=== PATIENT | male | born 1960 | race Caucasian/White ===

== ENCOUNTER 2017-10-18 14:33 | Emergency (ER) | payer MEDICARE, MEDICAID ==
[~2017-10-18] VITALS: Ht 152.4 cm; Wt 63.5 kg
[~2017-10-18 14:33] MED LIST: DIPH25TA31 PO; GEMF600T3 PO; LEVE500T99 PO; LEVO25TA5 PO; LORA-404 PO; LORA-407 PO; LORA10TA7 PO; MULT-11 PO; MULT-608 PO; NF-ESOM40C PO; RISP1TAB94 PO; SCR1T1 PO; SIME125T9 PO; SIME80TA16 PO; SIMV20TA3 PO; SUCR1TAB PO; TRAZ100T92 PO; [UNRECOGNIZED DRUG - CODE] TP; [UNRECOGNIZED DRUG - OTHER] TOP
--- OUTSIDE RECORDS SUMMARY | 2017-10-18 14:39 | XMS REPORT ---
Author Author EDWAR MERRILL Organization [employer] Address Unknown Phone Unavailable Care Team Providers Care Cigarette Inspector Name Role Phone EDWAR MERRILL CP Unavailable Allergies No Known Allergies Problems Problem Type Condition Code Onset Dates Condition Status Problem Equinus deformity of foot M21.6X9 Active Problem Down syndrome Q90.9 Active Problem Acquired hypothyroidism E03.9 Active Problem SunDown syndrome F05 Active Problem Insomnia, unspecified type G47.00 Active Problem Hypothyroidism (acquired) E03.9 Active Problem Excessive daytime sleepiness G47.19 Active Problem Hypoxia R09.02 Active Problem Hypersomnolence G47.10 Active Problem Left-sided weakness M62.81 Active Problem Fracture of humeral head, right, closed S42.291A Active Problem Severe mental retardation F72 Active Problem Dislocation of right hip S73.004A Active Problem Hyperlipidemia, unspecified hyperlipidemia E78.5 Active Problem Fat embolus T79.1XXA Active Problem Iron deficiency anemia, unspecified iron deficiency anemia type D50.9 Active Medications No Known Medications Results No Known Results Summary Purpose eClinicalWorks Submission
--- OUTSIDE RECORDS SUMMARY | 2017-10-18 14:40 | XMS REPORT ---
Author Author SHAUN ARELLANO [facility] eClinicalWorks Address Unknown Phone Unavailable Care Team Providers Care Supervisor Tower Name Role Phone SHAUN ARELLANO CP Unavailable Allergies, Adverse Reactions, Alerts Substance Reaction Event Type Naproxen Info Not Available Drug Allergy Benadryl hyperactivity Drug Allergy Problems Problem Type Condition Code Onset Dates Condition Status Problem Equinus deformity of foot M21.6X9 Active Problem Down syndrome Q90.9 Active Problem Acquired hypothyroidism E03.9 Active Problem SunDown syndrome F05 Active Problem Insomnia, unspecified type G47.00 Active Problem Hypothyroidism (acquired) E03.9 Active Problem Excessive daytime sleepiness G47.19 Active Problem Hypoxia R09.02 Active Problem Hypersomnolence G47.10 Active Problem Left-sided weakness M62.81 Active Assessment Suspected urinary tract infection N39.0 Active Problem Fracture of humeral head, right, closed S42.291A Active Problem Severe mental retardation F72 Active Problem Dislocation of right hip S73.004A Active Problem Hyperlipidemia, unspecified hyperlipidemia E78.5 Active Problem Fat embolus T79.1XXA Active Problem Iron deficiency anemia, unspecified iron deficiency anemia type D50.9 Active Medications Medication Code System Code Instructions Start Date End Date Status Dosage Sucralfate [facility] [address]-39 1 GM Orally 3 times a day 1 tablet 1 hour before meals tylenol [facility] 0 1000 MG Orally 2 times a day 1 tablet as needed Keppra [facility] [address]-67 500 MG Orally 2 times a day 1 tablet Wheelchair [facility] 34467-[address]67 - with foot rests and cushion Aug 26, 2016 as directed Bactrim DS [facility] [address]-70 800-160 MG Orally Twice a day Sep 18, 2016 Sep 21, 2016 1 tablet Risperidone [facility] [address]-65 1 MG Orally Once a day 1 tablet Levothyroxine Sodium [facility] [address]-50 25 MCG Orally Once a day Sep 11, 2016 1 tablet on an empty stomach in the morning Lamisil [facility] [address]-06 250 MG Orally Once a day Aug 26, 2016 Nov 24, 2016 1 tablet Wheelchair [facility] 0 Manual as needed for movement as he is unable to walk as directed Mytab Gas [facility] [address]-44 80 MG Orally Four times a day 1 tablet after meals and at bedtime as needed Ambien [facility] [address]-05 10 mg Orally Once a day Sep 14, 2016 1 tablet at bedtime Eucerin [facility] [address]-29 ... Externally (topical) Once a day 1 application at bathtime for Chronic Dermatitis Loratadine [facility] [address]-39 10 mg Orally Once a day 1 tablet Procedures Procedure Coding System Code Date Office Visit, Est Pt., Level 3 CPT-4 96256 Sep 18, 2016 [facility] VISIT ESTABLISHED PATIENT CPT-4 G0467 Sep 18, 2016 Vital Signs Date/Time: Sep 18, 2016 Cardiac Monitoring Heart Rate 76 bpm Weight 168 lbs Height 62 in BMI 30.72 Index Blood Pressure Diastolic 68 mmHg Blood Pressure Systolic 104 mmHg Results No Known Results Summary Purpose eClinicalWorks Submission
--- OUTSIDE RECORDS SUMMARY | 2017-10-18 14:40 | XMS REPORT ---
Author Author EDWAR MERRILL [facility] eClinicalWorks Address Unknown Phone Unavailable Care Team Providers Care Pattern Stamper Name Role Phone EDWAR MERRILL CP Unavailable Allergies, Adverse Reactions, Alerts Substance Reaction Event Type Naproxen Info Not Available Drug Allergy Problems Problem Type Condition Code Onset Dates Condition Status Problem Hyperlipidemia, unspecified hyperlipidemia E78.5 Active Problem Equinus deformity of foot M21.6X9 Active Problem Iron deficiency anemia, unspecified iron deficiency anemia type D50.9 Active Problem Hypersomnolence G47.10 Active Problem Left-sided weakness M62.81 Active Problem Insomnia, unspecified type G47.00 Active Problem Down syndrome Q90.9 Active Problem Acquired hypothyroidism E03.9 Active Problem Excessive daytime sleepiness G47.19 Active Problem Hypoxia R09.02 Active Assessment Acquired hypothyroidism E03.9 Active Assessment Onychomycosis B35.1 Active Assessment Other displaced fracture of upper end of right humerus, initial encounter for closed fracture S42.291A Active Assessment Iron deficiency anemia, unspecified iron deficiency anemia type D50.9 Active Problem Dislocation of right hip S73.004A Active Problem Fat embolus T79.1XXA Active Assessment Encounter for immunization Z23 Active Problem Fracture of humeral head, right, closed S42.291A Active Assessment Status post stroke Z86.73 Active Problem Severe mental retardation F72 Active Medications Medication Code System Code Instructions Start Date End Date Status Dosage Trazodone HCl [facility] [address]-82 50 mg Orally Once a day Aug 21, 2016 1 - 2 tablets at bedtime as needed Eucerin [facility] [address]-04 ... Externally (topical) Once a day 1 application at bathtime for Chronic Dermatitis Keppra [facility] [address]-03 500 MG Orally 2 times a day 1 tablet Mytab Gas [facility] [address]-49 80 MG Orally Four times a day 1 tablet after meals and at bedtime as needed Lamisil [facility] [address]-23 250 MG Orally Once a day Aug 26, 2016 Nov 24, 2016 1 tablet Sucralfate [facility] [address]-64 1 GM Orally 3 times a day 1 tablet 1 hour before meals Wheelchair NDC 0 Manual as needed for movement as he is unable to walk as directed tylenol NDC 0 500 Oral bedtime 1 tab Loratadine [facility] [address]-78 10 mg Orally Once a day 1 tablet Wheelchair [facility] 79617-85512 - with foot rests and cushion Aug 26, 2016 as directed Procedures Procedure Coding System Code Date [facility] VISIT ESTABLISHED PATIENT CPT-4 G0467 Aug 26, 2016 Office Visit, Est Pt., Level 3 CPT-4 38800 Aug 26, 2016 [facility] NOBLL Aug 26, 2016 VENIPUNCT, ROUTINE* CPT-4 67130 Aug 26, 2016 FLUARIX QUAD P-FREE 3 AND UP .50 2015 CPT-4 12805 Aug 26, 2016 PPV23 (PNEUMOVAX) CPT-4 07958 Aug 26, 2016 IMMUNIZATION ADMIN, EACH ADD (please include units) CPT-4 82997 Aug 26, 2016 SINGLE IMMUNIZATION ADMIN CPT-4 60227 Aug 26, 2016 Vital Signs Date/Time: Aug 26, 2016 Cardiac Monitoring Heart Rate 76 bpm Weight 140 lbs Height 62 in BMI 25.60 Index Blood Pressure Diastolic 70 mmHg Blood Pressure Systolic 120 mmHg Results Name Result Date Reference Range Unit Abnormality Flag ROUTINE VENIPUNCTURE Immunizations Vaccine Administration Date PPV23 (PNEUMOVAX) Aug 26, 2016 FLUARIX QUAD P-FREE 3 AND UP .50 2015Aug 26, 2016 Summary Purpose eClinicalWorks Submission
--- OUTSIDE RECORDS SUMMARY | 2017-10-18 14:44 | XMS REPORT ---
Author Author EDWAR MERRILL Organization eClinicalWorks Address Unknown Phone Unavailable Care Team Providers Care Pediatric Clinical Dietician Name Role Phone EDWAR MERRILL CP Unavailable [...] G47.19 Active Problem Hypoxia R09.02 Active Problem Dislocation of right hip S73.004A Active Problem Fat embolus T79.1XXA Active Problem Fracture of humeral head, right, closed S42.291A Active Assessment Insomnia, unspecified type G47.00 Active Problem Severe mental retardation F72 Active Medications Medication Code System Code Instructions Start Date End Date Status Dosage Trazodone HCl [facility][NOTE 3] [address]-52 100 MG Orally Once a day Aug 21, 2016 1 tablet at bedtime Results No Known Results Summary Purpose eClinicalWorks Submission
--- OUTSIDE RECORDS SUMMARY | 2017-10-18 14:45 | XMS REPORT ---
Author Author EDWAR MERRILL Organization [employer]Works Address Unknown Phone Unavailable Care Team Providers Care Bread Baker Name Role Phone EDWAR MERRILL CP Unavailable Allergies No Known Allergies Problems Problem Type Condition Code Onset Dates Condition Status Problem Severe mental retardation F72 Active Problem Iron deficiency anemia, unspecified iron deficiency anemia type D50.9 Active Problem Hyperlipidemia, unspecified hyperlipidemia E78.5 Active Problem Left-sided weakness M62.81 Active Problem Excessive daytime sleepiness G47.19 Active Problem Hypersomnolence G47.10 Active Problem Acquired hypothyroidism E03.9 Active Problem Equinus deformity of foot M21.6X9 Active Problem Hypoxia R09.02 Active Problem Down syndrome Q90.9 Active Assessment Hospice care Z51.5 Active Problem Dislocation of right hip S73.004A Active Problem Fat embolus T79.1XXA Active Problem Fracture of humeral head, right, closed S42.291A Active Medications Medication Code System Code Instructions Start Date End Date Status Dosage Mytab Gas [facility] [address]-44 80 MG TAKE ONE TABLET ORALLY FOUR TIMES DAILY FOR GAS Loratadine [facility] [address]-34 10 mg TAKE 1 TABLET ORALLY DAILY Nexium [facility] [address]-81 40 mg March 19, 2016 1 capsule by Oral route 1 time per day Sucralfate [facility] [address]-84 1 GM TAKE 1 TABLET ORALLY THREE TIMES A DAY Results No Known Results Summary Purpose eClinicalWorks Submission
--- OUTSIDE RECORDS SUMMARY | 2017-10-18 14:45 | XMS REPORT ---
Author Author EDWAR MERRILL Organization [facility] Address [address] [place] [address] Care Team Providers Care Fruit Cutter Name Role Phone EDWAR MERRILL Unavailable PROBLEMS Type Condition ICD9-CM Code RTT25-EM Code Onset Dates Condition Status SNOMED Code Problem Iron deficiency anemia, unspecified iron deficiency anemia type D50.9 Active 29192117 Problem Acquired hypothyroidism E03.9 Active 981995970 Problem Equinus deformity of foot M21.6X9 Active 145216683 Problem Insomnia, unspecified type G47.00 Active 202185411 Problem Hypersomnolence G47.10 Active 44093208 Problem Hypoxia R09.02 Active 423479151 Problem Down syndrome Q90.9 Active 33578047 Problem Left-sided weakness M62.81 Active 13869953 Problem Excessive daytime sleepiness G47.19 Active 818159875019 Problem Fat embolus T79.1XXA Active 480324036 Problem Fracture of humeral head, right, closed S42.291A Active 783148787 Assessment Hip pain M25.559 27 Jul, 2016 Active 07004600 Problem Severe mental retardation F72 Active 18420656 Problem Dislocation of right hip S73.004A Active 817077610 Problem Hyperlipidemia, unspecified hyperlipidemia E78.5 Active 25001625 ALLERGIES Unknown Allergies SOCIAL HISTORY No smoking Hx information available PLAN OF CARE VITAL SIGNS MEDICATIONS Unknown Medications RESULTS Name Result Date Reference Range Xray : Hip, Right 2 views (IN HOUSE) 2016-08-25 PROCEDURES Procedure Date Ordered Related Diagnosis Body Site X-RAY EXAM HIP UNI 2-3 VIEWS Aug 25, 2016 IMMUNIZATIONS No Known Immunizations
--- OUTSIDE RECORDS SUMMARY | 2017-10-18 14:45 | XMS REPORT ---
Author Author IMANI PALMA Organization [facility] Address [address] [place] [address] Care Team Providers Care Incident Engineer Name Role Phone IMANI PALMA Unavailable PROBLEMS Type Condition ICD9-CM Code [id number] Code Onset Dates Condition Status SNOMED Code Problem Hyperlipidemia, unspecified hyperlipidemia E78.5 Active 63460081 Problem Hypoxia R09.02 Active 746305977 Problem Severe mental retardation F72 Active 76580019 Problem SunDown syndrome F05 Active 513572743 Problem Insomnia, unspecified type G47.00 Active 032384369 Problem Left-sided weakness M62.81 Active 83070725 Problem Down syndrome Q90.9 Active 28443756 Problem Hypersomnolence G47.10 Active 08197505 Problem Excessive daytime sleepiness G47.19 Active 612672017712 Problem Fracture of humeral head, right, closed S42.291A Active 066803283 Problem Acquired hypothyroidism E03.9 Active 400875424 Problem Dislocation of right hip S73.004A Active 829401354 Problem Equinus deformity of foot M21.6X9 Active 024509701 Problem Fat embolus T79.1XXA Active 010351564 Problem Iron deficiency anemia, unspecified iron deficiency anemia type D50.9 Active 62215293 ALLERGIES Substance Reaction Event Type Date Status Naproxen Unknown Drug Allergy Nov, Active Benadryl hyperactivity Drug Allergy Nov, Active SOCIAL HISTORY No smoking Hx information available PLAN OF CARE Activity Details Follow Up prn Reason: VITAL SIGNS Height 62 in 2016-12-28 Temperature 97.0 degrees Fahrenheit 2016-12-28 Heart Rate 76 bpm 2016-12-28 Respiratory Rate 20 2016-12-28 Blood pressure systolic 96 mmHg 2016-12-28 Blood pressure diastolic 60 mmHg 2016-12-28 MEDICATIONS Medication Instructions Dosage Frequency Start Date End Date Duration Status Mytab Gas 80 MG CHEW 1 TABLET ORALLY FOUR TIMES DAILY AFTER MEALS AND AT BEDTIME 31 Active tylenol 1000 MG Orally 2 times a day 1 tablet as needed 12h 31 days Active Levetiracetam 500 MG Orally every 12 hrs 12h Active Sucralfate 1 GM Orally 3 times a day 1 tablet 1 hour before meals 8h 31 Active Eucerin ... Externally (topical) Once a day 1 application at bathtime for Chronic Dermatitis 24h Active Doxepin HCl 50 mg Orally Once a day 1 capsule at bedtime 24h 08 Oct, 2016 31 days Active Keppra 750 MG Orally 2 times a day 1 tablet 12h Active Bactrim DS 800-160 MG Orally Twice a day 1 tablet 12h 30 Nov, 2016 9 Dec, 2016 10 day(s) Active Wheelchair - as directed Jul, Active Wheelchair Manual as directed Active Levothyroxine Sodium 50 MCG Orally Once a day 1 tablet on an empty stomach in the morning 24h Aug, 31 days Active Simethicone 80 MG Orally Four times a day 1 tablet after meals and at bedtime as needed 6h Active Loratadine 10 mg Orally Once a day 1 tablet 24h 31 Active Aspirin Adult Low Strength 81 MG Orally Once a day 1 tablet 24h 25 Oct, 2016 Active RESULTS No Results PROCEDURES Procedure Date Ordered Related Diagnosis Body Site [facility] VISIT ESTABLISHED PATIENT Dec 28, 2016 Office Visit, Est Pt., Level 3 Dec 28, 2016 IMMUNIZATIONS No Known Immunizations
--- OUTSIDE RECORDS SUMMARY | 2017-10-18 14:45 | XMS REPORT ---
Author MAXIMUS David [facility] eClinicalWorks Address Unknown Phone Unavailable Care Team Providers Care Incendiary Powder Mixer Name Role Phone MAXIMUS HEAD CP Unavailable Allergies, Adverse Reactions, Alerts Substance Reaction Event Type Naproxen Info Not Available Drug Allergy Problems Problem Type Condition Code Onset Dates Condition Status Assessment Acute upper respiratory infection, unspecified J06.9 Active Problem Unspecified iron deficiency anemia 280.9 Active Problem Routine general medical examination at health care facility V70.0 Active Assessment Down syndrome Q90.9 Active Assessment Other viral agents as the cause of diseases classified elsewhere B97.89 Active Problem Dermatophytosis of foot 110.4 Active Problem Allergy, unspecified not elsewhere classified 995.3 Active Problem Hyperlipidemia 272.4 Active Problem Special screening for malignant neoplasms, colon V76.51 Active Problem Special screening for malignant neoplasm of prostate V76.44 Active Problem Unspecified hypothyroidism 244.9 Active Problem Equinus deformity of foot, acquired 736.72 Active Medications Medication Code System Code Instructions Start Date End Date Status Dosage Eucerin [facility] [address] Externally (topical) Once a day 1 application Simethicone [facility] [address]-31 80 MG Orally Four times a day 1 tablet after meals and at bedtime as needed Multivitamins [facility] 57568-88471 Orally Once a day 1 tablet Multi-Vitamins [facility] 79782209382 1 tablet by Oral route 1 time per day Sucralfate [facility] [address]-94 1 GM Orally 3 times a day 1 tablet on an empty stomach Loratadine [facility] [address]-13 10 MG Orally Once a day 1 tablet Lamisil [facility] 62548223650 250 MG Orally Once a day 1 tablet Nexium [facility] 53486166642 40 MG 1 capsule by Oral route 1 time per day Simvastatin [facility] [address]-55 20 MG Orally Once a day 1 tablet in the evening Levothyroxine Sodium [facility] [address]-96 25 MCG Orally Once a day 1 tablet Gemfibrozil [facility] [address]-79 600 MG Orally Twice a day 1 tablet Procedures Procedure Coding System Code Date Office Visit, Est Pt., Level 3 CPT-4 54600 Oct 07, 2015 [facility] VISIT ESTABLISHED PATIENT CPT-4 G0467 Oct 07, 2015 Vital Signs Date/Time: Oct 07, 2015 Temperature 97.7 F Weight 154.9 lbs Height 62 in BMI 28.33 Index Blood Pressure Diastolic 88 mmHg Blood Pressure Systolic 128 mmHg Cardiac Monitoring Heart Rate 84 bpm Results No Known Results Summary Purpose eClinicalWorks Submission
--- OUTSIDE RECORDS SUMMARY | 2017-10-18 14:45 | XMS REPORT ---
Author Author EDWAR MERRILL [facility] eClinicalWorks Address Unknown Phone Unavailable Care Team Providers Care Paver Installer Name Role Phone EDWAR MERRILL CP Unavailable [...] Active Problem Left-sided weakness M62.81 Active Assessment Insomnia, unspecified type G47.00 Active Problem Fracture of humeral head, right, closed S42.291A Active Problem Severe mental retardation F72 Active Problem Dislocation of right hip S73.004A Active Problem Hyperlipidemia, unspecified hyperlipidemia E78.5 Active Problem Fat embolus T79.1XXA Active Problem Iron deficiency anemia, unspecified iron deficiency anemia type D50.9 Active Medications Medication Code System Code Instructions Start Date End Date Status Dosage tylenol NDC 0 1000 MG Orally 2 times a day 1 tablet as needed Wheelchair [facility] 88[address]341 - with foot rests and cushion Aug 26, 2016 as directed Ambien [facility] [address]-28 10 mg Orally Once a day Sep 14, 2016 1 tablet at bedtime Mytab Gas [facility] [address]-67 80 MG Orally Four times a day 1 tablet after meals and at bedtime as needed Lamisil [facility] [address]-20 250 MG Orally Once a day Aug 26, 2016 Nov 24, 2016 1 tablet Wheelchair NDC 0 Manual as needed for movement as he is unable to walk as directed Levothyroxine Sodium [facility] [address]-49 25 MCG Orally Once a day Sep 11, 2016 1 tablet on an empty stomach in the morning Risperidone [facility] [address]-99 1 MG Orally Once a day 1 tablet Eucerin [facility] [address]-32 ... Externally (topical) Once a day 1 application at bathtime for Chronic Dermatitis Sucralfate [facility] [address]-78 1 GM Orally 3 times a day 1 tablet 1 hour before meals Loratadine [facility] [address]-62 10 mg Orally Once a day 1 tablet Keppra [facility] [address]-32 500 MG Orally 2 times a day 1 tablet Results No Known Results Summary Purpose eClinicalWorks Submission
--- OUTSIDE RECORDS SUMMARY | 2017-10-18 14:45 | XMS REPORT ---
Author Author EDWAR MERRILL [facility] eClinicalWorks Address Unknown Phone Unavailable Care Team Providers Care Lgsw Name Role Phone EDWAR MERRILL CP Unavailable [...] R09.02 Active Problem Down syndrome Q90.9 Active Problem Dislocation of right hip S73.004A Active Problem Fat embolus T79.1XXA Active Problem Fracture of humeral head, right, closed S42.291A Active Medications No Known Medications Results No Known Results Summary Purpose eClinicalWorks Submission
--- OUTSIDE RECORDS SUMMARY | 2017-10-18 14:45 | XMS REPORT ---
Author Author EDWAR MERRILL Organization [employer] Address Unknown Phone Unavailable Care Team Providers Care Shredded Filler Machine Wrapper Layer Name Role Phone EDWAR MERRILL CP Unavailable Allergies No Known Allergies Problems Problem Type Condition ICD-9 Code Onset Dates Condition Status Problem Unspecified iron deficiency anemia 280.9 Active Problem Routine general medical examination at health care facility V70.0 Active Problem Dermatophytosis of foot 110.4 Active Problem Allergy, unspecified not elsewhere classified 995.3 Active Problem Hyperlipidemia 272.4 Active Problem Special screening for malignant neoplasms, colon V76.51 Active Problem Special screening for malignant neoplasm of prostate V76.44 Active Problem Unspecified hypothyroidism 244.9 Active Problem Equinus deformity of foot, acquired 736.72 Active Medications No Known Medications Vital Signs Date/Time: Aug 06, 2015 BMI 28.16 Index Weight 154 lbs Height 62 in Results No Known Results Summary Purpose eClinicalWorks Submission
--- OUTSIDE RECORDS SUMMARY | 2017-10-18 14:45 | XMS REPORT ---
Author Author EDWAR MERRILL Organization [employer] Address Unknown Phone Unavailable Care Team Providers Care Icer Machine Operator Name Role Phone EDWAR MERRILL CP Unavailable [...] Problem Severe mental retardation F72 Active Medications No Known Medications Results No Known Results Summary Purpose eClinicalWorks Submission
--- OUTSIDE RECORDS SUMMARY | 2017-10-18 14:47 | XMS REPORT ---
Author Author ERMA JIMENEZ Organization [employer]Works Address Unknown Phone Unavailable Care Team Providers Care Bank Cashier Name Role Phone ERMA JIMENEZ CP Unavailable Allergies No Known Allergies Problems [...] Instructions Start Date End Date Status Dosage Nystatin [facility] [address]-46 [id number] UNIT/ML Mouth/Throat March 23, 2016 as directed Results No Known Results Summary Purpose eClinicalWorks Submission
--- OUTSIDE RECORDS SUMMARY | 2017-10-18 14:47 | XMS REPORT ---
Author Author EDWAR MERRILL [facility] eClinicalWorks Address Unknown Phone Unavailable Care Team Providers Care Hand Printed Circuit Board Assembler Name Role Phone EDWAR MERRILL CP Unavailable [...] Active Problem Left-sided weakness M62.81 Active Assessment Unspecified subluxation of right hip, initial encounter S73.001A Active Assessment SunDown syndrome F05 Active Problem Fracture of humeral head, right, closed S42.291A Active Problem Severe mental retardation F72 Active Problem Dislocation of right hip S73.004A Active Problem Hyperlipidemia, unspecified hyperlipidemia E78.5 Active Problem Fat embolus T79.1XXA Active Problem Iron deficiency anemia, unspecified iron deficiency anemia type D50.9 Active Medications Medication Code System Code Instructions Start Date End Date Status Dosage tylenol ND 0 1000 MG Orally 2 times a day 1 tablet as needed Levothyroxine Sodium [facility] [address]-38 25 MCG Orally Once a day Sep 11, 2016 1 tablet on an empty stomach in the morning Sucralfate [facility] [address]-76 1 GM Orally 3 times a day 1 tablet 1 hour before meals Ambien [facility] [address]-40 10 mg Orally Once a day Sep 14, 2016 1 tablet at bedtime as needed Mytab Gas [facility] [address]-60 80 MG Orally Four times a day 1 tablet after meals and at bedtime as needed Wheelchair [facility] [address] - with foot rests and cushion Aug 26, 2016 as directed Eucerin [facility] [address]-08 ... Externally (topical) Once a day 1 application at bathtime for Chronic Dermatitis Loratadine [facility] [address]-73 10 mg Orally Once a day 1 tablet Wheelchair ND 0 Manual as needed for movement as he is unable to walk as directed Lamisil [facility] [address]-37 250 MG Orally Once a day Aug 26, 2016 Nov 24, 2016 1 tablet Keppra [facility] [address]-28 500 MG Orally 2 times a day 1 tablet Risperidone [facility] [address]-61 1 MG Orally Once a day 1 tablet Procedures Procedure Coding System Code Date Office Visit, Est Pt., Level 3 CPT-4 35481 Sep 14, 2016 [facility] VISIT ESTABLISHED PATIENT CPT-4 G0467 Sep 14, 2016 Vital Signs Date/Time: Sep 14, 2016 Cardiac Monitoring Heart Rate 80 bpm Weight 168 lbs Height 62 in BMI 30.72 Index Blood Pressure Diastolic 68 mmHg Blood Pressure Systolic 110 mmHg Results No Known Results Summary Purpose eClinicalWorks Submission
--- OUTSIDE RECORDS SUMMARY | 2017-10-18 14:47 | XMS REPORT ---
Author Author EDWAR MERRILL [facility] Address [address] [place] [address] Care Team Providers Care Railroad Construction Director Name Role Phone EDWAR MERRILL Unavailable PROBLEMS Type Condition ICD9-CM Code [id number] Code Onset Dates Condition Status SNOMED Code Problem Hyperlipidemia, unspecified hyperlipidemia E78.5 Active 15694757 Problem Equinus deformity of foot M21.6X9 Active 128477171 Problem Iron deficiency anemia, unspecified iron deficiency anemia type D50.9 Active 89658493 Problem Dislocation of right hip S73.004A Active 670799044 Problem Fat embolus T79.1XXA Active 345429065 Problem Fracture of humeral head, right, closed S42.291A Active 758173895 Problem Severe mental retardation F72 Active 55109457 Problem Hypersomnolence G47.10 Active 06807779 Problem Left-sided weakness M62.81 Active 65048050 Problem Down syndrome Q90.9 Active 81459140 Problem Acquired hypothyroidism E03.9 Active 386665456 Problem Excessive daytime sleepiness G47.19 Active 488031173762 Problem Hypoxia R09.02 Active 714046224 ALLERGIES Unknown Allergies SOCIAL HISTORY No smoking Hx information available PLAN OF CARE VITAL SIGNS MEDICATIONS Unknown Medications RESULTS No Results PROCEDURES No Known procedures IMMUNIZATIONS No Known Immunizations
--- OUTSIDE RECORDS SUMMARY | 2017-10-18 14:47 | XMS REPORT ---
Author Author EDWAR MERRILL [facility] Address [address] [place] [address] Care Team Providers Care Payroll Processor Name Role Phone EDWAR MERRILL Unavailable PROBLEMS Type Condition ICD9-CM Code YPN70-GE Code Onset Dates Condition Status SNOMED Code Problem Equinus deformity of foot M21.6X9 Active 518358803 Problem Down syndrome Q90.9 Active 71273836 Problem Acquired hypothyroidism E03.9 Active 334433018 Problem SunDown syndrome F05 Active 945778985 Problem Insomnia, unspecified type G47.00 Active 012515710 Problem Excessive daytime sleepiness G47.19 Active 891895685358 Problem Hypoxia R09.02 Active 955312964 Problem Hypersomnolence G47.10 Active 53080188 Problem Left-sided weakness M62.81 Active 57038650 Problem Fracture of humeral head, right, closed S42.291A Active 167922142 Problem Severe mental retardation F72 Active 33052479 Problem Dislocation of right hip S73.004A Active 353097004 Problem Hyperlipidemia, unspecified hyperlipidemia E78.5 Active 01552677 Problem Fat embolus T79.1XXA Active 665932178 Problem Iron deficiency anemia, unspecified iron deficiency anemia type D50.9 Active 02381549 ALLERGIES Unknown Allergies SOCIAL HISTORY No smoking Hx information available PLAN OF CARE VITAL SIGNS MEDICATIONS Medication Instructions Dosage Frequency Start Date End Date Duration Status Doxepin HCl 50 mg Orally Once a day 1 capsule at bedtime 24h Oct, 31 days Active RESULTS No Results PROCEDURES No Known procedures IMMUNIZATIONS No Known Immunizations
--- OUTSIDE RECORDS SUMMARY | 2017-10-18 14:47 | XMS REPORT ---
Author Author EDWAR MERRILL [facility] Address [address] [place] [address] Care Team Providers Care Pack Press Operator Name Role Phone EDWAR MERRILL Unavailable PROBLEMS Type Condition ICD9-CM Code RXY27-OI Code Onset Dates Condition Status SNOMED Code Problem Acquired hypothyroidism E03.9 Active 638962913 Problem Hypoxia R09.02 Active 960060384 Problem Down syndrome Q90.9 Active 93791132 Problem Hypothyroidism (acquired) E03.9 Active 429218889 Problem SunDown syndrome F05 Active 337006575 Problem Left-sided weakness M62.81 Active 74458321 Problem Excessive daytime sleepiness G47.19 Active 093470564271 Problem Insomnia, unspecified type G47.00 Active 819159027 Problem Hypersomnolence G47.10 Active 81886311 Problem Dislocation of right hip S73.004A Active 160522597 Problem Severe mental retardation F72 Active 12770445 Problem Hyperlipidemia, unspecified hyperlipidemia E78.5 Active 01330351 Problem Fat embolus T79.1XXA Active 911326334 Problem Iron deficiency anemia, unspecified iron deficiency anemia type D50.9 Active 54712040 Problem Fracture of humeral head, right, closed S42.291A Active 198853545 Problem Equinus deformity of foot M21.6X9 Active 415837041 ALLERGIES Unknown Allergies SOCIAL HISTORY No smoking Hx information available PLAN OF CARE VITAL SIGNS MEDICATIONS Medication Instructions Dosage Frequency Start Date End Date Duration Status Levothyroxine Sodium 50 MCG Orally Once a day 1 tablet on an empty stomach in the morning 24h Aug, 31 days Active RESULTS No Results PROCEDURES No Known procedures IMMUNIZATIONS No Known Immunizations
--- OUTSIDE RECORDS SUMMARY | 2017-10-18 14:48 | XMS REPORT ---
Author Author ERMA JIMENEZ Organization eClinicalWorks Address Unknown Phone Unavailable Care Team Providers Care Acid Operator Name Role Phone ERMA JIMENEZ CP Unavailable Allergies, Adverse Reactions, Alerts Substance [...] Instructions Start Date End Date Status Dosage Caden [facility] [address]-19 ... Externally (topical) Once a day 1 application at bathtime for Chronic Dermatitis Results No Known Results Summary Purpose eClinicalWorks Submission
--- OUTSIDE RECORDS SUMMARY | 2017-10-18 14:48 | XMS REPORT ---
Author Author EDWAR MERRILL [facility] eClinicalWorks Address Unknown Phone Unavailable Care Team Providers Care Service Station Console Operator Name Role Phone EDWAR MERRILL CP [...]
--- OUTSIDE RECORDS SUMMARY | 2017-10-18 14:48 | XMS REPORT ---
Author Author VIJAYA LOPEZ [facility] eClinicalWorks Address Unknown Phone Unavailable Care Team Providers Care Scrap Baler Name Role Phone VIJAYA LOPEZ CP Unavailable Allergies No Known Allergies Problems [...] R09.02 Active Problem Down syndrome Q90.9 Active Medications No Known Medications Results No Known Results Summary Purpose eClinicalWorks Submission
--- OUTSIDE RECORDS SUMMARY | 2017-10-18 14:49 | XMS REPORT ---
Author Author EDWAR MERRILL Organization eClinicalWorks Address Unknown Phone Unavailable Care Team Providers Care Head Mechanic Name Role Phone EDWAR MERRILL CP Unavailable [...] Instructions Start Date End Date Status Dosage Rachel [facility] [address]-79 10 mg Orally Once a day Sep 14, 2016 1 tablet at bedtime Results No Known Results Summary Purpose eClinicalWorks Submission
--- OUTSIDE RECORDS SUMMARY | 2017-10-18 14:49 | XMS REPORT ---
Author Author EDWAR MERRILL [facility] Address [address] [place] [address] Care Team Providers Care Grey Goods Marker Name Role Phone EDWAR MERRILL Unavailable PROBLEMS Type Condition ICD9-CM Code QEZ97-DN Code Onset Dates Condition Status SNOMED Code Problem Hyperlipidemia, unspecified hyperlipidemia E78.5 Active 28396194 Problem Equinus deformity of foot M21.6X9 Active 455406431 Problem Iron deficiency anemia, unspecified iron deficiency anemia type D50.9 Active 54136350 Problem Hypersomnolence G47.10 Active 80332903 Problem Left-sided weakness M62.81 Active 62117277 Problem Down syndrome Q90.9 Active 79547099 Problem Acquired hypothyroidism E03.9 Active 278347724 Problem Excessive daytime sleepiness G47.19 Active 789797344204 Problem Hypoxia R09.02 Active 669774192 Problem Dislocation of right hip S73.004A Active 051120690 Problem Fat embolus T79.1XXA Active 072915668 Problem Fracture of humeral head, right, closed S42.291A Active 527612655 Assessment Hospice care Z51.5 Jul, Active 120244795 Problem Severe mental retardation F72 Active 42742017 ALLERGIES Unknown Allergies SOCIAL HISTORY No smoking Hx information available PLAN OF CARE VITAL SIGNS MEDICATIONS Medication Instructions Dosage Frequency Start Date End Date Duration Status Sucralfate 1 GM Orally 3 times a day 1 tablet 1 hour before meals 8h 31 days Active Multivitamins Orally Once a day 1 tablet 24h Active Eucerin ... Externally (topical) Once a day 1 application at bathtime for Chronic Dermatitis 24h Active Loratadine 10 mg Orally Once a day 1 tablet 24h 31 days Active Mytab Gas 80 MG Orally Four times a day 1 tablet after meals and at bedtime as needed 6h 31 days Active Keppra 500 MG Orally 2 times a day 1 tablet 12h 31 days Active Nystatin 819756 UNIT/ML as directed 25 Apr, 2016 Active RESULTS No Results PROCEDURES No Known procedures IMMUNIZATIONS No Known Immunizations
--- OUTSIDE RECORDS SUMMARY | 2017-10-18 14:51 | XMS REPORT ---
Author Author EDWAR MERRILL Organization eClinicalWorks Address Unknown Phone Unavailable Care Team Providers Care Infrastructure Design Engineer Name Role Phone EDWAR MERRILL CP Unavailable [...]
--- OUTSIDE RECORDS SUMMARY | 2017-10-18 14:53 | XMS REPORT ---
Author Author EDWAR MERRILL Organization [facility] Address [address] [place] [address] Care Team Providers Care Audit Spec Name Role Phone DEWAR MERRILL Unavailable PROBLEMS Type Condition ICD9-CM Code KZA60-TM Code Onset Dates Condition Status SNOMED Code Problem Hyperlipidemia, unspecified hyperlipidemia E78.5 Active 18726451 Problem Hypoxia R09.02 Active 088497279 Problem Severe mental retardation F72 Active 67559250 Problem SunDown syndrome F05 Active 168681985 Problem Insomnia, unspecified type G47.00 Active 992019211 Problem Left-sided weakness M62.81 Active 88192811 Problem Down syndrome Q90.9 Active 42073709 Problem Hypersomnolence G47.10 Active 94785007 Problem Excessive daytime sleepiness G47.19 Active 626520759879 Problem Fracture of humeral head, right, closed S42.291A Active 843494420 Problem Acquired hypothyroidism E03.9 Active 863450590 Problem Dislocation of right hip S73.004A Active 092849244 Problem Equinus deformity of foot M21.6X9 Active 963069867 Problem Fat embolus T79.1XXA Active 547545802 Problem Iron deficiency anemia, unspecified iron deficiency anemia type D50.9 Active 29976036 ALLERGIES Unknown Allergies SOCIAL HISTORY No smoking Hx information available PLAN OF CARE VITAL SIGNS MEDICATIONS Unknown Medications RESULTS No Results PROCEDURES No Known procedures IMMUNIZATIONS No Known Immunizations
--- OUTSIDE RECORDS SUMMARY | 2017-10-18 14:53 | XMS REPORT ---
Author Author EDWAR MERRILL Organization eClinicalWorks Address Unknown Phone Unavailable Care Team Providers Care Machine Zipper Trimmer Name Role Phone EDWAR MERRILL CP Unavailable Allergies No Known Allergies Problems Problem Type Condition Code Onset Dates Condition Status Problem Iron deficiency anemia, unspecified iron deficiency anemia type D50.9 Active Problem Acquired hypothyroidism E03.9 Active Problem Equinus deformity of foot M21.6X9 Active Problem Insomnia, unspecified type G47.00 Active Problem Hypersomnolence G47.10 Active Problem Hypothyroidism (acquired) E03.9 Active Problem Hypoxia R09.02 Active Problem Down syndrome Q90.9 Active Problem Left-sided weakness M62.81 Active Problem Excessive daytime sleepiness G47.19 Active Problem Fat embolus T79.1XXA Active Problem Fracture of humeral head, right, closed S42.291A Active Problem Severe mental retardation F72 Active Problem Dislocation of right hip S73.004A Active Problem Hyperlipidemia, unspecified hyperlipidemia E78.5 Active Medications No Known Medications Results No Known Results Summary Purpose eClinicalWorks Submission
--- OUTSIDE RECORDS SUMMARY | 2017-10-18 14:53 | XMS REPORT ---
Author Author EDWAR MERRILL [facility] eClinicalWorks Address Unknown Phone Unavailable Care Team Providers Care Waistline Joiner Name Role Phone EDWAR MERRILL CP Unavailable Allergies No Known Allergies Problems Problem Type Condition Code Onset Dates Condition Status Problem Unspecified [...] Medications No Known Medications Vital Signs Date/Time: Sep 04, 2015 BMI 28.16 Index Weight 154 lbs Height 62 in Results No Known Results Summary Purpose eClinicalWorks Submission
--- OUTSIDE RECORDS SUMMARY | 2017-10-18 14:53 | XMS REPORT ---
Author Author EDWAR MERRILL [facility] Address [address] [place] [address] Care Team Providers Care Scoop Filler Name Role Phone EDWAR MERRILL Unavailable PROBLEMS Type Condition ICD9-CM Code PDE59-VN Code Onset Dates Condition Status SNOMED Code Problem Hyperlipidemia, unspecified hyperlipidemia E78.5 Active 32482353 Problem Hypoxia R09.02 Active 250134430 Problem Severe mental retardation F72 Active 37915307 Problem SunDown syndrome F05 Active 526264970 Problem Insomnia, unspecified type G47.00 Active 969654850 Problem Left-sided weakness M62.81 Active 70086522 Problem Down syndrome Q90.9 Active 05975164 Problem Hypersomnolence G47.10 Active 49777952 Problem Excessive daytime sleepiness G47.19 Active 764579838831 Problem Fracture of humeral head, right, closed S42.291A Active 902981916 Problem Acquired hypothyroidism E03.9 Active 748691269 Problem Dislocation of right hip S73.004A Active 659130158 Problem Equinus deformity of foot M21.6X9 Active 792982946 Problem Fat embolus T79.1XXA Active 223319317 Problem Iron deficiency anemia, unspecified iron deficiency anemia type D50.9 Active 90162797 ALLERGIES Substance Reaction Event Type Date Status Naproxen Unknown Drug Allergy Nov, Active Benadryl hyperactivity Drug Allergy Nov, Active SOCIAL HISTORY No smoking Hx information available PLAN OF CARE Activity Details Follow Up 6 Months Reason: VITAL SIGNS Height 62 in 2016-12-14 Heart Rate 92 bpm 2016-12-14 Respiratory Rate 18 2016-12-14 Blood pressure systolic 92 mmHg 2016-12-14 Blood pressure diastolic 60 mmHg 2016-12-14 MEDICATIONS Medication Instructions Dosage Frequency Start Date End Date Duration Status Loratadine 10 mg Orally Once a day 1 tablet 24h 31 Active Doxepin HCl 50 mg Orally Once a day 1 capsule at bedtime 24h Oct, 31 days Active Eucerin ... Externally (topical) Once a day 1 application at bathtime for Chronic Dermatitis 24h Active Sucralfate 1 GM Orally 3 times a day 1 tablet 1 hour before meals 8h 31 Active Wheelchair Manual as directed Active tylenol 1000 MG Orally 2 times a day 1 tablet as needed 12h 31 days Active Keppra 750 MG Orally 2 times a day 1 tablet 12h Active Aspirin Adult Low Strength 81 MG Orally Once a day 1 tablet 24h 25 Oct, 2016 Active Wheelchair - as directed Jul, Active Levothyroxine Sodium 50 MCG Orally Once a day 1 tablet on an empty stomach in the morning 24h 14 Aug, 2016 31 days Active Mytab Gas 80 MG CHEW 1 TABLET ORALLY FOUR TIMES DAILY AFTER MEALS AND AT BEDTIME 31 Active RESULTS No Results PROCEDURES Procedure Date Ordered Related Diagnosis Body Site [facility] VISIT ESTABLISHED PATIENT Dec 14, 2016 Office Visit, Est Pt., Level 3 Dec 14, 2016 IMMUNIZATIONS No Known Immunizations
--- OUTSIDE RECORDS SUMMARY | 2017-10-18 14:53 | XMS REPORT ---
Author Author EDWAR MERRILL Organization eClinicalWorks Address Unknown Phone Unavailable Care Team Providers Care Digital Coordinator Name Role Phone EDWAR MERRILL CP Unavailable [...] Active Problem Left-sided weakness M62.81 Active Assessment Screening for prostate cancer Z12.5 Active Assessment Hyperlipidemia, unspecified hyperlipidemia E78.5 Active Problem Fracture of humeral head, right, closed S42.291A Active Problem Severe mental retardation F72 Active Problem Dislocation of right hip S73.004A Active Problem Hyperlipidemia, unspecified hyperlipidemia E78.5 Active Problem Fat embolus T79.1XXA Active Problem Iron deficiency anemia, unspecified iron deficiency anemia type D50.9 Active Medications No Known Medications Procedures Procedure Coding System Code Date VENIPUNCT, ROUTINE* CPT-4 94936 Sep 30, 2016 [facility] C[facility]-4 NOBLL Sep 30, 2016 Results Name Result Date Reference Range Unit Abnormality Flag ROUTINE VENIPUNCTURE Summary Purpose eClinicalWorks Submission
--- OUTSIDE RECORDS SUMMARY | 2017-10-18 14:53 | XMS REPORT ---
Author Author EDWAR MERRILL [facility] Address [address] [place] [address] Care Team Providers Care Manufacturing Planner Name Role Phone EDWAR MERRILL Unavailable PROBLEMS Type Condition ICD9-CM Code ETA96-CO Code Onset Dates Condition Status SNOMED Code Problem Hyperlipidemia, unspecified hyperlipidemia E78.5 Active 07999289 Problem Equinus deformity of foot M21.6X9 Active 773409874 Problem Iron deficiency anemia, unspecified iron deficiency anemia type D50.9 Active 37113420 Problem Hypersomnolence G47.10 Active 78054324 Problem Left-sided weakness M62.81 Active 25166093 Problem Down syndrome Q90.9 Active 23213097 Problem Acquired hypothyroidism E03.9 Active 150376399 Problem Excessive daytime sleepiness G47.19 Active 153364388666 Problem Hypoxia R09.02 Active 213610969 Problem Dislocation of right hip S73.004A Active 004180435 Problem Fat embolus T79.1XXA Active 084026102 Problem Fracture of humeral head, right, closed S42.291A Active 610551915 Assessment Hip pain M25.559 13 Jul, 2016 Active 09592179 Problem Severe mental retardation F72 Active 14391344 ALLERGIES Unknown Allergies SOCIAL HISTORY No smoking Hx information available PLAN OF CARE VITAL SIGNS MEDICATIONS Unknown Medications RESULTS No Results PROCEDURES No Known procedures IMMUNIZATIONS No Known Immunizations
--- OUTSIDE RECORDS SUMMARY | 2017-10-18 14:53 | XMS REPORT ---
Author Author EDWAR MERRILL [facility] Address [address] [place] [address] Care Team Providers Care Technology Methodology Consultant Name Role Phone EDWAR MERRILL Unavailable PROBLEMS Type Condition ICD9-CM Code SEJ03-BV Code Onset Dates Condition Status SNOMED Code Problem Iron deficiency anemia, unspecified iron deficiency anemia type D50.9 Active 96394459 Problem Acquired hypothyroidism E03.9 Active 366391237 Problem Equinus deformity of foot M21.6X9 Active 208959851 Problem Insomnia, unspecified type G47.00 Active 067433265 Problem Hypersomnolence G47.10 Active 72526334 Problem Hypoxia R09.02 Active 985975533 Problem Down syndrome Q90.9 Active 24309650 Problem Left-sided weakness M62.81 Active 28528846 Problem Excessive daytime sleepiness G47.19 Active 862168128155 Problem Fat embolus T79.1XXA Active 731349786 Problem Fracture of humeral head, right, closed S42.291A Active 752190396 Assessment Fracture of humeral head, right, closed S42.291A Jul, Active 102830927 Problem Severe mental retardation F72 Active 11769670 Problem Dislocation of right hip S73.004A Active 968434171 Problem Hyperlipidemia, unspecified hyperlipidemia E78.5 Active 38352117 ALLERGIES Unknown Allergies SOCIAL HISTORY No smoking Hx information available PLAN OF CARE VITAL SIGNS MEDICATIONS Medication Instructions Dosage Frequency Start Date End Date Duration Status Eucerin ... Externally (topical) Once a day 1 application at bathtime for Chronic Dermatitis 24h Active Loratadine 10 mg Orally Once a day 1 tablet 24h 31 days Active Sucralfate 1 GM Orally 3 times a day 1 tablet 1 hour before meals 8h 31 days Active Multivitamins Orally Once a day 1 tablet 24h Active Nystatin 826739 UNIT/ML as directed Feb, Active Keppra 500 MG Orally 2 times a day 1 tablet 12h 31 days Active Wheelchair Manual as directed Active Mytab Gas 80 MG Orally Four times a day 1 tablet after meals and at bedtime as needed 6h 31 days Active Trazodone HCl 50 mg Orally Once a day 1 - 2 tablets at bedtime as needed 24h Jul, Active RESULTS No Results PROCEDURES No Known procedures IMMUNIZATIONS No Known Immunizations
--- OUTSIDE RECORDS SUMMARY | 2017-10-18 14:53 | XMS REPORT ---
Author Author EDWAR MERRILL Organization eClinicalWorks Address Unknown Phone Unavailable Care Team Providers Care Production Line Worker Name Role Phone EDWAR MERRILL CP Unavailable [...] humeral head, right, closed S42.291A Active Assessment Acquired hypothyroidism E03.9 Active Problem Severe mental retardation F72 Active Problem Dislocation of right hip S73.004A Active Problem Hyperlipidemia, unspecified hyperlipidemia E78.5 Active Medications Medication Code System Code Instructions Start Date End Date Status Dosage Levothyroxine Sodium [facility] [address]-09 25 MCG Orally Once a day Sep 11, 2016 1 tablet on an empty stomach in the morning Results No Known Results Summary Purpose eClinicalWorks Submission
--- OUTSIDE RECORDS SUMMARY | 2017-10-18 14:53 | XMS REPORT ---
Author Author EDWAR MERRILL [facility] eClinicalWorks Address Unknown Phone Unavailable Care Team Providers Care Sugar Controller Name Role Phone EDWAR MERRILL CP Unavailable [...]
--- OUTSIDE RECORDS SUMMARY | 2017-10-18 14:53 | XMS REPORT ---
Author Author EDWAR MERRILL Organization [facility] Address [address] [place] [address] Care Team Providers Care Sales Performance Analyst Name Role Phone EDWAR MERRILL Unavailable PROBLEMS Type Condition ICD9-CM Code [id number] Code Onset Dates Condition Status SNOMED Code Problem Equinus deformity of foot M21.6X9 Active 915094720 Problem Down syndrome Q90.9 Active 96041127 Problem Acquired hypothyroidism E03.9 Active 743497536 Problem SunDown syndrome F05 Active 584263813 Problem Insomnia, unspecified type G47.00 Active 115675733 Problem Excessive daytime sleepiness G47.19 Active 851173586820 Problem Hypoxia R09.02 Active 020479767 Problem Hypersomnolence G47.10 Active 37218350 Problem Left-sided weakness M62.81 Active 86197590 Problem Fracture of humeral head, right, closed S42.291A Active 793429399 Problem Severe mental retardation F72 Active 17833904 Problem Dislocation of right hip S73.004A Active 056962937 Problem Hyperlipidemia, unspecified hyperlipidemia E78.5 Active 79979735 Problem Fat embolus T79.1XXA Active 869113546 Problem Iron deficiency anemia, unspecified iron deficiency anemia type D50.9 Active 04119429 ALLERGIES Unknown Allergies SOCIAL HISTORY No smoking Hx information available PLAN OF CARE VITAL SIGNS MEDICATIONS Medication Instructions Dosage Frequency Start Date End Date Duration Status Keppra 750 MG Orally 2 times a day 1 tablet 12h Active Aspirin Adult Low Strength 81 MG Orally Once a day 1 tablet 24h 25 Oct, 2016 Active RESULTS No Results PROCEDURES No Known procedures IMMUNIZATIONS No Known Immunizations
--- OUTSIDE RECORDS SUMMARY | 2017-10-18 14:53 | XMS REPORT ---
Author Author EDWAR MERRILL Organization [employer] Address Unknown Phone Unavailable Care Team Providers Care Public Health Administrator Name Role Phone EDWAR MERRILL CP Unavailable [...]
--- OUTSIDE RECORDS SUMMARY | 2017-10-18 14:53 | XMS REPORT ---
Author Author EDWAR MERRILL Organization [employer] Address Unknown Phone Unavailable Care Team Providers Care Log Hooker Name Role Phone EDWAR MERRILL CP Unavailable [...] times a day 1 tablet as needed Results No Known Results Summary Purpose [employer] Submission
--- OUTSIDE RECORDS SUMMARY | 2017-10-18 14:53 | XMS REPORT ---
Author Author EDWAR MERRILL [facility] Address [address] [place] [address] Care Team Providers Care Surgical Tech Name Role Phone EDWAR MERRILL Unavailable PROBLEMS Type Condition ICD9-CM Code [id number] Code Onset Dates Condition Status SNOMED Code Problem Iron deficiency anemia, unspecified iron deficiency anemia type D50.9 Active 54806486 Problem Acquired hypothyroidism E03.9 Active 482146064 Problem Equinus deformity of foot M21.6X9 Active 804474520 Problem Insomnia, unspecified type G47.00 Active 964847418 Problem Hypersomnolence G47.10 Active 60256407 Problem Hypoxia R09.02 Active 831571750 Problem Down syndrome Q90.9 Active 28727810 Problem Left-sided weakness M62.81 Active 77214927 Problem Excessive daytime sleepiness G47.19 Active 500336974465 Problem Fat embolus T79.1XXA Active 068407539 Problem Fracture of humeral head, right, closed S42.291A Active 969916760 Assessment Insomnia, unspecified type G47.00 Jul, Active 423843917 Problem Severe mental retardation F72 Active 38102125 Problem Dislocation of right hip S73.004A Active 138696472 Problem Hyperlipidemia, unspecified hyperlipidemia E78.5 Active 27902671 ALLERGIES Unknown Allergies SOCIAL HISTORY No smoking Hx information available PLAN OF CARE VITAL SIGNS MEDICATIONS Medication Instructions Dosage Frequency Start Date End Date Duration Status Trazodone HCl 50 mg Orally Once a day 1 - 2 tablets at bedtime as needed 24h Jul, Active Multivitamins Orally Once a day 1 tablet 24h Active Wheelchair Manual Active Keppra 500 MG Orally 2 times a day 1 tablet 12h 31 days Active Eucerin ... Externally (topical) Once a day 1 application at bathtime for Chronic Dermatitis 24h Active Sucralfate 1 GM Orally 3 times a day 1 tablet 1 hour before meals 8h 31 days Active Nystatin 597083 UNIT/ML as directed Feb, Active Mytab Gas 80 MG Orally Four times a day 1 tablet after meals and at bedtime as needed 6h 31 days Active Loratadine 10 mg Orally Once a day 1 tablet 24h 31 days Active RESULTS No Results PROCEDURES No Known procedures IMMUNIZATIONS No Known Immunizations
--- OUTSIDE RECORDS SUMMARY | 2017-10-18 14:54 | XMS REPORT ---
Author Author EDWAR MERRILL [facility] [employer] Address Unknown Phone Unavailable Care Team Providers Care Clinique Counter Manager Name Role Phone EDWAR MERRILL CP Unavailable [...] Active Problem Down syndrome Q90.9 Active Medications Medication Code System Code Instructions Start Date End Date Status Dosage Aspirin [facility] [address]-94 325 MG Orally Once a day March 11, 2016 1 tablet Results No Known Results Summary Purpose [employer] Submission
--- OUTSIDE RECORDS SUMMARY | 2017-10-18 14:54 | XMS REPORT ---
Author Author EDWAR MERRILL Organization [employer] Address Unknown Phone Unavailable Care Team Providers Care Armature Winder Repairer Name Role Phone EDWAR MERRILL CP Unavailable [...]
--- OUTSIDE RECORDS SUMMARY | 2017-10-18 14:54 | XMS REPORT ---
Author Author EDWAR MERRILL Organization [employer] Address Unknown Phone Unavailable Care Team Providers Care Gritting Machine Operator Name Role Phone EDWAR MERRILL [...]
--- OUTSIDE RECORDS SUMMARY | 2017-10-18 14:54 | XMS REPORT ---
Author Author PEDRO SALINAS [facility] [employer] Address Unknown Phone Unavailable Care Team Providers Care Marketing Instructor Name Role Phone PEDRO SALINAS Unavailable Allergies, Adverse Reactions, Alerts Substance Reaction Event Type Naproxen Info Not Available Drug Allergy Problems Problem Type Condition Code Onset Dates Condition Status Problem Equinus deformity of foot M21.6X9 Active Problem Iron deficiency anemia, unspecified iron deficiency anemia type D50.9 Active Problem Acquired hypothyroidism E03.9 Active Assessment Sinusitis J32.9 Active Assessment Encounter for immunization Z23 Active Problem Hyperlipidemia, unspecified hyperlipidemia E78.5 Active Problem Severe mental retardation F72 Active Medications Medication Code System Code Instructions Start Date End Date Status Dosage Sucralfate [facility] 05411733151 1 GM TAKE 1 TABLET ORALLY THREE TIMES A DAY Simvastatin [facility] 39529913145 20 MG TAKE ONE TABLET ORALLY EVERY NIGHT AT BEDTIME Simethicone [facility] [address]-70 80 MG Orally Four times a day 1 tablet after meals and at bedtime as needed Lamisil [facility] 66812895378 250 MG Orally Once a day 1 tablet Nexium [facility] 34211219696 40 MG 1 capsule by Oral route 1 time per day Mytab Gas [facility] 92603519114 80 MG TAKE ONE TABLET ORALLY FOUR TIMES DAILY FOR GAS Multi-Vitamins [facility] 34573525128 1 tablet by Oral route 1 time per day Levothyroxine Sodium [facility] [address]-23 25 MCG Orally Once a day 1 tablet Azithromycin [facility] [address]-85 250 MG Orally Once a day Nov 27, 2015 Dec 04, 2015 2 tablets on the first day, then 1 tablet daily for 6 days Eucerin [facility] 99752-[address]90 Externally (topical) Once a day 1 application Gemfibrozil [facility] 22098021074 600 MG TAKE 1 TABLET ORALLY TWICE A DAY Loratadine [facility] 34873850409 10 MG TAKE 1 TABLET ORALLY DAILY Multivitamins [facility] 88733-02836 Orally Once a day 1 tablet Procedures Procedure Coding System Code Date Office Visit, Est Pt., Level 3 CPT-4 85556 Nov 27, 2015 FLUARIX QUAD (3 & UP)-GSK-2014 CPT-4 81845 Nov 27, 2015 [facility] VISIT ESTABLISHED PATIENT CPT-4 G0467 Nov 27, 2015 SINGLE IMMUNIZATION ADMIN CPT-4 33328 Nov 27, 2015 Vital Signs Date/Time: Nov 27, 2015 Temperature 97.2 F Weight 148.0 lbs Height 62 in BMI 27.07 Index Blood Pressure Diastolic 82 mmHg Blood Pressure Systolic 118 mmHg Cardiac Monitoring Heart Rate 78 bpm Results No Known Results Immunizations Vaccine Administration Date FLUARIX QUAD (3 & UP)-GSK-2014Nov 27, 2015 Summary Purpose [employer] Submission
--- OUTSIDE RECORDS SUMMARY | 2017-10-18 14:54 | XMS REPORT ---
Author Author EDWAR MERRILL Organization [facility] Address [address] [place] [address] Care Team Providers Care Assistant Laboratory Director Name Role Phone EDWAR MERRILL Unavailable PROBLEMS Type Condition ICD9-CM Code WFM38-NU Code Onset Dates Condition Status SNOMED Code Problem Hyperlipidemia, unspecified hyperlipidemia E78.5 Active 29714908 Problem Hypoxia R09.02 Active 117440192 Problem Severe mental retardation F72 Active 94300167 Problem SunDown syndrome F05 Active 021508865 Problem Insomnia, unspecified type G47.00 Active 048224819 Problem Left-sided weakness M62.81 Active 99042494 Problem Down syndrome Q90.9 Active 31258462 Problem Hypersomnolence G47.10 Active 36571856 Problem Excessive daytime sleepiness G47.19 Active 803102787783 Problem Fracture of humeral head, right, closed S42.291A Active 814695931 Problem Acquired hypothyroidism E03.9 Active 259198395 Problem Dislocation of right hip S73.004A Active 531488918 Problem Equinus deformity of foot M21.6X9 Active 397866858 Problem Fat embolus T79.1XXA Active 703453120 Problem Iron deficiency anemia, unspecified iron deficiency anemia type D50.9 Active 91316185 ALLERGIES Unknown Allergies SOCIAL HISTORY No smoking Hx information available PLAN OF CARE VITAL SIGNS MEDICATIONS Unknown Medications RESULTS No Results PROCEDURES No Known procedures IMMUNIZATIONS No Known Immunizations
--- NOTE | 2017-10-18 15:27 | ED General ---
General Chief Complaint: General Problems/Pain Stated Complaint: CHOKED ON FOOD AT LUNCH Nursing Triage Note: TO ROOM 05 VIA WC. ORIGANALLY BROUGHT TO ER BECAUSE THEY FELT LIKE HE HAD A FOOD BOULS. ESCROW AGENT NOW STATES SHE DOES NOT THINK THIS IS TRUE BECUASE HE HAS QUIT COUGHING AND IS SITTING QUIETLY. CAREGIVER WOULD LIKE SOMETHING IN WRITING THAT STAFF NEEDS TO HAND FEED HIM. Nursing Sepsis Screen: No Definite Risk Source of Information: Patient, Caregiver Exam Limitations: No Limitations History of Present Illness Time Seen by Provider: 15:27 Initial Comments 57-year-old male patient presents to the emergency Department with reports of possibly choking on food bolus. Patient initially was coughing frequently. Caregiver reports the coughing episode has subsided and patient has been able to drink liquids without difficulty since the event happened 4 hours ago. Denies shortness of air, vomiting, abdominal pain. Timing/Duration: 4-6 Hours, Resolved Prior to Arrival Allergies and Home Medications Allergies Coded Allergies: naproxen (Unverified Allergy, Unknown, 02/21/16) Home Medications Esomeprazole Magnesium 40 Mg Cap, 40 MG PO DAILY, (Reported) 30 MINUTES PRIOR TO SUCRALFATE IN MORNING Levetiracetam 500 Mg Tablet, 500 MG PO BID, #60 Ref 0 Prescribed by: CALIXTO MCDONALD on 06/19/16 0335 Loratadine 10 Mg Tablet, 10 MG PO DAILY, (Reported) Risperidone 1 Mg Tablet, 1 MG PO after meals supper, #10 Prescribed by: HEBERT ZAMBRANO on 09/10/16 1607 Simethicone 80 Mg Tab.chew, 80 MG PO QID, (Reported) Sucralfate 1 Gm Tablet, 1 GM PO ACHS, (Reported) Trazodone HCl 100 Mg Tablet, 100 MG PO HS, (Reported) Constitutional: No chills, No diaphoresis, No fever, No malaise EENTM: no symptoms reported Respiratory: see HPI, No cough (denies current cough), No dyspnea on exertion, No short of breath, No stridor, No wheezing Cardiovascular: no symptoms reported Gastrointestinal: No abdominal pain, No diarrhea, No vomiting Genitourinary: no symptoms reported Skin: no symptoms reported All Other Systems Reviewed Negative Unless Noted: Yes (Negative excepted noted.) Past Ukwuoxg-Wyckgp-Wyqzyz Hx Patient Social History Alcohol Use: Denies Use Recreational Drug Use: No Smoking Status: Unknown if Ever Smoked Recent Foreign Travel: No Contact w/Someone Who Travel: No Recent Infectious Disease Expo: No Recent Hopitalizations: No Immunizations Up To Date Date of Influenza Vaccine: Nov 06, 2015 Surgeries History of Surgeries: Yes (2 cyst removed from spine years ago) Surgeries: Eye Surgery Respiratory History of Respiratory Disorde: No Cardiovascular History of Cardiac Disorders: Yes (HYPERLIPIDEMIA) Cardiac Disorders: High Cholesterol, Irregular Heartbeat Neurological History of Neurological Disord: Yes (profound mental retardation from Down syndrome and autism) Neurological Disorders: Seizure Disorder, Stroke Reproductive System Hx Reproductive Disorders: No Gastrointestinal History of Gastrointestinal Di: Yes Gastrointestinal Disorders: Gastrointestinal Bleed Musculoskeletal History of Musculoskeletal Dis: Yes (HIP DEFORMITIES) Endocrine History of Endocrine Disorders: No HEENT HEENT Disorders: Cataract Cancer History of Cancer: No Psychosocial History of Psychiatric Problem: Yes (profound mental retardation from Downs syndrome and autism) Behavioral Health Disorders: Sleep Difficulties Integumentary History of Skin or Integumenta: Yes (chronic dermatitis) Blood Transfusions History of Blood Disorders: No Reviewed Nursing Assessment Reviewed/Agree w Nursing PMH: Yes Family Medical History Significant Family History: Heart Disease Family Medial History: Cardiovascular disease 19 FATHER Physical Exam Vital Signs Vital Sign - Last 12Hours 10/18/17 14:51 Temp 98.0 Pulse 71 Resp 16 B/P (MAP) 91/64 Pulse Ox 96 O2 Delivery Room Air Capillary Refill : Less Than 3 Seconds General Appearance: No Apparent Distress, WD/WN HEENT: PERRL/EOMI, Pharynx Normal Neck: Normal Inspection, Supple Respiratory: Lungs Clear, Normal Breath Sounds, No Accessory Muscle Use, No Respiratory Distress Cardiovascular: Regular Rate, Rhythm, No Murmur Gastrointestinal: Normal Bowel Sounds, No Organomegaly, Non Tender, Soft Extremity: Normal Capillary Refill Neurologic/Psychiatric: Alert, Oriented x3, Normal Mood/Affect Skin: Normal Color, Warm/Dry Progress/Results/Core Measures Suspected Sepsis Recent Fever Within 48 Hours: No Infection Criteria Present: None New/Unexplained Altered Menta: No Sepsis Screen: No Definite Risk Sepsis Diagnosis: SIRS Temperature:98.0 Pulse: 71 Respiratory Rate: 16 Blood Pressure 64 / Mean: Results/Orders Vital Signs/I&O Vital Sign - Last 12Hours 10/18/17 10/18/17 14:51 15:43 Temp 98.0 98.0 Pulse 71 71 Resp 16 16 B/P (MAP) 91/64 Pulse Ox 96 96 O2 Delivery Room Air Capillary Refill : Less Than 3 Seconds Departure Communication (Admissions) Progress Notes Patient seen and evaluated. Patient sitting up in his wheelchair without difficulty. Patient is able to swallow his own saliva. Caregiver states she would not have brought him to be evaluated if it was not required for her to do so by adult day care services. Per caregiver Patient reportedly has been able to drink without difficulty prior to coming to the emergency department. We'll plan for discharge to home with follow-up as an outpatient with his PCP. Caregiver instructed to bring patient back to the emergency department immediately if symptoms recur. Caregiver states she will be with him at all times and will return immediately for any concerns. Impression Impression: Primary Impression: Well adult exam Disposition: 01 HOME, SELF-CARE Condition: Improved Departure-Patient Inst. Decision time for Depature: 15:37 Referrals: [facility] (PCP/Family) Primary Care Physician Patient Instructions: NO INSTRUCTIONS GIVEN Add. Discharge Instructions: All discharge instructions reviewed with patient and/or family. Voiced understanding. Continue usual home medications and diet. One-on-one cashier assistant for all meals and snacks. Follow-up with your primary care provider as needed. Return to the emergency department for worsened symptoms or any other concerns. LILLIE OCONNELL Oct 18, 2017 15:27
[2017-10-18 15:43] VITALS: BP 91/64
== END 2017-10-18 15:43 | disposition home or self-care (01) ==
LOC: EDUNIT# 14:33 → ER 14:35
DX: R05 Cough (principal); E78.00 Pure hypercholesterolemia, unspecified; G40.909 Epilepsy, unspecified, not intractable, without status epilepticus; Z86.73 Personal history of transient ischemic attack (TIA), and cerebral infarction without residual deficits; Z87.19 Personal history of other diseases of the digestive system; Z82.49 Family history of ischemic heart disease and other diseases of the circulatory system
CPT/HCPCS: 99281

== ENCOUNTER 2018-07-28 13:01 | Outpatient (RCR) | payer MEDICARE, MEDICAID ==
[~2018-07-28 13:01] MED LIST changes: +TRAZ-190 PO; -TRAZ100T92 PO
== END 2018-08-18 15:30 | disposition home or self-care (01) ==
PROVIDERS: ATTEND Nurse Practitioner Community Health
DX: R25.2 Cramp and spasm (principal); R53.1 Weakness

== ENCOUNTER 2018-09-20 08:52 | Inpatient (IN) | payer MEDICARE, MEDICAID ==
[~2018-09-20] VITALS: Ht 157.5 cm; Wt 47.6 kg
[2018-09-20] VITALS (15 sets, daily range): BP systolic 91–116; BP diastolic 52–80
--- OUTSIDE RECORDS SUMMARY | 2018-09-20 08:58 | XMS REPORT ---
Author Author BELKIS REY [facility] WALK IN [facility] Address [address] [place] [address] Care Team Providers Care Wrapper Sheeter Name Role Phone BELKIS REY Unavailable PROBLEMS Type Condition ICD9-CM Code IPL31-LF Code Onset Dates Condition Status SNOMED Code Problem Hypoxia R09.02 Active 807422155 Problem Left-sided weakness M62.81 Active 82123383 Problem Down syndrome Q90.9 Active 95183811 Problem Reactive depression F32.9 Active 62783197 Problem Poor balance R26.89 Active 719475287 Problem Insomnia, unspecified type G47.00 Active 638806808 Problem Hypersomnolence G47.10 Active 30414158 Problem Acute cystitis without hematuria N30.00 Active 08476701 Problem SunDown syndrome F05 Active 876488346 Problem Dislocation of right hip S73.004A Active 604305552 Problem Fat embolus T79.1XXA Active 412799224 Problem Acquired hypothyroidism E03.9 Active 720002826 Problem Hypoalbuminemia E88.09 Active 755272397 Problem Iron deficiency anemia, unspecified iron deficiency anemia type D50.9 Active 25936362 Problem Hyperlipidemia, unspecified hyperlipidemia E78.5 Active 67990928 Problem Fracture of humeral head, right, closed S42.291A Active 013293744 Problem Severe mental retardation F72 Active 32450030 Problem Equinus deformity of foot M21.6X9 Active 764555843 Problem Excessive daytime sleepiness G47.19 Active [id number] ALLERGIES Substance Reaction Event Type Date Status Naproxen Unknown Drug Allergy May, Active Benadryl hyperactivity Drug Allergy May, Active ENCOUNTERS Encounter Location Date Diagnosis [facility] [address] [facility] [id number] [place] [address] May, Swelling of right hand M79.89 [facility] [id number] [place] [address] 76204- 5383 May, Spasms of the hands or feet R25.2 ; Weakness R53.1 ; Poor balance R26.89 ; Acquired hypothyroidism E03.9 ; Reactive depression F32.9 and Insomnia, unspecified type G47.00 [place] [id number] [place] [address] 84640- 4270 March, Hypoalbuminemia E88.09 [place] [address] [address] March, Annual physical exam Z00.00 ; Hyperlipidemia, unspecified hyperlipidemia E78.5 ; Seizure R56.9 ; Down syndrome Q90.9 ; Insomnia, unspecified type G47.00 ; Left-sided weakness M62.81 ; Iron deficiency anemia, unspecified iron deficiency anemia type D50.9 ; Prostate cancer screening Z12.5 ; Acquired hypothyroidism E03.9 and Flat affect R45.89 [place] [address] [address] March, Annual physical exam Z00.00 ; Seizure R56.9 ; Down syndrome Q90.9 ; Insomnia, unspecified type G47.00 ; Hyperlipidemia, unspecified hyperlipidemia E78.5 ; Left-sided weakness M62.81 ; Iron deficiency anemia, unspecified iron deficiency anemia type D50.9 ; Prostate cancer screening Z12.5 ; Acquired hypothyroidism E03.9 ; Flat affect R45.89 and Weight loss R63.4 [facility] [id number] [place] [address] 78774 -2758 Feb, Acute cystitis without hematuria N30.00 [facility] [address] [place] [id number] [place] [address]10 [address] Jan, Cough R05 and Nasal congestion R09.81 [place] [id number] [place] [address] 94440- 3374 May, Acquired hypothyroidism E03.9 [place] [address] 35511- 0721 Feb, Acquired hypothyroidism E03.9 [facility] [address] [address] Feb, Acquired hypothyroidism E03.9 [place] [id number] [place] [address] 50279- 8128 Feb, [place] [id number] [place] [address] 02937- 4363 Feb, Acquired hypothyroidism E03.9 [facility] [id number] [place] [address] 60092- 3687 Jan, Annual physical exam Z00.00 ; Prostate cancer screening Z12.5 ; Acquired hypothyroidism E03.9 ; Iron deficiency anemia, unspecified iron deficiency anemia type D50.9 and Hyperlipidemia, unspecified hyperlipidemia E78.5 [place] [id number] [place] [address] 27299- 0927 Jan, Annual physical exam Z00.00 ; Acquired hypothyroidism E03.9 ; Screening for prostate cancer Z12.5 ; Hyperlipidemia, unspecified hyperlipidemia E78.5 ; Iron deficiency anemia, unspecified iron deficiency anemia type D50.9 ; Status post stroke Z86.73 ; Severe mental retardation F72 ; Left-sided weakness M62.81 ; Fracture of humeral head, right, closed S42.291A and Prostate cancer screening Z12.5 [facility] IN [facility] [id number] [address] Nov, Abscess of finger of right hand L02.511 [facility] [id number] [place] [address] 57885- 7626 Nov, [place] [id number] [place] [address] 10784- 6635 Nov, Seizure R56.9 ; Unspecified displaced fracture of surgical neck of right humerus, initial encounter for closed fracture S42.211A ; Severe mental retardation F72 and Insomnia, unspecified type G47.00 [place] [id number] [place] [address] 60616- 5799 Nov, Seizure R56.9 [facility] [id number] [place] [address] 44436- 5890 Nov, Insomnia, unspecified type G47.00 [facility] [id number] [place] [address] 16801- 5827 Oct, [facility] [id number] [place] [address] 48927- 2653 Oct, Acquired hypothyroidism E03.9 [facility] [id number] [place] [address] 06424- 9862 Oct, Onychomycosis B35.1 [facility] [id number] [place] [address] 41839- 8545 Oct, Onychomycosis B35.1 and Acquired hypothyroidism E03.9 [facility] [id number] [place] [address] 99839- 1772 Oct, Insomnia, unspecified type G47.00 [facility] [id number] [place] [address] 89539- 4405 Oct, [facility] [id number] [place] [address] 03261- 5152 Sep, [facility] [id number] [place] [address] 45722- 4471 Sep, [facility] [id number] [place] [address] 13846- 2162 Sep, Hyperlipidemia, unspecified hyperlipidemia E78.5 and Screening for prostate cancer Z12.5 [facility] WALK IN [facility] [id number] [place] [address] 06708 [address] Aug, Suspected urinary tract infection N39.0 [facility] [id number] [place] [address] 17888- 0466 Aug, Insomnia, unspecified type G47.00 [facility] [id number] [place] [address] 89043- 1241 Aug, [facility] [id number] [place] [address] 95698- 8200 Aug, Insomnia, unspecified type G47.00 [facility] [id number] [place] [address] 62360- 8475 Aug, SunDown syndrome F05 and Unspecified subluxation of right hip, initial encounter S73.001A [facility] [address] 17965- 9996 Aug, Acquired hypothyroidism E03.9 [place] [address] 66909- 3260 Aug, [facility] [id number] [place] [address] 02181- 1471 Aug, [facility] [address] 02593- 0486 Aug, [facility] [id number] [place] [address] 42489- 1007 Aug, [facility] [address] 21415- 7201 Aug, Insomnia, unspecified type G47.00 [facility] [id number] [place] [address] 96334- 9892 Aug, [facility] [id number] [place] [address] 45828- 5266 Jul, Status post stroke Z86.73 ; Encounter for immunization Z23 ; Onychomycosis B35.1 ; Acquired hypothyroidism E03.9 ; Iron deficiency anemia, unspecified iron deficiency anemia type D50.9 and Other displaced fracture of upper end of right humerus, initial encounter for closed fracture S42.291A [facility] [id number] [place] [address] 17973- 5945 27 Jul, 2016 Hip pain M25.559 [facility] [address] 63929- 0389 23 Jul, 2016 Fracture of humeral head, right, closed S42.291A [facility] [id number] [place] [address] 47085- 7588 21 Jul, 2016 Insomnia, unspecified type G47.00 and Fracture of humeral head, right, closed S42.291A [facility] [address] [id number], [place] [address]- 7642 15 Jul, 2016 [facility] [address] [facility] [id number] [place] [address] 38055- 5918 13 Jul, 2016 Hip pain M25.559 [facility] [address] [facility] [id number] [place] [address] 17973- 9395 08 Jul, 2016 Hospice care Z51.5 [facility] [address] [facility] [id number] [place] [address] 39629- 3500 Jun, [facility] [address] [facility] [id number] [place] [address] 66074- 6643 29 Feb, 2016 Hospice care Z51.5 [facility] [address] [facility] [id number] [place] [address] 27089- 8579 Feb, [facility] [id number] [place] [address] 34268- 2378 Feb, [facility] [address] [facility] [id number], [place] [address]- 8617 19 Feb, 2016 [facility] [address] [facility] [id number] [place] [address] 53541- 0657 18 Feb, 2016 [facility] [address] [facility] [id number], [place] [address]- 2772 14 Feb, 2016 [facility] [address] [facility] [id number] [place] [address] 41312- 3145 13 Feb, 2016 [facility] [address] [facility] [id number], [place] [address]- 2129 29 Jan, 2016 [facility] [address] [facility] [id number] [place] [address] 09478- 7052 29 Jan, 2016 Hypersomnolence G47.10 and Left-sided weakness M62.[address] 15771- 9283 28 Jan, 2016 Left-sided weakness M62.81 ; Excessive daytime sleepiness G47.19 ; Hypoxia R09.02 and Down syndrome Q90.[address] 91578- 3163 14 Jan, [address] 75397- 3267 14 Jan, 2016 Annual physical exam Z00.00 ; Acquired hypothyroidism E03.9 ; Iron deficiency anemia, unspecified iron deficiency anemia type D50.9 ; Hyperlipidemia, unspecified hyperlipidemia E78.5 ; Severe mental retardation F72 and Screening for prostate cancer Z12.[address] 76475- 9168 27 Nov, 2015 Onychomycosis B35.1 and Viral warts, unspecified type B07.[address] 55062- 7368 Oct, Sinusitis J32.9 and Encounter for immunization Z23 [place] [id number] [place] [address] 77756- 4432 09 Sep, 2015 Acute upper respiratory infection, unspecified J06.9 ; Other viral agents as the cause of diseases classified elsewhere B97.89 and Down syndrome Q90.9 [place] [id number] [place] [address] 71377- 5766 07 Aug, [address] 84292- 9244 16 Jul, 2015 Conjunctivitis 372.30 [place] [id number] [place] [address] 82804- 4007 08 Jul, [address] 32287- 7831 May, Onychomycosis 110.1 ; Hypothyroid 244.9 and Hyperlipidemia 272.4 [facility] [id number] [place] [address] 90434- 9571 Apr, [facility] [id number] [place] [address]- 4849 14 Feb, 2015 [facility] [id number] [place] [address] 33521- 8816 Feb, [facility] [id number] [place] [address], [place] [address]- 4272 Dec, [facility] [id number] [place] [address], [place] [address]- 6216 Dec, [facility] [id number] [place] [address] 12843- 6730 16 Dec, 2014 [facility] [id number] [place] [address] 24614- 0613 16 Dec, 2014 [facility] [address] [address]- 1086 Dec, [facility] [id number] [place] [address] 14693- 3423 Dec, [facility] [address] [address]- 4522 Dec, [facility] [address] [address]- 1572 Dec, 2014 [facility] [address] 9282 Dec, [facility] [address] 0736 Oct, [facility] [address] 2238 Oct, [facility] [address] [address]- 8708 Oct, [facility] [place] [facility] [address] [id number] [place] 4083 Oct, [facility] [place] [facility] [address] [id number] [place] [address]- 5930 Oct, [facility] [place] [facility] [address] [id number] [place] 8003 Oct, [facility] [place] [facility] [address] [id number] [place] [address]- 4980 Oct, [facility] [place] [facility] [address] [id number] [place] [address]- 1867 Oct, [facility] [place] [facility] [address] [id number] [place] [address]- 9498 Jun, [facility] [place] [facility] [address] [id number] [place] [address]- 5532 May, [facility] [place] [facility] [address] [id number] [place] [address]- 2071 May, [facility] [place] [facility] [address] [id number] [place] [address]- 4371 May, [facility] [place] [facility] [address] [id number] [place] [address]- 3662 Apr, [facility] [place] [facility] [address] [id number] [place] [address]- 7960 Apr, [facility] [place] [facility] [address] [id number] [place] [address]- 4908 March, [facility] [place] [facility] [address] [id number] [place] [address]- 1803 March, [facility] [place] [facility] [address] [id number] [place] [address]- 6137 Feb, [facility] [place] [facility] [address] [id number] [place] [address]- 7434 Feb, [facility] [place] [facility] [address] [id number] [place] [address]- 8064 18 Dec, 2013 [facility] [place] [facility] [address] [id number] [place] [address]- 9852 18 Dec, 2013 [facility] [place] [facility] [address] [id number] [place] [address]- 7566 14 Dec, 2013 [facility] [place] [facility] [address] [id number] [place] [address]- 1296 Dec, [facility] [place] [facility] [address] [id number] [place] [address]- 2545 Dec, [facility] [place] [facility] [address] [id number] [place] [address]- 2632 Dec, [facility] [place] [facility] [address] [id number] [place] [address]- 7779 Nov, [facility] [place] [facility] [address] [id number] [place] [address]- 0132 Nov, [facility] [place] [facility] [address] [id number] [place] [address]- 2174 Oct, [facility] [place] [facility] [address] [id number] [place] [address]- 5333 Oct, [facility] [place] [facility] [address] [id number] [place] [address]- 8985 Sep, [facility] [place] [facility] [address] [id number] [place] [address]- 0211 Sep, [facility] [place] [facility] [address] [id number] [place] [address]- 9668 Jul, [facility] [place] [facility] [address] [id number] [place] [address]- 254 24 Jul, 2013 [facility] [place] [facility] [address] [id number] [place] [address]- 2548 23 Jul, 2013 [facility] [place] [facility] [address] [id number] [place] [address]- 6581 Jun, [facility] [place] [facility] [address] [id number] [place] [address]- 4730 Jun, [facility] [place] [facility] [address] [id number] [place] [address]- 0627 Apr, [facility] [place] [facility] [address] [id number] [place] [address] 2546 March, [facility] [place] [facility] [address] [id number] [place] [address]- 5819 Dec, [facility] [place] [facility] [address] [id number] [place] [address] 2543 Dec, [facility] [place] [facility] [address] [id number] [place] [address]- 2021 Nov, [facility] [place] [facility] [address] [id number] [place] [address]- 7408 Sep, [facility] [place] [facility] [address] [id number] [place] [address]- 4931 Sep, [facility] [place] [facility] [address] [id number] [place] [address]- 1219 Aug, [facility] [place] [facility] [address] [id number] [place] [address]- 9109 Aug, [facility] [place] [facility] [address] [id number] [place] [address]- 0385 Jul, [facility] [place] [facility] [address] [id number] [place] [address]- 3550 Jul, [facility] [place] [facility] [address] [id number] [place] [address]- 6458 Jun, [facility] [place] [facility] [address] [id number] [place] [address]- 6486 Jun, [facility] [place] [facility] [address] [id number] [place] [address]- 2546 May, [facility] [place] [facility] [address] [id number] [place] [address]- 6004 May, [facility] [address] [id number] [place] [address]- 1593 May, [facility] [place] [facility] [address] [id number] [place] [address]- 8986 May, [facility] [address] [id number] [place] [address]- 2424 May, [facility] [place] [facility] [address] [id number] [place] [address]- 4213 May, [facility] [address] [id number] [place] [address]- 2322 Apr, [facility] [place] [facility] [address] [id number] [place] [address]- 9073 Feb, [facility] [place] [facility] [address] [id number] [place] [address]- 8358 Feb, [facility] [address] [id number] [place] [address]- 4905 Jan, [facility] [address] [id number] [place] [address]- 0818 Dec, [facility] [address] [id number] [place] [address]- 4566 Dec, [facility] [place] [facility] [address] [id number] [place] [address]- 9388 Dec, [facility] [place] [facility] [address] [id number] [place] [address]- 4657 Nov, [facility] [place] [facility] [address] [id number] [place] [address]- 4546 Nov, [facility] [place] [facility] [address] [id number] [place] [address]- 2546 Sep, [facility] [place] [facility] [address] [id number] [place] [address]- 2828 Sep, [facility] [address] [facility] [id number], [place] [address]- 8289 Sep, [facility] [address] [facility] [id number], [place] [address]- 4266 Sep, [facility] [address] [facility] [id number][place]05[place]- 7852 Aug, [facility] [address] [facility] [id number], [place] [address]- 2449 Oct, [facility] [address] [facility] [id number] [place] [address]- 8302 Oct, [facility] [address] [facility] [id number], [place] [address]- 3592 Oct, [facility] [address] [facility] [id number], [place] [address]- 0325 Aug, [facility] [address] [facility] [id number], [place] [address] Aug, [facility] [address] [facility] [id number], [place] [address] Feb, [facility] [address] [facility] [id number], [place] [address] Oct, [facility] [address] [facility] [id number], [place] [address] Oct, [facility] [address] [facility] [id number], [place] [address] Sep, [facility] [address] [facility] [id number], [place] [address] Aug, [facility] [address] [facility] [id number], [place] [address] Aug, [facility] [address] [facility] [id number], [place] [address] March, IMMUNIZATIONS No Known Immunizations SOCIAL HISTORY Never Assessed REASON FOR VISIT swollen Right hand JStrasserRN PLAN OF CARE Activity Details Follow Up prn Reason: VITAL SIGNS Height 62 in 2018-06-25 Temperature 96.6 degrees Fahrenheit 2018-06-25 Heart Rate 80 bpm 2018-06-25 Respiratory Rate 16 2018-06-25 Blood pressure systolic 120 mmHg 2018-06-25 Blood pressure diastolic 60 mmHg 2018-06-25 MEDICATIONS Medication Instructions Dosage Frequency Start Date End Date Duration Status Keppra 750 MG Orally 2 times a day 1 tablet 12h Active Wheelchair - as directed Jul, Active Loratadine 10 mg Orally Once a day 1 tablet 24h 31 Active Escitalopram Oxalate 20 MG Orally Once a day 1 tablet 24h March, 30 day(s) Active Aspirin Adult Low Strength 81 MG Orally Once a day 1 tablet 24h Oct, Active Simethicone 80 MG Orally Four times a day 1 tablet after meals and at bedtime as needed 6h 31 Active Sucralfate 1 GM Orally 3 times a day 1 tablet 1 hour before meals 8h 31 Active tylenol 1000 MG Orally 2 times a day 1 tablet as needed 12h 31 days Active Levothyroxine Sodium 100 MCG Orally Once a day 1 tablet on an empty stomach in the morning 24h 31 days Active Baclofen 10 mg Orally at bedtime 1/2 tablet with food or milk May, Active RESULTS No Results PROCEDURES Procedure Date Ordered Result Body Site [facility] VISIT ESTABLISHED PATIENT June 25, 2018 INSTRUCTIONS MEDICATIONS ADMINISTERED No Known Medications MEDICAL (GENERAL) HISTORY Type Description Date Medical History hyperlipidemia Medical History anemia Medical History Down's syndrome Medical History urticaria Medical History mental retardation-severe Medical History blepharitis Medical History chronic dermatitis Medical History folliculitis Medical History pervasice developmental disorder Surgical History cyst removed from lower back 1993 Surgical History cyst removed from neck 2005 Surgical History Right eye cataract removal 11/2015 Hospitalization History Hospitalization for surgery only Hospitalization History Fat Embolic syndrome, Right humeral fracture, 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
--- OUTSIDE RECORDS SUMMARY | 2018-09-20 08:58 | XMS REPORT ---
Author Author EDWAR MERRILL [facility] Address [address] [place] [address] Care Team Providers Care Narcotics Detective Name Role Phone EDWAR MERRILL Unavailable PROBLEMS Type Condition ICD9-CM Code GMK83-LX Code Onset Dates Condition Status SNOMED Code Problem Hypoxia R09.02 Active 543965534 Problem Left-sided weakness M62.81 Active 84348745 Problem Down syndrome Q90.9 Active 47626876 Problem Reactive depression F32.9 Active 69755887 Problem Poor balance R26.89 Active 367011441 Problem Insomnia, unspecified type G47.00 Active 127644585 Problem Hypersomnolence G47.10 Active 13090331 Problem Acute cystitis without hematuria N30.00 Active 77989992 Problem SunDown syndrome F05 Active 720430102 Problem Dislocation of right hip S73.004A Active 281306809 Problem Fat embolus T79.1XXA Active 777570642 Problem Acquired hypothyroidism E03.9 Active 325114700 Problem Hypoalbuminemia E88.09 Active 769474381 Problem Iron deficiency anemia, unspecified iron deficiency anemia type D50.9 Active 82458401 Problem Hyperlipidemia, unspecified hyperlipidemia E78.5 Active 28695804 Problem Fracture of humeral head, right, closed S42.291A Active 533810348 Problem Severe mental retardation F72 Active 05517142 Problem Equinus deformity of foot M21.6X9 Active 338270327 Problem Excessive daytime sleepiness G47.19 Active [id number] ALLERGIES Substance Reaction Event Type Date Status Naproxen Unknown Drug Allergy May, Active Benadryl hyperactivity Drug Allergy May, Active ENCOUNTERS Encounter Location Date Diagnosis [facility] [address] [facility] [id number], [place] [address] May, Swelling of right hand M79.89 [facility] [facility] [address] [facility] [id number] [place] [address] 56336- 9879 May, Spasms of the hands or feet R25.2 ; Weakness R53.1 ; Poor balance R26.89 ; Acquired hypothyroidism E03.9 ; Reactive depression F32.9 and Insomnia, unspecified type G47.00 [place] [id number] [place] [address] 12763- 4714 March, Hypoalbuminemia E88.[address] [address] March, Annual physical exam Z00.00 ; Hyperlipidemia, unspecified hyperlipidemia E78.5 ; Seizure R56.9 ; Down syndrome Q90.9 ; Insomnia, unspecified type G47.00 ; Left-sided weakness M62.81 ; Iron deficiency anemia, unspecified iron deficiency anemia type D50.9 ; Prostate cancer screening Z12.5 ; Acquired hypothyroidism E03.9 and Flat affect R45.[address] [address]- [address] March, Annual physical exam Z00.00 ; Seizure R56.9 ; Down syndrome Q90.9 ; Insomnia, unspecified type G47.00 ; Hyperlipidemia, unspecified hyperlipidemia E78.5 ; Left-sided weakness M62.81 ; Iron deficiency anemia, unspecified iron deficiency anemia type D50.9 ; Prostate cancer screening Z12.5 ; Acquired hypothyroidism E03.9 ; Flat affect R45.89 and Weight loss R63.4 [facility] [address] [place] [address] Feb, Acute cystitis without hematuria N30.00 [facility] [address] [place] [address] Jan, Cough R05 and Nasal congestion R09.[address] 67691- 0906 May, Acquired hypothyroidism E03.[address] 76882- 6693 Feb, Acquired hypothyroidism E03.9 [facility] [place] [facility] [address] [address] Feb, Acquired hypothyroidism E03.9 [place] [address] [address] Feb, [place] [address] [address] 65[address] Feb, Acquired hypothyroidism E03.9 [place] [address] [place] [address] 23489- 3313 Jan, Annual physical exam Z00.00 ; Prostate cancer screening Z12.5 ; Acquired hypothyroidism E03.9 ; Iron deficiency anemia, unspecified iron deficiency anemia type D50.9 and Hyperlipidemia, unspecified hyperlipidemia E78.5 [place] [address] [place] [address] 99791- 9528 Jan, Annual physical exam Z00.00 ; Acquired hypothyroidism E03.9 ; Screening for prostate cancer Z12.5 ; Hyperlipidemia, unspecified hyperlipidemia E78.5 ; Iron deficiency anemia, unspecified iron deficiency anemia type D50.9 ; Status post stroke Z86.73 ; Severe mental retardation F72 ; Left-sided weakness M62.81 ; Fracture of humeral head, right, closed S42.291A and Prostate cancer screening Z12.5 [facility] [address] [place] [address] 7[address]01 -[address]84 Nov, Abscess of finger of right hand L02.511 [place] [address] [place] [address] 32214- 1228 Nov, [place] [address] [place] [address] 70346- 2744 Nov, Seizure R56.9 ; Unspecified displaced fracture of surgical neck of right humerus, initial encounter for closed fracture S42.211A ; Severe mental retardation F72 and Insomnia, unspecified type G47.00 [place] [address] [place] [address] 43144- 2282 Nov, Seizure R56.9 [facility] [place] [facility] [address] [place] [address] 62909- 7840 Nov, Insomnia, unspecified type G47.00 [facility] [place] [facility] [address] [place] [address] 11694- 6989 Oct, [facility] [place] [facility] [address] [place] [id number] [place] [address] 06592- 8325 Oct, Acquired hypothyroidism E03.9 [facility] [place] [facility] [address] [place] [id number] [place] [address] 06191- 0280 Oct, Onychomycosis B35.1 [place] [address] [place] [id number] [place] [address] 99692- 1110 Oct, Onychomycosis B35.1 and Acquired hypothyroidism E03.9 [facility] [place] [facility] [address] [place] [id number] [place] [address] 49335- 8890 Oct, Insomnia, unspecified type G47.00 [facility] [place] [facility] [address] [place] [address] 32046- 6127 Oct, [facility] [place] [facility] [address] [place] [id number] [place] [address] 13797- 8482 Sep, [facility] [place] [facility] [address] [place] [address] 20691- 2634 Sep, [facility] [facility] [address] [place] [id number] [place] [address] 34826- 8358 Sep, Hyperlipidemia, unspecified hyperlipidemia E78.5 and Screening for prostate cancer Z12.5 [facility] [address] [address] Aug, Suspected urinary tract infection N39.0 [facility] [place] [facility] [address] [place] [address] 68490- 2064 Aug, Insomnia, unspecified type G47.00 [facility] [place] [facility] [address] [place] [id number] [place] [address] 20142- 3366 Aug, [facility] [facility] [address] [address] 3757 Aug, Insomnia, unspecified type G47.00 [facility] [place] [facility] [address] [place] [address] 56573- 2178 Aug, SunDown syndrome F05 and Unspecified subluxation of right hip, initial encounter S73.001A [facility] [place] [facility] [address] [place] [id number] [place] [address] 35027- 9961 Aug, Acquired hypothyroidism E03.9 [facility] [place] [facility] [address] [place] [id number] [place] [address] 13059- 9559 Aug, [facility] [place] [facility] [address] [place] [id number] [place] [address] 30464- 0618 Aug, [facility] [place] [facility] [address] [place] [id number] [place] [address] 92654- 1221 Aug, [facility] [place] [facility] [address] [place] [id number] [place] [address] 16979- 1094 Aug, [facility] [place] [facility] [address] [place] [id number] [place] [address] 27897- 3417 Aug, Insomnia, unspecified type G47.00 [facility] [place] [facility] [address] [place] [address] 42567- 3873 Aug, [facility] [place] [facility] [address] [place] [id number] [place] [address] 97585- 0505 28 Jul, 2016 Status post stroke Z86.73 ; Encounter for immunization Z23 ; Onychomycosis B35.1 ; Acquired hypothyroidism E03.9 ; Iron deficiency anemia, unspecified iron deficiency anemia type D50.9 and Other displaced fracture of upper end of right humerus, initial encounter for closed fracture S42.291A [facility] [place] [facility] [address] [place] [address] 01404- 6147 27 Jul, 2016 Hip pain M25.559 [facility] [place] [facility] [address] [place] [id number] [place] [address] 17298- 9999 23 Jul, 2016 Fracture of humeral head, right, closed S42.291A [facility] [place] [facility] [address] [id number] [place] [address]- 0678 21 Jul, 2016 Insomnia, unspecified type G47.00 and Fracture of humeral head, right, closed S42.291A [facility] [place] [facility] [address] [id number] [place] [address]- 6506 15 Jul, 2016 [facility] [place] [facility] [id number] [place] [address] 78125- 5834 13 Jul, 2016 Hip pain M25.559 [facility] [place] [facility] [id number] [place] [address], [place] [address]- 8360 08 Jul, 2016 Hospice care Z51.5 [facility] [place] [facility] [address] [id number] [place] [address]- 5031 Jun, [facility] [place] [facility] [address] [facility] [id number] [place] [address] 00690- 0069 29 Feb, 2016 Hospice care Z51.5 [facility] [place] [facility] [address] [facility] [id number] [place] [address]- 2381 Feb, [facility] [place] [facility] [address] [facility] [id number] [place] [address] 53431- 9665 Feb, [facility] [place] [facility] [address] [facility] [id number], [place] [address]- 8631 19 Feb, 2016 [facility] [place] [facility] [address] [facility] [id number], [place] [address]- 5495 18 Feb, 2016 [facility] [place] [facility] [address] [facility] [id number] [place] [address]- 3132 14 Feb, 2016 [facility] [place] [facility] [address] [facility] [id number] [place] [address]- 6947 13 Feb, 2016 [facility] [place] [facility] [address] [facility] [id number], [place] [address]- 8291 29 Jan, 2016 [facility] [place] [facility] [address] [facility] [id number], [place] [address]- 9412 29 Jan, 2016 Hypersomnolence G47.10 and Left-sided weakness M62.81 [place] [id number] [place] [address] 26166- 8374 28 Jan, 2016 Left-sided weakness M62.81 ; Excessive daytime sleepiness G47.19 ; Hypoxia R09.02 and Down syndrome Q90.[address] 86948- 8547 14 Jan, [address] 70234- 7578 14 Jan, 2016 Annual physical exam Z00.00 ; Acquired hypothyroidism E03.9 ; Iron deficiency anemia, unspecified iron deficiency anemia type D50.9 ; Hyperlipidemia, unspecified hyperlipidemia E78.5 ; Severe mental retardation F72 and Screening for prostate cancer Z12.5 [place] [id number] [place] [address] 85009- 3201 27 Nov, 2015 Onychomycosis B35.1 and Viral warts, unspecified type B07.9 [place] [id number] [place] [address] 15748- 8817 Oct, Sinusitis J32.9 and Encounter for immunization Z23 [place] [id number] [place] [address] 34930- 3824 09 Sep, 2015 Acute upper respiratory infection, unspecified J06.9 ; Other viral agents as the cause of diseases classified elsewhere B97.89 and Down syndrome Q90.9 [place] [id number] [place] [address] 51827- 7643 07 Aug, [address] 06630- 4274 16 Jul, 2015 Conjunctivitis 372.30 [place] [id number] [place] [address] 33171- 3894 08 Jul, [address] 99803- 4304 May, Onychomycosis 110.1 ; Hypothyroid 244.9 and Hyperlipidemia 272.4 [facility] [address] [address]- 0601 Apr, [facility] [address] 2231 14 Feb, 2015 [facility] [address] [address]- 9545 13 Feb, 2015 [facility] [address] [facility] [id number] 6209 Dec, [facility] [address] [place] [id number] [place] [address], [place] 8129 Dec, [facility] [address] [place] [id number] 1248 16 Dec, 2014 [facility] [place] [facility] [address] [place] [address]- 1295 16 Dec, 2014 [facility] [place] [facility] [address] 7333 16 Dec, 2014 [facility] [place] [facility] [address] 6311 16 Dec, 2014 [facility] [place] [facility] [address]- 5081 16 Dec, 2014 [facility] [place] [facility] [address] 1324 16 Dec, 2014 [facility] [place] [facility] [address], [place] [address]- 5216 Dec, [facility] [address], [place] [address]- 7472 Oct, [facility] [address], [place] [address]- 8976 Oct, [facility] [place] [facility] [address], [place] [address]- 5896 Oct, [facility] [place] [facility] [address] [id number] [place] 4290 Oct, [facility] [place] [facility] [address] [id number] [place] [address]- 5066 Oct, [facility] [place] [facility] [address] [id number] [place] 9575 Oct, [facility] [place] [facility] [address] [id number] [place] [address]- 3989 Oct, [facility] [place] [facility] [address] [id number] [place] [address]- 5017 Oct, [facility] [place] [facility] [address] [id number] [place] [address]- 0350 Jun, [facility] [place] [facility] [address] [id number] [place] [address]- 5055 May, [facility] [place] [facility] [address] [id number] [place] [address]- 4457 May, [facility] [place] [facility] [address] [id number] [place] [address]- 3665 May, [facility] [place] [facility] [address] [id number] [place] [address]- 6980 Apr, [facility] [place] [facility] [address] [id number], [place] [address]- 8885 Apr, [facility] [place] [facility] [address] [id number], [place] [address]- 9973 March, [facility] [place] [facility] [address] [id number] [place] [address]- 3036 March, [facility] [place] [facility] [address] [id number] [place] [address]- 3647 Feb, [facility] [place] [facility] [address] [id number] [place] [address]- 5320 Feb, [facility] [place] [facility] [address] [id number] [place] [address]- 9017 18 Dec, 2013 [facility] [place] [facility] [address] [id number] [place] 2896 18 Dec, 2013 [facility] [place] [facility] [address] [id number] [place] [address]- 2546 14 Dec, 2013 [facility] [place] [facility] [address] [id number] [place] [address]- 4836 14 Dec, 2013 [facility] [place] [facility] [address] [id number] [place] [address]- 2545 Dec, [facility] [place] [facility] [address] [id number] [place] [address]- 2186 Dec, [facility] [place] [facility] [address] [id number] [place] [address]- 3439 15 Nov, 2013 [facility] [place] [facility] [address] [id number] [place] [address]- 1730 Nov, [facility] [place] [facility] [address] [id number] [place] [address]- 3163 Oct, [facility] [place] [facility] [address] [id number] [place] [address]- 8346 Oct, [facility] [place] [facility] [address] [id number] [place] [address]- 4540 Sep, [facility] [place] [facility] [address] [id number] [place] [address]- 9158 Sep, [facility] [place] [facility] [address] [id number] [place] [address]- 2544 Jul, [facility] [place] [facility] [address] [id number] [place] [address]- 2542 24 Jul, 2013 [facility] [place] [facility] [address] [id number] [place] [address]- 2546 23 Jul, 2013 [facility] [place] [facility] [address] [id number] [place] [address]- 2542 Jun, [facility] [place] [facility] [address] [id number] [place] [address]- 6874 Jun, [facility] [place] [facility] [address] [id number] [place] [address]- 2102 Apr, [facility] [place] [facility] [address] [id number] [place] [address]- 0744 March, [facility] [place] [facility] [address] [id number] [place] [address]- 4867 Dec, [facility] [place] [facility] [address] [id number] [place] [address]- 6679 Dec, [facility] [place] [facility] [address] [id number] [place] [address]- 7724 Nov, [facility] [place] [facility] [address] [id number] [place] [address]- 8988 Sep, [facility] [place] [facility] [address] [id number] [place] [address]- 9940 Sep, [facility] [place] [facility] [address] [id number] [place] [address]- 6915 Aug, [facility] [place] [facility] [address] [id number] [place] [address]- 3428 Aug, [facility] [place] [facility] [address] [id number] [place] [address]- 7711 Jul, [facility] [place] [facility] [address] [id number] [place] [address]- 0189 Jul, [facility] [place] [facility] [address] [id number] [place] [address]- 3247 Jun, [facility] [place] [facility] [address] [id number] [place] [address]- 8689 Jun, [facility] [place] [facility] [address] [id number] [place] [address]- 3226 May, [facility] [place] [facility] [address] [id number] [place] [address]- 0902 May, [facility] [address] [id number] [place] [address]- 1216 May, [facility] [place] [facility] [address] [id number] [place] [address] 2546 May, [facility] [address] [id number] [place] [address] 2546 May, [facility] [place] [facility] [address] [id number] [place] [address] 2546 May, [facility] [place] [facility] [address] [id number] [place] [address]- 0625 Apr, [facility] [place] [facility] [address] [id number] [place] [address]- 6217 Feb, [facility] [place] [facility] [address] [id number] [place] [address]- 7009 Feb, [facility] [place] [facility] [address] [id number] [place] [address]- 1186 Jan, [facility] [place] [facility] [address] [id number] [place] [address]- 8719 Dec, [facility] [address] [id number] [place] [address]- 2943 Dec, [facility] [place] [facility] [address] [id number] [place] [address]- 3006 Dec, [facility] [place] [facility] [address] [id number] [place] [address] 2540 Nov, [facility] [place] [facility] [address] [id number] [place] [address]- 2080 Nov, [facility] [place] [facility] [address] [id number] [place] [address] 2541 Sep, [facility] [place] [facility] [address] [id number] [place] [address]- 1572 Sep, [facility] [address] [facility] [id number], [place] [address]- 0300 Sep, [facility] [address] [facility] [id number], [place] [address]- 5756 Sep, [facility] [address] [facility] [id number], [place] [address]- 8786 Aug, [facility] [address] [id number], [place] [address]- 5436 Oct, [facility] [address] [facility] [id number] [place] [address]- 7886 Oct, [facility] [address] [facility] [id number], [place] [address]- 5396 Oct, [facility] [address] [facility] [id number] [place] [address]- 8026 Aug, [facility] [address] [facility] [id number], [place] [address]- 5584 Aug, [facility] [address] [facility] [id number], [place] [address]- 8723 Feb, [facility] [address] [facility] [id number], [place] [address]- 4989 Oct, [facility] [address] [facility] [id number], [place] [address]- 3306 Oct, [facility] [address] [facility] [id number], [place] [address]- 5905 Sep, [facility] [address] [facility] [id number], [place] [address]- 4486 Aug, [facility] [address] [facility] [id number][place] 3026 Aug, [facility] [address] [facility] [id number][place] 3605 March, IMMUNIZATIONS No Known Immunizations SOCIAL HISTORY Never Assessed REASON FOR VISIT Hip Pain WB-MA, PT's left leg is aayush, PT is losing the ability to move PLAN OF CARE Activity Details Follow Up 4 Weeks Reason:spasms VITAL SIGNS Height 62 in 2018-06-06 Weight 100.5 lbs 2018-06-06 Temperature 97.6 degrees Fahrenheit 2018-06-06 Heart Rate 74 bpm 2018-06-06 Respiratory Rate 18 2018-06-06 BMI 18.38 kg/m2 2018-06-06 Blood pressure systolic 98 mmHg 2018-06-06 Blood pressure diastolic 58 mmHg 2018-06-06 MEDICATIONS Medication Instructions Dosage Frequency Start Date End Date Duration Status Wheelchair - as directed Jul, Active Loratadine 10 mg Orally Once a day 1 tablet 24h 31 Active tylenol 1000 MG Orally 2 times a day 1 tablet as needed 12h 31 days Active Escitalopram Oxalate 20 MG Orally Once a day 1 tablet 24h March, 30 day(s) Active Wheelchair Manual as directed Not-Taking Baclofen 10 mg Orally at bedtime 1/2 tablet with food or milk May, Active Keppra 750 MG Orally 2 times a day 1 tablet 12h Active Levothyroxine Sodium 100 MCG Orally Once a day 1 tablet on an empty stomach in the morning 24h 31 days Active Eucerin ... Externally (topical) Once a day 1 application at bathtime for Chronic Dermatitis 24h Not-Taking Aspirin Adult Low Strength 81 MG Orally Once a day 1 tablet 24h Oct, Active Simethicone 80 MG Orally Four times a day 1 tablet after meals and at bedtime as needed 6h 31 Active Sucralfate 1 GM Orally 3 times a day 1 tablet 1 hour before meals 8h 31 Active RESULTS No Results PROCEDURES Procedure Date Ordered Result Body Site LAB NOT BILLED BY [facility] June 06, 2018 [facility] VISIT ESTABLISHED PATIENT June 06, 2018 INSTRUCTIONS MEDICATIONS ADMINISTERED No Known Medications [...]
--- OUTSIDE RECORDS SUMMARY | 2018-09-20 08:59 | XMS REPORT ---
Author Author EDWAR MERRILL [facility] Address [address] [place] [address] Care Team Providers Care Reel Hooker Name Role Phone EDWAR MERRILL Unavailable PROBLEMS Type Condition ICD9-CM Code AHT89-VQ Code Onset Dates Condition Status SNOMED Code Problem Hypoxia R09.02 Active 966865438 Problem Left-sided weakness M62.81 Active 83140855 Problem Down syndrome Q90.9 Active 24343916 Problem Reactive depression F32.9 Active 61625820 Problem Poor balance R26.89 Active 601056282 Problem Insomnia, unspecified type G47.00 Active 862750090 Problem Hypersomnolence G47.10 Active 85287983 Problem Acute cystitis without hematuria N30.00 Active 56481354 Problem SunDown syndrome F05 Active 708082946 Problem Dislocation of right hip S73.004A Active 542228515 Problem Fat embolus T79.1XXA Active 424764549 Problem Acquired hypothyroidism E03.9 Active 820680247 Problem Hypoalbuminemia E88.09 Active 047372597 Problem Iron deficiency anemia, unspecified iron deficiency anemia type D50.9 Active 99821201 Problem Hyperlipidemia, unspecified hyperlipidemia E78.5 Active 01592586 Problem Fracture of humeral head, right, closed S42.291A Active 084679486 Problem Severe mental retardation F72 Active 79733576 Problem Equinus deformity of foot M21.6X9 Active 867061987 Problem Excessive daytime sleepiness G47.19 Active [id number] ALLERGIES No Information ENCOUNTERS Encounter Location Date Diagnosis [facility] [address] [facility] [id number] [address] May, Swelling of right hand M79.89 [facility] [address] [facility] [id number] [address] May, Spasms of the hands or feet R25.2 ; Weakness R53.1 ; Poor balance R26.89 ; Acquired hypothyroidism E03.9 ; Reactive depression F32.9 and Insomnia, unspecified type G47.[address] [address] March, Hypoalbuminemia E88.[address] [address] March, Annual physical exam Z00.00 ; Hyperlipidemia, unspecified hyperlipidemia E78.5 ; Seizure R56.9 ; Down syndrome Q90.9 ; Insomnia, unspecified type G47.00 ; Left-sided weakness M62.81 ; Iron deficiency anemia, unspecified iron deficiency anemia type D50.9 ; Prostate cancer screening Z12.5 ; Acquired hypothyroidism E03.9 and Flat affect R45.[address] [address] March, Annual physical exam Z00.00 ; Seizure R56.9 ; Down syndrome Q90.9 ; Insomnia, unspecified type G47.00 ; Hyperlipidemia, unspecified hyperlipidemia E78.5 ; Left-sided weakness M62.81 ; Iron deficiency anemia, unspecified iron deficiency anemia type D50.9 ; Prostate cancer screening Z12.5 ; Acquired hypothyroidism E03.9 ; Flat affect R45.89 and Weight loss R63.4 [facility] [address] [address] Feb, Acute cystitis without hematuria N30.00 [facility] [address] [address] Jan, Cough R05 and Nasal congestion R09.[address] [address] May, Acquired hypothyroidism E03.[address] [address] Feb, Acquired hypothyroidism E03.[address] [address] Feb, Acquired hypothyroidism E03.9 [facility] [id number] [place] [address]151- 1779 Feb, [place] [id number] [place] [address] 57158- 1744 Feb, Acquired hypothyroidism E03.9 [facility] [id number] [place] [address] 11934- 7335 Jan, Annual physical exam Z00.00 ; Prostate cancer screening Z12.5 ; Acquired hypothyroidism E03.9 ; Iron deficiency anemia, unspecified iron deficiency anemia type D50.9 and Hyperlipidemia, unspecified hyperlipidemia E78.5 [place] [id number] [place] [address] 19998- 4932 Jan, Annual physical exam Z00.00 ; Acquired hypothyroidism E03.9 ; Screening for prostate cancer Z12.5 ; Hyperlipidemia, unspecified hyperlipidemia E78.5 ; Iron deficiency anemia, unspecified iron deficiency anemia type D50.9 ; Status post stroke Z86.73 ; Severe mental retardation F72 ; Left-sided weakness M62.81 ; Fracture of humeral head, right, closed S42.291A and Prostate cancer screening Z12.5 [facility] [id number] [place] [address] Nov, Abscess of finger of right hand L02.511 [place] [id number] [place] [address] 51887- 6771 Nov, [place] [address] [address] Nov, Seizure R56.9 ; Unspecified displaced fracture of surgical neck of right humerus, initial encounter for closed fracture S42.211A ; Severe mental retardation F72 and Insomnia, unspecified type G47.00 [place] [id number] [place] [address] 34052- 1401 Nov, Seizure R56.9 [facility] [address] [address] Nov, Insomnia, unspecified type G47.00 [facility] [id number] [place] [address] 99130- 5107 Oct, [facility] [id number] [place] [address] 22055- 3819 Oct, Acquired hypothyroidism E03.9 [facility] [id number] [place] [address] 45874- 7160 Oct, Onychomycosis B35.1 [facility] [id number] [place] [address] 62752- 9998 Oct, Onychomycosis B35.1 and Acquired hypothyroidism E03.9 [facility] [id number] [place] [address] 45151- 2039 Oct, Insomnia, unspecified type G47.00 [facility] [id number] [place] [address] 19431- 3120 Oct, [facility] [id number] [place] [address] 46718- 5265 Sep, [facility] [id number] [place] [address] 53190- 7177 Sep, [facility] [id number] [place] [address] 91493- 5166 Sep, Hyperlipidemia, unspecified hyperlipidemia E78.5 and Screening for prostate cancer Z12.5 [facility] [id number] [place] [address] Aug, Suspected urinary tract infection N39.0 [facility] [id number] [place] [address] 13618- 2680 Aug, Insomnia, unspecified type G47.00 [facility] [id number] [place] [address] 55752- 2827 Aug, [facility] [id number] [place] [address] 61793- 0234 Aug, Insomnia, unspecified type G47.00 [facility] [id number] [place] [address] 23265- 9001 Aug, SunDown syndrome F05 and Unspecified subluxation of right hip, initial encounter S73.001A [facility] [id number] [place] [address] 51933- 0820 Aug, Acquired hypothyroidism E03.9 [facility] [id number] [place] [address] 97544- 1762 Aug, [facility] [id number] [place] [address] 73560- 3337 Aug, [facility] [id number] [place] [address] 34030- 3328 Aug, [facility] [id number] [place] [address] 11409- 7782 Aug, [facility] [id number] [place] [address] 74760- 1337 Aug, Insomnia, unspecified type G47.00 [place] [id number] [place] [address] 10994- 0351 Aug, [facility] [id number] [place] [address] 04452- 7748 Jul, Encounter for immunization Z23 ; Status post stroke Z86.73 ; Onychomycosis B35.1 ; Acquired hypothyroidism E03.9 ; Iron deficiency anemia, unspecified iron deficiency anemia type D50.9 and Other displaced fracture of upper end of right humerus, initial encounter for closed fracture S42.291A [place] [id number] [place] [address] 77482- 8615 Jul, Hip pain M25.559 [place] [id number] [place] [address] 41977- 2935 23 Jul, 2016 Fracture of humeral head, right, closed S42.291A [place] [address] [id number] [address] Jul, Insomnia, unspecified type G47.00 and Fracture of humeral head, right, closed S42.291A [facility] [id number] [place] [address] 03111- 5046 15 Jul, 2016 [facility] [id number] [place] [address] 47971- 0907 13 Jul, 2016 Hip pain M25.559 [facility] [id number] [place] [address] 30715- 6918 08 Jul, 2016 Hospice care Z51.5 [facility] [id number] [place] [address] 10784- 6802 Jun, [facility] [id number] [place] [address] 94633- 7330 Feb, Hospice care Z51.5 [facility] [id number] [place] [address] 49691- 6557 Feb, [facility] [id number] [place] [address] 59754- 7959 Feb, [facility] [id number] [place] [address] 86303- 5480 Feb, [facility] [address] [address] 1050 18 Feb, 2016 [facility] [id number] [place] [address] 44258- 4348 14 Feb, 2016 [facility] [id number] [place] [address] 91032- 4307 Feb, [facility] [id number] [place] [address] 53545- 9168 Jan, [facility] [address] [address]- 7273 Jan, Hypersomnolence G47.10 and Left-sided weakness M62.81 [place] [id number] [place] [address] 83488- 5079 28 Jan, 2016 Left-sided weakness M62.81 ; Excessive daytime sleepiness G47.19 ; Hypoxia R09.02 and Down syndrome Q90.9 [place] [id number] [place] [address] 10364- 8134 14 Jan, [address] [address]40- 4760 14 Jan, 2016 Annual physical exam Z00.00 ; Acquired hypothyroidism E03.9 ; Iron deficiency anemia, unspecified iron deficiency anemia type D50.9 ; Hyperlipidemia, unspecified hyperlipidemia E78.5 ; Severe mental retardation F72 and Screening for prostate cancer Z12.5 [place] [id number] [place] [address] 57106- 6621 27 Nov, 2015 Onychomycosis B35.1 and Viral warts, unspecified type B07.[address] 42668- 3579 Oct, Encounter for immunization Z23 and Sinusitis J32.[address] 03503- 4374 09 Sep, 2015 Acute upper respiratory infection, unspecified J06.9 ; Other viral agents as the cause of diseases classified elsewhere B97.89 and Down syndrome Q90.9 [place] [id number] [place] [address] 14944- 1158 Aug, [place] [id number] [place] [address] 22478- 8544 16 Jul, 2015 Conjunctivitis [address] 77719- 2668 08 Jul, 2015 [place] [id number] [place] [address] 88541- 7982 May, Onychomycosis 110.1 ; Hypothyroid 244.9 and Hyperlipidemia 272.[address] [address]- 63[address] 16 Apr, 2015 [facility] [place] [facility] [address] [id number] [place] [address]- 9075 14 Feb, 2014 [facility] [place] [facility] [address] [id number] [place] [address]- 8149 13 Feb, 2014 [facility] [place] [facility] [address] [id number] [place] [address]- 3809 20 Dec, 2014 [facility] [place] [facility] [address] [id number] [place] [address]- 0611 20 Dec, 2014 [facility] [place] [facility] [address] [id number] [place] [address]- 2455 16 Dec, 2014 [facility] [place] [facility] [address] [facility] [id number] [place] [address]- 9203 16 Dec, 2014 [facility] [place] [facility] [address] [id number] [place] [address]- 0303 16 Dec, 2014 [facility] [place] [facility] [address] [id number] [place] [address]- 5082 16 Dec, 2014 [facility] [place] [facility] [address] [facility] [id number] [place] [address]- 8450 16 Dec, 2014 [facility] [place] [facility] [address] [facility] [id number] [place] [address]- 9306 16 Dec, 2014 [facility] [place] [facility] [address] [facility] [id number] [place] [address]- 9652 16 Dec, 2014 [facility] [place] [facility] [address] [id number] [place] [address]- 6433 Oct, [facility] [place] [facility] [address] [id number] [place] [address]- 4395 Oct, [facility] [place] [facility] [address] [facility] [id number] [place] 8412 Oct, [facility] [place] [facility] [address] [facility] [id number] [place] [address]- 6071 Oct, [facility] [place] [facility] [address] [id number] [place] 0291 Oct, [facility] [place] [facility] [address] [id number] [place] [address]- 9625 Oct, [facility] [place] [facility] [address] [id number] [place] 8138 Oct, [facility] [place] [facility] [address] [id number] [place] 3578 Oct, [facility] [place] [facility] [address] [id number] [place] [address]- 9609 Jun, [facility] [place] [facility] [address] [id number] [place] [address]- 3215 May, [facility] [place] [facility] [address] [id number] [place] [address]- 3569 May, [facility] [place] [facility] [address] [id number] [place] [address]- 8406 May, [facility] [place] [facility] [address] [id number] [place] [address]- 5901 Apr, [facility] [place] [facility] [address] [id number] [place] [address]- 8989 Apr, [facility] [place] [facility] [address] [id number] [place] [address]- 3944 March, [facility] [place] [facility] [address] [id number] [place] [address]- 2106 March, [facility] [place] [facility] [address] [id number] [place] [address]- 6275 Feb, [facility] [place] [facility] [address] [id number] [place] [address]- 9614 Feb, [facility] [place] [facility] [address] [id number] [place] 1543 Dec, [facility] [place] [facility] [address] [id number] [place] [address]- 8660 18 Dec, 2013 [facility] [place] [facility] [address] [id number] [place] [address]- 1009 14 Dec, 2013 [facility] [place] [facility] [address] [id number] [place] [address]- 4096 14 Dec, 2013 [facility] [place] [facility] [address] [id number] [place] [address]- 6145 Dec, [facility] [place] [facility] [address] [id number] [place] [address]- 7779 Dec, [facility] [place] [facility] [address] [id number] [place] [address]- 9927 Nov, [facility] [place] [facility] [address] [id number] [place] [address]- 9958 Nov, [facility] [place] [facility] [address] [id number] [place] [address]- 7489 Oct, [facility] [place] [facility] [address] [id number] [place] [address]- 2193 Oct, [facility] [place] [facility] [address] [id number] [place] [address]- 5656 Sep, [facility] [place] [facility] [address] [id number] [place] [address]- 1042 Sep, [facility] [place] [facility] [address] [id number] [place] [address]- 7304 Jul, [facility] [place] [facility] [address] [id number] [place] [address]- 4408 24 Jul, 2013 [facility] [place] [facility] [address] [id number] [place] [address]- 6623 23 Jul, 2013 [facility] [place] [facility] [address] [id number] [place] [address]- 0395 05 Jun, 2013 [facility] [place] [facility] [address] [id number] [place] [address]- 0186 Jun, [facility] [place] [facility] [address] [id number] [place] [address]- 6588 Apr, [facility] [place] [facility] [address] [id number] [place] [address]- 9316 March, [facility] [place] [facility] [address] [id number] [place] [address]- 1010 Dec, [facility] [place] [facility] [address] [id number] [place] [address]- 7787 Dec, [facility] [place] [facility] [address] [id number] [place] [address]- 2335 Nov, [facility] [place] [facility] [address] [id number] [place] [address]- 1283 Sep, [facility] [place] [facility] [address] [id number] [place] [address]- 8777 Sep, [facility] [place] [facility] [address] [id number] [place] [address]- 9851 Aug, [facility] [place] [facility] [address] [id number] [place] [address]- 0449 Aug, [facility] [place] [facility] [address] [id number] [place] [address]- 8146 Jul, [facility] [place] [facility] [address] [id number] [place] [address]- 0721 Jul, [facility] [place] [facility] [address] [id number] [place] [address]- 1082 Jun, [facility] [place] [facility] [address] [id number] [place] [address]- 1170 Jun, [facility] [place] [facility] [address] [id number] [place] [address]- 5624 May, [facility] [place] [facility] [address] [id number] [place] [address]- 9443 May, [facility] [place] [facility] [address] [id number] [place] [address]- 4481 May, [facility] [address] [id number] [place] [address]- 2361 May, [facility] [place] [facility] [address] [id number] [place] [address] 2546 May, [facility] [address] [id number] [place] [address]- 7233 May, [facility] [address] [id number] [place] [address]- 3867 Apr, [facility] [address] [id number] [place] [address]- 4300 Feb, [facility] [address] [id number] [place] [address]- 0719 Feb, [facility] [address] [id number] [place] [address]- 9600 Jan, [facility] [address] [id number] [place] [address]- 3156 Dec, [facility] [address] [id number] [place] [address]- 7966 Dec, [facility] [address] [id number] [place] [address]- 7261 Dec, [facility] [address] [id number] [place] [address]- 5986 Nov, [facility] [address] [id number] [place] [address]- 1575 Nov, [facility] [place] [facility] [address] [id number] [place] [address]- 9946 Sep, [facility] [place] [facility] [address] [id number] [place] [address]- 2546 Sep, [facility] [address] [id number] [place] [address]- 4065 Sep, [facility] [address] [address]- 2576 Sep, [facility] [address] [address]- 1566 Aug, [facility] [address] [address]- 3456 Oct, [facility] [id number] [place] [address] 02476- 6726 Oct, [facility] [id number] [place] [address] 15100- 1689 Oct, [facility] [id number] [place] [address] 43478- 3888 Aug, [facility] [id number] [place] [address] 48769- 7841 Aug, [facility] [id number] [place] [address] 23137- 4130 Feb, [facility] [id number] [address]- 1915 Oct, [facility] [id number] [address]- 9127 Oct, [facility] [id number] [address]- 8061 Sep, [facility] [id number] [address]- 7056 Aug, [facility] [id number] [address]- 6865 Aug, [facility] [address] [address]- 7607 March, IMMUNIZATIONS No Known Immunizations SOCIAL HISTORY Never Assessed REASON FOR VISIT per lab results PLAN OF CARE VITAL SIGNS MEDICATIONS No Known Medications RESULTS No Results PROCEDURES No Known procedures INSTRUCTIONS MEDICATIONS ADMINISTERED No Known Medications MEDICAL [...]
--- OUTSIDE RECORDS SUMMARY | 2018-09-20 08:59 | XMS REPORT ---
Author Author EDWAR MERRILL [facility] Address [address] [place] [address] Care Team Providers [employer] Ax Technical Architect Name Role Phone EDWAR MERRILL Unavailable PROBLEMS Type Condition ICD9-CM Code [id number] Code Onset Dates Condition Status SNOMED Code Problem Hypoxia R09.02 Active 510166387 Problem Left-sided weakness M62.81 Active 82723960 Problem Down syndrome Q90.9 Active 61099130 Problem Reactive depression F32.9 Active 60020502 Problem Poor balance R26.89 Active 247872141 Problem Insomnia, unspecified type G47.00 Active 142155348 Problem Hypersomnolence G47.10 Active 17707260 Problem Acute cystitis without hematuria N30.00 Active 59982598 Problem SunDown syndrome F05 Active 182516204 Problem Dislocation of right hip S73.004A Active 916915271 Problem Fat embolus T79.1XXA Active 493638950 Problem Acquired hypothyroidism E03.9 Active 918984454 Problem Hypoalbuminemia E88.09 Active 282966051 Problem Iron deficiency anemia, unspecified iron deficiency anemia type D50.9 Active 59610959 Problem Hyperlipidemia, unspecified hyperlipidemia E78.5 Active 41207935 Problem Fracture of humeral head, right, closed S42.291A Active 178504066 Problem Severe mental retardation F72 Active 04707010 Problem Equinus deformity of foot M21.6X9 Active 269196073 Problem Excessive daytime sleepiness G47.19 Active 501914197606 ALLERGIES Substance Reaction Event Type Date Status Naproxen Unknown Drug Allergy March, Active Benadryl hyperactivity Drug Allergy March, Active ENCOUNTERS Encounter Location Date Diagnosis [facility] [address] [facility] [id number], [place] [address] May, Swelling of right hand M79.89 [facility] [address] [facility] [id number] [place] [address] 74123- 2868 May, Spasms of the hands or feet R25.2 ; Weakness R53.1 ; Poor balance R26.89 ; Acquired hypothyroidism E03.9 ; Reactive depression F32.9 and Insomnia, unspecified type G47.00 [place] [id number] [place] [address] 29299- 2893 March, Hypoalbuminemia E88.[address] [address] March, Annual physical exam Z00.00 ; Hyperlipidemia, unspecified hyperlipidemia E78.5 ; Seizure R56.9 ; Down syndrome Q90.9 ; Insomnia, unspecified type G47.00 ; Left-sided weakness M62.81 ; Iron deficiency anemia, unspecified iron deficiency anemia type D50.9 ; Prostate cancer screening Z12.5 ; Acquired hypothyroidism E03.9 and Flat affect R45.[address] [address] March, Annual physical exam Z00.00 ; Seizure R56.9 ; Down syndrome Q90.9 ; Insomnia, unspecified type G47.00 ; Hyperlipidemia, unspecified hyperlipidemia E78.5 ; Left-sided weakness M62.81 ; Iron deficiency anemia, unspecified iron deficiency anemia type D50.9 ; Prostate cancer screening Z12.5 ; Acquired hypothyroidism E03.9 ; Flat affect R45.89 and Weight loss R63.4 [facility] [address] [place] [address] Feb, Acute cystitis without hematuria N30.00 [facility] [address] [place] [address] Jan, Cough R05 and Nasal congestion R09.[address] 22157- 3460 May, Acquired hypothyroidism E03.[address] 14272- 0326 Feb, Acquired hypothyroidism E03.9 [facility] [address], [place] [address] Feb, Acquired hypothyroidism E03.9 [place] [address], [place] [address] Feb, [place] [address], [place] [address] Feb, Acquired hypothyroidism E03.9 [place] [address] [place] [address] 69162- 2460 Jan, Annual physical exam Z00.00 ; Prostate cancer screening Z12.5 ; Acquired hypothyroidism E03.9 ; Iron deficiency anemia, unspecified iron deficiency anemia type D50.9 and Hyperlipidemia, unspecified hyperlipidemia E78.5 [place] [address] [place] [address] 04993- 6465 Jan, Annual physical exam Z00.00 ; Acquired hypothyroidism E03.9 ; Screening for prostate cancer Z12.5 ; Hyperlipidemia, unspecified hyperlipidemia E78.5 ; Iron deficiency anemia, unspecified iron deficiency anemia type D50.9 ; Status post stroke Z86.73 ; Severe mental retardation F72 ; Left-sided weakness M62.81 ; Fracture of humeral head, right, closed S42.291A and Prostate cancer screening Z12.5 [facility] [address] [place] [address]42 [address] Nov, Abscess of finger of right hand L02.511 [place] [address] [place] [address] 44443- 8497 Nov, [place] [address] [place] [address] 60443- 9579 Nov, Seizure R56.9 ; Unspecified displaced fracture of surgical neck of right humerus, initial encounter for closed fracture S42.211A ; Severe mental retardation F72 and Insomnia, unspecified type G47.00 [place] [address] [place] [address] 63668- 6666 Nov, Seizure R56.9 [facility] [address] [place] [address] 99420- 2052 Nov, Insomnia, unspecified type G47.00 [facility] [address] [place] [address] 70467- 7406 Oct, [facility] [address] [place] [id number] [place] [address] 35131- 0623 Oct, Acquired hypothyroidism E03.9 [facility] [address] [place] [id number] [place] [address] 29558- 0560 Oct, Onychomycosis B35.1 [place] [address] [place] [id number] [place] [address] 59364- 6190 Oct, Onychomycosis B35.1 and Acquired hypothyroidism E03.9 [facility] [address] [place] [id number] [place] [address] 03212- 1076 Oct, Insomnia, unspecified type G47.00 [facility] [address] [place] [address] 18959- 3411 Oct, [facility] [address] [place] [id number] [place] [address] 65473- 5297 Sep, [facility] [address] [place] [address] 25019- 5862 Sep, [facility] [address] [place] [id number] [place] [address] 04521- 2942 Sep, Hyperlipidemia, unspecified hyperlipidemia E78.5 and Screening for prostate cancer Z12.5 [facility] [address], [place] [address] Aug, Suspected urinary tract infection N39.0 [facility] [address] [place] [address] 13860- 1250 Aug, Insomnia, unspecified type G47.00 [facility] [address] [place] [id number] [place] [address] 83815- 4356 Aug, [facility] [address], [place] [address] 7797 Aug, Insomnia, unspecified type G47.00 [facility] [address] [place] [address] 28654- 9209 Aug, SunDown syndrome F05 and Unspecified subluxation of right hip, initial encounter S73.001A [facility] [address] [place] [id number] [place] [address] 10521- 6365 Aug, Acquired hypothyroidism E03.9 [facility] [address] [place] [id number] [place] [address] 56318- 9992 Aug, [facility] [address] [place] [id number] [place] [address] 58995- 4942 Aug, [facility] [address] [place] [id number] [place] [address] 38581- 8632 Aug, [facility] [address] [place] [id number] [place] [address] 33597- 4919 Aug, [facility] [address] [place] [id number] [place] [address] 62288- 6399 Aug, Insomnia, unspecified type G47.00 [facility] [address] [place] [address] 37907- 0395 Aug, [facility] [address] [place] [id number] [place] [address] 66649- 4820 28 Jul, 2016 Status post stroke Z86.73 ; Encounter for immunization Z23 ; Onychomycosis B35.1 ; Acquired hypothyroidism E03.9 ; Iron deficiency anemia, unspecified iron deficiency anemia type D50.9 and Other displaced fracture of upper end of right humerus, initial encounter for closed fracture S42.291A [facility] [address] [place] [address] 48887- 8055 27 Jul, 2016 Hip pain M25.559 [facility] [address] [place] [id number] [place] [address] 45400- 0670 23 Jul, 2016 Fracture of humeral head, right, closed S42.291A [facility] [address] [id number] [place] [address] 4894 21 Jul, 2016 Insomnia, unspecified type G47.00 and Fracture of humeral head, right, closed S42.291A [facility] [address] [id number] [place] [address]- 2716 15 Jul, 2016 [facility] [id number] [place] [address] 33026- 7837 13 Jul, 2016 Hip pain M25.559 [facility] [id number] [place] [address], [place] [address]- 0074 08 Jul, 2016 Hospice care Z51.5 [facility] [address] [id number] [place] [address]- 2057 Jun, [facility] [address] [facility] [id number] [place] [address] 27037- 7492 29 Feb, 2016 Hospice care Z51.5 [facility] [address] [facility] [id number] [place] [address]- 0673 Feb, [facility] [address] [facility] [id number] [place] [address] 89714- 0314 Feb, [facility] [address] [facility] [id number], [place] [address]- 3371 19 Feb, 2016 [facility] [address] [facility] [id number], [place] [address]- 5756 18 Feb, 2016 [facility] [address] [facility] [id number] [place] [address]- 0005 14 Feb, 2016 [facility] [address] [facility] [id number] [place] [address]- 9509 13 Feb, 2016 [facility] [address] [facility] [id number], [place] [address]- 8664 29 Jan, 2016 [facility] [address] [facility] [id number], [place] [address]- 9922 29 Jan, 2016 Hypersomnolence G47.10 and Left-sided weakness M62.81 [place] [id number] [place] [address] 24012- 8060 28 Jan, 2016 Left-sided weakness M62.81 ; Excessive daytime sleepiness G47.19 ; Hypoxia R09.02 and Down syndrome Q90.[address] 86604- 6079 14 Jan, [address] 68427- 3790 14 Jan, 2016 Annual physical exam Z00.00 ; Acquired hypothyroidism E03.9 ; Iron deficiency anemia, unspecified iron deficiency anemia type D50.9 ; Hyperlipidemia, unspecified hyperlipidemia E78.5 ; Severe mental retardation F72 and Screening for prostate cancer Z12.5 [place] [id number] [place] [address] 11539- 4315 27 Nov, 2015 Onychomycosis B35.1 and Viral warts, unspecified type B07.9 [place] [id number] [place] [address] 40242- 3106 Oct, Sinusitis J32.9 and Encounter for immunization Z23 [place] [id number] [place] [address] 93978- 9029 09 Sep, 2015 Acute upper respiratory infection, unspecified J06.9 ; Other viral agents as the cause of diseases classified elsewhere B97.89 and Down syndrome Q90.9 [place] [id number] [place] [address] 15383- 0152 07 Aug, [address] 40954- 1249 16 Jul, 2015 Conjunctivitis 372.30 [place] [address] [place] [address] 38842- 6766 08 Jul, [address] 95233- 4010 May, Onychomycosis 110.1 ; Hypothyroid 244.[address] [facility] [address], [place] [address] Apr, [facility] [address] 6[address] [address], [address] [facility] [address], [place] [address]- 6758 [address], [address] [facility] [address] [facility] [id number] Dec, [facility] [address] [place] [id number] [place] [address], [place] [address] Dec, [facility] [address] [place] [id number] 9202 16 Dec, 2014 [facility] [address] [place] [address]- 5079 16 Dec, 2014 [facility] [address] 7786 16 Dec, 2014 [facility] [address] 9746 16 Dec, 2014 [facility] [address] 5042 16 Dec, 2014 [facility] [address] 9556 16 Dec, 2014 [facility] [address], [place] [address]- 1352 Dec, [facility] [address], [place] [address]- 8606 Oct, [facility] [address], [place] [address]- 5566 Oct, [facility] [address], [place] [address]- 6830 Oct, [facility] [place] [facility] [address] [id number] [place] [address]221 Oct, [facility] [place] [facility] [address] [id number] [place] [address]- 3007 Oct, [facility] [place] [facility] [address] [id number] [place]95 Oct, [facility] [place] [facility] [address] [id number] [place] [address]- 0994 Oct, [facility] [place] [facility] [address] [id number] [place] [address]- 2774 Oct, [facility] [place] [facility] [address] [id number] [place] [address]- 7122 Jun, [facility] [place] [facility] [address] [id number] [place] [address]- 1316 May, [facility] [place] [facility] [address] [id number] [place] [address]- 3273 May, [facility] [place] [facility] [address] [id number] [place] [address]- 3099 May, [facility] [place] [facility] [address] [id number] [place] [address]- 0122 Apr, [facility] [place] [facility] [address] [id number], [place] [address]- 5003 Apr, [facility] [place] [facility] [address] [id number], [place] [address]- 9239 March, [facility] [place] [facility] [address] [id number] [place] [address]- 6624 March, [facility] [place] [facility] [address] [id number] [place] [address]- 2421 Feb, [facility] [place] [facility] [address] [id number] [place] [address]- 5427 Feb, [facility] [place] [facility] [address] [id number] [place] [address]- 5362 18 Dec, 2013 [facility] [place] [facility] [address] [id number] [place] 8136 18 Dec, 2013 [facility] [place] [facility] [address] [id number] [place] [address]- 2546 14 Dec, 2013 [facility] [place] [facility] [address] [id number] [place] [address]- 6446 14 Dec, 2013 [facility] [place] [facility] [address] [id number] [place] [address]- 2542 Dec, [facility] [place] [facility] [address] [id number] [place] [address]- 3236 Dec, [facility] [place] [facility] [address] [id number] [place] [address]- 3468 15 Nov, 2013 [facility] [place] [facility] [address] [id number] [place] [address]- 2321 Nov, [facility] [place] [facility] [address] [id number] [place] [address]- 8782 Oct, [facility] [place] [facility] [address] [id number] [place] [address]- 5858 Oct, [facility] [place] [facility] [address] [id number] [place] [address]- 0670 Sep, [facility] [place] [facility] [address] [id number] [place] [address]- 0093 Sep, [facility] [place] [facility] [address] [id number] [place] [address]- 2542 Jul, [facility] [place] [facility] [address] [id number] [place] [address]- 2541 24 Jul, 2013 [facility] [place] [facility] [address] [id number] [place] [address]- 2546 23 Jul, 2013 [facility] [place] [facility] [address] [id number] [place] [address]- 2545 Jun, [facility] [place] [facility] [address] [id number] [place] [address]- 0742 Jun, [facility] [place] [facility] [address] [id number] [place] [address]- 6401 Apr, [facility] [place] [facility] [address] [id number] [place] [address]- 3178 March, [facility] [place] [facility] [address] [id number] [place] [address]- 2468 Dec, [facility] [place] [facility] [address] [id number] [place] [address]- 7492 Dec, [facility] [place] [facility] [address] [id number] [place] [address]- 7856 Nov, [facility] [place] [facility] [address] [id number] [place] [address]- 2208 Sep, [facility] [place] [facility] [address] [id number] [place] [address]- 1812 Sep, [facility] [place] [facility] [address] [id number] [place] [address]- 9133 Aug, [facility] [place] [facility] [address] [id number] [place] [address]- 5447 Aug, [facility] [place] [facility] [address] [id number] [place] [address]- 8982 Jul, [facility] [place] [facility] [address] [id number] [place] [address]- 3659 Jul, [facility] [place] [facility] [address] [id number] [place] [address]- 2065 Jun, [facility] [place] [facility] [address] [id number] [place] [address]- 0315 Jun, [facility] [place] [facility] [address] [id number] [place] [address]- 1646 May, [facility] [place] [facility] [address] [id number] [place] [address]- 0738 May, [facility] [address] [id number] [place] [address]- 5461 May, [facility] [place] [facility] [address] [id number] [place] [address] 2546 May, [facility] [address] [id number] [place] [address] 2546 May, [facility] [place] [facility] [address] [id number] [place] [address] 2546 May, [facility] [place] [facility] [address] [id number] [place] [address]- 5126 Apr, [facility] [place] [facility] [address] [id number] [place] [address]- 8048 Feb, [facility] [place] [facility] [address] [id number] [place] [address]- 4824 Feb, [facility] [place] [facility] [address] [id number] [place] [address]- 0450 Jan, [facility] [place] [facility] [address] [id number] [place] [address]- 8047 Dec, [facility] [address] [id number] [place] [address]- 6907 Dec, [facility] [place] [facility] [address] [id number] [place] [address]- 4266 Dec, [facility] [place] [facility] [address] [id number] [place] [address] 2545 Nov, [facility] [place] [facility] [address] [id number] [place] [address]- 7515 Nov, [facility] [place] [facility] [address] [id number] [place] [address] 2540 Sep, [facility] [place] [facility] [address] [id number] [place] [address]- 3167 Sep, [facility] [address] [id number], [place] [address]- 8636 Sep, [facility] [address] [facility] [id number] [place] [address]- 6966 Sep, [facility] [address] [facility] [id number], [place] [address]- 3756 Aug, [facility] [address] [id number], [place] [address]- 1576 Oct, [facility] [address] [id number] [place] [address]- 4391 Oct, [facility] [address] [facility] [id number], [place] [address]- 8126 Oct, [facility] [address] [facility] [id number] [place] [address]- 4506 Aug, [facility] [address] [facility] [id number], [place] [address]- 5996 Aug, [facility] [address] [facility] [id number], [place] [address]- 6349 Feb, [facility] [address] [facility] [id number], [place] [address] Oct, [facility] [address] [facility] [id number], [place] [address] Oct, [facility] [address] [facility] [id number], [place] [address] Sep, [facility] [address] [facility] [id number], [place] [address] Aug, [facility] [address] [facility] [id number], [place] [address] Aug, [facility] [address] [facility] [id number], [place] [address] March, IMMUNIZATIONS No Known Immunizations SOCIAL HISTORY Never Assessed REASON FOR VISIT General Physical WB-MA PLAN OF CARE Activity Details Follow Up 2 Months Reason:weight loss VITAL SIGNS Height 62 in 2018-04-04 Weight 102.6 lbs 2018-04-04 Temperature 96.2 degrees Fahrenheit 2018-04-04 Heart Rate 70 bpm 2018-04-04 Respiratory Rate 18 2018-04-04 BMI 18.76 kg/m2 2018-04-04 Blood pressure systolic 98 mmHg 2018-04-04 Blood pressure diastolic 58 mmHg 2018-04-04 MEDICATIONS Medication Instructions Dosage Frequency Start Date End Date Duration Status Doxepin HCl 50 mg Orally Once a day 1 capsule at bedtime 24h Oct, 31 days Active Sucralfate 1 GM Orally 3 times a day 1 tablet 1 hour before meals 8h 31 Active Aspirin Adult Low Strength 81 MG Orally Once a day 1 tablet 24h Oct, Active tylenol 1000 MG Orally 2 times a day 1 tablet as needed 12h 31 days Active Wheelchair - as directed Jul, Active Escitalopram Oxalate 10 mg Orally Once a day 1 tablet 24h March, 30 day(s) Active Loratadine 10 mg Orally Once a day 1 tablet 24h 31 Active Levothyroxine Sodium 100 MCG Orally Once a day 1 tablet on an empty stomach in the morning 24h 31 days Active Keppra 750 MG Orally 2 times a day 1 tablet 12h Active Simethicone 80 MG Orally Four times a day 1 tablet after meals and at bedtime as needed 6h Active Eucerin ... Externally (topical) Once a day 1 application at bathtime for Chronic Dermatitis 24h Not-Taking Wheelchair Manual as directed Not-Taking RESULTS No Results PROCEDURES Procedure Date Ordered Result Body Site [facility] VISIT ESTABLISHED PATIENT April 04, 2018 INSTRUCTIONS MEDICATIONS ADMINISTERED No Known Medications [...]
[2018-09-20] MEDS: NS IV 1000 ML 1,000 ML IV SCH ×5 (09:00→22:40)
--- OUTSIDE RECORDS SUMMARY | 2018-09-20 09:00 | XMS REPORT ---
Author Author MARGARITO KAPOOR Organization [facility] Address [address] [place] [address] Care Team Providers Care Senior Software Qa Engineer Name Role Phone MARGARITO KAPOOR Unavailable PROBLEMS Type Condition ICD9-CM Code WBA17-AS Code Onset Dates Condition Status SNOMED Code Problem Hypoxia R09.02 Active 498596059 Problem Left-sided weakness M62.81 Active 54187666 Problem Down syndrome Q90.9 Active 36579308 Problem Reactive depression F32.9 Active 43356521 Problem Poor balance R26.89 Active 957677588 Problem Insomnia, unspecified type G47.00 Active 905644624 Problem Hypersomnolence G47.10 Active 49715025 Problem Acute cystitis without hematuria N30.00 Active 86016660 Problem SunDown syndrome F05 Active 310468140 Problem Dislocation of right hip S73.004A Active 942375073 Problem Fat embolus T79.1XXA Active 344204367 Problem Acquired hypothyroidism E03.9 Active 399554986 Problem Hypoalbuminemia E88.09 Active 309731304 Problem Iron deficiency anemia, unspecified iron deficiency anemia type D50.9 Active 01424798 Problem Hyperlipidemia, unspecified hyperlipidemia E78.5 Active 27209220 Problem Fracture of humeral head, right, closed S42.291A Active 568875514 Problem Severe mental retardation F72 Active 89999989 Problem Equinus deformity of foot M21.6X9 Active 611818934 Problem Excessive daytime sleepiness G47.19 Active [id number] ALLERGIES Substance Reaction Event Type Date Status Naproxen Unknown Drug Allergy Feb, Active Benadryl hyperactivity Drug Allergy Feb, Active ENCOUNTERS Encounter Location Date Diagnosis [facility] [address] [facility] [id number] [address] May, Swelling of right hand M79.89 [facility] [id number] [place] [address] 32634- 7397 May, Spasms of the hands or feet R25.2 ; Weakness R53.1 ; Poor balance R26.89 ; Acquired hypothyroidism E03.9 ; Reactive depression F32.9 and Insomnia, unspecified type G47.00 [place] [id number] [place] [address] 08628- 0982 March, Hypoalbuminemia E88.09 [place] [address] [address] March, Annual physical exam Z00.00 ; Hyperlipidemia, unspecified hyperlipidemia E78.5 ; Seizure R56.9 ; Down syndrome Q90.9 ; Insomnia, unspecified type G47.00 ; Left-sided weakness M62.81 ; Iron deficiency anemia, unspecified iron deficiency anemia type D50.9 ; Prostate cancer screening Z12.5 ; Acquired hypothyroidism E03.9 and Flat affect R45.[address] [address] March, Annual physical exam Z00.00 ; Seizure R56.9 ; Down syndrome Q90.9 ; Insomnia, unspecified type G47.00 ; Hyperlipidemia, unspecified hyperlipidemia E78.5 ; Left-sided weakness M62.81 ; Iron deficiency anemia, unspecified iron deficiency anemia type D50.9 ; Prostate cancer screening Z12.5 ; Acquired hypothyroidism E03.9 ; Flat affect R45.89 and Weight loss R63.4 [facility] [address] [place] [id number] [place] [address] Feb, Acute cystitis without hematuria N30.00 [facility] [address] [place] [id number] [place] [address]81 -[address] Jan, Cough R05 and Nasal congestion R09.81 [place] [id number] [place] [address] 27409- 0220 May, Acquired hypothyroidism E03.9 [place] [id number] [place] [address] 38803- 4474 Feb, Acquired hypothyroidism E03.9 [facility] [address] [address] Feb, Acquired hypothyroidism E03.9 [place] [address] [address] Feb, [place] [address] [address] Feb, Acquired hypothyroidism E03.9 [facility] [id number] [place] [address] 93239- 3418 Jan, Annual physical exam Z00.00 ; Prostate cancer screening Z12.5 ; Acquired hypothyroidism E03.9 ; Iron deficiency anemia, unspecified iron deficiency anemia type D50.9 and Hyperlipidemia, unspecified hyperlipidemia E78.5 [place] [id number] [place] [address] 77599- 7139 Jan, Annual physical exam Z00.00 ; Acquired hypothyroidism E03.9 ; Screening for prostate cancer Z12.5 ; Hyperlipidemia, unspecified hyperlipidemia E78.5 ; Iron deficiency anemia, unspecified iron deficiency anemia type D50.9 ; Status post stroke Z86.73 ; Severe mental retardation F72 ; Left-sided weakness M62.81 ; Fracture of humeral head, right, closed S42.291A and Prostate cancer screening Z12.5 [facility] [id number] [place] [address]45 [address] Nov, Abscess of finger of right hand L02.511 [place] [id number] [place] [address] 32356- 9589 Nov, [facility] [id number] [place] [address] 68084- 1693 Nov, Seizure R56.9 ; Unspecified displaced fracture of surgical neck of right humerus, initial encounter for closed fracture S42.211A ; Severe mental retardation F72 and Insomnia, unspecified type G47.00 [facility] [id number] [place] [address] 03279- 3784 Nov, Seizure R56.9 [facility] [address] [address] Nov, Insomnia, unspecified type G47.00 [facility] [id number] [place] [address] 27230- 3464 Oct, [facility] [id number] [place] [address] 06996- 3240 Oct, Acquired hypothyroidism E03.9 [facility] [id number] [place] [address] 93153- 1148 Oct, Onychomycosis B35.1 [facility] [id number] [place] [address] 30726- 9759 Oct, Onychomycosis B35.1 and Acquired hypothyroidism E03.9 [facility] [id number] [place] [address] 37839- 3923 Oct, Insomnia, unspecified type G47.00 [facility] [id number] [place] [address] 68352- 8966 Oct, [facility] [id number] [place] [address] 80798- 0220 Sep, [facility] [id number] [place] [address] 72498- 6610 Sep, [facility] [id number] [place] [address] 87801- 8495 Sep, Hyperlipidemia, unspecified hyperlipidemia E78.5 and Screening for prostate cancer Z12.5 [facility] [address] [address] Aug, Suspected urinary tract infection N39.0 [facility] [id number] [place] [address] 90984- 9306 Aug, Insomnia, unspecified type G47.00 [facility] [id number] [place] [address] 93850- 0350 Aug, [facility] [id number] [place] [address] 86051- 2007 Aug, Insomnia, unspecified type G47.00 [facility] [id number] [place] [address] 03923- 3051 Aug, SunDown syndrome F05 and Unspecified subluxation of right hip, initial encounter S73.001A [facility] [id number] [place] [address] 78320- 7649 Aug, Acquired hypothyroidism E03.9 [facility] [id number] [place] [address] 07351- 5465 Aug, [facility] [id number] [place] [address] 96378- 0094 Aug, [facility] [id number] [place] [address] 18171- 1592 Aug, [facility] [id number] [place] [address] 37832- 4578 Aug, [facility] [id number] [place] [address] 69463- 2042 Aug, Insomnia, unspecified type G47.00 [facility] [id number] [place] [address] 16833- 0700 Aug, [facility] [id number] [place] [address] 30477- 4758 Jul, Status post stroke Z86.73 ; Encounter for immunization Z23 ; Onychomycosis B35.1 ; Acquired hypothyroidism E03.9 ; Iron deficiency anemia, unspecified iron deficiency anemia type D50.9 and Other displaced fracture of upper end of right humerus, initial encounter for closed fracture S42.291A [facility] [id number] [place] [address] 01201- 7633 Jul, Hip pain M25.559 [facility] [id number] [place] [address] 51621- 3481 Jul, Fracture of humeral head, right, closed S42.291A [facility] [address] [id number] [place] [address]- 1403 21 Jul, 2016 Insomnia, unspecified type G47.00 and Fracture of humeral head, right, closed S42.291A [facility] [address] [id number] [place] [address]- 2326 15 Jul, 2016 [facility] [id number] [place] [address], [place] [address]- 7263 13 Jul, 2016 Hip pain M25.559 [facility] [address] [id number] [place] [address], [place] [address]- 0530 08 Jul, 2016 Hospice care Z51.5 [facility] [address] [id number] [place] [address]- 2142 Jun, [facility] [id number] [place] [address] 13247- 5702 29 Feb, 2016 Hospice care Z51.5 [facility] [address] [facility] [id number] [place] [address]- 3682 Feb, [facility] [address] [facility] [id number] [place] [address]- 7484 Feb, [facility] [address] [facility] [id number] [address]- 5385 Feb, [facility] [address] [facility] [id number] [address]- 1727 18 Feb, 2016 [facility] [address] [facility] [id number] [address]- 9751 14 Feb, 2016 [facility] [address] [facility] [id number] [place] [address]- 6740 Feb, [facility] [address] [id number] [address]- 5656 29 Jan, 2016 [facility] [address] [facility] [id number] [address]- 6004 Jan, Hypersomnolence G47.10 and Left-sided weakness M62.[address] [address]- 3108 28 Jan, 2016 Left-sided weakness M62.81 ; Excessive daytime sleepiness G47.19 ; Hypoxia R09.02 and Down syndrome Q90.[address] 56[address]- 9367 14 Jan, [address] 54149- 2569 14 Jan, 2016 Annual physical exam Z00.00 ; Acquired hypothyroidism E03.9 ; Iron deficiency anemia, unspecified iron deficiency anemia type D50.9 ; Hyperlipidemia, unspecified hyperlipidemia E78.5 ; Severe mental retardation F72 and Screening for prostate cancer Z12.[address] [address]- 1249 27 Nov, 2015 Onychomycosis B35.1 and Viral warts, unspecified type B07.[address] 02751- 9751 Oct, Sinusitis J32.9 and Encounter for immunization Z23 [address] 26995- 9415 09 Sep, 2015 Acute upper respiratory infection, unspecified J06.9 ; Other viral agents as the cause of diseases classified elsewhere B97.89 and Down syndrome Q90.9 [place] [id number] [place] [address] 68173- 7996 07 Aug, [address] 15423- 1669 16 Jul, 2015 Conjunctivitis [address] 45302- 0306 08 Jul, [address] 59567- 4132 08 May, 2015 Onychomycosis 110.1 ; Hypothyroid 244.9 and Hyperlipidemia 272.4 [facility] [address] [place] [address]- 8992 16 Apr, 2015 [facility] [address] [place] [address]- 2987 14 Feb, 2015 [facility] [address] [place] [address]- 2369 13 Feb, 2015 [facility] [address] [facility] [id number] [place] [address]- 2957 20 Dec, 2014 [facility] [id number] [place] [address], [place] 2697 20 Dec, 2014 [facility] [id number] [place] [address]- 8351 16 Dec, 2014 [facility] [address] [place] [address]- 4999 16 Dec, 2014 [facility] [address] [place] [address]- 8397 16 Dec, 2014 [facility] [address] [place] [address]- 0024 16 Dec, 2014 [facility] [address] [address]- 1234 16 Dec, 2014 [facility] [address] [address]- 6595 16 Dec, 2014 [facility] [id number] 4572 Dec, [facility] [address] 4088 Oct, [facility] [address] 3276 Oct, [facility] [address] 4467 Oct, [facility] [place] [facility] [address] [id number] [place] [address]- 0579 Oct, [facility] [place] [facility] [address] [id number] [place] [address]- 7188 Oct, [facility] [place] [facility] [address] [id number] [place] [address]- 2551 Oct, [facility] [place] [facility] [address] [id number] [place] [address]- 0189 Oct, [facility] [place] [facility] [address] [id number] [place] [address]- 2032 Oct, [facility] [place] [facility] [address] [id number] [place] [address]- 8395 Jun, [facility] [place] [facility] [address] [id number] [place] [address]- 4017 May, [facility] [place] [facility] [address] [id number] [place] [address]- 9576 May, [facility] [place] [facility] [address] [id number] [place] [address]- 3330 May, [facility] [place] [facility] [address] [id number] [place] [address]- 3640 Apr, [facility] [place] [facility] [address] [id number] [place] [address]- 4407 Apr, [facility] [place] [facility] [address] [id number] [address]- 9853 March, [facility] [place] [facility] [address] [id number] [place] [address]- 5144 March, [facility] [place] [facility] [address] [id number] [place] [address]- 1734 Feb, [facility] [place] [facility] [address] [id number] [place] [address]- 7964 Feb, [facility] [place] [facility] [address] [id number] [place] [address]- 2987 18 Dec, 2013 [facility] [place] [facility] [address] [id number] [place] [address]- 1166 18 Dec, 2013 [facility] [place] [facility] [address] [id number] [place] [address]- 6786 Dec, [facility] [place] [facility] [address] [id number] [place] [address]- 1366 14 Dec, 2013 [facility] [place] [facility] [address] [id number] [place] [address]- 2545 Dec, [facility] [place] [facility] [address] [id number] [place] [address]- 8680 Dec, [facility] [place] [facility] [address] [facility] [id number] [place] [address]- 3882 Nov, [facility] [place] [facility] [address] [id number] [place] [address]- 5912 Nov, [facility] [place] [facility] [address] [id number] [place] [address]- 0824 Oct, [facility] [place] [facility] [address] [id number] [place] [address]- 7735 Oct, [facility] [place] [facility] [address] [facility] [id number] [place] [address]- 0395 Sep, [facility] [place] [facility] [address] [id number] [place] [address]- 1883 Sep, [facility] [place] [facility] [address] [id number] [place] [address]- 2548 Jul, [facility] [place] [facility] [address] [id number] [place] [address]- 1214 24 Jul, 2013 [facility] [place] [facility] [address] [id number] [place] [address]- 2543 23 Jul, 2013 [facility] [place] [facility] [address] [id number] [place] [address]395 Jun, [facility] [place] [facility] [address] [id number] [place] [address]- 8210 Jun, [facility] [place] [facility] [address] [id number] [place] [address]- 8446 Apr, [facility] [place] [facility] [address] [id number] [place] [address]- 3065 March, [facility] [place] [facility] [address] [id number] [place] [address]- 7939 Dec, [facility] [place] [facility] [address] [id number] [place] [address]- 3604 Dec, [facility] [place] [facility] [address] [id number] [place] [address]- 1101 Nov, [facility] [place] [facility] [address] [id number] [place] [address]- 7865 Sep, [facility] [place] [facility] [address] [id number] [place] [address]- 1306 Sep, [facility] [place] [facility] [address] [id number] [place] [address]- 3073 Aug, [facility] [place] [facility] [address] [id number] [place] [address]- 1713 Aug, [facility] [place] [facility] [address] [id number] [place] [address]- 6323 Jul, [facility] [place] [facility] [address] [id number] [place] [address]- 5260 Jul, [facility] [place] [facility] [address] [id number] [place] [address]- 1396 Jun, [facility] [place] [facility] [address] [id number] [place] [address]- 1816 Jun, [facility] [place] [facility] [address] [id number] [place] [address]- 8043 May, [facility] [place] [facility] [address] [id number] [place] [address]- 5637 May, [facility] [address] [id number] [place] [address]- 4563 May, [facility] [place] [facility] [address] [id number] [place] 9953 May, [facility] [place] [facility] [address] [id number] [place] [address]- 4206 May, [facility] [place] [facility] [address] [id number] [place] [address]- 0953 May, [facility] [place] [facility] [address] [id number] [place] [address]- 3000 Apr, [facility] [place] [facility] [address] [id number] [place] [address]- 3470 Feb, [facility] [place] [facility] [address] [id number] [place] [address]- 6238 Feb, [facility] [place] [facility] [address] [id number] [place] [address]- 9723 Jan, [facility] [place] [facility] [address] [id number] [place] [address]- 4949 Dec, [facility] [place] [facility] [address] [id number] [place] [address]- 3150 Dec, [facility] [place] [facility] [address] [id number] [place] [address]- 2646 Dec, [facility] [place] [facility] [address] [id number] [place] [address]- 5513 Nov, [facility] [place] [facility] [address] [id number] [place] [address]- 9386 Nov, [facility] [place] [facility] [address] [id number] [place] [address]- 1969 Sep, [facility] [place] [facility] [address] [id number] [place] [address]- 9393 Sep, [facility] [address] [id number] [place] [address]- 3696 Sep, [facility] [address] [id number] [place] [address]- 1538 Sep, [facility] [address] [id number] [place] [address]- 1104 Aug, [facility] [address] [id number] [place] 8047 Oct, [facility] [address] [id number] [place] 5566 Oct, [facility] [address] [id number] [place] [address]- 9374 Oct, [facility] [address] [facility] [id number] [place] [address]- 2588 Aug, [facility] [address] [facility] [id number] [address]- 1064 Aug, [facility] [address] [facility] [id number] [place] [address]- 0585 Feb, [facility] [address] [facility] [id number] [place] 9925 Oct, [facility] [address] [facility] [id number] [address]- 1225 Oct, [facility] [address] [id number] [address]- 0570 Sep, [facility] [address] [facility] [id number] [place] 1928 Aug, [facility] [address] [id number] [place]- 8407 Aug, [facility] [address] [facility] [id number] [place] 9723 March, IMMUNIZATIONS No Known Immunizations SOCIAL HISTORY Never Assessed REASON FOR VISIT UTI Pt has uti symptoms BENJAMIN Cline PLAN OF CARE Activity Details Follow Up prn Reason:UTI VITAL SIGNS Height 62 in 2018-03-14 Temperature 96.5 degrees Fahrenheit 2018-03-14 Heart Rate 72 bpm 2018-03-14 Respiratory Rate 16 2018-03-14 Blood pressure systolic 92 mmHg 2018-03-14 Blood pressure diastolic 60 mmHg 2018-03-14 MEDICATIONS Medication Instructions Dosage Frequency Start Date End Date Duration Status Aspirin Adult Low Strength 81 MG Orally Once a day 1 tablet 24h Oct, Active Sucralfate 1 GM Orally 3 times a day 1 tablet 1 hour before meals 8h 31 Active Wheelchair - as directed Jul, Active Keppra 750 MG Orally 2 times a day 1 tablet 12h Active Mytab Gas 80 MG CHEW 1 TABLET ORALLY FOUR TIMES DAILY AFTER MEALS AND AT BEDTIME 31 31 Active Macrobid 100 mg Orally every 12 hrs 1 capsule with food 12h Feb, Feb, 7 day(s) Active Eucerin ... Externally (topical) Once a day 1 application at bathtime for Chronic Dermatitis 24h Active Simethicone 80 MG Orally Four times a day 1 tablet after meals and at bedtime as needed 6h Active Tamiflu 75 MG Orally Twice a day 1 capsule 12h Jan, 5 day(s) Active Loratadine 10 mg Orally Once a day 1 tablet 24h 31 Active Doxepin HCl 50 mg Orally Once a day 1 capsule at bedtime 24h 08 Oct, 2016 31 days Active tylenol 1000 MG Orally 2 times a day 1 tablet as needed 12h 31 days Active Levetiracetam 500 MG Orally every 12 hrs 12h Active Wheelchair Manual as directed Active Levothyroxine Sodium 100 MCG Orally Once a day 1 tablet on an empty stomach in the morning 24h 31 days Active RESULTS No Results PROCEDURES Procedure Date Ordered Result Body Site [facility] VISIT ESTABLISHED PATIENT March 14, 2018 INSTRUCTIONS MEDICATIONS ADMINISTERED No Known Medications [...]
--- OUTSIDE RECORDS SUMMARY | 2018-09-20 09:00 | XMS REPORT ---
Author Author EDWAR MERRILL [facility] Address [address] [place] [address] Care Team Providers Care Home Visits Nurse Name Role Phone EDWAR MERRILL Unavailable PROBLEMS Type Condition ICD9-CM Code [id number] Code Onset Dates Condition Status SNOMED Code Problem Hypoxia R09.02 Active 576990422 Problem Left-sided weakness M62.81 Active 16360088 Problem Down syndrome Q90.9 Active 17875550 Problem Reactive depression F32.9 Active 62085616 Problem Poor balance R26.89 Active 818611490 Problem Insomnia, unspecified type G47.00 Active 449099328 Problem Hypersomnolence G47.10 Active 01150854 Problem Acute cystitis without hematuria N30.00 Active 43011875 Problem SunDown syndrome F05 Active 385342660 Problem Dislocation of right hip S73.004A Active 857473846 Problem Fat embolus 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.1XXA Active 043610448 Problem Acquired hypothyroidism E03.9 Active 686354705 Problem Hypoalbuminemia E88.09 Active 667093065 Problem Iron deficiency anemia, unspecified iron deficiency anemia type D50.9 Active 89898711 Problem Hyperlipidemia, unspecified hyperlipidemia E78.5 Active 29549598 Problem Fracture of humeral head, right, closed S42.291A Active 650907524 Problem Severe mental retardation F72 Active 80441275 Problem Equinus deformity of foot M21.6X9 Active 684779881 Problem Excessive daytime sleepiness G47.19 Active [id number] ALLERGIES No Information ENCOUNTERS Encounter Location Date Diagnosis [facility] [address] [facility] [id number] [address] May, Swelling of right hand M79.89 [facility] [address] [facility] [id number] [address] May, Spasms of the hands or feet R25.2 ; Weakness R53.1 ; Poor balance R26.89 ; Acquired hypothyroidism E03.9 ; Reactive depression F32.9 and Insomnia, unspecified type G47.[address] [address] March, Hypoalbuminemia E88.[address] [address] March, Annual physical exam Z00.00 ; Hyperlipidemia, unspecified hyperlipidemia E78.5 ; Seizure R56.9 ; Down syndrome Q90.9 ; Insomnia, unspecified type G47.00 ; Left-sided weakness M62.81 ; Iron deficiency anemia, unspecified iron deficiency anemia type D50.9 ; Prostate cancer screening Z12.5 ; Acquired hypothyroidism E03.9 and Flat affect R45.[address] [address] March, Annual physical exam Z00.00 ; Seizure R56.9 ; Down syndrome Q90.9 ; Insomnia, unspecified type G47.00 ; Hyperlipidemia, unspecified hyperlipidemia E78.5 ; Left-sided weakness M62.81 ; Iron deficiency anemia, unspecified iron deficiency anemia type D50.9 ; Prostate cancer screening Z12.5 ; Acquired hypothyroidism E03.9 ; Flat affect R45.89 and Weight loss R63.4 [facility] [address] [address] Feb, Acute cystitis without hematuria N30.00 [facility] [address] [address] Jan, Cough R05 and Nasal congestion R09.[address] [address] May, Acquired hypothyroidism E03.[address] 8[address]96- [address] Feb, Acquired hypothyroidism E03.[address] [address]46- [address] Feb, Acquired hypothyroidism E03.9 [facility] [id number] [place] [address]12- 5838 Feb, [place] [id number] [place] [address] 40903- 7332 Feb, Acquired hypothyroidism E03.9 [facility] [id number] [place] [address] 82863- 7508 Jan, Annual physical exam Z00.00 ; Prostate cancer screening Z12.5 ; Acquired hypothyroidism E03.9 ; Iron deficiency anemia, unspecified iron deficiency anemia type D50.9 and Hyperlipidemia, unspecified hyperlipidemia E78.5 [place] [id number] [place] [address] 71164- 1894 Jan, Annual physical exam Z00.00 ; Acquired hypothyroidism E03.9 ; Screening for prostate cancer Z12.5 ; Hyperlipidemia, unspecified hyperlipidemia E78.5 ; Iron deficiency anemia, unspecified iron deficiency anemia type D50.9 ; Status post stroke Z86.73 ; Severe mental retardation F72 ; Left-sided weakness M62.81 ; Fracture of humeral head, right, closed S42.291A and Prostate cancer screening Z12.5 [facility] IN [facility] [id number] [place] [address] Nov, Abscess of finger of right hand L02.511 [place] [id number] [place] [address] 07027- 7527 Nov, [place] [address] [address] Nov, Seizure R56.9 ; Unspecified displaced fracture of surgical neck of right humerus, initial encounter for closed fracture S42.211A ; Severe mental retardation F72 and Insomnia, unspecified type G47.00 [place] [id number] [place] [address] 52018- 4540 Nov, Seizure R56.9 [facility] [address] [address]- [address] Nov, Insomnia, unspecified type G47.00 [facility] [id number] [place] [address] 72111- 3284 Oct, [facility] [id number] [place] [address] 17676- 2524 Oct, Acquired hypothyroidism E03.9 [facility] [id number] [place] [address] 79924- 3212 Oct, Onychomycosis B35.1 [facility] [id number] [place] [address] 71649- 5033 Oct, Onychomycosis B35.1 and Acquired hypothyroidism E03.9 [facility] [id number] [place] [address] 99439- 9288 Oct, Insomnia, unspecified type G47.00 [facility] [id number] [place] [address] 05438- 9318 Oct, [facility] [id number] [place] [address] 51191- 3403 Sep, [facility] [id number] [place] [address] 67698- 1813 Sep, [facility] [id number] [place] [address] 58729- 8183 Sep, Hyperlipidemia, unspecified hyperlipidemia E78.5 and Screening for prostate cancer Z12.5 [facility]ALK IN [facility] [id number] [place] [address] Aug, Suspected urinary tract infection N39.0 [facility] [id number] [place] [address] 71801- 5025 Aug, Insomnia, unspecified type G47.00 [facility] [address] [place] [address] 14793- 8941 Aug, [facility] [id number] [place] [address] 10117- 9007 Aug, Insomnia, unspecified type G47.00 [facility] [address] [place] [address] 21233- 0354 Aug, SunDown syndrome F05 and Unspecified subluxation of right hip, initial encounter S73.001A [facility] [address] [place] [address] 98639- 8145 Aug, Acquired hypothyroidism E03.9 [facility] [id number] [place] [address] 45139- 5692 Aug, [facility] [id number] [place] [address] 51628- 0002 Aug, [facility] [id number] [place] [address] 60022- 6505 Aug, [facility] [id number] [place] [address] 68941- 1735 Aug, [facility] [id number] [place] [address] 36631- 0136 Aug, Insomnia, unspecified type G47.00 [place] [id number] [place] [address] 11436- 9011 Aug, [facility] [id number] [place] [address] 51889- 5405 Jul, Status post stroke Z86.73 ; Encounter for immunization Z23 ; Onychomycosis B35.1 ; Acquired hypothyroidism E03.9 ; Iron deficiency anemia, unspecified iron deficiency anemia type D50.9 and Other displaced fracture of upper end of right humerus, initial encounter for closed fracture S42.291A [place] [id number] [place] [address] 56191- 9235 Jul, Hip pain M25.559 [place] [id number] [place] [address] 36358- 9414 Jul, Fracture of humeral head, right, closed S42.291A [place] [address] [id number] [address] Jul, Insomnia, unspecified type G47.00 and Fracture of humeral head, right, closed S42.291A [facility] [id number] [place] [address] 11462- 0828 15 Jul, 2016 [facility] [id number] [place] [address] 96577- 1474 13 Jul, 2016 Hip pain M25.559 [facility] [id number] [place] [address] 53129- 9971 08 Jul, 2016 Hospice care Z51.5 [facility] [id number] [place] [address] 23074- 7461 Jun, [facility] [id number] [place] [address] 03452- 4764 Feb, Hospice care Z51.5 [facility] [id number] [place] [address] 53127- 9621 Feb, [facility] [address] [place] [address] 82169- 4281 Feb, [facility] [id number] [place] [address] 64167- 0600 Feb, [facility] [address] [address] 8858 18 Feb, 2016 [facility] [id number] [place] [address] 45623- 7788 14 Feb, 2016 [facility] [address] [place] [address] 64959- 4472 Feb, [facility] [id number] [place] [address] 50067- 0040 Jan, [facility] [address] [address]- 22[address] Jan, Hypersomnolence G47.10 and Left-sided weakness M62.81 [place] [id number] [place] [address] 36417- 4943 28 Jan, 2016 Left-sided weakness M62.81 ; Excessive daytime sleepiness G47.19 ; Hypoxia R09.02 and Down syndrome Q90.9 [place] [id number] [place] [address] 02474- 1150 14 Jan, [address] 76888- 0908 14 Jan, 2016 Annual physical exam Z00.00 ; Acquired hypothyroidism E03.9 ; Iron deficiency anemia, unspecified iron deficiency anemia type D50.9 ; Hyperlipidemia, unspecified hyperlipidemia E78.5 ; Severe mental retardation F72 and Screening for prostate cancer Z12.[address] 65371- 1061 27 Nov, 2015 Onychomycosis B35.1 and Viral warts, unspecified type B07.[address] 45434- 6835 Oct, Sinusitis J32.9 and Encounter for immunization Z23 [address] 89605- 8980 09 Sep, 2015 Acute upper respiratory infection, unspecified J06.9 ; Other viral agents as the cause of diseases classified elsewhere B97.89 and Down syndrome Q90.9 [place] [id number] [place] [address] 95565- 6768 Aug, [address] 81673- 5015 16 Jul, 2015 Conjunctivitis 372.[address] 86755- 3222 08 Jul, [address] 40091- 9987 May, Onychomycosis 110.1 ; Hypothyroid 244.9 and Hyperlipidemia 272.[address] [place] [address]- 1547 16 Apr, 2015 [facility] [place] [facility] [address] [id number] [place] [address]- 3349 14 Feb, 2014 [facility] [place] [facility] [address] [id number] [place] [address]- 5334 13 Feb, 2014 [facility] [place] [facility] [address] [id number] [place] [address]- 2677 20 Dec, 2014 [facility] [place] [facility] [address] [id number] [place] [address]- 2494 20 Dec, 2014 [facility] [place] [facility] [address] [id number] [place] [address]- 9723 16 Dec, 2014 [facility] [place] [facility] [address] [facility] [id number] [place] [address]- 9410 16 Dec, 2014 [facility] [place] [facility] [address] [id number] [place] [address]- 9519 16 Dec, 2014 [facility] [place] [facility] [address] [id number] [place] [address]- 5890 16 Dec, 2014 [facility] [place] [facility] [address] [facility] [id number] [place] [address]- 3683 16 Dec, 2014 [facility] [place] [facility] [address] [facility] [id number] [place] [address]- 9225 16 Dec, 2014 [facility] [place] [facility] [address] [facility] [id number] [place] [address]- 3430 16 Dec, 2014 [facility] [place] [facility] [address] [id number] [place] [address]- 3145 Oct, [facility] [place] [facility] [address] [id number] [place] [address]- 7058 Oct, [facility] [place] [facility] [address] [facility] [id number] [place] 4214 Oct, [facility] [place] [facility] [address] [facility] [id number] [place] [address]- 2311 Oct, [facility] [place] [facility] [address] [id number] [place] 7280 Oct, [facility] [place] [facility] [address] [id number] [place] [address]- 7115 Oct, [facility] [place] [facility] [address] [id number] [place] 2066 Oct, [facility] [place] [facility] [address] [id number] [place]- 6142 Oct, [facility] [place] [facility] [address] [id number] [place] [address]- 6604 Jun, [facility] [place] [facility] [address] [id number] [place] [address]- 1584 May, [facility] [place] [facility] [address] [id number] [place] [address]- 8443 May, [facility] [place] [facility] [address] [id number] [place] [address]- 2672 May, [facility] [place] [facility] [address] [id number] [place] [address]- 8562 Apr, [facility] [place] [facility] [address] [id number] [place] [address]- 1520 Apr, [facility] [place] [facility] [address] [id number] [place] [address]- 6780 March, [facility] [place] [facility] [address] [id number] [place] [address]- 0794 March, [facility] [place] [facility] [address] [id number] [place] [address]- 2082 Feb, [facility] [place] [facility] [address] [id number] [place] [address]- 0182 Feb, [facility] [place] [facility] [address] [id number] [place]- 2165 Dec, [facility] [place] [facility] [address] [id number] [place] [address]- 0104 18 Dec, 2013 [facility] [place] [facility] [address] [id number] [place] [address]- 0965 14 Dec, 2013 [facility] [place] [facility] [address] [id number] [place] [address]- 0976 14 Dec, 2013 [facility] [place] [facility] [address] [id number] [place] [address]- 2803 Dec, [facility] [place] [facility] [address] [id number] [place] [address]- 8396 Dec, [facility] [place] [facility] [address] [id number] [place] [address]- 1326 Nov, [facility] [place] [facility] [address] [id number] [place] [address]- 0624 Nov, [facility] [place] [facility] [address] [id number] [place] [address]- 7766 Oct, [facility] [place] [facility] [address] [id number] [place] [address]- 4520 Oct, [facility] [place] [facility] [address] [id number] [place] [address]- 7594 Sep, [facility] [place] [facility] [address] [id number] [place] [address]- 2424 Sep, [facility] [place] [facility] [address] [id number] [place] [address]- 0126 Jul, [facility] [place] [facility] [address] [id number] [place] [address]- 7774 24 Jul, 2013 [facility] [place] [facility] [address] [id number] [place] [address]- 3516 23 Jul, 2013 [facility] [place] [facility] [address] [id number] [place] [address]- 3265 05 Jun, 2013 [facility] [place] [facility] [address] [id number] [place] [address]- 5176 Jun, [facility] [place] [facility] [address] [id number] [place] [address]- 8460 Apr, [facility] [place] [facility] [address] [id number] [place] [address]- 9256 March, [facility] [place] [facility] [address] [id number] [place] [address]- 1026 Dec, [facility] [place] [facility] [address] [id number] [place] [address]- 0362 Dec, [facility] [place] [facility] [address] [id number] [place] [address]- 1175 Nov, [facility] [place] [facility] [address] [id number] [place] [address]- 7780 Sep, [facility] [place] [facility] [address] [id number] [place] [address]- 9437 Sep, [facility] [place] [facility] [address] [id number] [place] [address]- 2637 Aug, [facility] [place] [facility] [address] [id number] [place] [address]- 4782 Aug, [facility] [place] [facility] [address] [id number] [place] [address]- 3077 Jul, [facility] [place] [facility] [address] [id number] [place] [address]- 8969 Jul, [facility] [place] [facility] [address] [id number] [place] [address]- 7236 Jun, [facility] [place] [facility] [address] [id number] [place] [address]- 6087 Jun, [facility] [place] [facility] [address] [id number] [place] [address]- 1486 May, [facility] [place] [facility] [address] [id number] [place] [address]- 6919 May, [facility] [place] [facility] [address] [id number] [place] [address]- 3934 May, [facility] [address] [id number] [place] [address]- 7064 May, [facility] [place] [facility] [address] [id number] [place] [address] 2546 May, [facility] [address] [id number] [place] [address]- 7112 May, [facility] [address] [id number] [place] [address]- 7602 Apr, [facility] [address] [id number] [place] [address]- 4864 Feb, [facility] [address] [id number] [place] [address]- 2707 Feb, [facility] [address] [id number] [place] [address]- 4870 Jan, [facility] [address] [id number] [place] [address]- 8014 Dec, [facility] [address] [id number] [place] [address]- 8416 Dec, [facility] [address] [id number] [place] [address]- 4911 Dec, [facility] [address] [id number] [place] [address]- 8416 Nov, [facility] [address] [id number] [place] [address]- 0079 Nov, [facility] [place] [facility] [address] [id number] [place] [address]- 9026 Sep, [facility] [place] [facility] [address] [id number] [place] [address]- 2546 Sep, [facility] [address] [id number] [place] [address]- 3394 Sep, [facility] [address] [facility] [id number], [place] [address]- 8072 Sep, [facility] [address] [facility] [id number], [place] [address]- 0416 Aug, [facility] [address] [address]- 8388 Oct, [facility] [address] [facility] [id number] [place] [address] 86683- 7141 Oct, [facility] [address] [facility] [id number] [place] [address] 37274- 4216 Oct, [facility] [id number] [place] [address] 02887- 0008 Aug, [facility] [address] [address]- 0037 Aug, [facility] [id number] [place] [address] 60477- 8824 Feb, [facility] [address] [address]- 6925 Oct, [facility] [address] [address]- 5236 Oct, [facility] [address] [address]- 4025 Sep, [facility] [address] [address]- 4770 Aug, [facility] [id number] [address]- 5402 Aug, [facility] [address] [address]- 0673 March, IMMUNIZATIONS No Known Immunizations SOCIAL HISTORY Never Assessed REASON FOR VISIT Lab (walk-in) PLAN OF CARE VITAL SIGNS MEDICATIONS No Known Medications RESULTS No Results PROCEDURES Procedure Date Ordered Result Body Site LAB NOT BILLED BY [facility] April 05, 2018 LEVETIRACETAM, SERUM OR PLASMA April 05, 2018 INSTRUCTIONS MEDICATIONS ADMINISTERED No Known Medications [...]
[2018-09-20 09:03] LABS: BASOPHILS % (AUTO) 1 % (0-10); EOSINOPHILS % (AUTO) 1 % (0-10); HEMATOCRIT 40 % (40-54); HEMOGLOBIN 13.8 G/DL (13.3-17.7); LYMPHOCYTES # (AUTO) 0.9 X 10^3 (1.0-4.0); LYMPHOCYTES % (AUTO) 22 % (12-44); MEAN CORPUSCULAR HEMOGLOBIN 27 PG (25-34); MEAN CORPUSCULAR HGB CONC 35 G/DL (32-36); MEAN CORPUSCULAR VOLUME 79 FL (80-99); MEAN PLATELET VOLUME 10.3 FL (7.4-10.4); MONOCYTES # (AUTO) 0.7 X 10^3 (0.0-1.0); MONOCYTES % (AUTO) 18 % (0-12); NEUTROPHILS # (AUTO) 2.4 X 10^3 (1.8-7.8); NEUTROPHILS % (AUTO) 59 % (42-75); PLATELET COUNT 186 10^3/uL (130-400); RED BLOOD COUNT 5.06 10^6/uL (4.35-5.85); RED CELL DISTRIBUTION WIDTH 18.3 % (10.0-14.5); WHITE BLOOD COUNT 4.1 10^3/uL (4.3-11.0)
--- OUTSIDE RECORDS SUMMARY | 2018-09-20 09:03 | XMS REPORT ---
Author Author EDWAR MERRILL Organization [facility] Address [address] [place] [address] Care Team Providers Care Manager Architecture Name Role Phone EDWAR MERRILL Unavailable PROBLEMS Type Condition ICD9-CM Code [id number] Code Onset Dates Condition Status SNOMED Code Problem Hyperlipidemia, unspecified hyperlipidemia E78.5 Active 23213437 Problem Hypoxia R09.02 Active 803225647 Problem Severe mental retardation F72 Active 85365160 Problem SunDown syndrome F05 Active 247279648 Problem Insomnia, unspecified type G47.00 Active 551531170 Problem Left-sided weakness M62.81 Active 41837004 Problem Down syndrome Q90.9 Active 86426869 Problem Hypersomnolence G47.10 Active 72808360 Problem Excessive daytime sleepiness G47.19 Active 979990734829 Problem Fracture of humeral head, right, closed S42.291A Active 592387658 Problem Acquired hypothyroidism E03.9 Active 199249787 Problem Dislocation of right hip S73.004A Active 427830403 Problem Equinus deformity of foot M21.6X9 Active 069021766 Problem Fat embolus T79.1XXA Active 312984317 Problem Iron deficiency anemia, unspecified iron deficiency anemia type D50.9 Active 82302801 ALLERGIES No Information ENCOUNTERS Encounter Location Date Diagnosis [facility] [address] [address] March, [facility] [id number] [place] [address]74 -8499 Jan, Cough R05 and Nasal congestion R09.81 [facility] [id number] [place] [address] 99858- 7477 May, Acquired hypothyroidism E03.9 [facility] [id number] [place] [address] 05267- 8098 Feb, Acquired hypothyroidism E03.9 [place] [id number] [place] [address] 05465- 1857 Feb, Acquired hypothyroidism E03.9 [place] [id number] [place] [address] 14107- 4431 Feb, [place] [id number] [place] [address] 75609- 8974 Feb, Acquired hypothyroidism E03.9 [place] [id number] [place] [address] 36904- 2395 Jan, Annual physical exam Z00.00 ; Prostate cancer screening Z12.5 ; Acquired hypothyroidism E03.9 ; Iron deficiency anemia, unspecified iron deficiency anemia type D50.9 and Hyperlipidemia, unspecified hyperlipidemia E78.5 [place] [id number] [place] [address] 89172- 3881 Jan, Annual physical exam Z00.00 ; Acquired hypothyroidism E03.9 ; Screening for prostate cancer Z12.5 ; Hyperlipidemia, unspecified hyperlipidemia E78.5 ; Iron deficiency anemia, unspecified iron deficiency anemia type D50.9 ; Status post stroke Z86.73 ; Severe mental retardation F72 ; Left-sided weakness M62.81 ; Fracture of humeral head, right, closed S42.291A and Prostate cancer screening Z12.5 [facility] [id number] [place] [address] 22373 -3403 Nov, Abscess of finger of right hand L02.511 [facility] [id number] [place] [address] 69913- 6529 Nov, [place] [id number] [place] [address] 69471- 8996 Nov, Seizure R56.9 ; Unspecified displaced fracture of surgical neck of right humerus, initial encounter for closed fracture S42.211A ; Severe mental retardation F72 and Insomnia, unspecified type G47.00 [place] [id number] [place] [address] 16269- 7759 Nov, Seizure R56.9 [facility] [id number] [place] [address] 45755- 9028 Nov, Insomnia, unspecified type G47.00 [facility] [id number] [place] [address] 77865- 4795 Oct, [facility] [address] 02148- 8482 Oct, Acquired hypothyroidism E03.9 [facility] [address] 15776- 9103 Oct, Onychomycosis B35.1 [place] [address] 19127- 3124 Oct, Onychomycosis B35.1 and Acquired hypothyroidism E03.9 [facility] [address] 35372- 8022 Oct, Insomnia, unspecified type G47.00 [facility] [id number] [place] [address] 51906- 0948 Oct, [facility] [id number] [place] [address] 95348- 1260 Sep, [facility] [id number] [place] [address] 46787- 8805 Sep, [facility] [id number] [place] [address] 57732- 7149 Sep, Hyperlipidemia, unspecified hyperlipidemia E78.5 and Screening for prostate cancer Z12.5 [facility] [id number] [place] [address] 20256 -8546 Aug, Suspected urinary tract infection N39.0 [facility] [id number] [place] [address] 22310- 1521 Aug, Insomnia, unspecified type G47.00 [facility] [address] 97791- 5667 Aug, [facility] [id number] [place] [address] 79179- 4171 Aug, Insomnia, unspecified type G47.00 [facility] [id number] [place] [address] 45583- 5487 Aug, SunDown syndrome F05 and Unspecified subluxation of right hip, initial encounter S73.001A [facility] [id number] [place] [address] 40376- 1157 Aug, Acquired hypothyroidism E03.9 [facility] [id number] [place] [address] 76787- 2040 Aug, [facility] [id number] [place] [address] 65131- 9615 Aug, [facility] [id number] [place] [address] 68816- 1404 Aug, [facility] [id number] [place] [address] 43828- 5766 Aug, [facility] [id number] [place] [address] 14042- 5953 Aug, Insomnia, unspecified type G47.00 [facility] [id number] [place] [address] 01611- 5867 Aug, [facility] [id number] [place] [address] 06426- 0695 Jul, Status post stroke Z86.73 ; Encounter for immunization Z23 ; Onychomycosis B35.1 ; Acquired hypothyroidism E03.9 ; Iron deficiency anemia, unspecified iron deficiency anemia type D50.9 and Other displaced fracture of upper end of right humerus, initial encounter for closed fracture S42.291A [facility] [id number] [place] [address] 88487- 9441 27 Jul, 2016 Hip pain M25.559 [facility] [id number] [place] [address] [place] [address]- 7782 23 Jul, 2016 Fracture of humeral head, right, closed S42.291A [facility] [address] [id number] [address] 4016 21 Jul, 2016 Insomnia, unspecified type G47.00 and Fracture of humeral head, right, closed S42.291A [facility] [address] [id number] [address] 3490 15 Jul, 2016 [facility] [address] [facility] [id number] [place] [address] 94828- 0955 13 Jul, 2016 Hip pain M25.559 [facility] [id number] [place] [address] 47419- 1023 08 Jul, 2016 Hospice care Z51.5 [facility] [address] [place] [address] 8843 Jun, [facility] [address] [facility] [id number] [place] [address] 55830- 9203 29 Feb, 2016 Hospice care Z51.5 [facility] [address] [id number] [place] [address]- 9911 Feb, [facility] [address] [address]- 0479 Feb, [facility] [address] [address]- 7164 19 Feb, 2016 [facility] [address] [facility] [id number] [place] [address]- 6380 18 Feb, 2016 [facility] [address] [id number] [place] [address]- 9535 14 Feb, 2016 [facility] [address] [facility] [id number] [place] [address]- 3698 13 Feb, 2016 [facility] [id number] [address]- 5031 29 Jan, 2016 [facility] [id number] [place] [address] 49529- 6503 29 Jan, 2016 Hypersomnolence G47.10 and Left-sided weakness M62.[address] 6[address]00- 4983 28 Jan, 2016 Left-sided weakness M62.81 ; Excessive daytime sleepiness G47.19 ; Hypoxia R09.02 and Down syndrome Q90.[address] 89243- 2950 14 Jan, [address] 16810- 2594 14 Jan, 2016 Annual physical exam Z00.00 ; Acquired hypothyroidism E03.9 ; Iron deficiency anemia, unspecified iron deficiency anemia type D50.9 ; Hyperlipidemia, unspecified hyperlipidemia E78.5 ; Severe mental retardation F72 and Screening for prostate cancer Z12.[address] 17821- 7851 27 Nov, 2015 Onychomycosis B35.1 and Viral warts, unspecified type B07.[address] 44556- 2401 30 Oct, 2015 Sinusitis J32.9 and Encounter for immunization Z23 [address] 54346- 3069 09 Sep, 2015 Acute upper respiratory infection, unspecified J06.9 ; Other viral agents as the cause of diseases classified elsewhere B97.89 and Down syndrome Q90.9 [place] [id number] [place] [address] 02029- 5195 07 Aug, [address] 51910- 4330 16 Jul, 2015 Conjunctivitis [address] 33369- 3714 08 Jul, [address] 01980- 1365 May, Onychomycosis 110.1 ; Hypothyroid 244.9 and Hyperlipidemia 272.4 [facility] [address] [address]- 5567 Apr, [facility] [address] [address]- 9094 14 Feb, 2015 [facility] [address] [place] [address], [place] [address]- 6361 Feb, [facility] [address] [facility] [id number] [place] [address] 14773- 4670 Dec, [facility] [id number] [place] [address], [place] [address]- 7826 Dec, [facility] [id number] [address]- 1248 16 Dec, 2014 [facility] [id number] [place] [address] 64280- 0585 16 Dec, 2014 [facility] [address] [place] [address]- 8738 Dec, [facility] [address] [address]- 1138 Dec, [facility] [address] [address]- 6811 Dec, [facility] [address] [address]- 2595 Dec, 2014 [facility] [address] 7904 Dec, [facility] [address] [address]- 0398 Oct, [facility] [address] 9058 Oct, [facility] [address] [place] [address], [place] 9254 Oct, [facility] [place] [facility] [address] [id number] [place] [address]- 6564 Oct, [facility] [place] [facility] [address] [id number] [place] Oct, [facility] [place] [facility] [address] [id number] [place] [address]- 4347 Oct, [facility] [place] [facility] [address] [id number] [place] [address]- 6460 Oct, [facility] [place] [facility] [address] [id number] [place] [address]- 7983 Oct, [facility] [place] [facility] [address] [id number] [place] [address]- 1897 Jun, [facility] [place] [facility] [address] [id number] [place] [address]- 0292 May, [facility] [place] [facility] [address] [id number] [place] [address]- 4206 May, [facility] [place] [facility] [address] [id number] [place] [address]- 8860 May, [facility] [place] [facility] [address] [id number] [place] [address]- 4304 Apr, [facility] [place] [facility] [address] [id number] [place] [address]- 7692 Apr, [facility] [place] [facility] [address] [id number] [place] [address]- 0100 March, [facility] [place] [facility] [address] [id number] [place] [address]- 9225 March, [facility] [place] [facility] [address] [id number] [place] [address]- 7201 Feb, [facility] [place] [facility] [address] [id number] [place] [address]- 7927 Feb, [facility] [place] [facility] [address] [id number] [place] [address]- 7368 Dec, [facility] [place] [facility] [address] [id number] [place] [address]- 5659 Dec, [facility] [place] [facility] [address] [id number] [place] [address]- 2407 Dec, [facility] [place] [facility] [address] [id number] [place] [address]- 6074 Dec, [facility] [place] [facility] [address] [id number] [place] [address]- 6345 Dec, [facility] [place] [facility] [address] [id number] [place] [address]- 2149 Dec, [facility] [place] [facility] [address] [id number] [place] [address]- 8544 Nov, [facility] [place] [facility] [address] [id number] [place] [address]- 4368 Nov, [facility] [place] [facility] [address] [id number] [place] [address]- 8615 Oct, [facility] [place] [facility] [address] [id number] [place] [address]- 3789 Oct, [facility] [place] [facility] [address] [id number] [address]- 9978 Sep, [facility] [place] [facility] [address] [id number] [place] [address]- 9921 Sep, [facility] [place] [facility] [address] [id number] [place] [address]- 2541 Jul, [facility] [place] [facility] [address] [id number] [place] [address]- 7403 24 Jul, 2013 [facility] [place] [facility] [address] [id number] [place] [address]- 2544 23 Jul, 2013 [facility] [place] [facility] [address] [id number] [address]- 6755 Jun, [facility] [place] [facility] [address] [id number] [place] [address]- 1840 Jun, [facility] [place] [facility] [address] [id number] [place] [address]- 3787 Apr, [facility] [place] [facility] [address] [id number] [place] [address]- 4216 March, [facility] [place] [facility] [address] [id number] [place] [address]- 5999 Dec, [facility] [place] [facility] [address] [id number] [place] [address]- 2811 Dec, [facility] [place] [facility] [address] [id number] [place] [address]- 4579 Nov, [facility] [place] [facility] [address] [id number] [place] [address]- 0007 Sep, [facility] [place] [facility] [address] [id number] [place] [address]- 3103 Sep, [facility] [place] [facility] [address] [id number] [place] [address]- 5514 Aug, [facility] [place] [facility] [address] [id number] [place] [address]- 9950 Aug, [facility] [place] [facility] [address] [id number] [place] [address]- 4163 Jul, [facility] [place] [facility] [address] [id number] [place] [address]- 2757 Jul, [facility] [place] [facility] [address] [id number] [place] [address]- 1191 Jun, [facility] [place] [facility] [address] [id number] [place] [address]- 8346 Jun, [facility] [place] [facility] [address] [id number] [place] [address]- 0735 May, [facility] [place] [facility] [address] [id number] [place] [address]- 0155 May, [facility] [place] [facility] [address] [id number] [place] [address]- 2137 May, [facility] [place] [facility] [address] [id number] [place] [address]- 1555 May, [facility] [place] [facility] [address] [id number] [place] [address]- 7549 May, [facility] [place] [facility] [address] [id number] [place] [address]- 8086 May, [facility] [place] [facility] [address] [id number] [place] [address]- 1527 Apr, [facility] [place] [facility] [address] [id number] [place] [address]- 6155 Feb, [facility] [place] [facility] [address] [id number] [place] [address]- 1604 Feb, [facility] [place] [facility] [address] [id number] [place] [address]- 7525 Jan, [facility] [place] [facility] [address] [id number] [place] [address]- 4816 Dec, [facility] [place] [facility] [address] [id number] [place] [address]- 9842 Dec, [facility] [place] [facility] [address] [id number] [place] [address]- 3098 Dec, [facility] [place] [facility] [address] [id number] [place] [address]- 5290 Nov, [facility] [place] [facility] [address] [id number] [place] [address]- 1258 Nov, [facility] [place] [facility] [address] [id number] [place] [address]- 4618 Sep, [facility] [place] [facility] [address] [id number] [place] [address]- 1443 Sep, [facility] [address] [facility] [id number] [place] [address]- 3616 Sep, [facility] [address] [facility] [id number] [place] [address]- 7606 Sep, [facility] [address] [facility] [id number] [place] [address]- 3356 Aug, [facility] [address] [facility] [id number] [place] [address]- 2551 Oct, [facility] [address] [facility] [id number] [place] [address]- 0666 Oct, [facility] [address] [facility] [id number] [place] 6266 Oct, [facility] [address] [facility] [id number] [place] [address]- 7472 Aug, [facility] [address] [facility] [id number] [place] [address]- 1487 Aug, [facility] [address] [facility] [id number] [place] [address]- 3933 Feb, [facility] [address] [facility] [id number] [place] [address]- 7104 Oct, [facility] [address] [facility] [id number] [place] [address]- 0547 Oct, [facility] [address] [facility] [id number] [place] [address]- 1158 Sep, [facility] [address] [facility] [id number] [place] 4695 Aug, [facility] [address] [facility] [id number] [place]- 1036 Aug, [facility] [address] [facility] [id number] [place]- 7549 March, IMMUNIZATIONS No Known Immunizations SOCIAL HISTORY Never Assessed REASON FOR VISIT Lab (walk-in)--[facility] PLAN OF CARE VITAL SIGNS MEDICATIONS Unknown Medications RESULTS No Results PROCEDURES Procedure Date Ordered Result Body Site LAB NOT BILLED BY [facility] June 15, 2017 [place]* June 15, 2017 INSTRUCTIONS MEDICATIONS ADMINISTERED No Known Medications MEDICAL [...]
[2018-09-20] MEDS ORDERED: NS IV 1000 ML 1,000 ML ONE (09:06)
--- OUTSIDE RECORDS SUMMARY | 2018-09-20 09:07 | XMS REPORT | Continuity of Care Document ---
Author Author Formerly [facility] Address Unknown Phone Unavailable Allergies Active Description Code Type Severity Reaction Onset Reported/Identified Relationship to Patient Clinical Status Yes naproxen Drug Allergy 05/02/2009 Yes naproxen Drug Allergy N/A N/A 05/02/2009 Yes naproxen [id number] Drug Allergy Unknown N/A 02/21/2016 Medications There is no data. Problems Date Dx Coded Attending Type Code Diagnosis Diagnosed By 10/28/1529 EDWAR MERRILL Ot R25.2 CRAMP AND SPASM 10/28/1529 EDWAR MERRILL Ot R53.1 WEAKNESS 11/06/2008 MAXIMUS HEAD DO 478.19 Other Diseases Of Nasal Cavity And Sinuses 11/06/2008 ALCIDES INGRAM MD 478.19 Other Diseases Of Nasal Cavity And Sinuses 11/06/2008 EDWAR MERRILL APRN 478.19 Other Diseases Of Nasal Cavity And Sinuses 11/06/2008 EDWAR MERRILL APRN 478.19 Other Diseases Of Nasal Cavity And Sinuses 11/06/2008 EDWAR MERRILL APRN S 478.19 Other Diseases Of Nasal Cavity And Sinuses 11/06/2008 WAYLON VILLARREAL DDS 478.19 Other Diseases Of Nasal Cavity And Sinuses 11/06/2008 478.19 Other Diseases Of Nasal Cavity And Sinuses 01/28/2009 MAXIMUS HEAD DO 727.3 Other Bursitis Disorders 01/28/2009 ALCIDES INGRAM MD 727.3 Other Bursitis Disorders 01/28/2009 EDWAR MERRILL APRN 727.3 Other Bursitis Disorders 01/28/2009 EDWAR MERRILL APRN 727.3 Other Bursitis Disorders 01/28/2009 EDWAR MERRILL APRN 727.3 Other Bursitis Disorders 01/28/2009 WAYLON VILLARREAL DDS 727.3 Other Bursitis Disorders 01/28/2009 727.3 Other Bursitis Disorders 02/13/2009 MAXIMUS HEAD DO K 285.9 Anemia Unspecified 02/13/2009 ALCIDES INGRAM MD 285.9 Anemia Unspecified 02/13/2009 GARFIELD PIPER, EDWAR S 285.9 Anemia Unspecified 02/13/2009 GARFIELD NURSE CLINICAL, EDWAR S 285.9 Anemia Unspecified 02/13/2009 GARFIELD PIPER, EDWAR S 285.9 Anemia Unspecified 02/13/2009 WAYLON VILLARREAL DDS 285.9 Anemia Unspecified 02/13/2009 285.9 Anemia Unspecified 02/15/2009 MAXIMUS HEAD DO K 280.9 Anemia Iron Deficiency 02/15/2009 ALCIDES INGRAM MD 280.9 Anemia Iron Deficiency 02/15/2009 GARFIELD PIPER, EDWAR S 280.9 Anemia Iron Deficiency 02/15/2009 GARFIELD PIPER, EDWAR S 280.9 Anemia Iron Deficiency 02/15/2009 GARFIELD PIPER, EDWAR S 280.9 Anemia Iron Deficiency 02/15/2009 WAYLON VILLARREAL DDS 280.9 Anemia Iron Deficiency 02/15/2009 280.9 Anemia Iron Deficiency 02/22/2009 MAXIMUS HEAD DO K 578.9 Hemorrhage Of Gastrointestinal Tract Unspecified 02/22/2009 ALCIDES INGRAM MD 578.9 Hemorrhage Of Gastrointestinal Tract Unspecified 02/22/2009 GARFIELD NURSE CLINICAL, EDWAR S 578.9 Hemorrhage Of Gastrointestinal Tract Unspecified 02/22/2009 GARFIELD PIPER, EDWAR S 578.9 Hemorrhage Of Gastrointestinal Tract Unspecified 02/22/2009 GARFIELD PIPER, EDWAR S 578.9 Hemorrhage Of Gastrointestinal Tract Unspecified 02/22/2009 WAYLON VILLARREAL DDS 578.9 Hemorrhage Of Gastrointestinal Tract Unspecified 02/22/2009 578.9 Hemorrhage Of Gastrointestinal Tract Unspecified 04/16/2009 MAXIMUS HEAD DO K 272.4 HYPERLIPIDEMIA 04/16/2009 ALCIDES INGRAM MD 272.4 HYPERLIPIDEMIA 04/16/2009 GARFIELD PIPER, EDWAR S 272.4 HYPERLIPIDEMIA 04/16/2009 GARFIELD PIPER, EDWAR S 272.4 HYPERLIPIDEMIA 04/16/2009 ELEN MERRILL APRNNDA S 272.4 HYPERLIPIDEMIA 04/16/2009 WAYLON VILLARREAL DDS 272.4 HYPERLIPIDEMIA 04/16/2009 272.4 HYPERLIPIDEMIA 09/10/2009 MAXIMUS HEAD DO K 787.3 Flatulence, Eructation, And Gas Pain 09/10/2009 ALCIDES INGRAM MD 787.3 Flatulence, Eructation, And Gas Pain 09/10/2009 ELEN MERRILL APRNNDA S 787.3 Flatulence, Eructation, And Gas Pain 09/10/2009 GARFIELD PIPER, EDWAR S 787.3 Flatulence, Eructation, And Gas Pain 09/10/2009 GARFIELD PIPER, EDWAR S 787.3 Flatulence, Eructation, And Gas Pain 09/10/2009 WAYLON VILLARREAL DDS 787.3 Flatulence, Eructation, And Gas Pain 09/10/2009 787.3 Flatulence, Eructation, And Gas Pain 03/18/2010 MAXIMUS HEAD DO K 525.9 Unspecified Disorder Of The Teeth And Supporting Structures 03/18/2010 MAXIMUS HEAD DO K V17.49 reported family history of heart disease 03/18/2010 MAXIMUS HEAD DO K V76.44 Visit For: Screening Exam Malignant Neoplasm Prostate 03/18/2010 ALCIDES INGRAM MD 525.9 Unspecified Disorder Of The Teeth And Supporting Structures 03/18/2010 ALCIDES INGRAM MD V17.49 reported family history of heart disease 03/18/2010 ALCIDES INGRAM MD V76.44 Visit For: Screening Exam Malignant Neoplasm Prostate 03/18/2010 ELEN MERRILL APRNNDA S 525.9 Unspecified Disorder Of The Teeth And Supporting Structures 03/18/2010 ELEN MERRILL APRNNDA S V17.49 reported family history of heart disease 03/18/2010 ELEN MERRILL APRNNDA S V76.44 Visit For: Screening Exam Malignant Neoplasm Prostate 03/18/2010 ELEN MERRILL APRNNDA S 525.9 Unspecified Disorder Of The Teeth And Supporting Structures 03/18/2010 CHAU MERRILL APRNA S V17.49 reported family history of heart disease 03/18/2010 GARFIELD NURSE CLINICAL, EDWAR S V76.44 Visit For: Screening Exam Malignant Neoplasm Prostate 03/18/2010 GARFIELD PIPER, EDWAR S 525.9 Unspecified Disorder Of The Teeth And Supporting Structures 03/18/2010 GARFIELD NURSE CLINICAL, EDWAR S V17.49 reported family history of heart disease 03/18/2010 GARFIELD PIPER, EDWAR S V76.44 Visit For: Screening Exam Malignant Neoplasm Prostate 03/18/2010 WAYLON VILLARREAL DDS 525.9 Unspecified Disorder Of The Teeth And Supporting Structures 03/18/2010 WAYLON VILLARREAL DDS V17.49 reported family history of heart disease 03/18/2010 WAYLON VILLARREAL DDS V76.44 Visit For: Screening Exam Malignant Neoplasm Prostate 03/18/2010 525.9 Unspecified Disorder Of The Teeth And Supporting Structures 03/18/2010 V17.49 reported family history of heart disease 03/18/2010 V76.44 Visit For: Screening Exam Malignant Neoplasm Prostate 01/16/2011 MAXIMUS HEAD DO 110.1 ONYCHOMYCOSIS 01/16/2011 ALCIDES INGRAM MD 110.1 ONYCHOMYCOSIS 01/16/2011 GARFIELD PIPER, EDWAR S 110.1 ONYCHOMYCOSIS 01/16/2011 GARFIELD PIPER, EDWAR S 110.1 ONYCHOMYCOSIS 01/16/2011 GARFIELD PIPER, EDWAR S 110.1 ONYCHOMYCOSIS 01/16/2011 WAYLON VILLARREAL DDS 110.1 ONYCHOMYCOSIS 01/16/2011 110.1 ONYCHOMYCOSIS 09/04/2011 MAXIMUS HEAD DO 707.15 ULCER-FOOT/TOES 09/04/2011 ALCIDES INGRAM MD 707.15 ULCER-FOOT/TOES 09/04/2011 GARFIELD NURSE CLINICAL, EDWAR S 707.15 ULCER-FOOT/TOES 09/04/2011 GARFIELD PIPER, EDWAR S 707.15 ULCER-FOOT/TOES 09/04/2011 GARFIELD PIPER, EDWAR S 707.15 ULCER-FOOT/TOES 09/04/2011 WAYLON VILLARREAL DDS 707.15 ULCER-FOOT/TOES 09/04/2011 707.15 ULCER-FOOT/ TOES 10/06/2011 MAXIMUS HEAD DO K V72.83 Other Specified Pre-operative Examination 10/06/2011 ALCIDES INGRAM MD V72.83 Other Specified Pre-operative Examination 10/06/2011 GARFIELD PIPER EDWAR S V72.83 Other Specified Pre-operative Examination 10/06/2011 GARFIELD PIPER, EDWAR S V72.83 Other Specified Pre-operative Examination 10/06/2011 GARFIELD PIPER EDWAR S V72.83 Other Specified Pre-operative Examination 10/06/2011 WAYLON VILLARREAL DDS V72.83 Other Specified Pre-operative Examination 10/06/2011 V72.83 Other Specified Pre-operative Examination 10/12/2011 Ot 521.00 UNSPEC DENTAL CARIES 12/11/2011 MAXIMUS HEAD DO K 736.72 EQUINUS DEFORMITY 12/11/2011 ALCIDES INGRAM MD 736.72 EQUINUS DEFORMITY 12/11/2011 GARFIELD PIPER, EDWAR S 736.72 EQUINUS DEFORMITY 12/11/2011 GARFIELD PIPER, EDWAR S 736.72 EQUINUS DEFORMITY 12/11/2011 GARFIELD PIPER, EDWAR S 736.72 EQUINUS DEFORMITY 12/11/2011 WAYLON VILLARREAL DDS 736.72 EQUINUS DEFORMITY 12/11/2011 736.72 EQUINUS DEFORMITY 03/24/2012 MAXIMUS HEAD DO K 280.9 IRON DEFICIENCY ANEMIA 03/24/2012 MAXIMUS HEAD DO K V76.44 visit for: screening exam malignant neoplasm prostate 03/24/2012 MAXIMUS HEAD DO V76.51 Colonoscopy (Fiberoptic) Screening 03/24/2012 ALCIDES INGRAM MD 280.9 IRON DEFICIENCY ANEMIA 03/24/2012 ALCIDES INGRAM MD V76.44 visit for: screening exam malignant neoplasm prostate 03/24/2012 ALCIDES INGRAM MD V76.51 Colonoscopy (Fiberoptic) Screening 03/24/2012 CHAU MERRILL APRNA S 280.9 IRON DEFICIENCY ANEMIA 03/24/2012 ELEN MERRILL APRNNDA S V76.44 visit for: screening exam malignant neoplasm prostate 03/24/2012 CHAU MERRILL APRNA S V76.51 Colonoscopy (Fiberoptic) Screening 03/24/2012 GARFIELD PIPER, EDWAR S 280.9 IRON DEFICIENCY ANEMIA 03/24/2012 ELEN MERRILL APRNNDA S V76.44 visit for: screening exam malignant neoplasm prostate 03/24/2012 GARFIELD PIPER, EDWAR S V76.51 Colonoscopy (Fiberoptic) Screening 03/24/2012 ELEN MERRILL APRNNDA S 280.9 IRON DEFICIENCY ANEMIA 03/24/2012 ELEN MERRILL APRNNDA S V76.44 visit for: screening exam malignant neoplasm prostate 03/24/2012 ELEN MERRILL APRNNDA S V76.51 Colonoscopy (Fiberoptic) Screening 03/24/2012 WAYLON VILLARREAL DDS 280.9 IRON DEFICIENCY ANEMIA 03/24/2012 WAYLON VILLARREAL DDS V76.44 visit for: screening exam malignant neoplasm prostate 03/24/2012 WYALON VILLARREAL DDS V76.51 Colonoscopy (Fiberoptic) Screening 03/24/2012 280.9 IRON DEFICIENCY ANEMIA 03/24/2012 V76.44 visit for: screening exam malignant neoplasm prostate 03/24/2012 V76.51 Colonoscopy ( Fiberoptic) Screening 06/23/2012 MAXIMUS HEAD DO V70.0 EXAM - ROUTINE H&P 06/23/2012 ALCIDES INGRAM MD V70.0 EXAM - ROUTINE H&P 06/23/2012 CHAU MERRILL APRNA S V70.0 EXAM - ROUTINE H&P 06/23/2012 CHAU MERRILL APRNA S V70.0 EXAM - ROUTINE H&P 06/23/2012 ELEN MERRILL APRNNDA S V70.0 EXAM - ROUTINE H&P 06/23/2012 WAYLON VILLARREAL DDS V70.0 EXAM - ROUTINE H&P 06/23/2012 V70.0 EXAM - ROUTINE H&P 09/30/2012 MAXIMUS HEAD DO 110.4 TINEA PEDIS 09/30/2012 ALCIDES INGRAM MD 110.4 TINEA PEDIS 09/30/2012 ELEN MERRILL APRNNDA S 110.4 TINEA PEDIS 09/30/2012 ELEN MERRILL APRNNDA S 110.4 TINEA PEDIS 09/30/2012 GARFIELD NURSE CLINICAL, EDWAR S 110.4 TINEA PEDIS 09/30/2012 CHERELLE DDS, WAYLON D 110.4 TINEA PEDIS 09/30/2012 110.4 TINEA PEDIS 01/09/2014 GARFIELD NURSE CLINICAL, EDWAR S 244.9 HYPOTHYROIDISM 01/09/2014 GARFIELD NURSE CLINICAL, EDWAR S 995.3 ALLERGY UNSPECIFIED NOT ELSEWHERE CLASSIFIED 01/09/2014 GARFIELD NURSE CLINICAL, EDWAR S 244.9 HYPOTHYROIDISM 01/09/2014 GARFIELD NURSE CLINICAL, EDWAR S 995.3 ALLERGY UNSPECIFIED NOT ELSEWHERE CLASSIFIED 01/09/2014 GARFIELD NURSE CLINICAL, EDWAR S 244.9 HYPOTHYROIDISM 01/09/2014 GARFIELD NURSE CLINICAL, EDWAR S 995.3 ALLERGY UNSPECIFIED NOT ELSEWHERE CLASSIFIED 01/09/2014 CHERELLE DDS, WAYLON D 244.9 HYPOTHYROIDISM 01/09/2014 CHERELLE DDS, WAYLON D 995.3 ALLERGY UNSPECIFIED NOT ELSEWHERE CLASSIFIED 11/01/2014 GARFIELD SHERIFFN, EDWAR S V04.81 FLU SHOT 11/01/2014 CHERELLE DDS, WAYLON D V04.81 FLU SHOT 03/20/2015 COREEN HARDY, AUTUMN De Jesus Ot V72.84 03/20/2015 COREEN HARDY, AUTUMN De Jesus Ot V72.84 03/20/2015 COREEN HARDY, AUTUMN De Jesus Ot V72.84 03/20/2015 COREEN HARDY, AUTUMN De Jesus Ot V72.84 03/20/2015 COREEN HARDY, AUTUMN De Jesus Ot V72.84 02/21/2016 Ot 521.00 02/21/2016 Ot V72.84 02/21/2016 COREEN HARDY, AUTUMN De Jesus Ot V72.84 02/21/2016 TATYANA HARDY, ARSALAN Alcantara Ot F73 PROFOUND INTELLECTUAL DISABILITIES 02/21/2016 TATYANA HARDY, ARSALAN Alcantara Ot F84.0 AUTISTIC DISORDER 02/21/2016 TATYANA HARDY, ARSALAN Alcantara Ot G45.9 TRANSIENT CEREBRAL ISCHEMIC ATTACK, UNSP 02/21/2016 TATYANA HARDY, ARSALAN Alcantara Ot Q90.9 DOWN SYNDROME, UNSPECIFIED 02/21/2016 TATYANA HARDY, ARSALAN Alcantara Ot R29.898 OT SYMPTOMS AND SIGNS INVOLVING THE MUS 02/26/2016 Ot 521.00 02/26/2016 Ot V72.84 02/26/2016 COREEN HARDY, AUTUMN De Jesus Ot V72.84 03/19/2016 EDWAR MERRILL Ot G47.10 HYPERSOMNIA, UNSPECIFIED 03/19/2016 VIJAYA LOPEZ MD Ot E03.9 HYPOTHYROIDISM, UNSPECIFIED 03/19/2016 VIJAYA LOPEZ MD Ot E87.2 ACIDOSIS 03/19/2016 VIJAYA LOPEZ MD Ot F73 PROFOUND INTELLECTUAL DISABILITIES 03/19/2016 VIJAYA LOPEZ MD Ot F84.0 AUTISTIC DISORDER 03/19/2016 VIJAYA LOPEZ MD, Ot K21.9 GASTRO-ESOPHAGEAL REFLUX DISEASE WITHOUT 03/19/2016 VIJAYA LOPEZ MD Ot Q90.9 DOWN SYNDROME, UNSPECIFIED 03/19/2016 VIJAYA LOPEZ MD Ot R65.10 SIRS OF NON-INFECTIOUS ORIGIN W/O ACUTE 03/19/2016 VIJAYA LOPEZ MD Ot S42.211A UNSP DISP FX OF SURGICAL NECK OF RIGHT H 03/19/2016 VIJAYA LOPEZ MD Ot S42.291A OTH DISP FX OF UPPER END OF RIGHT HUMERU 03/19/2016 VIJAYA LOPEZ MD Ot S73.001A UNSPECIFIED SUBLUXATION OF RIGHT HIP, IN 03/19/2016 VIJAYA LOPEZ MD Ot T79.1XXA FAT EMBOLISM (TRAUMATIC), INITIAL ENCOUN 03/19/2016 VIJAYA LOPEZ MD Ot X58.XXXA EXPOSURE TO OTHER SPECIFIED FACTORS, INI 03/19/2016 VIJAYA LOPEZ MD Ot Z86.73 PRSNL HX OF TIA (TIA), AND CEREB INFRC W 03/19/2016 VIJAYA LOPEZ MD Ot E03.9 HYPOTHYROIDISM, UNSPECIFIED 03/19/2016 VIJAYA LOPEZ MD Ot E87.2 ACIDOSIS 03/19/2016 VIJAYA LOPEZ MD Ot F73 PROFOUND INTELLECTUAL DISABILITIES 03/19/2016 VIJAYA LOPEZ MD Ot F84.0 AUTISTIC DISORDER 03/19/2016 VIJAYA LOPEZ MD Ot K21.9 GASTRO-ESOPHAGEAL REFLUX DISEASE WITHOUT 03/19/2016 VIJAYA LOPEZ MD Ot Q90.9 DOWN SYNDROME, UNSPECIFIED 03/19/2016 VIJAYA LOPEZ MD Ot R65.10 SIRS OF NON-INFECTIOUS ORIGIN W/O ACUTE 03/19/2016 VIJAYA LOPEZ MD Ot S42.211A UNSP DISP FX OF SURGICAL NECK OF RIGHT H 03/19/2016 VIJAYA LOPEZ MD Ot S42.291A OTH DISP FX OF UPPER END OF RIGHT HUMERU 03/19/2016 VIJAYA LOPEZ MD Ot S73.001A UNSPECIFIED SUBLUXATION OF RIGHT HIP, IN 03/19/2016 VIJAYA LOPEZ MD Ot T79.1XXA FAT EMBOLISM (TRAUMATIC), INITIAL ENCOUN 03/19/2016 VIJAYA LOPEZ MD Ot X58.XXXA EXPOSURE TO OTHER SPECIFIED FACTORS, INI 03/19/2016 VIJAYA LOPEZ MD Ot Z51.5 ENCOUNTER FOR PALLIATIVE CARE 03/19/2016 VIJAYA LOPEZ MD Ot Z86.73 PRSNL HX OF TIA (TIA), AND CEREB INFRC W 04/02/2016 EDWAR MERRILL Ot G47.10 HYPERSOMNIA, UNSPECIFIED 04/23/2016 Ot 521.00 UNSPEC DENTAL CARIES 04/23/2016 Ot V72.84 EXAM PRE- OPERATIVE NOS 04/23/2016 COREEN HARDY, AUTUMN De Jesus Ot V72.84 EXAM PRE-OPERATIVE NOS 04/23/2016 EDWAR MERRILL Ot G47.10 HYPERSOMNIA, UNSPECIFIED 04/23/2016 HEBERT ZAMBRANO MD Ot F73 PROFOUND INTELLECTUAL DISABILITIES 04/23/2016 HEBERT ZAMBRANO MD Ot I69.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 FOLLOWING UNSPECIFIED CER 04/23/2016 HEBERT ZAMBRANO MD Ot R56.9 UNSPECIFIED CONVULSIONS 04/24/2016 HEBERT ZAMBRANO MD Ot F73 PROFOUND INTELLECTUAL DISABILITIES 04/24/2016 HEBERT ZAMBRANO MD Ot I69.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 FOLLOWING UNSPECIFIED CER 04/24/2016 HEBERT ZAMBRANO MD Ot R56.9 UNSPECIFIED CONVULSIONS 06/12/2016 Ot 521.00 UNSPEC DENTAL CARIES 06/12/2016 Ot V72.84 EXAM PRE- OPERATIVE NOS 06/12/2016 AUTUMN ANGELA MD Ot V72.84 EXAM PRE-OPERATIVE NOS 06/12/2016 EDWAR MERRILL [place] Ot G47.10 HYPERSOMNIA, UNSPECIFIED 06/12/2016 ERMA JIMENEZ MD Ot E78.5 HYPERLIPIDEMIA, UNSPECIFIED 06/12/2016 ERMA JIMENEZ MD Ot F73 PROFOUND INTELLECTUAL DISABILITIES 06/12/2016 ERMA JIMENEZ MD Ot F84.0 AUTISTIC DISORDER 06/12/2016 ERMA JIMENEZ MD Ot G40.409 OTH GENERALIZED EPILEPSY, NOT INTRACTABL 06/12/2016 ERMA JIMENEZ MD Ot K21.9 GASTRO-ESOPHAGEAL REFLUX DISEASE WITHOUT 06/12/2016 ERMA JIMENEZ MD Ot M24.451 RECURRENT DISLOCATION, RIGHT HIP 06/12/2016 ERMA JIMENEZ MD Ot Q90.9 DOWN SYNDROME, UNSPECIFIED 06/12/2016 ERMA JIMENEZ MD Ot S42.211D UNSP DISP FX OF SURG NK OF R HUMER, SUBS 06/12/2016 ERMA JIMENEZ MD Ot X58.XXXD EXPOSURE TO OTHER SPECIFIED FACTORS, SUB 06/12/2016 ERMA JIMENEZ MD Ot E78.5 HYPERLIPIDEMIA, UNSPECIFIED 06/12/2016 ERMA JIMENEZ MD Ot F73 PROFOUND INTELLECTUAL DISABILITIES 06/12/2016 ERMA JIMENEZ MD Ot F84.0 AUTISTIC DISORDER 06/12/2016 ERMA JIMENEZ MD Ot G40.409 OTH GENERALIZED EPILEPSY, NOT INTRACTABL 06/12/2016 ERMA JIMENEZ MD Ot K21.9 GASTRO-ESOPHAGEAL REFLUX DISEASE WITHOUT 06/12/2016 ERMA JIMENEZ MD Ot M24.451 RECURRENT DISLOCATION, RIGHT HIP 06/12/2016 ERMA JIMENEZ MD Ot Q90.9 DOWN SYNDROME, UNSPECIFIED 06/12/2016 ERMA JIMENEZ MD Ot S42.211D UNSP DISP FX OF SURG NK OF R HUMER, SUBS 06/12/2016 ERMA JIMENEZ MD Ot X58.XXXD EXPOSURE TO OTHER SPECIFIED FACTORS, SUB 06/19/2016 Ot 521.00 UNSPEC DENTAL CARIES 06/19/2016 Ot V72.84 EXAM PRE- OPERATIVE NOS 06/19/2016 COREEN HARDY, AUTUMN De Jesus Ot V72.84 EXAM PRE-OPERATIVE NOS 06/19/2016 EDWAR MERRILL Ot G47.10 HYPERSOMNIA, UNSPECIFIED 06/19/2016 TAMARA HARDY, CALIXTO Wilkerson Ot F73 PROFOUND INTELLECTUAL DISABILITIES 06/19/2016 TAMARA HADRY, CALIXTO D Ot Q90.9 DOWN SYNDROME, UNSPECIFIED 06/19/2016 TAMARA HARDY, CALIXTO D Ot R56.9 UNSPECIFIED CONVULSIONS 06/19/2016 TAMARA HARDY, CALIXTO D Ot Z79.899 OTHER LONGTERM (CURRENT) DRUG THERAPY 06/25/2016 TAMARA HARDY, CALIXTO D Ot F73 PROFOUND INTELLECTUAL DISABILITIES 06/25/2016 TAMARA HARDY, CALIXTO Wilkerson Ot Q90.9 DOWN SYNDROME, UNSPECIFIED 06/25/2016 TAMARA HARDY, CALIXTO Wilkerson Ot R56.9 UNSPECIFIED CONVULSIONS 06/25/2016 TAMARA HARDY, CALIXTO D Ot Z79.899 OTHER LONGTERM (CURRENT) DRUG THERAPY 09/02/2016 Ot 521.00 UNSPEC DENTAL CARIES 09/02/2016 Ot V72.84 EXAM PRE- OPERATIVE NOS 09/02/2016 COREEN HARDY, AUTUMN De Jesus Ot V72.84 EXAM PRE-OPERATIVE NOS 09/02/2016 EDWAR MERRILL Ot G47.10 HYPERSOMNIA, UNSPECIFIED 09/02/2016 LILLIE GOTTI Ot F84.0 AUTISTIC DISORDER 09/02/2016 LILLIE GOTTI Ot Q90.9 DOWN SYNDROME, UNSPECIFIED 09/02/2016 LILLIE GOTTI Ot R22.41 LOCALIZED SWELLING, MASS AND LUMP, RIGHT 09/02/2016 LILLIE GOTTI Ot R60.0 LOCALIZED EDEMA 09/03/2016 LILLIE GOTTI Ot F84.0 AUTISTIC DISORDER 09/03/2016 LILLIE GOTTI Ot Q90.9 DOWN SYNDROME, UNSPECIFIED 09/03/2016 LILLIE GOTTI Ot R22.41 LOCALIZED SWELLING, MASS AND LUMP, RIGHT 09/03/2016 LILLIE GOTTI Ot R60.0 LOCALIZED EDEMA 09/08/2016 LILLIE GOTTI Ot F84.0 AUTISTIC DISORDER 09/08/2016 LILLIE GOTTI Ot Q90.9 DOWN SYNDROME, UNSPECIFIED 09/08/2016 LILLIE GOTTI Ot R22.41 LOCALIZED SWELLING, MASS AND LUMP, RIGHT 09/08/2016 LILLIE GOTTI Ot R60.0 LOCALIZED EDEMA 09/10/2016 Ot 521.00 UNSPEC DENTAL CARIES 09/10/2016 Ot V72.84 EXAM PRE- OPERATIVE NOS 09/10/2016 COREEN HARDY, AUTUMN De Jesus Ot V72.84 EXAM PRE-OPERATIVE NOS 09/10/2016 EDWAR MERRILL Ot G47.10 HYPERSOMNIA, UNSPECIFIED 09/10/2016 HEBERT ZAMBRANO MD Ot F05 DELIRIUM DUE TO KNOWN PHYSIOLOGICAL COND 09/10/2016 HEBERT ZAMBRANO MD Ot F84.0 AUTISTIC DISORDER 09/10/2016 HEBERT ZAMBRANO MD Ot Q90.9 DOWN SYNDROME, UNSPECIFIED 09/10/2016 HEBERT ZAMBRANO MD Ot R53.83 OTHER FATIGUE 09/10/2016 HEBERT ZAMBRANO MD Ot Z79.899 OTHER LONGTERM (CURRENT) DRUG THERAPY 09/11/2016 HEBERT ZAMBRANO MD Ot F05 DELIRIUM DUE TO KNOWN PHYSIOLOGICAL COND 09/11/2016 HEBERT ZAMBRANO MD Ot F84.0 AUTISTIC DISORDER 09/11/2016 HEBERT ZAMBRANO MD Ot Q90.9 DOWN SYNDROME, UNSPECIFIED 09/11/2016 HEBERT ZAMBRANO MD Ot R53.83 OTHER FATIGUE 09/11/2016 HEBERT ZAMBRANO MD Ot Z79.899 OTHER LONGTERM (CURRENT) DRUG THERAPY 11/07/2016 CALIXTO MCDONALD MD Ot F84.0 AUTISTIC DISORDER 11/07/2016 CALIXTO MCDONALD MD Ot G40.909 EPILEPSY, UNSP, NOT INTRACTABLE, WITHOUT 11/07/2016 CALIXTO MCDONALD MD Ot Q90.9 DOWN SYNDROME, UNSPECIFIED 11/07/2016 CALIXTO MCDONALD MD Ot Z79.899 OTHER LONGTERM (CURRENT) DRUG THERAPY 11/09/2016 CALIXTO MCDONALD MD Ot F84.0 AUTISTIC DISORDER 11/09/2016 CALIXTO MCDONALD MD Ot G40.909 EPILEPSY, UNSP, NOT INTRACTABLE, WITHOUT 11/09/2016 CALIXTO MCDONALD MD Ot Q90.9 DOWN SYNDROME, UNSPECIFIED 11/09/2016 CALIXTO MCDONALD MD Ot Z79.899 OTHER LONGTERM (CURRENT) DRUG THERAPY 10/18/2017 LILLIE GOTTI Ot E78.00 PURE HYPERCHOLESTEROLEMIA, UNSPECIFIED 10/18/2017 LILLIE GOTTI Ot G40.909 EPILEPSY, UNSP, NOT INTRACTABLE, WITHOUT 10/18/2017 LILLIE GOTTI Ot R05 COUGH 10/18/2017 LILLIE GOTTI Ot Z82.49 FAMILY HX OF ISCHEM HEART DIS AND OTH DI 10/18/2017 LILLIE GOTTI Ot Z86.73 PRSNL HX OF TIA (TIA), AND CEREB INFRC W 10/18/2017 LILLIE GOTTI Ot Z87.19 PERSONAL HISTORY OF OTHER DISEASES OF TH 07/25/2018 EDWAR MERRILL [employer] Ot R25.2 CRAMP AND SPASM 07/25/2018 EDWAR MERRILL [employer] Ot R53.1 WEAKNESS 08/12/2018 EDWAR MERRILL [employer] Ot R25.2 CRAMP AND SPASM 08/12/2018 GARFIELDCHAU MONSIVAISA [employer]SEM[employer]QUIPMENT Ot R53.1 WEAKNESS 08/12/2018 GARFIELDEDWAR MONSIVAIS [employer]SEM[employer]ER [employer]ICAL EQUIPMENT Ot R25.2 CRAMP AND SPASM 08/12/2018 GARFIELDEDWAR MONSIVAIS ASSEM[employer]ER [employer]ICAL EQUIPMENT Ot R53.1 WEAKNESS 08/18/2018 GARFIELDCHAU MONSIVAISA ASSEM[employer]ER [employer]ICAL EQUIPMENT Ot R25.2 CRAMP AND SPASM 08/18/2018 EDWAR MERRILL [employer]SEM[employer] EQUIPMENT Ot R53.1 WEAKNESS Procedures Code Description [place] [id number] DEBRIDE NAIL >6 09/30/2012 [id number] ROUTINE VENIPUNCTURE 08/21/2013 05566 CBC 08/21/2013 78911 CMP 08/21/2013 13249 LIPID PANEL 08/21/2013 [id number] GFR CALC (RESULT ONLY) 08/21/2013 65637 TSH 08/22/2013 07505 ROUTINE VENIPUNCTURE 01/09/2014 29041 CBC 01/09/2014 [id number] GFR CALC (RESULT ONLY) 01/09/2014 62307 CMP 01/09/2014 04174 PSA TOTAL 01/09/2014 71461 TSH 01/09/2014 G0008 FLU ADMINISTRATION ( MEDICARE ONLY) 11/01/2014 89318 ROUTINE VENIPUNCTURE 11/02/2014 61226 CBC 11/02/2014 [id number] GFR CALC (RESULT ONLY) 11/02/2014 96991 CMP 11/02/2014 23449 LIPID PANEL 11/02/2014 93316 PSA TOTAL 11/02/2014 01852 TSH 11/02/2014 [id number] 03/12/2016 [id number] 03/13/2016 Results Test Result Range CBC With Differential/Platelet - 08/26/16 14:34 WBC 6.8 x10E3/uL 3.4-10.8 RBC 5.32 x10E6/uL 4.14-5.80 Hemoglobin 14.4 g/dL 12.6-17.7 Hematocrit 43.8 % 37.5-51.0 MCV 82 fL 79-97 MCH 27.1 pg 26.6-33.0 MCHC 32.9 g/dL 31.5-35.7 RDW 17.8 % 12.3-15.4 Platelets 224 x10E3/uL 150-379 Neutrophils 67 % Lymphs 23 % Monocytes 6 % Eos 3 % Basos 1 % Neutrophils (Absolute) 4.6 x10E3/uL 1.4-7.0 Lymphs (Absolute) 1.5 x10E3/uL 0.7-3.1 Monocytes(Absolute) 0.4 x10E3/uL 0.1-0.9 Eos (Absolute) 0.2 x10E3/uL 0.0-0.4 Baso (Absolute) 0.0 x10E3/uL 0.0-0.2 Immature Granulocytes 0 % Immature Grans (Abs) 0.0 x10E3/uL 0.0-0.1 Comp. Metabolic Panel (14) - 08/26/16 14:34 Glucose, Serum 86 mg/dL 65-99 BUN 11 mg/dL 6-24 Creatinine, Serum 1.01 mg/dL 0.76-1.27 eGFR If NonAfricn Am 82 mL/min/1.73 >59 eGFR If Africn Am 94 mL/min/1.73 >59 BUN/Creatinine Ratio 11 9-20 Sodium, Serum 141 mmol/L 134-144 Potassium, Serum 4.1 mmol/L 3.5-5.2 Chloride, Serum 101 mmol/L 97-108 Carbon Dioxide, Total 23 mmol/L 18-29 Calcium, Serum 8.9 mg/dL 8.7-10.2 Protein, Total, Serum 6.8 g/dL 6.0-8.5 Albumin, Serum 3.5 g/dL 3.5-5.5 Globulin, Total 3.3 g/dL 1.5-4.5 A/G Ratio 1.1 1.1-2.5 Bilirubin, Total 0.2 mg/dL 0.0-1.2 Alkaline Phosphatase, S 113 IU/L 39-117 AST (SGOT) 27 IU/L 0-40 ALT (SGPT) 32 IU/L 0-44 TSH - 08/26/16 14:34 TSH 4.140 uIU/mL 0.450-4.500 Complete blood count (CBC) with automated white blood cell (WBC) differential - 09/10/16 15:00 Blood leukocytes automated count (number/volume) 5.1 10*3/uL 4.3-11.0 Blood erythrocytes automated count (number/volume) 5.46 10*6/uL 4.35-5.85 Venous blood hemoglobin measurement (mass/volume) 15.1 g/dL 13.3-17.7 Blood hematocrit (volume fraction) 44 % 40-54 Automated erythrocyte mean corpuscular volume 80 [foz_us] 80-99 Automated erythrocyte mean corpuscular hemoglobin (mass per erythrocyte) 28 pg 25-34 Automated erythrocyte mean corpuscular hemoglobin concentration measurement ( mass/volume) 35 g/dL 32-36 Automated erythrocyte distribution width ratio 17.3 % 10.0-14.5 Automated blood platelet count (count/volume) 239 10*3/uL 130-400 Automated blood platelet mean volume measurement 11.1 [foz_us] 7.4-10.4 Automated blood neutrophils/100 leukocytes 57 % 42-75 Automated blood lymphocytes/100 leukocytes 28 % 12-44 Blood monocytes/100 leukocytes 11 % 0-12 Automated blood eosinophils/100 leukocytes 3 % 0-10 Automated blood basophils/100 leukocytes 1 % 0-10 Blood neutrophils automated count (number/volume) 2.9 10*3 1.8-7.8 Blood lymphocytes automated count (number/volume) 1.4 10*3 1.0-4.0 Blood monocytes automated count (number/volume) 0.5 10*3 0.0-1.0 Automated eosinophil count 0.2 10*3/uL 0.0-0.3 Automated blood basophil count (count/volume) 0.1 10*3/uL 0.0-0.1 Comprehensive metabolic panel - 09/10/16 15:00 Serum or plasma sodium measurement (moles/volume) 135 mmol/L 135-145 Serum or plasma potassium measurement (moles/volume) 4.4 mmol/L 3.6-5.0 Serum or plasma chloride measurement (moles/volume) 101 mmol/L 98-107 Carbon dioxide 25 mmol/L 21-32 Serum or plasma anion gap determination (moles/volume) 9 mmol/L 5-14 Serum or plasma urea nitrogen measurement (mass/volume) 10 mg/dL 7-18 Serum or plasma creatinine measurement (mass/volume) 0.79 mg/dL 0.60-1.30 Serum or plasma urea nitrogen/creatinine mass ratio 13 NRG Serum or plasma creatinine measurement with calculation of estimated glomerular filtration rate > NRG Serum or plasma glucose measurement (mass/volume) 92 mg/dL 70-105 Serum or plasma calcium measurement (mass/volume) 9.2 mg/dL 8.5-10.1 Serum or plasma total bilirubin measurement (mass/volume) 0.3 mg/dL 0.1-1.0 Serum or plasma alkaline phosphatase measurement (enzymatic activity/volume) 104 U/L 40-136 Serum or plasma aspartate aminotransferase measurement (enzymatic activity/ volume) 32 U/L 5-34 Serum or plasma alanine aminotransferase measurement (enzymatic activity/volume ) 39 U/L 0-55 Serum or plasma protein measurement (mass/volume) 7.7 g/dL 6.4-8.2 Serum or plasma albumin measurement (mass/volume) 3.6 g/dL 3.2-4.5 Complete urinalysis with reflex to culture - 09/10/16 15:10 Urine color determination YELLOW NRG Urine clarity determination CLEAR NRG Urine pH measurement by test strip 6.5 5-9 Specific gravity of urine by test strip 1.015 1.016- 1.022 Urine protein assay by test strip, semi-quantitative NEGATIVE NEGATIVE Urine glucose detection by automated test strip NEGATIVE NEGATIVE Erythrocytes detection in urine sediment by light microscopy NEGATIVE NEGATIVE Urine ketones detection by automated test strip NEGATIVE NEGATIVE Urine nitrite detection by test strip NEGATIVE NEGATIVE Urine total bilirubin detection by test strip NEGATIVE NEGATIVE Urine urobilinogen measurement by automated test strip (mass/volume) NORMAL NORMAL Urine leukocyte esterase detection by dipstick NEGATIVE NEGATIVE Automated urine sediment erythrocyte count by microscopy (number/high power field) NONE NRG Automated urine sediment leukocyte count by microscopy (number/high power field ) RARE NRG Bacteria detection in urine sediment by light microscopy NEGATIVE NRG Squamous epithelial cells detection in urine sediment by light microscopy RARE NRG Crystals detection in urine sediment by light microscopy NONE NRG Casts detection in urine sediment by light microscopy NONE NRG Mucus detection in urine sediment by light microscopy NEGATIVE NRG Complete urinalysis with reflex to culture NO NRG Comp. Metabolic Panel (14) - 11/06/16 09:06 Glucose, Serum 102 mg/dL 65-99 BUN 7 mg/dL 6-24 Creatinine, Serum 0.93 mg/dL 0.76-1.27 eGFR If NonAfricn Am 90 mL/min/1.73 >59 eGFR If Africn Am 104 mL/min/1.73 >59 BUN/Creatinine Ratio 8 9-20 Sodium, Serum 141 mmol/L 136-144 Potassium, Serum 3.6 mmol/L 3.5-5.2 Chloride, Serum 98 mmol/L 97-106 Carbon Dioxide, Total 27 mmol/L 18-29 Calcium, Serum 9.1 mg/dL 8.7-10.2 Protein, Total, Serum 6.7 g/dL 6.0-8.5 Albumin, Serum 3.6 g/dL 3.5-5.5 Globulin, Total 3.1 g/dL 1.5-4.5 A/G Ratio 1.2 1.1-2.5 Bilirubin, Total <0.2 mg/dL 0.0-1.2 Alkaline Phosphatase, S 194 IU/L 39-117 AST (SGOT) 22 IU/L 0-40 ALT (SGPT) 33 IU/L 0-44 TSH - 11/06/16 09:06 TSH 4.440 uIU/mL 0.450-4.500 Complete blood count (CBC) with automated white blood cell (WBC) differential - 11/07/16 10:50 Blood leukocytes automated count (number/volume) 5.2 10*3/uL 4.3-11.0 Blood erythrocytes automated count (number/volume) 5.27 10*6/uL 4.35-5.85 Venous blood hemoglobin measurement (mass/volume) 14.7 g/dL 13.3-17.7 Blood hematocrit (volume fraction) 44 % 40-54 Automated erythrocyte mean corpuscular volume 84 [foz_us] 80-99 Automated erythrocyte mean corpuscular hemoglobin (mass per erythrocyte) 28 pg 25-34 Automated erythrocyte mean corpuscular hemoglobin concentration measurement ( mass/volume) 33 g/dL 32-36 Automated erythrocyte distribution width ratio 18.3 % 10.0-14.5 Automated blood platelet count (count/volume) 194 10*3/uL 130-400 Automated blood platelet mean volume measurement 11.2 [foz_us] 7.4-10.4 Automated blood neutrophils/100 leukocytes 61 % 42-75 Automated blood lymphocytes/100 leukocytes 26 % 12-44 Blood monocytes/100 leukocytes 8 % 0-12 Automated blood eosinophils/100 leukocytes 3 % 0-10 Automated blood basophils/100 leukocytes 2 % 0-10 Blood neutrophils automated count (number/volume) 3.2 10*3 1.8-7.8 Blood lymphocytes automated count (number/volume) 1.4 10*3 1.0-4.0 Blood monocytes automated count (number/volume) 0.4 10*3 0.0-1.0 Automated eosinophil count 0.2 10*3/uL 0.0-0.3 Automated blood basophil count (count/volume) 0.1 10*3/uL 0.0-0.1 Comprehensive metabolic panel - 11/07/16 10:50 Serum or plasma sodium measurement (moles/volume) 138 mmol/L 135-145 Serum or plasma potassium measurement (moles/volume) 3.8 mmol/L 3.6-5.0 Serum or plasma chloride measurement (moles/volume) 107 mmol/L 98-107 Carbon dioxide 21 mmol/L 21-32 Serum or plasma anion gap determination (moles/volume) 10 mmol/L 5-14 Serum or plasma urea nitrogen measurement (mass/volume) 7 mg/dL 7-18 Serum or plasma creatinine measurement (mass/volume) 0.86 mg/dL 0.60-1.30 Serum or plasma urea nitrogen/creatinine mass ratio 8 NRG Serum or plasma creatinine measurement with calculation of estimated glomerular filtration rate > NRG Serum or plasma glucose measurement (mass/volume) 93 mg/dL 70-105 Serum or plasma calcium measurement (mass/volume) 8.9 mg/dL 8.5-10.1 Serum or plasma total bilirubin measurement (mass/volume) 0.3 mg/dL 0.1-1.0 Serum or plasma alkaline phosphatase measurement (enzymatic activity/volume) 166 U/L 40-136 Serum or plasma aspartate aminotransferase measurement (enzymatic activity/ volume) 27 U/L 5-34 Serum or plasma alanine aminotransferase measurement (enzymatic activity/volume ) 43 U/L 0-55 Serum or plasma protein measurement (mass/volume) 6.2 g/dL 6.4-8.2 Serum or plasma albumin measurement (mass/volume) 3.4 g/dL 3.2-4.5 Magnesium - 11/07/16 10:50 Magnesium 2.2 mg/dL 1.8-2.4 THYROID STIMULATING HORMONE - 11/07/16 10:50 THYROID STIMULATING HORMONE 4.28 u[iU]/mL 0.35-4.94 CBC With Differential/Platelet - 02/26/17 08:44 WBC TNP x10E3/uL RBC TNP Hemoglobin TNP Hematocrit TNP Platelets TNP Neutrophils TNP Lymphs TNP Monocytes TNP Eos TNP Lymphs (Absolute) TNP Eos (Absolute) TNP Baso (Absolute) TNP Comp. Metabolic Panel (14) - 02/26/17 08:44 Glucose, Serum 81 mg/dL 65-99 BUN 9 mg/dL 6-24 Creatinine, Serum 0.89 mg/dL 0.76-1.27 eGFR If NonAfricn Am 94 mL/min/1.73 >59 eGFR If Africn Am 109 mL/min/1.73 >59 BUN/Creatinine Ratio 10 9-20 Sodium, Serum 142 mmol/L 134-144 Potassium, Serum 4.1 mmol/L 3.5-5.2 Chloride, Serum 100 mmol/L 96-106 Carbon Dioxide, Total 24 mmol/L 18-29 Calcium, Serum 9.2 mg/dL 8.7-10.2 Protein, Total, Serum 7.0 g/dL 6.0-8.5 Albumin, Serum 3.7 g/dL 3.5-5.5 Globulin, Total 3.3 g/dL 1.5-4.5 A/G Ratio 1.1 1.2-2.2 Bilirubin, Total 0.2 mg/dL 0.0-1.2 Alkaline Phosphatase, S 146 IU/L 39-117 AST (SGOT) 32 IU/L 0-40 ALT (SGPT) 49 IU/L 0-44 Lipid Panel - 02/26/17 08:44 Cholesterol, Total 227 mg/dL 100-199 Triglycerides 156 mg/dL 0-149 HDL Cholesterol 50 mg/dL >39 VLDL Cholesterol Blue 31 mg/dL 5-40 LDL Cholesterol Calc 146 mg/dL 0-99 PSA Total+% Free - 02/26/17 08:44 Prostate Specific Ag, Serum 0.2 ng/mL 0.0-4.0 PSA, Free 0.07 ng/mL N/A % Free PSA 35.0 % TSH - 02/26/17 08:44 TSH 4.790 uIU/mL 0.450-4.500 Request Problem - 02/26/17 08:44 Request Problem TNP CBC With Differential/Platelet - 03/11/17 09:01 WBC 4.5 x10E3/uL 3.4-10.8 RBC 5.10 x10E6/uL 4.14-5.80 Hemoglobin 14.3 g/dL 12.6-17.7 Hematocrit 45.0 % 37.5-51.0 MCV 88 fL 79-97 MCH 28.0 pg 26.6-33.0 MCHC 31.8 g/dL 31.5-35.7 RDW 16.2 % 12.3-15.4 Platelets 223 x10E3/uL 150-379 Neutrophils 59 % Lymphs 29 % Monocytes 4 % Eos 7 % Basos 1 % Neutrophils (Absolute) 2.6 x10E3/uL 1.4-7.0 Lymphs (Absolute) 1.3 x10E3/uL 0.7-3.1 Monocytes(Absolute) 0.2 x10E3/uL 0.1-0.9 Eos (Absolute) 0.3 x10E3/uL 0.0-0.4 Baso (Absolute) 0.1 x10E3/uL 0.0-0.2 Immature Granulocytes 0 % Immature Grans (Abs) 0.0 x10E3/uL 0.0-0.1 TSH - 03/11/17 09:01 TSH 5.650 uIU/mL 0.450-4.500 TSH - 06/15/17 08:17 TSH 0.343 uIU/mL 0.450-4.500 LEVETIRACETAM, SERUM OR PLASMA - 04/05/18 08:52 LEVETIRACETAM 12.5 mcg/mL NRG TSH - 06/06/18 14:53 TSH 2.79 mIU/L 0.40-4.50 Encounters ACCT No. Visit Date/Time Discharge Status Pt. Type Provider Facility Loc./Unit Complaint [id number] 02/12/2015 13:42:00 02/12/2015 23:59:59 CLS Outpatient WAYLON VILLARREAL DDS [id number] 11/02/2014 08:35:00 11/02/2014 23:59:59 CLS Outpatient EDWAR MERRILL APRN [id number] 01/09/2014 10:29:00 01/09/2014 23:59:59 CLS Outpatient EDWAR MERRILL APRN [id number] 01/09/2014 10:29:00 01/09/2014 23:59:59 CLS Outpatient EDWAR MERRILL APRN [id number] 08/21/2013 08:37:00 08/21/2013 23:59:59 CLS Outpatient ALCIDES INGRAM MD [id number] 09/30/2012 10:33:00 09/30/2012 23:59:59 CLS Outpatient [id number] 09/30/2012 10:33:00 09/30/2012 23:59:59 CLS Outpatient MAXIMUS HEAD DO [id number] 11/07/2016 13:05:00 Document Registration [id number] 08/27/2016 10:05:00 Document Registration [id number] 12/06/2014 05:53:04 ACT Document Registration [id number] 02/27/2017 17:07:00 Document Registration [id number] 07/28/2018 13:01:00 08/18/2018 15:30:00 DIS Outpatient EDWAR MERRILL Via [facility] REHAB SPASMS ON LEFT SIDE OF BODY; WEAKNESS [id number] 10/18/2017 14:35:00 10/18/2017 15:43:00 DIS Emergency LILLIE GOTTI Via [facility] ER CHOKED ON FOOD AT LUNCH [id number] 11/07/2016 10:29:00 11/07/2016 12:38:00 DIS Emergency CALIXTO MCDONALD MD Via [facility] ER SEIZURE [id number] 09/10/2016 14:35:00 09/10/2016 16:25:00 DIS Emergency EKNYA HARDY, HEBERT Del Rosario Via [facility] ER LETHARGIC/SOA [id number] 09/02/2016 18:20:00 09/02/2016 20:26:00 DIS Emergency LILLIE GOTTI [facility] ER RT FOOT SWELLING [id number] 06/19/2016 02:38:00 06/19/2016 04:21:00 DIS Emergency CALIXTO MCDONALD MD Via [facility] ER SEIZURE [id number] 06/12/2016 09:56:00 06/12/2016 15:40:00 DIS Inpatient BARBARA HARDY, ERMA Guerrero Via [facility] 4TH SEIZURE DISLOCATED HIP [id number] 04/23/2016 07:59:00 04/23/2016 12:29:00 DIS Emergency KENYA HARDY, HEBERT Del Rosario [facility] ER SEIZURE [id number] 03/12/2016 12:45:00 03/19/2016 15:17:00 DIS Inpatient JOHN HARDY, VIJAYA Piedra [facility] 4TH DECREASED LOC; QUESTIONABLE SEPSIS [id number] 02/26/2016 10:58:00 02/26/2016 23:59:59 CLS Outpatient EDWAR MERRILL [facility] RAD HYPERSOMNOLENCE [id number] 02/21/2016 07:52:00 02/21/2016 11:05:00 DIS Emergency ARSALAN JOE MD [facility] ER L SIDED WEAKNESS/ FACIAL DROOPING [id number] 12/06/2014 05:52:00 12/06/2014 23:59:59 CLS Outpatient AUTUMN ANGELA MD [facility] PREOP SCREENING [id number] 09/20/2018 08:53:00 ACT Emergency CALIXTO MCDONADL MD Via [facility] ER STROKE [id number] 10/12/2011 10:31:00 Document Registration [id number] 10/07/2011 07:43:00 Document Registration [id number] 03/12/2017 08:06:00 Document Registration [id number] 06/16/2017 08:42:00 Document Registration [id number] 06/25/2018 12:00:00 06/25/2018 23:59:59 [facility] Outpatient EDWAR MERRILL [facility] [id number] 06/06/2018 14:00:00 Document Registration [id number] 04/05/2018 09:40:00 Document Registration
--- NOTE | 2018-09-20 09:13 | Diagnostic Imaging Report ---
EXAM: CT HEAD WO-R/O STROKE INDICATION: Left-sided weakness. Stroke. COMPARISON: CT head without contrast 03/12/2016. FINDINGS: Advanced generalized cerebral and cerebellar parenchymal volume loss. Advanced leukoaraiosis. There are numerous chronic infarcts including within the left cerebellum, left parietal frontal region and bilateral thalami. No CT evidence of an acute territorial infarction. No intracranial hemorrhage, mass effect, hydrocephalus or extra-axial fluid collections. Osseous structures are intact. Complete opacification of the left maxillary sinus is chronic. Chronic osteitis of the left mastoid is stable. IMPRESSION: 1. No acute intracranial CT findings. 2. Advanced parenchymal volume loss and leukoaraiosis. 3. Numerous chronic infarcts as above. Dictated by: Dictated on workstation # [id number]
[2018-09-20 09:18] LABS: FIBRIN DEGRADATION PRODUCTS 3.07 UG/ML (0.00-0.49); INR 1.1 (0.8-1.4); PROTHROMBIN TIME PATIENT 14.6 SEC (12.2-14.7)
[2018-09-20 09:21] LABS: ALANINE AMINOTRANSFERASE 28 U/L (0-55); ALBUMIN 3.2 GM/DL (3.2-4.5); ALKALINE PHOSPHATASE 76 U/L (40-136); BILIRUBIN,TOTAL 0.5 MG/DL (0.1-1.0); BUN/CREATININE RATIO 17; CARBON DIOXIDE 20 MMOL/L (21-32); CHLORIDE 99 MMOL/L (98-107); CREATININE SERUM 0.92 MG/DL (0.60-1.30); GFR ESTIMATED > 60; GLUCOSE 106 MG/DL (70-105); POTASSIUM 4.3 MMOL/L (3.6-5.0); SODIUM 129 MMOL/L (135-145); TOTAL PROTEIN 6.3 GM/DL (6.4-8.2)
--- NOTE | 2018-09-20 09:26 | ED General ---
General Stated Complaint: STROKE Source of Information: Patient Exam Limitations: No Limitations (JERAD MCDONALD MD) History of Present Illness Date Seen by Provider: Sep 20, 2018 Time Seen by Provider: 08:52 Initial Comments Here by EMS with report of possible stroke. Also patient appears to have a fever as he feels hot although no documented temperatures yet. EMS was summoned to the hospital because patient wasn't acting right. The caregivers reported he was leaning over to the left. Does have history of previous strokes and they believe that this as well as: On. Caregiver is reported that he had slurred speech but also reported that he is nonverbal. Appears to be moving all 4 extremities weakly. No facial droop noted. Patient does have history of Down syndrome. No report of nausea or vomiting. Patient is unable to provide any information due to his underlying medical condition. Caregiver arrives and states that he was okay yesterday and a little weak when he woke up but then suddenly became quite weak this morning afterwards. This is out of character for him. He is currently not DO NOT RESUSCITATE as he is in the [facility]. His sister is the guardian. Timing/Duration: 1-3 Hours Severity: Severe Associated Systoms: Weakness (JERAD MCDONALD MD) Allergies and Home Medications Allergies Coded Allergies: naproxen (Unverified Allergy, Unknown, 02/21/16) Home Medications Esomeprazole Magnesium 40 Mg Cap, 40 MG PO DAILY, (Reported) 30 MINUTES PRIOR TO SUCRALFATE IN MORNING Levetiracetam 500 Mg Tablet, 500 MG PO BID Prescribed by: JERAD MCDONALD on 06/19/16 0335 Loratadine 10 Mg Tablet, 10 MG PO DAILY, (Reported) Risperidone 1 Mg Tablet, 1 MG PO after meals supper Prescribed by: HEBERT ZAMBRANO on 09/10/16 1607 Simethicone 80 Mg Tab.chew, 80 MG PO QID, (Reported) Sucralfate 1 Gm Tablet, 1 GM PO ACHS, (Reported) Trazodone HCl 100 Mg Tablet, 100 MG PO HS, (Reported) Patient Home Medication List Home Medication List Reviewed: Yes (JERAD MCDONALD MD) Review of Systems Review of Systems Constitutional: see HPI; No chills; fever Unable to complete review of systems due to altered mental status and patient's underlying clinical condition (JERAD MCDONALD MD) Past Lluicsz-Kkznea-Bwpyof Hx Past Med/Social Hx: Reviewed Nursing Past Med/Soc Hx (JERAD MCDONALD MD) Patient Social History Recent Hopitalizations: No (JERAD MCDONALD MD) Immunizations Up To Date Date of Influenza Vaccine: Nov 06, 2015 (JERAD MCDONALD MD) Past Medical History Surgeries: Yes (2 cyst removed from spine years ago) Eye Surgery Respiratory: No Cardiac: Yes (HYPERLIPIDEMIA) High Cholesterol, Irregular Heartbeat Neurological: Yes (profound mental retardation from Down syndrome and autism) Seizure Disorder, Stroke Reproductive Disorders: No Gastrointestinal: Yes Gastrointestinal Bleed Musculoskeletal: Yes (HIP DEFORMITIES) Endocrine: No Cataract Cancer: No Psychosocial: Yes (profound mental retardation from Downs syndrome and autism) Sleep Difficulties Integumentary: Yes (chronic dermatitis) Blood Disorders: No (JERAD MCDONALD MD) Family Medical History Reviewed Nursing Family Hx (JERAD MCDONALD MD) Cardiovascular disease 19 FATHER Heart Disease (JERAD MCDONALD MD) Physical Exam-Suspected Sepsis Physical Exam Vital Signs Vital Signs - First Documented 09/20/18 09:00 Temp 99.2 Pulse 84 Resp 30 B/P (MAP) 76/50 (59) Pulse Ox 94 O2 Delivery Nasal Cannula O2 Flow Rate 2.00 (FELICITY MARTINEZ APRN) Vital Signs Capillary Refill : (JERAD MCDONALD MD) Height, Weight, BMI Height: 5'1" Weight: 140lbs. 7.0oz. 63.582424cx; 26.3 BMI Method:Estimated General Appearance: No Apparent Distress, WD/WN HEENT: Pharynx Normal, Other (right pupil 3-4 mm and left pupil 2-3 mm) Neck: Non Tender, Supple Respiratory: No Accessory Muscle Use, Crackles (bilateral bases) Cardiovascular: Regular Rate, Rhythm, No Murmur Gastrointestinal: Non Tender, Soft Extremity: Normal Capillary Refill, No Calf Tenderness, Other (does appear to move all 4 extremities but weak) Neurologic/Psychiatric: Other (eyes open to stimuli. Nonverbal.) Skin: normal color, warm/dry (JERAD MCDONALD MD) Focused Exam Lactate Level 09/20/18 09:21: Lactic Acid Level 1.22 (FELICITY MARTINEZ APRN) Lactic Acid Level Laboratory Tests Test 09/20/18 09:21 Lactic Acid Level 1.22 MMOL/L (0.50-2.00) (FELICITY MARTINEZ APRN) Procedures/Interventions Central Line Procedure: betadine prep, sterile drapes applied, sterile dressing applied Position: internal jugular (R) Anesthesia: local Volume Anesthetic (ccs): 5 Complications: none Post Position: sutured, good blood return, position confirmed w/ CXR (FELICITY MARTINEZ APRN) Progress/Results/Core Measures Suspected Sepsis SIRS Temperature: Pulse: Respiratory Rate: Laboratory Tests 09/20/18 08:40: White Blood Count 4.1L Blood Pressure / Mean: 09/20/18 09:21: Lactic Acid Level 1.22 Laboratory Tests 09/20/18 08:40: Creatinine 0.92, INR Comment 1.1, Platelet Count 186, Total Bilirubin 0.5 (JERAD MCDONALD MD) Results/Orders Lab Results Laboratory Tests Test 09/20/18 08:40 09/20/18 09:21 Range/Units White Blood Count 4.1 L 4.3-11.0 10^3/uL Red Blood Count 5.06 4.35-5.85 10^6/uL Hemoglobin 13.8 13.3-17.7 G/DL Hematocrit 40 40-54 % Mean Corpuscular Volume 79 L 80-99 FL Mean Corpuscular Hemoglobin 27 25-34 PG Mean Corpuscular Hemoglobin Concent 35 32-36 G/DL Red Cell Distribution Width 18.3 H 10.0-14.5 % Platelet Count 186 130-400 10^3/uL Mean Platelet Volume 10.3 7.4-10.4 FL Neutrophils (%) (Auto) 59 42-75 % Lymphocytes (%) (Auto) 22 12-44 % Monocytes (%) (Auto) 18 H 0-12 % Eosinophils (%) (Auto) 1 0-10 % Basophils (%) (Auto) 1 0-10 % Neutrophils # (Auto) 2.4 1.8-7.8 X 10^3 Lymphocytes # (Auto) 0.9 L 1.0-4.0 X 10^3 Monocytes # (Auto) 0.7 0.0-1.0 X 10^3 Eosinophils # (Auto) 0.0 0.0-0.3 10^3/uL Basophils # (Auto) 0.0 0.0-0.1 10^3/uL Prothrombin Time 14.6 12.2-14.7 SEC INR Comment 1.1 0.8-1.4 Activated Partial Thromboplast Time 34 24-35 SEC D-Dimer 3.07 H 0.00-0.49 UG/ML Sodium Level 129 L 135-145 MMOL/L Potassium Level 4.3 3.6-5.0 MMOL/L Chloride Level 99 98-107 MMOL/L Carbon Dioxide Level 20 L 21-32 MMOL/L Anion Gap 10 5-14 MMOL/L Blood Urea Nitrogen 16 7-18 MG/DL Creatinine 0.92 0.60-1.30 MG/DL Estimat Glomerular Filtration Rate > 60 BUN/Creatinine Ratio 17 Glucose Level 106 H 70-105 MG/DL Calcium Level 9.0 8.5-10.1 MG/DL Corrected Calcium 9.6 8.5-10.1 MG/DL Total Bilirubin 0.5 0.1-1.0 MG/DL Aspartate Amino Transf (AST/SGOT) 29 5-34 U/L Alanine Aminotransferase (ALT/SGPT) 28 0-55 U/L Alkaline Phosphatase 76 40-136 U/L Troponin I < 0.30 <0.30 NG/ML Total Protein 6.3 L 6.4-8.2 GM/DL Albumin 3.2 3.2-4.5 GM/DL Urine Color YELLOW Urine Clarity VERY CLOUDY H Urine pH 6 5-9 Urine Specific [place] 1.020 1.016-1.022 Urine Protein 1+ H NEGATIVE Urine Glucose (UA) NEGATIVE NEGATIVE Urine Ketones NEGATIVE NEGATIVE Urine Nitrite NEGATIVE NEGATIVE Urine Bilirubin NEGATIVE NEGATIVE Urine Urobilinogen NORMAL NORMAL MG/DL Urine Leukocyte Esterase 1+ H NEGATIVE Urine RBC (Auto) NEGATIVE NEGATIVE Urine RBC NONE /HPF Urine WBC 0-2 /HPF Urine Squamous Epithelial Cells 0-2 /HPF Urine Crystals PRESENT H /LPF Urine Calcium Oxalate Crystals RARE H /LPF Urine Amorphous Sediment LARGE CAMMY URATES H /LPF Urine Bacteria TRACE /HPF Urine Casts NONE /LPF Urine Mucus MODERATE H /LPF Urine Culture Indicated YES Lactic Acid Level 1.22 0.50-2.00 MMOL/L (FELICITY MARTINEZ APRN) Micro Results Microbiology 09/20/18 Influenza Types A,B Antigen (AMANDA) - Final, Complete (FELICITY MARTINEZ APRN) My Orders Orders - FELICITY MARTINEZ APRN Chest 1 View, Ap/Pa Only (09/20/18 11:44) (FELICITY MARTINEZ APRN) Medications Given in ED Current Medications Medications Dose Ordered Sig/Ugo Route Start Time Stop Time Status Last Admin Dose Admin Piperacillin Sod/ Tazobactam Sod 4.5 gm/Sodium Chloride 100 ml @ 200 mls/hr ONCE ONCE IV 09/20/18 09:45 09/20/18 10:14 DC 09/20/18 10:36 200 MLS/HR (FELICITY MARTINEZ APRN) Vital Signs/I&O 09/20/18 09:00 Temp 99.2 Pulse 84 Resp 30 B/P (MAP) 76/50 (59) Pulse Ox 94 O2 Delivery Nasal Cannula O2 Flow Rate 2.00 (FELICITY MARTINEZ APRN) Vital Signs/I&O Capillary Refill : (JERAD MCDONALD MD) Progress Note : Progress Note Seen and evaluated on arrival by EMS. Stroke activation done due to initial presenting complaint although sepsis protocol initiated as well. We have added blood cultures, lactic acid and influenza screen. Unable to complete stroke scale due to underlying condition. There is no obvious facial droop or focal weakness as he is weakly moving all 4 extremities. He is nonverbal historically and unable to follow commands at this time. Patient is very ill- appearing and does have findings of sepsis. TPA not indicated for this patient and I believe would be much greater risk than benefit. We will pursue stroke evaluation as his blood pressure is quite low in the 70s over 50s. Normal saline 2 L IV bolus initiated which we'll exceed 30 mL/kg based on estimated weight of 50 kg. Zosyn 4.5 g IV ordered. We will consider central line placement if blood pressure does not improve with fluid administration. Only scant urine output after Davis placed. We will monitor for urine output. 1130 : Blood pressure remains low. Normal saline at 250 an hour initiated. We will proceed with central line. We have placed palliative care consult after talking with the patient's sister as patient may go to [facility] if we are not getting improvement. I did discuss the case with Dr. Davidson at 1115. He accepts patient. Consult. Patient to go to ICU. I did discuss the case with Dr. Valles at 1137 and she accepts patient for admission for [facility] team. (JERAD MCDONALD MD) ECG Initial ECG Impression Date: Sep 20, 2018 Initial ECG Impression Time: 10:56 Initial ECG Rate: 71 Initial ECG Rhythm: Normal Sinus Comment Sinus rhythm with normal axis. No evidence of ST elevation NE. Similar to EKG in 2016. Interpreted by me. (JERAD MCDONALD MD) Diagnostic Imaging Diagonstic Imaging: Xray Plain Films/CT/US/NM/MRI: chest Comments VIA [facility], [facility]. [place], [place] NAME: GUERLINE HARGROVENathan Wilkerson [facility] REC#: [id number] PT STATUS: REG ER : 1960 PHYSICIAN: JERAD MCDONALD MD ADMIT DATE: 09/20/18/ER Draft Date of Exam:09/20/18 CHEST 1 VIEW, AP/PA ONLY Clinical indication: Patient with stroke and left-sided weakness. Exam: Portable chest x-ray upright view. Comparisons: Chest x-ray dated 09/10/2016. Findings: There is increased lung markings seen throughout both lungs which may represent interstitial edema and/or lung infiltrate. There is stable heart size which is not enlarged. There is no pleural effusion or pneumothorax There are degenerative spurs involving the spine. Old healed right rib fractures are seen. Old healed fracture changes of the right proximal humerus is seen. Impression: 1: There is increased lung markings throughout both lungs which may represent mild interstitial edema or lung infiltrates. Heart size is within normal limits. 2: Otherwise, there is no other significant abnormality. Dictated on workstation # [id number] Dict: 09/20/18918 Trans: 09/20/18 0926 DANIELLE [id number] Interpreted by: CHRISTIAN PATRICK MD Electronically signed by: Diagonstic Imaging: CT Plain Films/CT/US/NM/MRI: head Comments [facility] [place], [place] NAME: TASHA HARGROVE [facility] REC#: [id number] PT STATUS: REG ER : 1960 PHYSICIAN: JERAD MCDONALD MD ADMIT DATE: 09/20/18/ER Draft Date of Exam:09/20/18 CT HEAD WO-R/O STROKE EXAM: CT HEAD WO-R/O STROKE INDICATION: Left-sided weakness. Stroke. COMPARISON: CT head without contrast 03/12/2016. FINDINGS: Advanced generalized cerebral and cerebellar parenchymal volume loss. Advanced leukoaraiosis. There are numerous chronic infarcts including within the left cerebellum, left parietal frontal region and bilateral thalami. No CT evidence of an acute territorial infarction. No intracranial hemorrhage, mass effect, hydrocephalus or extra-axial fluid collections. Osseous structures are intact. Complete opacification of the left maxillary sinus is chronic. Chronic osteitis of the left mastoid is stable. IMPRESSION: 1. No acute intracranial CT findings. 2. Advanced parenchymal volume loss and leukoaraiosis. 3. Numerous chronic infarcts as above. Dictated on workstation # [id number] Dict: 09/20/18 0900 Trans: 09/20/18 09 [facility] [id number] Interpreted by: ALIYAH CABRERA MD Electronically signed by: Diagonstic Imaging: CT Plain Films/CT/US/NM/MRI: chest Comments NAME: TASHA HARGROVE [facility] REC#: [id number] PT STATUS: REG ER : 1960 PHYSICIAN: JERAD MCDONALD MD ADMIT DATE: 09/20/18/ER Signed Date of Exam: 09/20/18 CT ANGIO CHEST W PROCEDURE: CT angiography of the chest with contrast. TECHNIQUE: Multiple contiguous axial images were obtained through the chest after uneventful bolus administration of intravenous contrast. 2D reconstructed CTA MIP acquisitions were also performed. INDICATION: Chest pain, shortness of breath. COMPARISON: CTA head and neck performed concurrently. FINDINGS: Examination is nondiagnostic for pulmonary emboli due to patient having a CTA head and neck performed at the same time which required bolus timing to be centered for the aorta rather than the pulmonary vasculature. Thoracic aorta is normal caliber without evidence of dissection. Heart is normal in size. No pericardial effusion. Incidental note of apparent origin of the right subclavian artery with a retroesophageal course. No intrathoracic lymphadenopathy. No pleural effusion or pneumothorax. A small amount of retained secretions are present in the distal trachea. There are groundglass opacities and intralobular thickening in the bilateral lower lobes. Diffuse hypoattenuation liver suggests hepatic steatosis. No concerning focal osseous lesion. Impression: 1. Exam is nondiagnostic in evaluation for pulmonary emboli due to timing necessarily altered to perform CTA head and neck at same time. 2. No aortic dissection. 3. Groundglass opacities and intralobular thickening lung bases raises possibility of pulmonary edema. However, there are no pleural effusions. Atypical infectious process or aspiration could also give this appearance. Dictated by: Dictated on workstation # [id number] Dict: 09/20/18 1100 Trans: 09/20/18 111 Interpreted by: OLI BRANHAM MD Electronically signed by: OLI BRANHAM MD 09/20/18 111 Diagonstic Imaging: CT Plain Films/CT/US/NM/MRI: head, other Comments [facility]. [place], [place] NAME: TASHA HARGROVE Rock [facility] REC#: [id number] PT STATUS: REG ER : 1960 PHYSICIAN: JERAD MCDONALD MD ADMIT DATE: 09/20/18/ER Draft Date of Exam:09/20/18 CT ANGIO HEAD/NECK CLINICAL INDICATION: Patient followup stroke. Exams: 1: Head CT with IV contrast. 2: CT angiogram of the head and neck performed with 100 cc of Omnipaque 350 IV contrast. Sagittal and coronal MIP reformations were created for better visualization of vascular anatomy. Comparison: Head CT without IV contrast dated 09/20/2018. FINDINGS: HEAD CT: There is no significant change to the diffuse patchy and confluent areas of low-attenuation white matter changes throughout both cerebral hemispheres and periventricular regions. These findings have progressed compared to the prior head CT dated 03/12/2016, but is stable compared to the head CT dated 09/20/2018. Again seen chronic cerebral infarcts involving the left occipital lobe and right temporal lobe region. There is a cystic structure in the left periventricular left temporal lobe region which was also noted on the prior head CT from 2015. There is enlargement of the lateral ventricles and third ventricle which may be related to brain parenchymal volume loss, but component of normal pressure hydrocephalus can't be completely excluded. Again seen lacunar infarcts involving the bilateral thalami. There are stable infarcts and volume loss involving the left cerebellum which is also noted on the prior head CT in 2016. There is no abnormal IV contrast enhancement. Visualized portion of the dural venous sinuses show no gross abnormality. The extracranial soft tissue, skull are unremarkable. Temporal bone structures show no significant abnormality. There is complete consolidation of the left maxillary sinus and moderate to large amounts of mucosal thickening in the ethmoid sinus. Frontal sinus is aplastic and sphenoid sinus is hypoplastic. There are secretions or mucosal thickening in the sphenoid sinus. CT ANGIOGRAM: Three-vessel aortic arch is seen. There is an aberrant right subclavian artery seen extending posterior to the esophagus and anterior to the vertebra. There is dense contrast bolus within the left subclavian vein, left innominate vein, and portion of the superior vena cava. The right subclavian artery is patent. There is dense contrast streak artifact obscuring the origins of the left subclavian artery, left common carotid artery, brachiocephalic artery, and proximal right common carotid artery. These vessels are otherwise patent as visualized. There is motion artifact obscuring the upper neck anatomical structures in the region of the C2 through skull base. The bilateral cervical ICA are patent as visualized. The bilateral ECA are patent. There is dense contrast bolus streak artifact obscuring the origin of the left vertebral artery, but the remainder of the cervical left vertebral artery is patent. There is anatomical variation of the cervical right vertebral artery arising from the proximal right common carotid artery. The cervical vertebral artery is patent. There is motion artifact obscuring the skull base region which limits evaluation of the distal cervical bilateral vertebral arteries, and intradural bilateral vertebral arteries. The intradural bilateral vertebral arteries are patent as visualized. The basilar artery, bilateral superior cerebellar arteries, and bilateral posterior cerebral arteries are patent. The bilateral petrous and cavernous carotid arteries are patent. The bilateral MCAs and their distal branches and bilateral ACAs and their distal branches are patent. The neck soft tissue structures show no significant abnormality. Visualized upper lung alcantara show atelectasis and/or scarring posteriorly involving both upper lobes, with the left side worse than the right. Cervical spine shows degenerative spurs. IMPRESSION: 1: Stable CT scan of the brain compared to the prior head CT dated 09/20/2018. There is no definite CT evidence of interval acute cerebral infarction, intracranial hemorrhage, or mass seen. Given the diffuse low attenuation changes throughout the brain parenchyma which can obscure more subtle findings, if there is clinical concern for acute cerebral infarction, MRI of the brain would better evaluate. 2: There is dense contrast bolus streak artifact and motion artifact which obscures portions of the [place] and neck vascular structures. Otherwise the [place] and neck vascular structures are patent with no evidence of intravascular thrombosis, stenosis, vascular malformation, or aneurysm. 3: Aberrant right subclavian artery, and an anatomical variation of the cervical right vertebral artery arising from the proximal right CCA. 4: There are diffuse brain parenchymal white matter changes throughout both cerebral hemispheres again seen with multiple areas of chronic cerebral infarct, as described above. 5: There is enlargement of the lateral and third ventricles which may be related to brain parenchymal volume loss, but normal pressure hydrocephalus cannot be completely excluded. Clinical correlation would better evaluate. Results of this report regarding vascular findings were discussed with Dr. Jerad Mcdonald via the telephone on 09/20/2018 at 1105 hrs. Dictated on workstation # [id number] Dict: 09/20/18 1048 Trans: 09/20/18 1128 [id number] Interpreted by: CHRISTIAN PATRICK MD Electronically signed by: (JERAD MCDONALD MD) Departure Communication (Admissions) Time/Spoke to Admitting Phy: 11:37 Time/Spoke to Consulting Phy: 11:15 (JERAD MCDONALD MD) Impression Primary Impression: Septic shock Additional Impression: Pneumonia Qualified Codes: J18.1 - Lobar pneumonia, unspecified organism Disposition: ADMITTED INPATIENT Condition: Critical Admissions Decision to Admit Reason: Admit from ER (General) Decision to Admit/Date: Sep 20, 2018 Time/Decision to Admit Time: 11:15 (JERAD MCDONALD MD) Departure-Patient Inst. Referrals: EDWAR MERRILL (PCP) Primary Care Physician [facility] (Family) Primary Care Physician JERAD MCDONALD MD Sep 20, 2018 09:26 FELICITY MARTINEZ APRN Sep 20, 2018 11:49
[2018-09-20 09:29] LABS: BILIRUBIN,URINE NEGATIVE (NEGATIVE); CLARITY,URINE VERY CLOUDY; COLOR,URINE YELLOW; GLUCOSE, URINE (UA) NEGATIVE (NEGATIVE); KETONES,URINE NEGATIVE (NEGATIVE); LEUKOCYTE ESTERASE ,URINE 1+ (NEGATIVE); NITRITE,URINE NEGATIVE (NEGATIVE); PH,URINE 6 (5-9); PROTEIN,URINE 1+ (NEGATIVE); UROBILINOGEN,URINE NORMAL (NORMAL)
[2018-09-20 09:45] LABS: AMORPHOUS SEDIMENT,UR LARGE AMOR URATES /LPF; BACTERIA,URINE TRACE /HPF; CALCIUM OXALATE CRYSTALS,UR RARE /LPF; SQUAMOUS EPITHELIAL CELL,UR 0-2 /HPF; WBC,URINE 0-2 /HPF
[2018-09-20] MEDS ORDERED: PIPERACILLIN SODIUM/TAZOBACTAM 4.5 GM in NS (IVPB) 100 ML IV ONE (09:45)
[2018-09-20] MEDS ORDERED: IOHEXOL 350 MG/ML 150 ML (OMNIPAQUE 350) VIAL IV ONE (10:15)
[2018-09-20] MEDS ORDERED: NS 250 ML (IVPB) BAG IV ONE (10:15)
--- NOTE | 2018-09-20 11:11 | Diagnostic Imaging Report ---
PROCEDURE: CT angiography of the chest with contrast. TECHNIQUE: Multiple contiguous axial images were obtained through the chest after uneventful bolus administration of intravenous contrast. 2D reconstructed CTA MIP acquisitions were also performed. INDICATION: Chest pain, shortness of breath. COMPARISON: CTA head and neck performed concurrently. FINDINGS: Examination is nondiagnostic for pulmonary emboli due to patient having a CTA head and neck performed at the same time which required bolus timing to be centered for the aorta rather than the pulmonary vasculature. Thoracic aorta is normal caliber without evidence of dissection. Heart is normal in size. No pericardial effusion. Incidental note of apparent origin of the right subclavian artery with a retroesophageal course. No intrathoracic lymphadenopathy. No pleural effusion or pneumothorax. A small amount of retained secretions are present in the distal trachea. There are groundglass opacities and intralobular thickening in the bilateral lower lobes. Diffuse hypoattenuation liver suggests hepatic steatosis. No concerning focal osseous lesion. Impression: 1. Exam is nondiagnostic in evaluation for pulmonary emboli due to timing necessarily altered to perform CTA head and neck at same time. 2. No aortic dissection. 3. Groundglass opacities and intralobular thickening lung bases raises possibility of pulmonary edema. However, there are no pleural effusions. Atypical infectious process or aspiration could also give this appearance. Dictated by: Dictated on workstation # [id number]
[2018-09-20] MEDS ORDERED: NS IV 1000 ML 1,000 ML IV ONE (11:15)
--- NOTE | 2018-09-20 11:29 | Diagnostic Imaging Report ---
CLINICAL INDICATION: Patient followup stroke. Exams: 1: Head CT with IV contrast. 2: CT angiogram of the head and neck performed with 70 cc of Omnipaque 350 IV contrast. Sagittal and coronal MIP reformations were created for better visualization of vascular anatomy. Comparison: Head CT without IV contrast dated 09/20/2018. FINDINGS: HEAD CT: There is no significant change to the diffuse patchy and confluent areas of low-attenuation white matter changes throughout both cerebral hemispheres and periventricular regions. These findings have progressed compared to the prior head CT dated 03/12/2016, but is stable compared to the head CT dated 09/20/2018. Again seen chronic cerebral infarcts involving the left occipital lobe and right temporal lobe region. There is a cystic structure in the left periventricular left temporal lobe region which was also noted on the prior head CT from 2016. There is enlargement of the lateral ventricles and third ventricle which may be related to brain parenchymal volume loss, but component of normal pressure hydrocephalus can't be completely excluded. Again seen lacunar infarcts involving the bilateral thalami. There are stable infarcts and volume loss involving the left cerebellum which is also noted on the prior head CT in 2016. There is no abnormal IV contrast enhancement. Visualized portion of the dural venous sinuses show no gross abnormality. The extracranial soft tissue, skull are unremarkable. Temporal bone structures show no significant abnormality. There is complete consolidation of the left maxillary sinus and moderate to large amounts of mucosal thickening in the ethmoid sinus. Frontal sinus is aplastic and sphenoid sinus is hypoplastic. There are secretions or mucosal thickening in the sphenoid sinus. CT ANGIOGRAM: Three-vessel aortic arch is seen. There is an aberrant right subclavian artery seen extending posterior to the esophagus and anterior to the vertebra. There is dense contrast bolus within the left subclavian vein, left innominate vein, and portion of the superior vena cava. The right subclavian artery is patent. There is dense contrast streak artifact obscuring the origins of the left subclavian artery, left common carotid artery, brachiocephalic artery, and proximal right common carotid artery. These vessels are otherwise patent as visualized. There is motion artifact obscuring the upper neck anatomical structures in the region of the C2 through skull base. The bilateral cervical ICA are patent as visualized. The bilateral ECA are patent. There is dense contrast bolus streak artifact obscuring the origin of the left vertebral artery, but the remainder of the cervical left vertebral artery is patent. There is anatomical variation of the cervical right vertebral artery arising from the proximal right common carotid artery. The cervical vertebral artery is patent. There is motion artifact obscuring the skull base region which limits evaluation of the distal cervical bilateral vertebral arteries, and intradural bilateral vertebral arteries. The intradural bilateral vertebral arteries are patent as visualized. The basilar artery, bilateral superior cerebellar arteries, and bilateral posterior cerebral arteries are patent. The bilateral petrous and cavernous carotid arteries are patent. The bilateral MCAs and their distal branches and bilateral ACAs and their distal branches are patent. The neck soft tissue structures show no significant abnormality. Visualized upper lung alcantara show atelectasis and/or scarring posteriorly involving both upper lobes, with the left side worse than the right. Cervical spine shows degenerative spurs. IMPRESSION: 1: Stable CT scan of the brain compared to the prior head CT dated 09/20/2018. There is no definite CT evidence of interval acute cerebral infarction, intracranial hemorrhage, or mass seen. Given the diffuse low attenuation changes throughout the brain parenchyma which can obscure more subtle findings, if there is clinical concern for acute cerebral infarction, MRI of the brain would better evaluate. 2: There is dense contrast bolus streak artifact and motion artifact which obscures portions of the [place] and neck vascular structures. Otherwise the [place] and neck vascular structures are patent with no evidence of intravascular thrombosis, stenosis, vascular malformation, or aneurysm. 3: Aberrant right subclavian artery, and an anatomical variation of the cervical right vertebral artery arising from the proximal right CCA. 4: There are diffuse brain parenchymal white matter changes throughout both cerebral hemispheres again seen with multiple areas of chronic cerebral infarct, as described above. 5: There is enlargement of the lateral and third ventricles which may be related to brain parenchymal volume loss, but normal pressure hydrocephalus cannot be completely excluded. Clinical correlation would better evaluate. Results of this report regarding vascular findings were discussed with Dr. Jerad Amaya via the telephone on 09/20/2018 at 1105 hrs. Dictated by: Dictated on workstation # [id number]
[2018-09-20] MEDS ORDERED: NOREPINEPHRINE 4 MG in NS (IVPB) 250 ML IV SCH (11:45)
--- NOTE | 2018-09-20 12:17 | Diagnostic Imaging Report ---
INDICATION: Central line placement. TIME OF EXAM: 11:55 AM Correlation is made with prior chest from earlier the same day. FINDINGS: Right IJ line has tip overlying the SVC. No pneumothorax is seen. Interstitial and airspace infiltrates are seen bilaterally, suggestive of edema. There is no effusion or pneumothorax. IMPRESSION: 1. Right IJ line placement. No pneumothorax is seen. 2. Bilateral infiltrates. Dictated by: Dictated on workstation # [id number]
--- OUTSIDE RECORDS SUMMARY | 2018-09-20 12:26 | XMS REPORT | Continuity of Care Document ---
Author Author [facility] Address Unknown Phone Unavailable Allergies Active Description Code Type Severity Reaction Onset Reported/Identified Relationship to Patient Clinical Status Yes naproxen Drug Allergy 05/02/2009 Yes naproxen Drug Allergy N/A N/A 05/02/2009 Yes naproxen [id number] Drug Allergy Unknown N/A 02/21/2016 Medications There [...] EDWAR S 285.9 Anemia Unspecified 02/13/2009 GARFIELD PROPERTY STAFF ACCOUNTANT, EDWAR S 285.9 Anemia Unspecified 02/13/2009 GARFIELD [...] Hemorrhage Of Gastrointestinal Tract Unspecified 02/22/2009 [employer] PROP[employer] STAFF ACCOUNTANT, EDWAR S 578.9 Hemorrhage Of Gastrointestinal Tract [...] family history of heart disease 03/18/2010 [employer] STAFF ACCOUNTANT, EDWAR S V76.44 Visit For: Screening Exam Malignant Neoplasm Prostate 03/18/2010 GARFIELD PIPER, EDWAR S 525.9 Unspecified Disorder Of The Teeth And Supporting Structures 03/18/2010 [employer] PROP[employer] STAFF ACCOUNTANT, EDWAR S V17.49 reported family history of [...] ALCIDES INGRAM MD 707.15 ULCER-FOOT/TOES 09/04/2011 [employer] STAFF ACCOUNTANT, EDWAR S 707.15 ULCER-FOOT/TOES 09/04/2011 GARFIELD PIPER, [...] for: screening exam malignant neoplasm prostate 03/24/2012 WAYLON VILLARREAL DDS V76.51 Colonoscopy (Fiberoptic) Screening 03/24/2012 [...] APRNNDA S 110.4 TINEA PEDIS 09/30/2012 G[employer]FIELD PROPERTY STAFF ACCOUNTANT, EDWAR S 110.4 TINEA PEDIS 09/30/2012 CHERELLE DDS, WAYLON D 110.4 TINEA PEDIS 09/30/2012 110.4 TINEA PEDIS 01/09/2014 GARFIELD PROP[employer] STAFF ACCOUNTANT, EDWAR S 244.9 HYPOTHYROIDISM 01/09/2014 GARFIELD PROP[employer] STAFF ACCOUNTANT, EDWAR S 995.3 ALLERGY UNSPECIFIED NOT ELSEWHERE CLASSIFIED 01/09/2014 [employer] STAFF ACCOUNTANT, EDWAR S 244.9 HYPOTHYROIDISM 01/09/2014 GARFIELD PROPERTY STAFF ACCOUNTANT, EDWAR S 995.3 ALLERGY UNSPECIFIED NOT ELSEWHERE CLASSIFIED 01/09/2014 GARFIELD PROPERTY STAFF ACCOUNTANT, EDWAR S 244.9 HYPOTHYROIDISM 01/09/2014 GARFIELD PROPERTY STAFF ACCOUNTANT, EDWAR S 995.3 ALLERGY UNSPECIFIED NOT ELSEWHERE [...] Ot F73 PROFOUND INTELLECTUAL DISABILITIES 06/19/2016 TAMARA HARDY, CALIXTO D Ot Q90.9 DOWN SYNDROME, UNSPECIFIED 06/19/2016 TAMARA HARDY, CALIXTO D Ot R56.9 UNSPECIFIED CONVULSIONS 06/19/2016 TAMARA HARDY, CALIXTO D Ot Z79.899 OTHER CORRECTION (CURRENT) DRUG THERAPY 06/25/2016 TAMARA HARDY, CALIXTO D Ot F73 PROFOUND INTELLECTUAL DISABILITIES 06/25/2016 TAMARA HARDY, CALIXTO Wilkerson Ot Q90.9 DOWN SYNDROME, UNSPECIFIED 06/25/2016 TAMARA HARDY, CALIXTO Wilkerson Ot R56.9 UNSPECIFIED CONVULSIONS 06/25/2016 TAMARA HARDY, CALIXTO D Ot Z79.899 OTHER CORRECTION (CURRENT) DRUG THERAPY 09/02/2016 Ot 521.00 UNSPEC [...] 09/10/2016 HEBERT ZAMBRANO MD Ot Z79.899 OTHER CORRECTION (CURRENT) DRUG THERAPY 09/11/2016 HEBERT ZAMBRANO MD Ot F05 DELIRIUM DUE TO KNOWN PHYSIOLOGICAL COND 09/11/2016 HEBERT ZAMBRANO MD Ot F84.0 AUTISTIC DISORDER 09/11/2016 HEBERT ZAMBRANO MD Ot Q90.9 DOWN SYNDROME, UNSPECIFIED 09/11/2016 HEBERT ZAMBRANO MD Ot R53.83 OTHER FATIGUE 09/11/2016 HEBERT ZAMBRANO MD Ot Z79.899 OTHER CORRECTION (CURRENT) DRUG THERAPY 11/07/2016 CALIXTO MCDONALD MD Ot F84.0 AUTISTIC DISORDER 11/07/2016 CALIXTO MCDONALD MD Ot G40.909 EPILEPSY, UNSP, NOT INTRACTABLE, WITHOUT 11/07/2016 CALIXTO MCDONALD MD Ot Q90.9 DOWN SYNDROME, UNSPECIFIED 11/07/2016 CALIXTO MCDONALD MD Ot Z79.899 OTHER CORRECTION (CURRENT) DRUG THERAPY 11/09/2016 CALIXTO MCDONALD MD Ot F84.0 AUTISTIC DISORDER 11/09/2016 CALIXTO MCDONALD MD Ot G40.909 EPILEPSY, UNSP, NOT INTRACTABLE, WITHOUT 11/09/2016 CALIXTO MCDONALD MD Ot Q90.9 DOWN SYNDROME, UNSPECIFIED 11/09/2016 CALIXTO MCDONALD MD Ot Z79.899 OTHER CORRECTION (CURRENT) DRUG THERAPY 10/18/2017 LILLIE GOTTI Ot [...] OTHER DISEASES OF TH 07/25/2018 EDWAR MERRILL SYSTEMS TRAINER Ot R25.2 CRAMP AND SPASM 07/25/2018 EDWAR MERRILL SYSTEMS TRAINER Ot R53.1 WEAKNESS 08/12/2018 EDWAR MERRILL SYSTEMS TRAINER Ot R25.2 CRAMP AND SPASM 08/12/2018 GARFIELDCHAU MONSIVAISA SYSTEMS TRAINER Ot R53.1 WEAKNESS 08/12/2018 GARFIELDEDWAR MONSIVAIS SYSTEMS TRAINER Ot R25.2 CRAMP AND SPASM 08/12/2018 GARFIELDEDWAR MONSIVAIS SYSTEMS TRAINER Ot R53.1 WEAKNESS 08/18/2018 GARFIELDCHAU MONSIVAISA SYSTEMS TRAINER Ot R25.2 CRAMP AND SPASM 08/18/2018 EDWAR MERRILL SYSTEMS TRAINER Ot R53.1 WEAKNESS Procedures Code [place] [address] DEBRIDE NAIL >6 09/30/2012 48158 ROUTINE VENIPUNCTURE 08/21/2013 79232 CBC 08/21/2013 43470 CMP 08/21/2013 01967 LIPID PANEL 08/21/2013 6234684 GFR CALC (RESULT ONLY) 08/21/2013 61003 TSH 08/22/2013 75733 ROUTINE VENIPUNCTURE 01/09/2014 75207 CBC 01/09/2014 [id number] GFR CALC (RESULT ONLY) 01/09/2014 08015 CMP 01/09/2014 75394 PSA TOTAL 01/09/2014 54595 TSH 01/09/2014 G0008 FLU ADMINISTRATION ( MEDICARE ONLY) 11/01/2014 99133 ROUTINE VENIPUNCTURE 11/02/2014 22376 CBC 11/02/2014 7684597 GFR CALC (RESULT ONLY) 11/02/2014 18466 CMP 11/02/2014 65345 LIPID PANEL 11/02/2014 00472 PSA TOTAL 11/02/2014 24277 TSH 11/02/2014 [id number] 03/12/2016 [id number] 03/13/2016 Results Test Result Range CBC With [...] - 06/06/18 14:53 TSH 2.79 mIU/L 0.40-4.50 Complete blood count (CBC) with automated white blood cell (WBC) differential - 09/20/18 08:40 Blood leukocytes automated count (number/volume) 4.1 10*3/uL 4.3-11.0 Blood erythrocytes automated count (number/volume) 5.06 10*6/uL 4.35-5.85 Venous blood hemoglobin measurement (mass/volume) 13.8 g/dL 13.3-17.7 Blood hematocrit (volume fraction) 40 % 40-54 Automated erythrocyte mean corpuscular volume 79 [foz_us] 80-99 Automated erythrocyte mean corpuscular hemoglobin (mass per erythrocyte) 27 pg 25-34 Automated erythrocyte mean corpuscular hemoglobin concentration measurement ( mass/volume) 35 g/dL 32-36 Automated erythrocyte distribution width ratio 18.3 % 10.0-14.5 Automated blood platelet count (count/volume) 186 10*3/uL 130-400 Automated blood platelet mean volume measurement 10.3 [foz_us] 7.4-10.4 Automated blood neutrophils/100 leukocytes 59 % 42-75 Automated blood lymphocytes/100 leukocytes 22 % 12-44 Blood monocytes/100 leukocytes 18 % 0-12 Automated blood eosinophils/100 leukocytes 1 % 0-10 Automated blood basophils/100 leukocytes 1 % 0-10 Blood neutrophils automated count (number/volume) 2.4 10*3 1.8-7.8 Blood lymphocytes automated count (number/volume) 0.9 10*3 1.0-4.0 Blood monocytes automated count (number/volume) 0.7 10*3 0.0-1.0 Automated eosinophil count 0.0 10*3/uL 0.0-0.3 Automated blood basophil count (count/volume) 0.0 10*3/uL 0.0-0.1 PT panel in platelet poor plasma by coagulation assay - 09/20/18 08:40 Prothrombin time (PT) in platelet poor plasma by coagulation assay 14.6 s 12.2-14.7 INR in platelet poor plasma or blood by coagulation assay 1.1 0.8-1.4 Activated partial thromboplastin time (aPTT) in platelet poor plasma bycoagulation assay - 09/20/18 08:40 Activated partial thromboplastin time (aPTT) in platelet poor plasma bycoagulation assay 34 s 24-35 Fibrin D-dimer FEU measurement in platelet poor plasma (mass/volume) - 08:40 Fibrin D-dimer FEU measurement in platelet poor plasma (mass/volume) 3.07 ug/mL 0.00-0.49 Comprehensive metabolic panel - 09/20/18 08:40 Serum or plasma sodium measurement (moles/volume) 129 mmol/L 135-145 Serum or plasma potassium measurement (moles/volume) 4.3 mmol/L 3.6-5.0 Serum or plasma chloride measurement (moles/volume) 99 mmol/L 98-107 Carbon dioxide 20 mmol/L 21-32 Serum or plasma anion gap determination (moles/volume) 10 mmol/L 5-14 Serum or plasma urea nitrogen measurement (mass/volume) 16 mg/dL 7-18 Serum or plasma creatinine measurement (mass/volume) 0.92 mg/dL 0.60-1.30 Serum or plasma urea nitrogen/creatinine mass ratio 17 NRG Serum or plasma creatinine measurement with calculation of estimated glomerular filtration rate > NRG Serum or plasma glucose measurement (mass/volume) 106 mg/dL 70-105 Serum or plasma calcium measurement (mass/volume) 9.0 mg/dL 8.5-10.1 Serum or plasma total bilirubin measurement (mass/volume) 0.5 mg/dL 0.1-1.0 Serum or plasma alkaline phosphatase measurement (enzymatic activity/volume) 76 U/L 40-136 Serum or plasma aspartate aminotransferase measurement (enzymatic activity/ volume) 29 U/L 5-34 Serum or plasma alanine aminotransferase measurement (enzymatic activity/volume ) 28 U/L 0-55 Serum or plasma protein measurement (mass/volume) 6.3 g/dL 6.4-8.2 Serum or plasma albumin measurement (mass/volume) 3.2 g/dL 3.2-4.5 CALCIUM CORRECTED 9.6 mg/dL 8.5-10.1 Serum or plasma troponin i.cardiac measurement (mass/volume) - 09/20/18 08:40 Serum or plasma troponin i.cardiac measurement (mass/volume) < ng/ mL <0.30 Influenza virus A and B antigen detection - 09/20/18 09:12 FLU RESULT NEGATIVE FOR INFLUENZA A AND B ANTIGENS BY IA NRG Blood lactic acid measurement (moles/volume) - 09/20/18 09:21 Blood lactic acid measurement (moles/volume) 1.22 mmol/L 0.50-2.00 Complete urinalysis with reflex to culture - 09/20/18 09:21 Urine color determination YELLOW NRG Urine clarity determination VERY CLOUDY NRG Urine pH measurement by test strip 6 5-9 Specific gravity of urine by test strip 1.020 1.016- 1.022 Urine protein assay by test strip, semi-quantitative 1+ NEGATIVE Urine glucose detection by automated test strip NEGATIVE NEGATIVE Erythrocytes detection in urine sediment by light microscopy NEGATIVE NEGATIVE Urine ketones detection by automated test strip NEGATIVE NEGATIVE Urine nitrite detection by test strip NEGATIVE NEGATIVE Urine total bilirubin detection by test strip NEGATIVE NEGATIVE Urine urobilinogen measurement by automated test strip (mass/volume) NORMAL NORMAL Urine leukocyte esterase detection by dipstick 1+ NEGATIVE Automated urine sediment erythrocyte count by microscopy (number/high power field) NONE NRG Automated urine sediment leukocyte count by microscopy (number/high power field ) [HPF] NRG Bacteria detection in urine sediment by light microscopy TRACE NRG Squamous epithelial cells detection in urine sediment by light microscopy 0-2 NRG Crystals detection in urine sediment by light microscopy PRESENT NRG Casts detection in urine sediment by light microscopy NONE NRG Mucus detection in urine sediment by light microscopy MODERATE NRG Complete urinalysis with reflex to culture YES NRG Amorphous sediment detection in urine sediment by light microscopy LARGE CAMMY URATES NRG Calcium oxalate crystals detection in urine sediment by light microscopy RARE NRG Encounters ACCT No. Visit Date/Time Discharge Status Pt. Type Provider Facility Loc./Unit Complaint [id number] 02/12/2015 13:42:00 02/12/2015 23:59:59 CLS Outpatient WAYLON VILLARREAL DDS [id number] 11/02/2014 08:35:00 11/02/2014 23:59:59 CLS Outpatient EDWAR MERRILL APRN [id number] 01/09/2014 10:29:00 01/09/2014 23:59:59 CLS Outpatient EDWAR MERRILL APRN [id number] 01/09/2014 10:29:00 01/09/2014 23:59:59 CLS Outpatient EDWAR MERRILL APRN [id number] 08/21/2013 08:37:00 08/21/2013 23:59:59 CLS Outpatient ALCIDES INGRAM MD [id number] 09/30/2012 10:33:00 09/30/2012 23:59:59 CLS Outpatient [id number] 09/30/2012 10:33:00 09/30/2012 23:59:59 CLS Outpatient MAXIMUS HEAD DO [id number] 11/07/2016 13:05:00 Document Registration [id number] 08/27/2016 10:05:00 Document Registration [id number] 12/06/2014 05:53:04 ACT Document Registration [id number] 02/27/2017 17:07:00 Document Registration [id number] 07/28/2018 13:01:00 08/18/2018 15:30:00 DIS Outpatient EDWAR MERRILL Via [facility] REHAB SPASMS ON LEFT SIDE OF BODY; WEAKNESS [id number] 10/18/2017 14:35:00 10/18/2017 15:43:00 DIS Emergency LILLIE GOTTI [facility] ER CHOKED ON FOOD AT LUNCH [id number] 11/07/2016 10:29:00 11/07/2016 12:38:00 DIS Emergency CALIXTO MCDONALD MD [facility] ER SEIZURE [id number] 09/10/2016 14:35:00 09/10/2016 16:25:00 DIS Emergency HEBERT ZAMBRANO MD [facility] ER LETHARGIC/SOA [id number] 09/02/2016 18:20:00 09/02/2016 20:26:00 DIS Emergency LILLIE GOTTI [facility] ER RT FOOT SWELLING [id number] 06/19/2016 02:38:00 06/19/2016 04:21:00 DIS Emergency CALIXTO MCDONALD MD [facility] ER SEIZURE [id number] 06/12/2016 09:56:00 06/12/2016 15:40:00 DIS Inpatient ERMA JIMENEZ MD [facility] 4TH SEIZURE DISLOCATED HIP [id number] 04/23/2016 07:59:00 04/23/2016 12:29:00 DIS Emergency KENYA HARDY, HEBERT Del Rosario [facility] ER SEIZURE [id number] 03/12/2016 12:45:00 03/19/2016 15:17:00 DIS Inpatient JOHN HARDY, VIJAYA Piedra [facility] 4TH DECREASED LOC; QUESTIONABLE SEPSIS [id number] 02/26/2016 10:58:00 02/26/2016 23:59:59 CLS Outpatient EDWAR MERRILL [facility] RAD HYPERSOMNOLENCE [id number] 02/21/2016 07:52:00 02/21/2016 11:05:00 DIS Emergency TATYANA HARDY, ARSALAN Alcantara [facility] ER L SIDED WEAKNESS/ FACIAL DROOPING [id number] 12/06/2014 05:52:00 12/06/2014 23:59:59 CLS Outpatient COREEN HARDY, AUTUMN De Jesus [facility] PREOP SCREENING [id number] 09/20/2018 11:59:00 ACT Inpatient MEMO RUSSELL DO [facility] ICU SEPTIC SHOCK,PNA [id number] 10/12/2011 10:31:00 Document Registration [id number] 10/07/2011 07:43:00 Document Registration [id number] 03/12/2017 08:06:00 Document Registration [id number] 06/16/2017 08:42:00 Document Registration [id number] 06/25/2018 12:00:00 06/25/2018 23:59:59 CLS Outpatient EDWAR MERRILL APRN [facility] [id number] 06/06/2018 14:00:00 Document Registration [id number] 04/05/2018 09:40:00 Document Registration
[2018-09-20] MEDS ORDERED: NS IV 1000 ML 1,496.85 ML IV ONE (13:45)
[2018-09-20] MEDS ORDERED: CATHETER FLUSH 10 ML SYR IV PRN (14:00)
[2018-09-20] MEDS ORDERED: VANCOMYCIN 1 GM/NS 250 ML IVPB IV NR ×2 (14:00)
[2018-09-20] MEDS: NOREPINEPHRINE 4 MG in NS (IVPB) 250 ML IV SCH (14:27)
[2018-09-20] MEDS ORDERED: LEVO100T7 PO (14:32)
[2018-09-20] MEDS ORDERED: LEVE750T5 PO (14:32)
[2018-09-20] MEDS ORDERED: BACL10TA PO (14:32)
[2018-09-20] MEDS ORDERED: ASPI-999 PO (14:32)
[2018-09-20] MEDS ORDERED: ESCI20TA45 PO (14:32)
[2018-09-20] MEDS ORDERED: FLU QUADRIvalent (5+ YOA) 2018-2019 (AFLURIA) 0.5 ML IM ONE (14:45)
--- NOTE | 2018-09-20 15:15 | Pulmonary Consultation ---
History of Present Illness History of Present Illness Date of Consultation 09/20/18 15:13 Date of Admission Allergies and Home Medications Allergies Coded Allergies: naproxen (Unverified Allergy, Unknown, 02/21/16) Home Medications Aspirin 81 Mg Tab.chew, 81 MG PO DAILY, (Reported) Baclofen 10 Mg Tablet, 5 MG PO HS, (Reported) TAKES 1/2 (10MG) TABLET Escitalopram Oxalate 20 Mg Tablet, 20 MG PO DAILY, (Reported) Levetiracetam 750 Mg Tablet, 750 MG PO BID, (Reported) Levothyroxine Sodium 100 Mcg Tablet, 100 MCG PO DAILY, (Reported) Loratadine 10 Mg Tablet, 10 MG PO DAILY, (Reported) Simethicone 80 Mg Tab.chew, 80 MG PO QID, (Reported) Sucralfate 1 Gm Tablet, 1 GM PO TID, (Reported) Past Hwwnjby-Qlpssm-Tdrgss Hx Past Med/Social Hx: Reviewed Nursing Past Med/Soc Hx Patient Social History Alcohol Use: Denies Use Recreational Drug Use: No Smoking Status: Unknown if Ever Smoked Recent Foreign Travel: No Contact w/Someone Who Travel: No Recent Infectious Disease Expo: No Recent Hopitalizations: No Physical Abuse: No Sexual Abuse: No Fear: No Immunizations Up To Date Date of Pneumonia Vaccine: Sep 29, 2017 Date of Influenza Vaccine: Nov 06, 2015 Seasonal Allergies Seasonal Allergies: No Past Medical History Surgeries: Yes (2 cyst removed from spine years ago) Eye Surgery Respiratory: No Cardiac: Yes (HYPERLIPIDEMIA) High Cholesterol, Irregular Heartbeat Neurological: Yes (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 0.0oz. 46.542916kp; 18.7 BMI Method:Estimated Exam Exam Vital Signs Date Time Temp Pulse Resp B/P (MAP) Pulse Ox O2 Delivery O2 Flow Rate FiO2 09/20/18 13:23 97.0 56 13 103/66 (78) 95 Nasal Cannula 2.00 09/20/18 13:00 99.0 60 20 99/66 (77) 95 Nasal Cannula 2.00 09/20/18 09:00 99.2 84 30 76/50 (59) 94 Nasal Cannula 2.00 09/20/18 09:00 94 Nasal Cannula 2.00 Height & Weight Height: 5'2.00" Weight: 102lbs. 0.0oz. 46.454286fk; 18.7 BMI Method:Estimated General Appearance: No Apparent Distress, WD/WN HEENT: Pharynx Normal, Other (right pupil 3-4 mm and left pupil 2-3 mm) Neck: Non Tender, Supple Respiratory: No Accessory Muscle Use, Crackles (bilateral bases) Cardiovascular: Regular Rate, Rhythm, No Murmur Capillary Refill: Greater Than 3 Seconds Extremity: Normal Capillary Refill, No Calf Tenderness, Other (does appear to move all 4 extremities but weak) Neurologic/Psychiatric: Other (eyes open to stimuli. Nonverbal.) Results Lab Laboratory Tests 09/20/18 08:40 Assessment/Plan Assessment/Plan Pneumonia septic shock -Severe sepsis protocol -bowens cultures -continue current Abx -IVF Hypotension -Levophed -IVF ANNELIESE MAHMOOD DO Sep 20, 2018 15:15
[2018-09-20] MEDS ORDERED: RT-ALBUTEROL/IPRATROPIUM 3 ML (DUONEB) VIAL INH PRN (16:00)
[2018-09-20] MEDS: PIPERACILLIN/TAZO 4.5 GM/NS 100 ML IV SCH ×2 (16:40)
[2018-09-20] MEDS: RT-ALBUTEROL/IPRATROPIUM 3 ML (DUONEB) VIAL INH SCH (19:32)
[2018-09-21] VITALS (24 sets, daily range): BP systolic 74–109; BP diastolic 40–81
[2018-09-21] MEDS: PIPERACILLIN/TAZO 4.5 GM/NS 100 ML IV SCH ×6 (00:04→17:17)
[2018-09-21] MEDS: NOREPINEPHRINE 4 MG in NS (IVPB) 250 ML IV SCH ×2 (00:43→12:18)
[2018-09-21] MEDS: RT-ALBUTEROL/IPRATROPIUM 3 ML (DUONEB) VIAL INH SCH ×4 (03:36→21:45)
[2018-09-21 04:01] LABS: BASOPHILS % (AUTO) 1 % (0-10); EOSINOPHILS # (AUTO) 0.1 10^3/uL (0.0-0.3); EOSINOPHILS % (AUTO) 3 % (0-10); HEMATOCRIT 33 % (40-54); HEMOGLOBIN 11.3 G/DL (13.3-17.7); LYMPHOCYTES # (AUTO) 0.6 X 10^3 (1.0-4.0); LYMPHOCYTES % (AUTO) 24 % (12-44); MEAN CORPUSCULAR HGB CONC 34 G/DL (32-36); MEAN CORPUSCULAR VOLUME 80 FL (80-99); MEAN PLATELET VOLUME 9.8 FL (7.4-10.4); MONOCYTES # (AUTO) 0.2 X 10^3 (0.0-1.0); MONOCYTES % (AUTO) 8 % (0-12); NEUTROPHILS # (AUTO) 1.7 X 10^3 (1.8-7.8); NEUTROPHILS % (AUTO) 65 % (42-75); PLATELET COUNT 168 10^3/uL (130-400); RED BLOOD COUNT 4.11 10^6/uL (4.35-5.85); RED CELL DISTRIBUTION WIDTH 17.9 % (10.0-14.5); WHITE BLOOD COUNT 2.6 10^3/uL (4.3-11.0)
[2018-09-21 04:03] LABS: MEAN CORPUSCULAR HEMOGLOBIN 27 PG (25-34)
[2018-09-21 04:23] LABS: ALANINE AMINOTRANSFERASE 22 U/L (0-55); ALBUMIN 2.5 GM/DL (3.2-4.5); ALKALINE PHOSPHATASE 55 U/L (40-136); BILIRUBIN,TOTAL 0.6 MG/DL (0.1-1.0); BUN/CREATININE RATIO 13; CALCIUM 7.5 MG/DL (8.5-10.1); CARBON DIOXIDE 17 MMOL/L (21-32); CHLORIDE 108 MMOL/L (98-107); CHOLESTEROL 108 MG/DL (< 200); CREATININE SERUM 0.64 MG/DL (0.60-1.30); GFR ESTIMATED > 60; GLUCOSE 97 MG/DL (70-105); HDL CHOLESTEROL 37 MG/DL (40-60); MAGNESIUM 1.4 MG/DL (1.8-2.4); PHOSPHORUS 2.4 MG/DL (2.3-4.7); SODIUM 134 MMOL/L (135-145); TOTAL PROTEIN 4.8 GM/DL (6.4-8.2); TRIGLYCERIDES 53 MG/DL (<150); VLDL CHOLESTEROL 11 MG/DL (5-40)
[2018-09-21] MEDS: POTASSIUM CL 10MEQ/50ML IVPB 50 ML IV SCH ×6 (04:57→07:30)
[2018-09-21] MEDS: MAGNESIUM 1 GM/100 ML IVPB 100 ML IV SCH ×3 (04:57→06:07)
[2018-09-21] MEDS: KCL 20 MEQ TAB (K-DUR) PO SCH (05:10)
[2018-09-21] MEDS: NS IV 1000 ML 1,000 ML IV SCH ×4 (05:27→21:14)
--- NOTE | 2018-09-21 06:05 | Pulmonary Progress Note ---
Subjective Time Seen by a Provider: 06:30 Subjective/Events-last exam Pt still on Levophed gtt. Sepsis Event Evaluation Height, Weight, BMI Height: 5'2.00" Weight: 102lbs. 0.0oz. 46.723968si; 18.7 BMI Method:Estimated Focused Exam Lactate Level 09/20/18 09:21: Lactic Acid Level 1.22 Exam Exam Vital Signs Date Time Temp Pulse Resp B/P (MAP) Pulse Ox O2 Delivery O2 Flow Rate FiO2 09/21/18 04:00 Room Air 09/21/18 04:00 97.1 09/21/18 03:36 92 Room Air 09/21/18 03:00 67 11 103/63 (76) 96 Nasal Cannula 2.00 09/21/18 02:00 67 20 99/63 (75) 96 Nasal Cannula 2.00 09/21/18 01:36 67 09/21/18 01:00 64 32 91/66 (74) 94 Nasal Cannula 2.00 09/21/18 00:00 Room Air 09/21/18 00:00 64 12 82/51 (61) 96 Nasal Cannula 2.00 09/20/18 23:55 97.9 09/20/18 23:00 65 27 94/65 (75) 94 Nasal Cannula 2.00 09/20/18 22:00 66 16 99/80 (86) 94 Nasal Cannula 2.00 09/20/18 21:00 69 10 116/59 (78) 93 Nasal Cannula 2.00 09/20/18 20:25 75 19 94/76 (82) 93 Nasal Cannula 2.00 09/20/18 20:03 96.9 85 16 105/61 (76) 94 Room Air 09/20/18 20:00 Room Air 09/20/18 19:32 94 Room Air 09/20/18 19:28 68 09/20/18 19:00 66 26 96/73 (81) 94 Nasal Cannula 2.00 09/20/18 18:00 66 16 95/70 (78) 95 Nasal Cannula 2.00 09/20/18 17:00 68 23 92/70 (77) 92 Nasal Cannula 2.00 09/20/18 16:21 Nasal Cannula 2.00 09/20/18 16:00 71 13 91/52 (65) 94 Nasal Cannula 2.00 09/20/18 16:00 Room Air 10/23/18 15:47 98.5 09/20/18 15:44 73 94 28 09/20/18 15:00 73 17 102/68 (79) 94 Nasal Cannula 2.00 09/20/18 14:00 58 9 104/58 (73) 97 Nasal Cannula 2.00 09/20/18 13:45 53 9 104/62 (76) 97 Nasal Cannula 2.00 09/20/18 13:30 57 9 103/64 (77) 97 Nasal Cannula 2.00 09/20/18 13:26 55 09/20/18 13:23 97.0 56 13 103/66 (78) 95 Nasal Cannula 2.00 09/20/18 13:10 95 Nasal Cannula 2.00 09/20/18 13:00 99.0 60 20 99/66 (77) 95 Nasal Cannula 2.00 09/20/18 09:00 99.2 84 30 76/50 (59) 94 Nasal Cannula 2.00 09/20/18 09:00 94 Nasal Cannula 2.00 I & O 09/21/18 07:00 Intake Total 6804 ml Output Total 2600 ml Balance 4204 ml Height & Weight Height: 5'2.00" Weight: 102lbs. 0.0oz. 46.623062ij; 18.7 BMI Method:Estimated General Appearance: No Apparent Distress, WD/WN HEENT: Pharynx Normal, Other (right pupil 3-4 mm and left pupil 2-3 mm) Neck: Non Tender, Supple Respiratory: No Accessory Muscle Use, Crackles (bilateral bases) Cardiovascular: Regular Rate, Rhythm, No Murmur Capillary Refill: Greater Than 3 Seconds Extremity: Normal Capillary Refill, No Calf Tenderness, Other (does appear to move all 4 extremities but weak) Neurologic/Psychiatric: Other (eyes open to stimuli. Nonverbal.) Results Lab Laboratory Tests 09/20/18 08:40 09/21/18 03:53 Assessment/Plan Assessment/Plan Pneumonia -Katesyn vanco septic shock -Severe sepsis protocol -bowens cultures -continue current Abx -IVF Hypotension -Levophed - -Start solucortef -IVF Hypokalemia/hypomagnesium Metabolic acidosis -repeat ANNELIESE SMITH DO Sep 21, 2018 06:05
--- NOTE | 2018-09-21 08:09 | Diagnostic Imaging Report ---
INDICATION: Septic shock. Comparison with 09/20/2018. FINDINGS: Right IJ line remains present. Lungs show hazy infiltrate throughout both lungs without focal consolidation. No evidence of pneumothorax or pleural effusion. IMPRESSION: Bilateral hazy groundglass type infiltrates noted without evidence of cardiomegaly or congestive failure. Dictated by: Dictated on workstation # [id number]
--- NOTE | 2018-09-21 11:04 | History & Physical-Hospitalist ---
History of Present Illness HPI/Chief Complaint CC: Pneumonia with severe sepsis HPI: This is a non-verbal severely mentally retarded WM who is cared for by caregivers at [facility] who presented to the ER w/AMS and was found to have severe sepsis from pneumonia and was placed in the ICU along with central line placement with pressor therapy. Pt is DNR per his guardian so that order has been placed. Pt is still on Levophed at 5mcg and patient remains at baseline non -verbal and severely debilitated. Guardian has made it clear that if there is no recovery potential he will be placed on comfort care. Source: RN/MD, caregiver Exam Limitations: other (MR non-verbal) Date Seen 09/21/18 Time Seen by a Provider: 10:00 Attending Physician Liset Valles Brenda Arnp Referring Physician Date of Admission Sep 20, 2018 at 11:59 Home Medications & Allergies Home Medications Reviewed patient Home Medication Reconciliation performed by pharmacy medication reconciliations site technician and/or nursing. Patients Allergies have been reviewed. Allergies Allergies Coded Allergies naproxen (Verified Allergy, Unknown, 09/20/18) Past Yoovhjk-Kplhzg-Supupd Hx Past Med/Social Hx: Reviewed Nursing Past Med/Soc Hx, Reviewed and Corrections made Patient Social History Marrital Status: single Employed/Student: unemployed Alcohol Use: Denies Use Recreational Drug Use: No Smoking Status: Unknown if Ever Smoked Physical Abuse Screen: No Sexual Abuse: No Recent Foreign Travel: No Contact w/other who traveled: No Recent Hopitalizations: No Recent Infectious Disease Expo: No Immunizations Up To Date Date of Pneumonia Vaccine: Sep 29, 2017 Date of Influenza Vaccine: Nov 06, 2015 Seasonal Allergies Seasonal Allergies: No Past Medical History Surgeries: Eye Surgery Cardiac: High Cholesterol, Irregular Heartbeat Neurological: Developmental Disorder, Seizure Disorder, Stroke Reproductive: No Gastrointestinal: Gastroesophageal Reflux, Gastrointestinal Bleed Endocrine: Hypothyroidsim HEENT: Cataract Psychosocial: Sleep Difficulties History of Blood Disorders: No Family History Reviewed Nursing Family Hx Cardiovascular disease 19 FATHER Heart Disease Review of Systems ROS-Unable to Obtain: unable to ascertain due to MR Constitutional: see HPI Physical Exam Physical Exam Vital Signs Vital Signs - First Documented 09/20/18 09/20/18 09:00 15:44 Temp 99.2 Pulse 84 Resp 30 B/P (MAP) 76/50 (59) Pulse Ox 94 O2 Delivery Nasal Cannula O2 Flow Rate 2.00 FiO2 28 Capillary Refill : Less Than 3 SecondsGreater Than 3 Seconds Height, Weight, BMI Height: 5'2.00" Weight: 106lbs. 2.0oz. 48.470502wv; 18.7 BMI Method:Estimated General Appearance: No Apparent Distress, WD/WN, Chronically ill, Thin Neck: Full Range of Motion, Normal Inspection, Non Tender, Supple, Carotid Bruit Respiratory: Chest Non Tender, No Accessory Muscle Use, No Respiratory Distress , Crackles, Decreased Breath Sounds Cardiovascular: Regular Rate, Rhythm, No Edema, No Gallop, No JVD, No Murmur, Normal Peripheral Pulses Neurologic/Psychiatric: Alert, Other (non-verbal) Results Results/Procedures Labs Laboratory Tests 09/20/18 08:40 09/21/18 03:53 Patient resulted labs reviewed. Assessment/Plan Admission Diagnosis Assessment: Severe sepsis Pneumonia Severe MR Hypothyroidism Seizure disorder CVA hx Leukopenia Anemia Hypokalemia Plan: Appreciate Dr Davidson's expertise Monitor closely DNR Poor prognosis Admission Status: Inpatient Order (span 2 midnights) Reason for Inpatient Admission: Severe sepsis will require ICU for 3 days along with 3 days inpt Diagnosis/Problems Diagnosis/Problems (1) Septic shock Status: Acute (2) Pneumonia Status: Acute Qualifiers: Pneumonia type: due to unspecified organism Laterality: bilateral Lung location: lower lobe of lung Qualified Codes: J18.1 - Lobar pneumonia, unspecified organism (3) Hypothyroidism Status: Chronic Qualifiers: Hypothyroidism type: acquired Qualified Codes: E03.9 - Hypothyroidism, unspecified (4) Hypokalemia Status: Acute (5) Anemia Status: Chronic Qualifiers: Anemia type: unspecified type Qualified Codes: D64.9 - Anemia, unspecified (6) CVA (cerebral vascular accident) Status: Chronic Qualifiers: CVA mechanism: unspecified Qualified Codes: I63.9 - Cerebral infarction, unspecified (7) Poor prognosis Status: Acute (8) DNR (do not resuscitate) Status: Acute (9) Nonverbal Status: Chronic (10) Seizure Status: Chronic (11) Profound mental retardation in adult Status: Chronic Clinical Quality Measures DVT/VTE Risk/Contraindication: Risk Factor Score Per Nursin RFS Level Per Nursing on Admit: 4+=Very High LISET VALLES DO Sep 21, 2018 11:04
[2018-09-21] MEDS ORDERED: VANCOMYCIN 750 MG/NS 250 ML IVPB IV SCH ×2 (14:00)
[2018-09-21] MEDS: HYDROCORTISONE 100 MG/2 ML (Solu-CORTEF) VIAL IV SCH ×2 (15:44→21:18)
[2018-09-22] VITALS (27 sets, daily range): BP systolic 81–112; BP diastolic 45–104
[2018-09-22] MEDS: PIPERACILLIN/TAZO 4.5 GM/NS 100 ML IV SCH ×6 (01:16→16:42)
[2018-09-22] MEDS: RT-ALBUTEROL/IPRATROPIUM 3 ML (DUONEB) VIAL INH SCH ×4 (03:00→19:24)
[2018-09-22 03:15] LABS: BASOPHILS % (AUTO) 0 % (0-10); EOSINOPHILS % (AUTO) 0 % (0-10); HEMATOCRIT 33 % (40-54); HEMOGLOBIN 11.1 G/DL (13.3-17.7); LYMPHOCYTES # (AUTO) 0.3 X 10^3 (1.0-4.0); LYMPHOCYTES % (AUTO) 12 % (12-44); MEAN CORPUSCULAR HEMOGLOBIN 27 PG (25-34); MEAN CORPUSCULAR HGB CONC 34 G/DL (32-36); MEAN CORPUSCULAR VOLUME 80 FL (80-99); MONOCYTES # (AUTO) 0.1 X 10^3 (0.0-1.0); MONOCYTES % (AUTO) 2 % (0-12); NEUTROPHILS # (AUTO) 2.2 X 10^3 (1.8-7.8); NEUTROPHILS % (AUTO) 86 % (42-75); PLATELET COUNT 168 10^3/uL (130-400); RED BLOOD COUNT 4.07 10^6/uL (4.35-5.85); RED CELL DISTRIBUTION WIDTH 17.5 % (10.0-14.5); WHITE BLOOD COUNT 2.5 10^3/uL (4.3-11.0)
[2018-09-22 03:34] LABS: BUN/CREATININE RATIO 6; CALCIUM 7.8 MG/DL (8.5-10.1); CARBON DIOXIDE 18 MMOL/L (21-32); CHLORIDE 109 MMOL/L (98-107); CREATININE SERUM 0.63 MG/DL (0.60-1.30); GFR ESTIMATED > 60; GLUCOSE 123 MG/DL (70-105); MAGNESIUM 1.8 MG/DL (1.8-2.4); PHOSPHORUS 2.6 MG/DL (2.3-4.7); POTASSIUM 3.2 MMOL/L (3.6-5.0); SODIUM 137 MMOL/L (135-145)
[2018-09-22] MEDS: NS IV 1000 ML 1,000 ML IV SCH ×3 (04:10→21:13)
[2018-09-22] MEDS: POTASSIUM CL 10MEQ/50ML IVPB 50 ML IV SCH ×5 (04:14→05:58)
[2018-09-22 04:28] LABS: LYMPHOCYTES % (MANUAL) 15 %; MONOCYTES % (MANUAL) 1 %; NEUTROPHILS % (MANUAL) 84 %
[2018-09-22 04:29] LABS: BURR CELLS SLIGHT; MICROCYTOSIS SLIGHT
[2018-09-22] MEDS: NOREPINEPHRINE 4 MG in NS (IVPB) 250 ML IV SCH (05:23)
[2018-09-22] MEDS: MAGNESIUM 1 GM/100 ML IVPB 100 ML IV SCH (05:25)
[2018-09-22] MEDS: KCL 20 MEQ TAB (K-DUR) PO SCH (05:26)
[2018-09-22] MEDS: HYDROCORTISONE 100 MG/2 ML (Solu-CORTEF) VIAL IV SCH ×3 (05:28→21:46)
--- NOTE | 2018-09-22 05:57 | Pulmonary Progress Note ---
Subjective Time Seen by a Provider: 06:01 Subjective/Events-last exam pt had episode of bradycardia last night. He is still currently on Levophed. Sepsis Event Evaluation Height, Weight, BMI Height: 5'2.00" Weight: 103lbs. 9.0oz. 46.285618ic; 18.7 BMI Method:Estimated Focused Exam Lactate Level 09/20/18 09:21: Lactic Acid Level 1.22 09/21/18 06:54: Lactic Acid Level 1.31 Exam Exam Vital Signs Date Time Temp Pulse Resp B/P (MAP) Pulse Ox O2 Delivery O2 Flow Rate FiO2 09/22/18 05:00 51 10 87/59 (68) 95 Nasal Cannula 2.00 09/22/18 04:00 Nasal Cannula 2.00 09/22/18 04:00 60 11 95/61 (72) 94 Nasal Cannula 2.00 09/22/18 03:00 94 Nasal Cannula 2.00 09/22/18 03:00 61 11 100/67 (78) 91 Nasal Cannula 2.00 09/22/18 02:00 62 22 101/64 (76) 94 Nasal Cannula 2.00 09/22/18 01:00 51 10 84/53 (63) 93 Nasal Cannula 2.00 09/22/18 01:00 51 09/22/18 00:00 98.5 Nasal Cannula 2.00 09/22/18 00:00 Nasal Cannula 2.00 09/22/18 00:00 63 15 88/70 (76) 93 Nasal Cannula 2.00 09/21/18 23:00 59 12 98/63 (75) 93 Nasal Cannula 2.00 09/21/18 22:00 60 11 92/59 (70) 96 Nasal Cannula 2.00 09/21/18 21:45 94 Nasal Cannula 2.00 09/21/18 21:00 66 17 104/61 (75) 95 Nasal Cannula 2.00 09/21/18 20:00 56 11 85/57 (66) 94 Nasal Cannula 2.00 09/21/18 20:00 Nasal Cannula 2.00 09/21/18 19:55 98.2 Nasal Cannula 2.00 09/21/18 19:00 71 09/21/18 19:00 68 17 82/55 (64) 94 Room Air 09/21/18 18:00 71 22 77/61 (66) 96 Room Air 09/21/18 17:00 74 12 80/56 (64) 94 Room Air 09/21/18 16:00 Room Air 09/21/18 16:00 78 12 76/40 (52) 94 Room Air 09/21/18 15:58 98.9 09/21/18 15:43 93 Room Air 09/21/18 15:00 70 15 91/73 (79) 91 Room Air 09/21/18 14:00 68 11 96/59 (71) 92 Room Air 09/21/18 13:00 72 16 74/67 (69) 92 Room Air 09/21/18 13:00 72 09/21/18 13:00 98.9 09/21/18 12:00 Room Air 09/21/18 12:00 76 14 87/59 (68) 92 Room Air 09/21/18 11:00 79 13 104/81 (89) 92 Room Air 09/21/18 10:00 69 10 103/68 (80) 95 Room Air 09/21/18 09:59 93 Room Air 09/21/18 09:00 70 10 107/75 (86) 93 Room Air 09/21/18 08:06 98.6 72 21 82/51 (61) 91 Room Air 09/21/18 08:00 Room Air 09/21/18 07:00 68 17 95/64 (74) 92 Room Air 09/21/18 07:00 68 17 95/64 (74) 92 Room Air 09/21/18 07:00 69 09/21/18 06:00 71 16 102/62 (75) 93 Nasal Cannula 2.00 I & O 09/22/18 07:00 Intake Total 2904 ml Output Total 3575 ml Balance -671 ml Height & Weight Height: 5'2.00" Weight: 103lbs. 9.0oz. 46.000386yr; 18.7 BMI Method:Estimated General Appearance: No Apparent Distress, WD/WN, Chronically ill, Thin HEENT: Pharynx Normal, Other (right pupil 3-4 mm and left pupil 2-3 mm) Neck: Full Range of Motion, Normal Inspection, Non Tender, Supple, Carotid Bruit Respiratory: Chest Non Tender, No Accessory Muscle Use, No Respiratory Distress , Crackles, Decreased Breath Sounds Cardiovascular: Regular Rate, Rhythm, No Edema, No Gallop, No JVD, No Murmur, Normal Peripheral Pulses Capillary Refill: Greater Than 3 Seconds Extremity: Normal Capillary Refill, No Calf Tenderness, Other (does appear to move all 4 extremities but weak) Neurologic/Psychiatric: Alert, Other (non-verbal) Skin: Normal Color, Warm/Dry Results Lab Laboratory Tests 09/20/18 08:40 09/21/18 03:53 09/22/18 03:08 Assessment/Plan Assessment/Plan Pneumonia -Zosyn, vanco -Cultures negative thus far septic shock -Severe sepsis protocol -bowens cultures -continue current Abx -IVF Hypotension -Levophed - will attempt to D/C -give 1 liter bolus over 2hrs -Check CVP -solucortef Bradycardic episodes -monitor Hypokalemia -replace Metabolic acidosis -repeat ANNELIESE SMITH DO Sep 22, 2018 05:57
--- NOTE | 2018-09-22 06:34 | Diagnostic Imaging Report ---
INDICATION: Pneumonia. COMPARISON: 09/21/2018 FINDINGS: Single frontal radiographic view of the chest was obtained and demonstrate mild pulmonary vascular congestion. Heart size is within normal limits. There is no large effusion, focal consolidation, nor pneumothorax. Right internal jugular central venous catheter is seen with tip in the high SVC near junction of innominate veins. Bony structures show no acute abnormalities. IMPRESSION: 1. Stable mild pulmonary vascular congestion. Dictated by: Dictated on workstation # [id number]
[2018-09-22] MEDS ORDERED: NS IV 1000 ML 1,000 ML IV SCH (06:45)
--- NOTE | 2018-09-22 09:50 | Progress Note-Hospitalist ---
Subjective HPI/CC On Admission Date Seen by Provider: Sep 22, 2018 Time Seen by Provider: 09:30 CC: Pneumonia with severe sepsis HPI: This is a non-verbal severely mentally retarded WM who is cared for by caregivers at [facility] who presented to the ER w/AMS and was found to have severe sepsis from pneumonia and was placed in the ICU along with central line placement with pressor therapy. Pt is DNR per his guardian so that order has been placed. Pt is still on Levophed at 5mcg and patient remains at baseline non -verbal and severely debilitated. Guardian has made it clear that if there is no recovery potential he will be placed on comfort care. Subjective/Events-last exam Patient about the same but is stable DO NOT RESUSCITATE maintained Dysphagia screen revealed aspiration risks that he is nothing by mouth Seizure medication has been converted to IV form since he does have frequent seizures if he does not take his home medications per antenna specialist Overall prognosis remains poor and unsure of recovery potential considering the chronic and baseline disability from severe MR Focused Exam Lactate Level 09/20/18 09:21: Lactic Acid Level 1.22 09/21/18 06:54: Lactic Acid Level 1.31 Objective Exam Vital Signs Vital Signs Date Time Temp Pulse Resp B/P (MAP) Pulse Ox O2 Delivery O2 Flow Rate FiO2 09/22/18 10:00 96 15 87/53 (64) 93 Nasal Cannula 1.00 09/22/18 07:30 98.2 09/20/18 15:44 28 Capillary Refill : Less Than 3 SecondsGreater Than 3 Seconds General Appearance: No Apparent Distress, WD/WN, Chronically ill Respiratory: No Accessory Muscle Use, No Respiratory Distress, Decreased Breath Sounds Cardiovascular: Regular Rate, Rhythm, No Edema, No Gallop, No JVD, No Murmur, Normal Peripheral Pulses Neurologic/Psychiatric: Alert, Disoriented, Other (non-verbal) Results/Procedures Lab Laboratory Tests 09/22/18 03:08 Patient resulted labs reviewed. Assessment/Plan Assessment and Plan Assess & Plan/Chief Complaint Assessment: Septic shock Pneumonia Severe MR Nonverbal Seizure disorder Chronic baseline debility Dysphasia with aspiration risk now nothing by mouth Plan: Maintain current plan but patient appears to be meeting criteria for comfort care Diagnosis/Problems Diagnosis/Problems (1) Septic shock Status: Resolved (2) Pneumonia Status: Acute Qualifiers: Pneumonia type: due to unspecified organism Laterality: bilateral Lung location: lower lobe of lung Qualified Codes: J18.1 - Lobar pneumonia, unspecified organism (3) Hypothyroidism Status: Chronic Qualifiers: Hypothyroidism type: acquired Qualified Codes: E03.9 - Hypothyroidism, unspecified (4) Hypokalemia Status: Acute (5) Anemia Status: Chronic Qualifiers: Anemia type: unspecified type Qualified Codes: D64.9 - Anemia, unspecified (6) CVA (cerebral vascular accident) Status: Chronic Qualifiers: CVA mechanism: unspecified Qualified Codes: I63.9 - Cerebral infarction, unspecified (7) Poor prognosis Status: Acute (8) DNR (do not resuscitate) Status: Acute (9) Nonverbal Status: Chronic (10) Seizure Status: Chronic (11) Profound mental retardation in adult Status: Chronic Clinical Quality Measures DVT/VTE Risk/Contraindication: Risk Factor Score Per Nursin RFS Level Per Nursing on Admit: 4+=Very High MEMO RUSSELL DO Sep 22, 2018 09:49
[2018-09-22] MEDS: LEVETIRACETAM INJECTION 1,000 MG in NS (IVPB) 100 ML IV SCH ×2 (10:09→21:46)
--- NOTE | 2018-09-22 15:20 | ST Dysphagia Evaluation ---
Speech Evaluation-General Medical Diagnosis Sepsis, Pneumonia Onset Date: Sep 20, 2018 Therapy Diagnosis Therapy Diagnosis: Dysphagia Precautions Precautions/Isolations: Aspiration, Fall Prevention, Standard Precautions, Pressure Ulcer Referral Referring Physician: Dr. Valles Reason for Referral: Evaluation/Treatment Medical History Pertinent Medical History: GERD, Hypothroidism Non-verbal, Down's syndrome Current History Sepsis Speech PLF/Current-Dysphagia Prior Level of Function Pt is dependent for everything. Subjective Pt in bed, alert this time unlike this am. Cognitive Status Patient Orientation: Unable to Assess pt is non-verbal Oral Motor Skills Dentition: Edentalous Ability to Follow Directions: Unable Oral Expression Ability: Unable Dysphagia Evaluation Consistencies Presented: Thin Liquid, Pureed Abnormal oral function with a lot of tongue pumping but is able to get bolus down. Unable to assess as pt is non-verbal. Pt did cough x2 out of 5 after the swallow of thin liquids. Funct. Velo/Pharyngeal Symptom: Cough After Swallow Dietary Recommendations: Pureed (this is pt's diet at home) Liquid Recommendations: [place] Consistancy (due to possible aspiration of thin liquids.) Swallowing Precautions: Decreased Bolus 1/4 Tsp, Liquids from Spoon, No Straw, Oral Supervision Staff, Small Bites and Sips, Sitting Upright 90 Degrees, Sitting 90 Degrees 30 Post Intake Dysphagia Evaluation Summary Pt appears to by dysphagic for thin liquids. Since pt is non-verbal it was difficult to be sure. Pt appear pureed texture without s/s of aspiration. Barriers to Learning Decreased mental status. Speech Short Term Goals Short Term Goals Short Term Goals reassess for liquid upgrade. Time Frame-ST week Speech Chicken Raiser Goals Snf Goals Pt will tolerate thin liquids without s/s of aspiration. Speech-Plan Patient/Family Goals Patient/Family Goals: pt non-verbal Treatment Plan Speech Therapy Treatment Plan: Modify Plan, See Comments (skilled speech therapy to address thin liquid concerns) skilled ST indicated to reassess safety of thin liquids when appropriate. Frequency: 2 times per week Estimated Hrs Per Day: .25 hour per day Rehab Potential: Guarded Safety Risks/Education Teaching Recipient: Primary Caregiver Teaching Methods: Discussion Response to Teaching: Verbalize Understanding Time Speech Therapy Time In: 14:50 Speech Therapy Time Out: 15:15 Total Billed Time: 25 Billed Treatment Time 1, DIVINE Knutson Sep 22, 2018 15:20
[2018-09-22] MEDS ORDERED: fentaNYL INJECTION 100 MCG/2 ML AMP ONE (20:36)
[2018-09-22] MEDS ORDERED: KETOROLAC 30 MG/ML VIAL ONE (20:36)
[2018-09-22] MEDS: fentaNYL INJECTION 100 MCG/2 ML AMP IV PRN ×3 (21:14→23:29)
[2018-09-22] MEDS ORDERED: KETOROLAC 30 MG/ML VIAL IV ONE (21:15)
[2018-09-22] MEDS ORDERED: fentaNYL INJECTION 100 MCG/2 ML AMP IV ONE (21:15)
[2018-09-23] VITALS (15 sets, daily range): BP systolic 93–124; BP diastolic 43–85
[2018-09-23] MEDS: fentaNYL INJECTION 100 MCG/2 ML AMP IV PRN ×2 (00:43→01:32)
[2018-09-23] MEDS: NOREPINEPHRINE 4 MG in NS (IVPB) 250 ML IV SCH ×2 (00:59→02:55)
[2018-09-23] MEDS: PIPERACILLIN/TAZO 4.5 GM/NS 100 ML IV SCH ×6 (01:32→16:49)
[2018-09-23] MEDS: NS IV 1000 ML 1,000 ML IV SCH ×4 (02:56→22:12)
[2018-09-23 03:15] LABS: BASOPHILS % (AUTO) 0 % (0-10); EOSINOPHILS % (AUTO) 0 % (0-10); HEMATOCRIT 30 % (40-54); HEMOGLOBIN 10.3 G/DL (13.3-17.7); LYMPHOCYTES # (AUTO) 0.4 X 10^3 (1.0-4.0); LYMPHOCYTES % (AUTO) 4 % (12-44); MEAN CORPUSCULAR HEMOGLOBIN 28 PG (25-34); MEAN CORPUSCULAR HGB CONC 35 G/DL (32-36); MEAN CORPUSCULAR VOLUME 80 FL (80-99); MEAN PLATELET VOLUME 9.9 FL (7.4-10.4); MONOCYTES # (AUTO) 0.2 X 10^3 (0.0-1.0); MONOCYTES % (AUTO) 2 % (0-12); NEUTROPHILS # (AUTO) 8.7 X 10^3 (1.8-7.8); NEUTROPHILS % (AUTO) 93 % (42-75); PLATELET COUNT 187 10^3/uL (130-400); RED BLOOD COUNT 3.74 10^6/uL (4.35-5.85); RED CELL DISTRIBUTION WIDTH 17.7 % (10.0-14.5); WHITE BLOOD COUNT 9.3 10^3/uL (4.3-11.0)
[2018-09-23 03:35] LABS: BUN/CREATININE RATIO 16; CALCIUM 7.5 MG/DL (8.5-10.1); CARBON DIOXIDE 19 MMOL/L (21-32); CHLORIDE 111 MMOL/L (98-107); CREATININE SERUM 0.58 MG/DL (0.60-1.30); GFR ESTIMATED > 60; GLUCOSE 133 MG/DL (70-105); MAGNESIUM 1.7 MG/DL (1.8-2.4); PHOSPHORUS 1.4 MG/DL (2.3-4.7); SODIUM 138 MMOL/L (135-145)
[2018-09-23 03:52] LABS: POTASSIUM 2.4 MMOL/L (3.6-5.0)
[2018-09-23] MEDS: POTASSIUM CL 10MEQ/50ML IVPB 50 ML IV SCH ×7 (04:04→06:16)
[2018-09-23] MEDS: MAGNESIUM 1 GM/100 ML IVPB 100 ML IV SCH ×3 (05:11→06:12)
--- NOTE | 2018-09-23 05:21 | Pulmonary Progress Note ---
Subjective Time Seen by a Provider: 05:24 Subjective/Events-last exam No complications noted. Sepsis Event Evaluation Height, Weight, BMI Height: 5'2.00" Weight: 103lbs. 9.0oz. 46.981544yh; 18.7 BMI Method:Estimated Focused Exam Lactate Level 09/20/18 09:21: Lactic Acid Level 1.22 09/21/18 06:54: Lactic Acid Level 1.31 Exam Exam Vital Signs Date Time Temp Pulse Resp B/P (MAP) Pulse Ox O2 Delivery O2 Flow Rate FiO2 09/23/18 04:00 Room Air 09/23/18 04:00 56 11 120/71 (87) 98 Nasal Cannula 1.00 09/23/18 03:00 53 18 111/65 (80) 96 Nasal Cannula 1.00 09/23/18 02:00 59 14 115/65 (82) 100 Nasal Cannula 1.00 09/23/18 01:32 97.7 09/23/18 01:00 70 09/23/18 01:00 68 13 111/80 (90) 99 Nasal Cannula 1.00 09/23/18 00:06 69 15 111/72 (85) 98 Nasal Cannula 1.00 09/23/18 00:00 Room Air 09/22/18 23:09 60 12 97/66 (76) 98 Nasal Cannula 1.00 09/22/18 22:00 86 14 98/65 (76) 100 Nasal Cannula 1.00 09/22/18 21:53 89 16 101/66 (78) 99 Nasal Cannula 1.00 09/22/18 21:44 97.7 09/22/18 20:14 82 14 94/57 (69) 100 Nasal Cannula 1.00 09/22/18 20:00 Room Air 09/22/18 19:40 71 97 21 09/22/18 19:25 97 Room Air 09/22/18 19:00 74 09/22/18 19:00 67 11 92/66 (75) 95 Nasal Cannula 1.00 09/22/18 18:00 80 16 104/60 (75) 97 Nasal Cannula 1.00 09/22/18 17:00 73 12 99/62 (74) 98 Nasal Cannula 1.00 09/22/18 16:00 67 11 91/50 (64) 90 Nasal Cannula 1.00 09/22/18 15:33 Room Air 09/22/18 15:19 97.7 09/22/18 15:00 105 13 107/104 (105) 95 Nasal Cannula 1.00 09/22/18 14:21 99 Nasal Cannula 2.00 09/22/18 14:00 71 15 112/68 (83) 94 Nasal Cannula 1.00 09/22/18 13:00 73 9 112/71 (85) 94 Nasal Cannula 1.00 09/22/18 13:00 73 09/22/18 12:00 64 11 110/74 (86) 92 Nasal Cannula 1.00 09/22/18 11:50 97.0 09/22/18 11:26 Room Air 09/22/18 11:00 78 14 81/47 (58) 93 Nasal Cannula 1.00 09/22/18 10:00 96 15 87/53 (64) 93 Nasal Cannula 1.00 09/22/18 09:22 Nasal Cannula 1.00 09/22/18 09:15 65 48 90/59 (69) 100 Nasal Cannula 2.00 09/22/18 09:12 99 Nasal Cannula 2.00 09/22/18 09:00 75 15 82/61 (68) 100 Nasal Cannula 2.00 09/22/18 08:00 Nasal Cannula 2.00 09/22/18 08:00 71 13 102/62 (75) 91 Nasal Cannula 2.00 09/22/18 07:30 98.2 09/22/18 07:00 70 26 83/45 (58) 92 Nasal Cannula 2.00 09/22/18 07:00 70 09/22/18 06:03 65 104/81 (89) 09/22/18 06:00 65 33 104/81 (89) 100 Nasal Cannula 2.00 I & O 09/23/18 07:00 Intake Total 2260 ml Output Total 1875 ml Balance 385 ml Height & Weight Height: 5'2.00" Weight: 103lbs. 9.0oz. 46.256906sb; 18.7 BMI Method:Estimated General Appearance: No Apparent Distress, WD/WN, Chronically ill HEENT: Pharynx Normal, Other (right pupil 3-4 mm and left pupil 2-3 mm) Neck: Full Range of Motion, Normal Inspection, Non Tender, Supple, Carotid Bruit Respiratory: No Accessory Muscle Use, No Respiratory Distress, Decreased Breath Sounds Cardiovascular: Regular Rate, Rhythm, No Edema, No Gallop, No JVD, No Murmur, Normal Peripheral Pulses Capillary Refill: Greater Than 3 Seconds Extremity: Normal Capillary Refill, No Calf Tenderness, Other (does appear to move all 4 extremities but weak) Neurologic/Psychiatric: Alert, Disoriented, Other (non-verbal) Skin: Normal Color, Warm/Dry Results Lab Laboratory Tests 09/22/18 03:08 09/23/18 03:10 Assessment/Plan Assessment/Plan Pneumonia -Katesyroselyn vanco -Cultures negative thus far septic shock -Severe sepsis protocol -bowens cultures -continue current Abx -IVF Hypotension -Levophed - D/C -Check CVP -solucortef Bradycardia- possible sick sinus syndrome -monitor Hypokalemia -replace Metabolic acidosis -repeat ANNELIESE SMITH DO Sep 23, 2018 05:21
[2018-09-23] MEDS ORDERED: POTASSIUM PHOSPHATE INJ 30 MM in NS (IVPB) 250 ML IV ONE (05:30)
[2018-09-23] MEDS ORDERED: POTASSIUM CHLORIDE INJ 20 MEQ in D5 LR IV SOLUTION 1,000 ML IV SCH (05:30)
[2018-09-23] MEDS ORDERED: LACTATED RINGERS 1,000 ML IV ONE ×2 (06:00→06:15)
[2018-09-23] MEDS: KCL 20 MEQ TAB (K-DUR) PO SCH ×2 (06:07→21:24)
[2018-09-23] MEDS: HYDROCORTISONE 100 MG/2 ML (Solu-CORTEF) VIAL IV SCH ×3 (06:07→22:11)
--- NOTE | 2018-09-23 07:55 | Diagnostic Imaging Report ---
Indication: Septic shock. Comparison: 09/22/2018 Findings: Infiltrate in the left lung has nearly resolved however infrahilar infiltrate in the right lung base medially has progressed. Bilateral pleural fluid volumes unchanged. No pneumothorax. Impression: Mixed changes in bilateral infiltrate, overall substantial change is not apparent. Dictated by: Dictated on workstation # [id number]
[2018-09-23] MEDS: LEVETIRACETAM INJECTION 1,000 MG in NS (IVPB) 100 ML IV SCH (08:35)
[2018-09-23] MEDS: RT-ALBUTEROL/IPRATROPIUM 3 ML (DUONEB) VIAL INH SCH ×2 (09:19→19:22)
--- NOTE | 2018-09-23 11:23 | Progress Note-Hospitalist ---
Subjective HPI/CC On Admission Date Seen by Provider: Sep 23, 2018 Time Seen by Provider: 10:45 CC: Pneumonia with severe sepsis HPI: This is a non-verbal severely mentally retarded WM who is cared for by caregivers at [facility] who presented to the ER w/AMS and was found to have severe sepsis from pneumonia and was placed in the ICU along with central line placement with pressor therapy. Pt is DNR per his guardian so that order has been placed. Pt is still on Levophed at 5mcg and patient remains at baseline non -verbal and severely debilitated. Guardian has made it clear that if there is no recovery potential he will be placed on comfort care. Subjective/Events-last exam Patient is transferred to the floor Pressor therapy DC and SBP 101 No BM x 2 days so will start Miralax No pain reported checked meds and labs Poor prognosis but appears more alert today and likely will DC this or Wednesday Focused Exam Lactate Level 09/21/18 06:54: Lactic Acid Level 1.31 09/23/18 07:00: Lactic Acid Level 1.75 Objective Exam Vital Signs Vital Signs Date Time Temp Pulse Resp B/P (MAP) Pulse Ox O2 Delivery O2 Flow Rate FiO2 09/23/18 11:00 62 16 109/67 (81) 95 Nasal Cannula 1.00 09/23/18 07:14 98.6 09/22/18 19:40 21 Capillary Refill : Less Than 3 SecondsGreater Than 3 Seconds General Appearance: No Apparent Distress, WD/WN, Chronically ill Respiratory: Chest Non Tender, No Accessory Muscle Use, No Respiratory Distress , Crackles, Decreased Breath Sounds Cardiovascular: Regular Rate, Rhythm, No Edema, No Gallop, No JVD, No Murmur, Normal Peripheral Pulses Neurologic/Psychiatric: Alert Results/Procedures Lab Laboratory Tests 09/23/18 03:10 Patient resulted labs reviewed. Assessment/Plan Assessment and Plan Assess & Plan/Chief Complaint Assessment: Septic shock-resolved Pneumonia Severe MR Nonverbal Seizure disorder Chronic baseline debility Dysphasia with aspiration risk now nothing by mouth Plan: Maintain current plan DC this of Wednesday DNR Poor prognosis but appears to be improving now Diagnosis/Problems Diagnosis/Problems (1) Septic shock Status: Resolved (2) Pneumonia Status: Acute Qualifiers: Pneumonia type: due to unspecified organism Laterality: bilateral Lung location: lower lobe of lung Qualified Codes: J18.1 - Lobar pneumonia, unspecified organism (3) Hypothyroidism Status: Chronic Qualifiers: Hypothyroidism type: acquired Qualified Codes: E03.9 - Hypothyroidism, unspecified (4) Hypokalemia Status: Acute (5) Anemia Status: Chronic Qualifiers: Anemia type: unspecified type Qualified Codes: D64.9 - Anemia, unspecified (6) CVA (cerebral vascular accident) Status: Chronic Qualifiers: CVA mechanism: unspecified Qualified Codes: I63.9 - Cerebral infarction, unspecified (7) Poor prognosis Status: Acute (8) DNR (do not resuscitate) Status: Acute (9) Nonverbal Status: Chronic (10) Seizure Status: Chronic (11) Profound mental retardation in adult Status: Chronic Clinical Quality Measures DVT/VTE Risk/Contraindication: Risk Factor Score Per Nursin RFS Level Per Nursing on Admit: 4+=Very High MEMO RUSSELL DO Sep 23, 2018 11:23
[2018-09-23] MEDS ORDERED: POLYETHYLENE GLYCOL 17 GM (MIRALAX) PACK PO ONE (11:30)
[2018-09-23] MEDS: SIMETHICONE 80 MG (MYLICON) CHEW PO SCH ×3 (11:44→21:23)
[2018-09-23] MEDS: SUCRALFATE 1 GM (CARAFATE) TAB PO SCH ×2 (11:44→16:49)
[2018-09-23 16:06] LABS: BUN/CREATININE RATIO 15; CALCIUM 7.6 MG/DL (8.5-10.1); CARBON DIOXIDE 20 MMOL/L (21-32); CHLORIDE 112 MMOL/L (98-107); CREATININE SERUM 0.55 MG/DL (0.60-1.30); GFR ESTIMATED > 60; GLUCOSE 122 MG/DL (70-105); MAGNESIUM 1.8 MG/DL (1.8-2.4); PHOSPHORUS 2.3 MG/DL (2.3-4.7); POTASSIUM 2.9 MMOL/L (3.6-5.0); SODIUM 140 MMOL/L (135-145)
[2018-09-23] MEDS: LEVETIRACETAM 500 MG/ 5 ML UDC ORAL SOLN (KEPPRA) PO SCH (21:23)
[2018-09-23] MEDS: POLYETHYLENE GLYCOL 17 GM (MIRALAX) PACK PO SCH (21:24)
[2018-09-23] MEDS: BACLOFEN 10 MG (LIORESAL) TAB PO SCH (21:24)
[2018-09-24] VITALS: BP 118/66
[2018-09-24] MEDS: PIPERACILLIN/TAZO 4.5 GM/NS 100 ML IV SCH ×6 (00:52→17:29)
[2018-09-24 04:00] VITALS: BP 122/82
[2018-09-24] MEDS: KCL 20 MEQ TAB (K-DUR) PO SCH ×2 (06:20→17:29)
[2018-09-24] MEDS: HYDROCORTISONE 100 MG/2 ML (Solu-CORTEF) VIAL IV SCH (06:20)
[2018-09-24] MEDS: NS IV 1000 ML 1,000 ML IV SCH (06:20)
[2018-09-24] MEDS: LEVOTHYROXINE 100 MCG (LEVOTHROID) TAB PO SCH (06:20)
[2018-09-24] MEDS: SUCRALFATE 1 GM (CARAFATE) TAB PO SCH ×3 (06:20→17:29)
[2018-09-24 06:57] LABS: BASOPHILS % (AUTO) 0 % (0-10); EOSINOPHILS % (AUTO) 0 % (0-10); HEMATOCRIT 32 % (40-54); HEMOGLOBIN 10.8 G/DL (13.3-17.7); LYMPHOCYTES # (AUTO) 0.5 X 10^3 (1.0-4.0); LYMPHOCYTES % (AUTO) 6 % (12-44); MEAN CORPUSCULAR HEMOGLOBIN 27 PG (25-34); MEAN CORPUSCULAR HGB CONC 34 G/DL (32-36); MEAN CORPUSCULAR VOLUME 81 FL (80-99); MEAN PLATELET VOLUME 10.9 FL (7.4-10.4); MONOCYTES # (AUTO) 0.3 X 10^3 (0.0-1.0); MONOCYTES % (AUTO) 3 % (0-12); NEUTROPHILS # (AUTO) 8.4 X 10^3 (1.8-7.8); NEUTROPHILS % (AUTO) 91 % (42-75); PLATELET COUNT 163 10^3/uL (130-400); RED BLOOD COUNT 3.96 10^6/uL (4.35-5.85); RED CELL DISTRIBUTION WIDTH 17.2 % (10.0-14.5); WHITE BLOOD COUNT 9.2 10^3/uL (4.3-11.0)
[2018-09-24] MEDS: RT-ALBUTEROL/IPRATROPIUM 3 ML (DUONEB) VIAL INH SCH ×2 (07:09→19:03)
[2018-09-24 07:10] LABS: ALANINE AMINOTRANSFERASE 59 U/L (0-55); ALBUMIN 2.4 GM/DL (3.2-4.5); ALKALINE PHOSPHATASE 59 U/L (40-136); BILIRUBIN,TOTAL 0.5 MG/DL (0.1-1.0); BUN/CREATININE RATIO 20; CALCIUM 7.4 MG/DL (8.5-10.1); CARBON DIOXIDE 20 MMOL/L (21-32); CHLORIDE 112 MMOL/L (98-107); CREATININE SERUM 0.56 MG/DL (0.60-1.30); GFR ESTIMATED > 60; GLUCOSE 98 MG/DL (70-105); POTASSIUM 2.6 MMOL/L (3.6-5.0); SODIUM 142 MMOL/L (135-145); TOTAL PROTEIN 4.7 GM/DL (6.4-8.2)
--- NOTE | 2018-09-24 07:18 | Pulmonary Progress Note ---
Subjective Time Seen by a Provider: 07:18 Subjective/Events-last exam No complications noted. Sepsis Event Evaluation Height, Weight, BMI Height: 5'2.00" Weight: 105lbs. 9.0oz. 47.898452jr; 18.7 BMI Method:Estimated Focused Exam Lactate Level 09/23/18 07:00: Lactic Acid Level 1.75 Exam Exam Vital Signs Date Time Temp Pulse Resp B/P (MAP) Pulse Ox O2 Delivery O2 Flow Rate FiO2 09/24/18 04:00 96.9 60 22 122/82 (95) 94 Room Air 09/24/18 00:00 100.2 68 22 118/66 (83) 84 Room Air 09/23/18 21:00 91 Room Air 1.00 09/23/18 19:30 96.8 82 20 119/70 (86) 91 Room Air 09/23/18 19:25 91 Room Air 09/23/18 16:00 96.1 60 16 117/66 (83) 98 Room Air 09/23/18 12:00 95.7 65 20 100/63 (75) 94 Nasal Cannula 1.00 09/23/18 11:00 62 16 109/67 (81) 95 Nasal Cannula 1.00 09/23/18 10:00 70 24 109/75 (86) 100 Nasal Cannula 1.00 09/23/18 09:19 95 Room Air 09/23/18 09:00 54 14 95/76 (82) 97 Nasal Cannula 1.00 09/23/18 08:00 Room Air 09/23/18 08:00 46 10 93/43 (60) 95 Nasal Cannula 1.00 I & O 09/24/18 07:00 Intake Total 4280 ml Output Total 2550 ml Balance 1730 ml Height & Weight Height: 5'2.00" Weight: 105lbs. 9.0oz. 47.077343vx; 18.7 BMI Method:Estimated General Appearance: No Apparent Distress, WD/WN, Chronically ill HEENT: Pharynx Normal, Other (right pupil 3-4 mm and left pupil 2-3 mm) Neck: Full Range of Motion, Normal Inspection, Non Tender, Supple, Carotid Bruit Respiratory: No Accessory Muscle Use, No Respiratory Distress, Decreased Breath Sounds Cardiovascular: Regular Rate, Rhythm, No Edema, No Gallop, No JVD, No Murmur, Normal Peripheral Pulses Capillary Refill: Greater Than 3 Seconds Extremity: Normal Capillary Refill, No Calf Tenderness, Other (does appear to move all 4 extremities but weak) Neurologic/Psychiatric: Alert, Disoriented, Other (non-verbal) Skin: Normal Color, Warm/Dry Results Lab Laboratory Tests 09/23/18 03:10 09/23/18 15:40 09/24/18 06:34 Assessment/Plan Assessment/Plan Pneumonia -Zosyn -Cultures negative thus far Bradycardia- possible sick sinus syndrome -monitor Hypokalemia -replace Metabolic acidosis -repeat ANNELIESE SMITH DO Sep 24, 2018 07:18
[2018-09-24] MEDS ORDERED: POTASSIUM CL 10MEQ/50ML IVPB 50 ML IV SCH (07:30)
--- NOTE | 2018-09-24 07:56 | Progress Note (SOAP) ---
Subjective Subjective/Events-last exam Patient is resting/sleeping comfortably in bed this morning. Review of Systems Date Seen by Provider: Sep 24, 2018 Time Seen by Provider: 06:45 Focused Exam Lactate Level 09/23/18 07:00: Lactic Acid Level 1.75 Objective Exam Last Set of Vital Signs Vital Signs Date Time Temp Pulse Resp B/P (MAP) Pulse Ox O2 Delivery O2 Flow Rate FiO2 09/24/18 07:09 91 Room Air 09/24/18 04:00 96.9 60 22 122/82 (95) 09/23/18 21:00 1.00 09/22/18 19:40 21 Capillary Refill : Less Than 3 SecondsGreater Than 3 Seconds I&O Intake and Output 09/24/18 00:00 Intake Total 3180 ml Output Total 2325 ml Balance 855 ml Intake Oral 1400 ml IV Total 1780 ml Output Urine Total 2325 ml # Bowel Movements 3 General: No Acute Distress Lungs: Clear to Auscultation (In apical area with decreased in bases) Heart: Regular Rate Abdomen: Soft Results/Procedures Lab Laboratory Tests 09/23/18 15:40: Sodium Level 140, Potassium Level 2.9L, Chloride Level 112H, Carbon Dioxide Level 20L, Anion Gap 8, Blood Urea Nitrogen 8, Creatinine 0.55L, Estimat Glomerular Filtration Rate > 60, BUN/Creatinine Ratio 15, Glucose Level 122H, Calcium Level 7.6L, Phosphorus Level 2.3, Magnesium Level 1.8, B-Type Natriuretic Peptide 356.7H 09/24/18 06:34: Sodium Level 142, Potassium Level 2.6L, Chloride Level 112H, Carbon Dioxide Level 20L, Anion Gap 10, Blood Urea Nitrogen 11, Creatinine 0.56L, Estimat Glomerular Filtration Rate > 60, BUN/Creatinine Ratio 20, Glucose Level 98, Calcium Level 7.4L, White Blood Count 9.2, Red Blood Count 3.96L, Hemoglobin 10.8L, Hematocrit 32L, Mean Corpuscular Volume 81, Mean Corpuscular Hemoglobin 27, Mean Corpuscular Hemoglobin Concent 34, Red Cell Distribution Width 17.2H, Platelet Count 163, Mean Platelet Volume 10.9H, Neutrophils (%) (Auto) 91H, Lymphocytes (%) (Auto) 6L, Monocytes (%) (Auto) 3, Eosinophils (%) (Auto) 0, Basophils (%) (Auto) 0, Neutrophils # (Auto) 8.4H, Lymphocytes # (Auto) 0.5L, Monocytes # (Auto) 0.3, Eosinophils # (Auto) 0.0, Basophils # (Auto) 0.0, Corrected Calcium 8.7, Total Bilirubin 0.5, Aspartate Amino Transf (AST/SGOT) 48H, Alanine Aminotransferase (ALT/SGPT) 59H, Alkaline Phosphatase 59, Total Protein 4.7L, Albumin 2.4L Microbiology 09/20/18 Blood Culture - Preliminary, Resulted Staph, Coag Neg (MEDIA PRODUCTION MANAGER) 09/20/18 MRSA Screen - Final, Complete MRSA not isolated 09/20/18 Urine Culture - Final, Complete NO GROWTH Assessment/Plan Assessment/Plan Assessment & Plan 1. Pneumonia -Patient currently receiving Zosyn and vancomycin. -Pulmonology also following -Upon completion of treatment, patient to be discharged to [facility] 2. Septic shock-resolved 3. Severe MR & Nonverbal 4. Seizure disorder -Patient is currently on Keppra 5. Dysphasia with aspiration risk Clinical Quality Measures DVT/VTE Risk/Contraindication: Risk Factor Score Per Nursin RFS Level Per Nursing on Admit: 4+=Very High BENNY GARCÍA MD Sep 24, 2018 07:56
[2018-09-24 08:11] VITALS: BP 108/62
[2018-09-24] MEDS ORDERED: KCL 20 MEQ TAB (K-DUR) PO NR (08:22)
[2018-09-24] MEDS: LEVETIRACETAM 500 MG/ 5 ML UDC ORAL SOLN (KEPPRA) PO SCH ×2 (09:06→21:27)
[2018-09-24] MEDS: NS W/KCL 20 MEQ/L 1,000 ML IV SCH ×2 (09:06→21:26)
[2018-09-24] MEDS: ASPIRIN 81 MG CHEW (CHILDREN'S ASA) PO SCH (09:07)
[2018-09-24] MEDS: LORATADINE (CLARITIN) 10 MG TAB PO SCH (09:07)
[2018-09-24] MEDS: SIMETHICONE 80 MG (MYLICON) CHEW PO SCH ×4 (09:09→21:26)
[2018-09-24 12:00] VITALS: BP 113/70
[2018-09-24 15:58] VITALS: BP 115/68
[2018-09-24] MEDS: BACLOFEN 10 MG (LIORESAL) TAB PO SCH (21:26)
[2018-09-24] MEDS: POLYETHYLENE GLYCOL 17 GM (MIRALAX) PACK PO SCH (21:27)
[2018-09-25] VITALS: BP 119/73
[2018-09-25] MEDS: PIPERACILLIN/TAZO 4.5 GM/NS 100 ML IV SCH ×2 (00:17)
[2018-09-25] MEDS: SUCRALFATE 1 GM (CARAFATE) TAB PO SCH ×3 (05:43→16:34)
[2018-09-25] MEDS: LEVOTHYROXINE 100 MCG (LEVOTHROID) TAB PO SCH (05:43)
[2018-09-25] MEDS: KCL 20 MEQ TAB (K-DUR) PO SCH ×2 (05:45→16:34)
--- NOTE | 2018-09-25 06:25 | Pulmonary Progress Note ---
Sepsis Event Evaluation Height, Weight, BMI Height: 5'2.00" Weight: 105lbs. 9.0oz. 47.303110iv; 18.7 BMI Method:Estimated Focused Exam Lactate Level 09/23/18 07:00: Lactic Acid Level 1.75 Exam Exam Vital Signs Date Time Temp Pulse Resp B/P (MAP) Pulse Ox O2 Delivery O2 Flow Rate FiO2 09/25/18 00:00 99.2 75 14 119/73 (88) 100 Room Air 09/24/18 21:00 91 Room Air 09/24/18 19:05 93 Room Air 09/24/18 15:58 97.8 67 16 115/68 (84) 91 Room Air 09/24/18 12:00 99.6 88 20 113/70 (84) 97 Room Air 09/24/18 09:00 91 Room Air 09/24/18 08:11 96.1 56 18 108/62 (77) 98 Room Air 09/24/18 07:09 91 Room Air I & O 09/25/18 07:00 Intake Total 3040 ml Output Total 2850 ml Balance 190 ml Height & Weight Height: 5'2.00" Weight: 105lbs. 9.0oz. 47.123359qf; 18.7 BMI Method:Estimated General Appearance: No Apparent Distress, WD/WN, Chronically ill HEENT: Pharynx Normal, Other (right pupil 3-4 mm and left pupil 2-3 mm) Neck: Full Range of Motion, Normal Inspection, Non Tender, Supple, Carotid Bruit Respiratory: No Accessory Muscle Use, No Respiratory Distress, Decreased Breath Sounds Cardiovascular: Regular Rate, Rhythm, No Edema, No Gallop, No JVD, No Murmur, Normal Peripheral Pulses Capillary Refill: Greater Than 3 Seconds Extremity: Normal Capillary Refill, No Calf Tenderness, Other (does appear to move all 4 extremities but weak) Neurologic/Psychiatric: Alert, Disoriented, Other (non-verbal) Skin: Normal Color, Warm/Dry Results Lab Laboratory Tests 09/23/18 15:40 09/24/18 06:34 Assessment/Plan Assessment/Plan Pneumonia -Zosyn- change to PO Omnicef -Cultures negative thus far Bradycardia- possible sick sinus syndrome -monitor Hypokalemia -replace Metabolic acidosis -repeat LA I am going to sign off please call with any questions or concerns. ANNELIESE MAHMOOD DO Sep 25, 2018 06:25
[2018-09-25] MEDS: RT-ALBUTEROL/IPRATROPIUM 3 ML (DUONEB) VIAL INH SCH (07:06)
[2018-09-25 07:57] VITALS: BP 127/83
[2018-09-25] MEDS: LEVETIRACETAM 500 MG/ 5 ML UDC ORAL SOLN (KEPPRA) PO SCH (08:10)
[2018-09-25] MEDS: LORATADINE (CLARITIN) 10 MG TAB PO SCH (08:10)
[2018-09-25] MEDS: ASPIRIN 81 MG CHEW (CHILDREN'S ASA) PO SCH (08:11)
[2018-09-25] MEDS: SIMETHICONE 80 MG (MYLICON) CHEW PO SCH ×2 (08:11→14:21)
--- NOTE | 2018-09-25 08:12 | Progress Note (SOAP) ---
Subjective Subjective/Events-last exam Patient is resting comfortably this morning. He is not with any respiratory distress. Review of Systems Date Seen by Provider: Sep 25, 2018 Time Seen by Provider: 07:15 Focused Exam Lactate Level 09/23/18 07:00: Lactic Acid Level 1.75 Objective Exam Last Set of Vital Signs Vital Signs Date Time Temp Pulse Resp B/P (MAP) Pulse Ox O2 Delivery O2 Flow Rate FiO2 09/25/18 07:57 98.7 64 18 127/83 (98) 100 Room Air 09/23/18 21:00 1.00 09/22/18 19:40 21 Capillary Refill : Less Than 3 SecondsGreater Than 3 Seconds I&O Intake and Output 09/24/18 23:59 Intake Total 4140 ml Output Total 3725 ml Balance 415 ml Intake Oral 940 ml IV Total 3200 ml Output Urine Total 3725 ml # Bowel Movements 10 General: No Acute Distress Neck: Supple Lungs: Clear to Auscultation (With distant sounds in the bases) Heart: Regular Rate Abdomen: Soft Results/Procedures Lab Microbiology 09/20/18 Blood Culture - Preliminary, Resulted Staph, Coag Neg (CATTLE KILLER) See Comments 09/20/18 MRSA Screen - Final, Complete MRSA not isolated 09/20/18 Urine Culture - Final, Complete NO GROWTH Assessment/Plan Assessment/Plan Assessment & Plan 1. Pneumonia -Patient currently receiving Zosyn and vancomycin. -Pulmonology also following -Upon completion of treatment, patient to be discharged to [facility] 09/25 -Patient was switched from Zosyn to oral cefdinir by naval aircrewman operator today -I suspect patient will be ready for transfer to [facility] in the morning 2. Septic shock-resolved 3. Hypokalemia -Recheck potassium in the morning 4. Severe MR & Nonverbal 5. Seizure disorder -Patient is currently on Keppra 6. Dysphasia with aspiration risk Clinical Quality Measures DVT/VTE Risk/Contraindication: Risk Factor Score Per Nursin RFS Level Per Nursing on Admit: 4+=Very High BENNY GARCÍA MD Sep 25, 2018 08:12
[2018-09-25] MEDS ORDERED: CEFDINIR 300 MG (OMNICEF) CAP PO SCH (09:00)
[2018-09-25 10:02] LABS: ALANINE AMINOTRANSFERASE 108 U/L (0-55); ALBUMIN 2.4 GM/DL (3.2-4.5); ALKALINE PHOSPHATASE 60 U/L (40-136); BILIRUBIN,TOTAL 0.5 MG/DL (0.1-1.0); BUN/CREATININE RATIO 12; CALCIUM 7.3 MG/DL (8.5-10.1); CARBON DIOXIDE 24 MMOL/L (21-32); CHLORIDE 109 MMOL/L (98-107); GFR ESTIMATED > 60; GLUCOSE 87 MG/DL (70-105); POTASSIUM 2.7 MMOL/L (3.6-5.0); SODIUM 142 MMOL/L (135-145); TOTAL PROTEIN 4.6 GM/DL (6.4-8.2)
[2018-09-25] MEDS ORDERED: POTA-51 PO (11:00)
[2018-09-25] MEDS: NS W/KCL 20 MEQ/L 1,000 ML IV SCH (11:09)
[2018-09-25 15:24] VITALS: BP 127/83
[2018-09-25 15:35] VITALS: BP 116/76
== END 2018-09-25 17:30 | disposition home or self-care (01) | DRG 871 ==
LOC: EDUNIT# 08:52 → ER 08:53 → ICU 11:59 → 4TH 09-23 11:29
PROVIDERS: ADMIT Internal Medicine; ATTEND Internal Medicine
PROC: 02HV33Z Insertion of Infusion Device into Superior Vena Cava, Percutaneous Approach (ICD-10-PCS; principal; 2018-09-20)
DX: A41.9 Sepsis, unspecified organism (principal); R65.21 Severe sepsis with septic shock; J18.9 Pneumonia, unspecified organism; E87.2 Acidosis; F73 Profound intellectual disabilities; F84.0 Autistic disorder; Q90.2 Trisomy 21, translocation; G40.909 Epilepsy, unspecified, not intractable, without status epilepticus; Z66 Do not resuscitate; G47.9 Sleep disorder, unspecified; D64.9 Anemia, unspecified; D72.819 Decreased white blood cell count, unspecified; E87.6 Hypokalemia; E83.42 Hypomagnesemia; E03.9 Hypothyroidism, unspecified; K21.9 Gastro-esophageal reflux disease without esophagitis; M21.952 Unspecified acquired deformity of left thigh; E78.00 Pure hypercholesterolemia, unspecified; I49.9 Cardiac arrhythmia, unspecified; R53.1 Weakness; L30.9 Dermatitis, unspecified; R00.1 Bradycardia, unspecified; R13.10 Dysphagia, unspecified; Z86.73 Personal history of transient ischemic attack (TIA), and cerebral infarction without residual deficits
CPT/HCPCS: 36415; 51702; 70450; 70496; 70498; 71045; 71275; 80048; 80053; 80061; 81000; 83605; 83735; 83880; 84100; 84484; 85007; 85025; 85027; 85379; 85610; 85730; 87040; 87081; 87088; 87804; 93005; 93041; 94640; 94760; 96361; 96365; 96367

== ENCOUNTER 2019-09-24 10:53 | Inpatient (IN) | payer MEDICARE, MEDICAID ==
[~2019-09-24] VITALS: Ht 149.9 cm; Wt 36.0 kg
[~2019-09-24 10:53] MED LIST changes: +ASPI-999 PO; +BACL10TA PO; +ESCI20TA45 PO; +LEVE750T5 PO; +LEVO100T7 PO; +POTA-51 PO
[2019-09-24 11:24] LABS: BASOPHILS % (AUTO) 0 % (0-10); EOSINOPHILS % (AUTO) 1 % (0-10); HEMATOCRIT 33 % (40-54); LYMPHOCYTES # (AUTO) 0.9 X 10^3 (1.0-4.0); LYMPHOCYTES % (AUTO) 22 % (12-44); MEAN CORPUSCULAR HEMOGLOBIN 26 PG (25-34); MEAN CORPUSCULAR HGB CONC 33 G/DL (32-36); MEAN CORPUSCULAR VOLUME 78 FL (80-99); MONOCYTES # (AUTO) 0.5 X 10^3 (0.0-1.0); MONOCYTES % (AUTO) 12 % (0-12); NEUTROPHILS # (AUTO) 2.6 X 10^3 (1.8-7.8); NEUTROPHILS % (AUTO) 65 % (42-75); PLATELET COUNT 112 10^3/uL (130-400); RED CELL DISTRIBUTION WIDTH 16.2 % (10.0-14.5)
[2019-09-24 11:29] LABS: BILIRUBIN,URINE NEGATIVE (NEGATIVE); CLARITY,URINE CLEAR; COLOR,URINE YELLOW; GLUCOSE, URINE (UA) NEGATIVE (NEGATIVE); KETONES,URINE NEGATIVE (NEGATIVE); LEUKOCYTE ESTERASE ,URINE NEGATIVE (NEGATIVE); NITRITE,URINE NEGATIVE (NEGATIVE); PH,URINE 5 (5-9); PROTEIN,URINE NEGATIVE (NEGATIVE)
[2019-09-24 11:30] LABS: INR 1.1 (0.8-1.4); PROTHROMBIN TIME PATIENT 14.8 SEC (12.2-14.7)
--- NOTE | 2019-09-24 11:30 | ED General ---
General Chief Complaint: Dizziness/Syncope Stated Complaint: WEAKNESS Nursing Triage Note: PT TO ROOM 03 VIA EMS WITH C/O SHAKINESS. PT US UNABLE TO VERBALLY RESPOND TO QUESTIONS. Nursing Sepsis Screen: No Definite Risk Source of Information: Patient Exam Limitations: Language Barrier, Physical Impairments History of Present Illness Date Seen by Provider: Sep 24, 2019 Time Seen by Provider: 10:53 Initial Comments Here by EMS with report of shakiness and altered mental status. Patient has history of Down's and severe and severe intellectual disability and is not normally very verbal anyway. Much declined though this morning for her caretakers per EMS report. Does have some cough. No reported fevers although EMS was concerned because he felt hot. O2 sat 88% on room air and improved to 96% on 3 L. EMS initiated 1 L normal saline bolus which is continuing. No report of vomiting or diarrhea. Does have smell of urine Timing/Duration: 12-24 Hours Severity: Moderate Modifying Factors: improves with Other (no aggravating or relieving factors) Associated Systoms: Cough Allergies and Home Medications Allergies Coded Allergies: naproxen (Verified Allergy, Unknown, 09/20/18) Home Medications Aspirin 81 Mg Tab.chew, 81 MG PO DAILY, (Reported) Baclofen 10 Mg Tablet, 5 MG PO HS, (Reported) TAKES 1/2 (10MG) TABLET Escitalopram Oxalate 20 Mg Tablet, 20 MG PO DAILY, (Reported) Levetiracetam 750 Mg Tablet, 750 MG PO BID, (Reported) Levothyroxine Sodium 100 Mcg Tablet, 100 MCG PO DAILY, (Reported) Loratadine 10 Mg Tablet, 10 MG PO DAILY, (Reported) Potassium Chloride 20 Meq Tablet.er, 20 MEQ PO DAILY Prescribed by: TRUONG ATKINSON on 09/25/18 1100 Simethicone 80 Mg Tab.chew, 80 MG PO QID, (Reported) Sucralfate 1 Gm Tablet, 1 GM PO TID, (Reported) Patient Home Medication List Home Medication List Reviewed: Yes Review of Systems Review of Systems Constitutional: see HPI, weakness Respiratory: cough Unable to complete review of systems due to altered mental status and severe intellectual disability. Past Ezdjnxh-Ujligs-Ejebqt Hx Past Med/Social Hx: Reviewed Nursing Past Med/Soc Hx Patient Social History Recent Foreign Travel: No Contact w/Someone Who Travel: No Recent Infectious Disease Expo: No Recent Hopitalizations: No Physical Abuse: No Sexual Abuse: No Mistreated: No Fear: No Immunizations Up To Date Date of Pneumonia Vaccine: Sep 29, 2017 Date of Influenza Vaccine: Nov 06, 2015 Seasonal Allergies Seasonal Allergies: No Past Medical History Surgeries: Yes (2 cyst removed from spine years ago) Eye Surgery Respiratory: No Cardiac: Yes (HYPERLIPIDEMIA) High Cholesterol, Irregular Heartbeat Neurological: Yes (profound mental retardation from Down syndrome and autism) Developmental Disorder, Seizure Disorder, Stroke Reproductive Disorders: No Genitourinary: No Gastrointestinal: Yes Gastroesophageal Reflux, Gastrointestinal Bleed Musculoskeletal: Yes (HIP DEFORMITIES) Endocrine: No Hypothyroidsim HEENT: Yes Cataract Cancer: No Psychosocial: Yes (profound mental retardation from Downs syndrome and autism) Sleep Difficulties Integumentary: Yes (chronic dermatitis) Blood Disorders: No Family Medical History Reviewed Nursing Family Hx Cardiovascular disease 19 FATHER Heart Disease Past history of per records review due to patient with altered mental status and severe intellectual disability. Physical Exam-Suspected Sepsis Physical Exam Vital Signs Vital Signs - First Documented 09/24/19 09/24/19 11:12 11:27 Temp 36.3 Pulse 84 Resp 18 B/P (MAP) 112/76 (88) Pulse Ox 96 O2 Delivery Room Air O2 Flow Rate 2.00 Capillary Refill : Less Than 3 Seconds Blood Pressure Mean: 88 Height, Weight, BMI Height: 5'2.00" Weight: 105lbs. 9.0oz. 47.654223uo; 9.00 BMI Method:Estimated General Appearance: Cachetic, Mild Distress (intermittently shaking), Thin HEENT: PERRL/EOMI, Other (dry mucous membranes) Neck: Non Tender, Supple Respiratory: Crackles (5 basilar), Decreased Breath Sounds Cardiovascular: Regular Rate, Rhythm, No Murmur Gastrointestinal: Non Tender, Soft Back: Normal Inspection, No CVA Tenderness, No Vertebral Tenderness Extremity: Other (somewhat contracted 4 extremities. Does have spontaneous movement of all 4 extremities.) Neurologic/Psychiatric: Other (sleeping/lethargic but arouses somewhat movement. Does localize to pain. Nonverbal. Eyes open to pain.) Skin: warm/dry, pallor Focused Exam Lactate Level 09/24/19 11:00: Lactic Acid Level 1.79 Lactic Acid Level Laboratory Tests Test 09/24/19 11:00 Lactic Acid Level 1.79 MMOL/L (0.50-2.00) Progress/Results/Core Measures Suspected Sepsis Recent Fever Within 48 Hours: No Infection Criteria Present: None New/Unexplained Altered Menta: No Sepsis Screen: No Definite Risk SIRS Temperature: Pulse: 84 Respiratory Rate: 18 Laboratory Tests 09/24/19 11:00: White Blood Count 4.0L Blood Pressure 112 /76 Mean: 88 09/24/19 11:00: Lactic Acid Level 1.79 Laboratory Tests 09/24/19 11:00: Creatinine 1.43H, INR Comment 1.1, Platelet Count 112L, Total Bilirubin 0.2 Results/Orders Lab Results Laboratory Tests Test 09/24/19 11:00 09/24/19 11:06 Range/Units White Blood Count 4.0 L 4.3-11.0 10^3/uL Red Blood Count 4.20 L 4.35-5.85 10^6/uL Hemoglobin 11.0 L 13.3-17.7 G/DL Hematocrit 33 L 40-54 % Mean Corpuscular Volume 78 L 80-99 FL Mean Corpuscular Hemoglobin 26 25-34 PG Mean Corpuscular Hemoglobin Concent 33 32-36 G/DL Red Cell Distribution Width 16.2 H 10.0-14.5 % Platelet Count 112 L 130-400 10^3/uL Mean Platelet Volume 7.4-10.4 FL Neutrophils (%) (Auto) 65 42-75 % Lymphocytes (%) (Auto) 22 12-44 % Monocytes (%) (Auto) 12 0-12 % Eosinophils (%) (Auto) 1 0-10 % Basophils (%) (Auto) 0 0-10 % Neutrophils # (Auto) 2.6 1.8-7.8 X 10^3 Lymphocytes # (Auto) 0.9 L 1.0-4.0 X 10^3 Monocytes # (Auto) 0.5 0.0-1.0 X 10^3 Eosinophils # (Auto) 0.0 0.0-0.3 10^3/uL Basophils # (Auto) 0.0 0.0-0.1 10^3/uL Prothrombin Time 14.8 H 12.2-14.7 SEC INR Comment 1.1 0.8-1.4 Activated Partial Thromboplast Time 43 H 24-35 SEC Sodium Level 137 135-145 MMOL/L Potassium Level 5.6 H 3.6-5.0 MMOL/L Chloride Level 104 98-107 MMOL/L Carbon Dioxide Level 25 21-32 MMOL/L Anion Gap 8 5-14 MMOL/L Blood Urea Nitrogen 21 H 7-18 MG/DL Creatinine 1.43 H 0.60-1.30 MG/DL Estimat Glomerular Filtration Rate 50 BUN/Creatinine Ratio 15 Glucose Level 71 70-105 MG/DL Lactic Acid Level 1.79 0.50-2.00 MMOL/L Calcium Level 8.4 L 8.5-10.1 MG/DL Corrected Calcium 9.5 8.5-10.1 MG/DL Total Bilirubin 0.2 0.1-1.0 MG/DL Aspartate Amino Transf (AST/SGOT) 46 H 5-34 U/L Alanine Aminotransferase (ALT/SGPT) 43 0-55 U/L Alkaline Phosphatase 76 40-136 U/L Total Protein 5.3 L 6.4-8.2 GM/DL Albumin 2.6 L 3.2-4.5 GM/DL Urine Color YELLOW Urine Clarity CLEAR Urine pH 5 5-9 Urine Specific [place] 1.015 L 1.016-1.022 Urine Protein NEGATIVE NEGATIVE Urine Glucose (UA) NEGATIVE NEGATIVE Urine Ketones NEGATIVE NEGATIVE Urine Nitrite NEGATIVE NEGATIVE Urine Bilirubin NEGATIVE NEGATIVE Urine Urobilinogen NORMAL NORMAL MG/DL Urine Leukocyte Esterase NEGATIVE NEGATIVE Urine RBC (Auto) NEGATIVE NEGATIVE Urine RBC NONE /HPF Urine WBC RARE /HPF Urine Crystals PRESENT H /LPF Urine Amorphous Sediment FEW CAMMY URATES H /LPF Urine Bacteria MODERATE H /HPF Urine Casts NONE /LPF Urine Mucus SMALL H /LPF Urine Culture Indicated CULTURE PENDING Micro Results Microbiology 09/24/19 Influenza Types A,B Antigen (AMANDA) - Final, Complete My Orders Orders - CALIXTO MCDONALD MD Cbc With Automated Diff (09/24/19 11:13) Comprehensive Metabolic Panel (09/24/19 11:13) Blood Culture (09/24/19 11:13) Sputum Culture (09/24/19 11:13) Urinalysis (09/24/19 11:13) Urine Culture (09/24/19 11:13) Protime With Inr (09/24/19 11:13) Partial Thromboplastin Time (09/24/19 11:13) Chest 1 View, Ap/Pa Only (09/24/19 11:13) Ed Iv/Invasive Line Start (09/24/19 11:13) Ed Iv/Invasive Line Start (09/24/19 11:13) Vital Signs Adult Sepsis Patie Q15M (09/24/19 11:13) O2 (09/24/19 11:13) Remove Rings In Anticipation O (09/24/19 11:13) Lactic Acid Analyzer (09/24/19 11:13) Straight Cath For Spec.-Adult (09/24/19 11:13) Influenza A And B Antigens (09/24/19 11:32) Ns Iv 500 Ml (Sodium Chloride 0.9%) (09/24/19 12:22) Ns Iv 500 Ml (Sodium Chloride 0.9%) (09/24/19 12:22) Cefepime Injection (Maxipime Injection) (09/24/19 12:45) Medications Given in ED Current Medications Medications Dose Ordered Sig/Ugo Route Start Time Stop Time Status Last Admin Dose Admin Cefepime HCl 1000 mg/Sterile Water 10 ml @ 200 mls/hr ONCE ONCE IV 09/24/19 12:45 09/24/19 12:47 DC 09/24/19 12:58 200 MLS/HR Sodium Chloride 500 ml @ 0 mls/hr Q0M ONCE IV 09/24/19 12:22 09/24/19 12:23 DC 09/24/19 12:26 999 MLS/HR Vital Signs/I&O 09/24/19 09/24/19 11:12 11:27 Temp 36.3 Pulse 84 Resp 18 B/P (MAP) 112/76 (88) Pulse Ox 96 O2 Delivery Room Air Nasal Cannula O2 Flow Rate 2.00 2.00 Capillary Refill : Less Than 3 Seconds Blood Pressure Mean: 88 Progress Note : Progress Note Seen and evaluated. IV by EMS. Labs, blood cultures, lactic acid, chest x-ray and UA via straight catheter ordered. We will complete 1 L normal saline bolus initiated by EMS. Monitor patient. 1220: Patient noted to have left lower lobe pneumonia and is now hypotensive. Apparently today central line and aggressive therapy although we just found out that he has been on hospice for quite some time over the last year but is currently off as he outlived his hospice time. They just reevaluated him for hospice again 3 weeks ago and he was declined. Given this new information, we will hold on central line and try to get a hold of his guardian, Lara Hall, for direction regarding this case. I think patient would have greatest benefit from Comfort Care given his current situation and significance of this and other diseases. 1242: Multiple attempts by myself and staff to contact the patient's guardian have failed. I have discussed the case with Dr. Loaiza, on-call for [facility]. Given his recent hospice status and his underlying medical condition, we will not pursue aggressive measures. Palate consult will be placed. We will go ahead and do fluids and antibiotics and comfort measures but not heroic measures. [facility] staff is in agreement. Cefepime 1 g IV ordered. Admit, inpatient status. Diagnostic Imaging Diagonstic Imaging: Xray Plain Films/CT/US/NM/MRI: chest Comments NAME: TASHA HARGROVE [facility] REC#: [id number] PT STATUS: REG ER : 1960 PHYSICIAN: CALIXTO MCDONALD MD ADMIT DATE: 09/24/19/ER Signed Date of Exam: 09/24/19 CHEST 1 VIEW, AP/PA ONLY INDICATION: Shakiness. FINDINGS: Upright chest shows normal heart size and vascularity. There is a patchy infiltrate in the left lower lobe. There is no effusion or pneumothorax. IMPRESSION: Probable left lower lobe pneumonia which is a change from a study from 09/23/2018. Dictated by: Dictated on workstation # [id number] Dict: 09/24/19 1151 Trans: 09/24/19 1203 Interpreted by: LEXA RENAE MD Electronically signed by: LEXA RENAE MD 09/24/19 1203 Departure Communication (Admissions) Time/Spoke to Admitting Phy: 12:35 Impression Primary Impression: Left lower lobe pneumonia Qualified Codes: J18.1 - Lobar pneumonia, unspecified organism Disposition: ADMITTED INPATIENT Condition: Stable Admissions Decision to Admit Reason: Admit from ER (General) Decision to Admit/Date: Sep 24, 2019 Time/Decision to Admit Time: 12:35 Departure-Patient Inst. Referrals: EDWAR MERRILL (PCP) Primary Care Physician [facility] (Family) Primary Care Physician CALIXTO MCDONALD MD Sep 24, 2019 11:30
[2019-09-24 11:37] LABS: ALBUMIN 2.6 GM/DL (3.2-4.5); BILIRUBIN,TOTAL 0.2 MG/DL (0.1-1.0); CALCIUM 8.4 MG/DL (8.5-10.1); CREATININE SERUM 1.43 MG/DL (0.60-1.30); POTASSIUM 5.6 MMOL/L (3.6-5.0); TOTAL PROTEIN 5.3 GM/DL (6.4-8.2)
[2019-09-24 11:41] LABS: BACTERIA,URINE MODERATE /HPF; WBC,URINE RARE /HPF
[2019-09-24 11:42] LABS: AMORPHOUS SEDIMENT,UR FEW AMOR URATES /LPF
--- NOTE | 2019-09-24 11:55 | Diagnostic Imaging Report ---
INDICATION: Shakiness. FINDINGS: Upright chest shows normal heart size and vascularity. There is a patchy infiltrate in the left lower lobe. There is no effusion or pneumothorax. IMPRESSION: Probable left lower lobe pneumonia which is a change from a study from 09/23/2018. Dictated by: Dictated on workstation # [id number]
[2019-09-24] MEDS ORDERED: NS IV 500 ML 500 ML ONE (12:22)
[2019-09-24] MEDS ORDERED: NS IV 500 ML 500 ML IV ONE (12:22)
[2019-09-24] MEDS ORDERED: CEFEPIME INJECTION 1,000 MG in WATER (STERILE) FOR INJECTION 10 ML IV ONE (12:45)
--- NOTE | 2019-09-24 13:20 | NUR ---
REPORT TAKEN FROM TABITHA MATA AT THIS TIME. THIS RN WILL ASSUME CARE OF THIS PATIENT WHEN HE ARRIVES TO THIS FLOOR.
--- NOTE | 2019-09-24 13:41 | NUR ---
PATIENT TO FLOOR AT THIS TIME VIA CART.
[2019-09-24] MEDS ORDERED: ACETAMINOPHEN 650 MG SUPP (TYLENOL) PR PRN (14:15)
[2019-09-24] MEDS ORDERED: ACETAMINOPHEN 325 MG TABLET PO PRN (14:15)
[2019-09-24] MEDS ORDERED: ONDANSETRON 4 MG/2 ML (SDV) Z0FRAN IVP PRN (14:15)
[2019-09-24 14:22] VITALS: BP 92/55
[2019-09-24] MEDS ORDERED: CATHETER FLUSH 10 ML SYR IV PRN (14:45)
[2019-09-24] MEDS: NS IV 1000 ML 1,000 ML IV SCH (15:10)
[2019-09-24 15:50] VITALS: BP 62/42
[2019-09-24 20:05] VITALS: BP 72/52
[2019-09-24] MEDS: CEFEPIME INJECTION 2,000 MG in WATER (STERILE) FOR INJECTION 20 ML IV SCH (21:26)
--- NOTE | 2019-09-24 22:20 | NUR ---
DR ANN NOTIFIED OF PT NOT VOIDING SINCE ARRIVAL TO MED SURG. BLADDER SCAN HAD SHOWN APPROX [address] ANN ORDERED BONE TO DD.
--- NOTE | 2019-09-24 23:40 | NUR ---
THIS RN WAS NOT ABLE TO INSERT 16 FR BONE ANOTHER RN ATTEMPTED WELL WITH NO SUCCESS. NAME PLATE STAMPER, ELVA NOTIFIED. SHE WAS ABLE TO INSERT 10 FR, 5 CC BALLOON SUCCESSFULLY. STERILE TECHNIQUE USED, PT TOLERATED WELL, URINE FLASH BACK ATTAINED. URINE IS CLEAR, STRAW COLORED.
[2019-09-25] VITALS: BP 82/58
[2019-09-25] MEDS ORDERED: LIDOCAINE UROJET 2% GEL 10 ML PKG TOP ONE (00:45)
[2019-09-25] MEDS: NS IV 1000 ML 1,000 ML IV SCH (03:08)
[2019-09-25 04:00] VITALS: BP 85/53
--- NOTE | 2019-09-25 06:54 | NUR ---
PT APPEARS TO HAVE DECLINED IN THE LAST FEW HOURS. PALLOR IS PALE, LONGER PERIODS OF APNEA PRESENT AND PT NOT RESPONDING TO STAFF WITH CARES. THIS NURSE BASEBALL INSPECTOR AND REPAIRER LEFT MESSAGE ON PERSONALIZED VOICEMAIL OF POA/SISTER, [place] WHITE AND ATTEMPTED TO CALL ROSETTE ROBINS AT [facility] BUT VM WAS NOT PERSONALIZED.
[2019-09-25 08:00] VITALS: BP 106/62
--- NOTE | 2019-09-25 11:16 | History & Physical ---
SUSY LONG,MED STUDENT 09/25/19 1116: HPI History of Present Illness: Mr. Contreras presented to the ED via EMS after a change in mental status and decreased appetite that began yesterday morning. Caregiver is present at bedside and states he is more alert than yesterday and last night and his family states he is at baseline. She states he was previously on hospice until about 1 month ago when they were told he no longer qualified. He has a severe intellectual disability and she states he is typically nonverbal. Source: family, caregiver Exam Limitations: other (intellectual disability, nonverbal) Date seen by provider: Sep 25, 2019 Time Seen by Provider: 10:10 Attending Physician Kofi Loaiza MD PCP Svitlana Wright Consult Date of Admission Sep 24, 2019 at 12:35 Home Medications Home Medications Reviewed patient Home Medication Reconciliation performed by pharmacy medication reconciliations electrical technician instructor and/or nursing. Patients Allergies have been reviewed. Allergies Coded Allergies: naproxen (Verified Allergy, Unknown, 09/20/18) WHR-Kznavo-Vepamz Hx Patient Social History Alcohol Use: Denies Use Recreational Drug Use: No Smoking Status: Never a Smoker 2nd Hand Smoke Exposure: No Recent Foreign Travel: No Contact w/other who traveled: No Recent Hopitalizations: No Recent Infectious Disease Expo: No Immunizations Up To Date Tetanus Booster (TDap): Unknown Date of Pneumonia Vaccine: Sep 29, 2017 Date of Influenza Vaccine: Aug 24, 2019 Past Medical History PMHx: Severe MR Down Syndrome GERD H/O GI bleed Hypothyroidism Hyperlipidemia Family Medical History Significant Family History: Heart Disease Other Significan Family Hx: Past history of per records review due to patient with altered mental status and severe intellectual disability. Family History: Cardiovascular disease 19 FATHER Review of Systems ([facility]) Constitutional: chills; No fever Gastrointestinal: other (decreased appetite ) Genitourinary: decreased output Reviewed Test Results Reviewed Test Results Lab Laboratory Tests 09/24/19 11:00: White Blood Count 4.0L, Red Blood Count 4.20L, Hemoglobin 11.0L, Hematocrit 33L, Mean Corpuscular Volume 78L, Mean Corpuscular Hemoglobin 26, Mean Corpuscular Hemoglobin Concent 33, Red Cell Distribution Width 16.2H, Platelet Count 112L, Mean Platelet Volume , Neutrophils (%) (Auto) 65, Lymphocytes (%) (Auto) 22, Monocytes (%) (Auto) 12, Eosinophils (%) (Auto) 1, Basophils (%) (Auto) 0, Neutrophils # (Auto) 2.6, Lymphocytes # (Auto) 0.9L, Monocytes # (Auto) 0.5, Eosinophils # (Auto) 0.0, Basophils # (Auto) 0.0, Prothrombin Time 14.8H, INR Comment 1.1, Activated Partial Thromboplast Time 43H, Sodium Level 137, Potassium Level 5.6H, Chloride Level 104, Carbon Dioxide Level 25, Anion Gap 8, Blood Urea Nitrogen 21H, Creatinine 1.43H, Estimat Glomerular Filtration Rate 50, BUN/Creatinine Ratio 15, Glucose Level 71, Lactic Acid Level 1.79, Calcium Level 8.4L, Corrected Calcium 9.5, Total Bilirubin 0.2, Aspartate Amino Transf (AST/SGOT) 46H, Alanine Aminotransferase (ALT/SGPT) 43, Alkaline Phosphatase 76, Total Protein 5.3L, Albumin 2.6L 09/24/19 11:06: Urine Color YELLOW, Urine Clarity CLEAR, Urine pH 5, Urine Specific [place] 1.015L, Urine Protein NEGATIVE, Urine Glucose (UA) NEGATIVE, Urine Ketones NEGATIVE, Urine Nitrite NEGATIVE, Urine Bilirubin NEGATIVE, Urine Urobilinogen NORMAL, Urine Leukocyte Esterase NEGATIVE, Urine RBC (Auto) NEGATIVE, Urine RBC NONE, Urine WBC RARE, Urine Crystals PRESENTH, Urine Amorphous Sediment FEW CAMMY URATESH, Urine Bacteria MODERATEH, Urine Casts NONE, Urine Mucus SMALLH, Urine Culture Indicated CULTURE PENDING Microbiology 09/24/19 Influenza Types A,B Antigen (AMANDA) - Final, Complete Radiology CXR: Probable left lower lobe pneumonia which is a change from a study from 09/23/2018. Physical Exam-([facility]) Physical Exam Vital Signs VS - Last 72 Hours, by Label POS 09/24/19 09/24/19 09/24/19 09/24/19 11:12 11:27 13:26 14:22 Temp 36.3 36.3 36.2 Pulse 84 62 64 Resp 18 14 16 B/P (MAP) 112/76 (88) 47/37 (88) 92/55 Pulse Ox 96 93 93 O2 Delivery Room Air Nasal Cannula Nasal Cannula Nasal Cannula O2 Flow Rate 2.00 2.00 2.00 2.00 10/27/09/24/19 09/24/19 09/24/19 15:39 15:50 20:00 20:05 Temp 36.2 35.8 Pulse 85 62 Resp 14 14 B/P (MAP) 62/42 (49) 72/52 (59) Pulse Ox 93 90 97 O2 Delivery Nasal Cannula Nasal Cannula Nasal Cannula Nasal Cannula O2 Flow Rate 2.00 2.00 4.00 4.00 09/25/19 09/25/19 09/25/19 09/25/19 00:00 04:00 08:00 08:00 Temp 35.9 36.1 35.9 Pulse 49 46 54 Resp 14 14 16 B/P (MAP) 82/58 (66) 85/53 (64) 106/62 (77) Pulse Ox 96 94 95 O2 Delivery Nasal Cannula Nasal Cannula Nasal Cannula Nasal Cannula O2 Flow Rate 4.00 4.00 4.00 09/25/19 09/25/19 10:59 12:00 Temp 36.0 Pulse 72 Resp 18 B/P (MAP) 120/50 (73) Pulse Ox 97 O2 Delivery Nasal Cannula Nasal Cannula O2 Flow Rate 2.00 4.00 Capillary Refill : Less Than 3 Seconds General Appearance: no apparent distress, cachetic HEENT: No scleral icterus (R), No scleral icterus (L) Neck: non-tender, supple Respiratory: chest non-tender, no respiratory distress, no accessory muscle use, decreased breath sounds Cardiovascular: regular rate, rhythm, no murmur Peripheral Pulses: 2+ Radial Pulses (R), 2+ Radial Pulses (L) Gastrointestinal: non tender, soft; No guarding, No rebound Extremities: no pedal edema Neurologic/Psychiatric: alert Skin: normal color, warm/dry Assessment/Plan Assessment/Plan Assessment & Plan 59 yo male with altered mental status and LLL pneumonia. Patient is alert and r eturned to baseline Left Lower Lobe Pneumonia Intellectual Disability Continue IVF and IV abx. Blood pressure and heart rate improving Discontinue tong catheter Will consult speech therapy for dysphagia Family would like to continue with a hospice referral at this time Clinical Quality Measures DVT/VTE Risk/Contraindication: Risk Factor Score Per Nursin RFS Level Per Nursing on Admit: 4+=Very High Copy Copies To 1: Svitlana FELIX HOLLY R MD 09/25/19 1553: HPI History of Present Illness: Agree with above, in addition Patient is a nonverbal adult male that lives in a residential. Patient has recently been coughing more with drinks and eating per caregiver. He was recently D/c from hospice because he had not had any progression. Source: family (Sister), caregiver Home Medications Allergies Coded Allergies: naproxen (Verified Allergy, Unknown, 09/20/18) WGZ-Ryhwhf-Hufmjm Hx Past Medical History Non Verbal Adult Family Medical History Family History: Cardiovascular disease 19 FATHER Review of Systems ([facility]) Constitutional: other (Unable to obtain due to mental status) Physical Exam-([facility]) Physical Exam General Appearance: no apparent distress, cachetic, other (Follows with his eyes) Respiratory: no respiratory distress, no accessory muscle use, decreased breath sounds Cardiovascular: normal peripheral pulses, regular rate, rhythm, no murmur Gastrointestinal: non tender, soft Extremities: no pedal edema, no calf tenderness, normal capillary refill Neurologic/Psychiatric: other (Awake and follows with eyes) Skin: normal color, warm/dry Lymphatic: no adenopathy Assessment/Plan Assessment/Plan Admission Status: Inpatient Order (span 2 midnights) Reason for Inpatient Admission: Requiring IV antibiotics and fluids (1) Altered mental status Status: Acute Assessment & Plan: - Seems to be getting to baseline, awake this AM and tracking, D/c ran Qualifiers: Qualified Codes: R41.82 - Altered mental status, unspecified (2) Left lower lobe pneumonia Status: Acute Assessment & Plan: - Continue IV antibiotics, Will transition to PO tomorrow Qualifiers: Qualified Codes: J18.1 - Lobar pneumonia, unspecified organism (3) Dysphagia Status: Chronic Assessment & Plan: - Will get swallow study, patient will likely benefit from thickened liquids Qualifiers: Qualified Codes: R13.10 - Dysphagia, unspecified (4) Nonverbal Status: Chronic Copy Copies To 1: Svitlana FELIX Supervisory-Addendum Brief Verification & Attestation Participated in pt care: history, physical Personally performed: exam, history, supervision of care Care discussed with: Medical Student Procedures: n/a Verification and Attestation of Medical Student E/M Service A medical student performed and documented this service in my presence. I reviewed and verified all information documented by the medical student and made modifications to such information, when appropriate. I personally performed the physical exam and medical decision making. John Hugo, Sep 25, 2019,16:01 SUSY LONG,MED STUDENT Sep 25, 2019 11:16 JOHN DOLAN MD Sep 25, 2019 15:53 POS
[2019-09-25 12:00] VITALS: BP 120/50
--- NOTE | 2019-09-25 13:54 | NUR ---
Palliative Care RN in to see patient. No family present at this time. I called and spoke to his caregiver and she reports that the patient was previously on with [facility] and came off service 1 month ago. They would just like to take him back home with Hospice again. I will talk to doctor and send updated clinical information on this patient to [facility]. I will also call and speak to his Guardian and make sure this is the requested POC.
--- NOTE | 2019-09-25 14:05 | NUR ---
Pastoral care visit. pt asleep no family present.
[2019-09-25] MEDS ORDERED: LEVO75TA6 PO (14:18)
[2019-09-25] MEDS ORDERED: MORP100S3 PO (14:18)
[2019-09-25] MEDS ORDERED: GUAI237L82 PO (14:18)
[2019-09-25] MEDS ORDERED: LORA1TAB PO (14:18)
[2019-09-25] MEDS ORDERED: ACET-2267 PO (14:18)
[2019-09-25] MEDS ORDERED: NPB.9O TP (14:18)
[2019-09-25] MEDS ORDERED: POTA20TA15 PO (14:21)
[2019-09-25] MEDS ORDERED: ESCI10TA55 PO (14:21)
[2019-09-25] MEDS ORDERED: HYOS-19 SL (14:28)
--- NOTE | 2019-09-25 14:30 | NUR ---
ENTERED [facility] REC FROM [facility].
[2019-09-25 15:53] VITALS: BP 125/71
--- NOTE | 2019-09-25 16:23 | ST Dysphagia Evaluation ---
Speech Evaluation-General Medical Diagnosis Altered Mental Status, Suspected Sepsis Onset Date: Sep 25, 2019 Therapy Diagnosis Therapy Diagnosis: Oropharyngeal Dysphagia Precautions Precautions: Aspiration Precautions/Isolations: Aspiration Referral Referring Physician: Dr. Hugo Reason for Referral: Evaluation/Treatment Medical History Pertinent Medical History: GERD, Hypothroidism Social History Home: Current Living Status: Speech PLF/Current-Dysphagia Prior Level of Function Patient lives in an area facility with caregivers. Subjective Patient was compliant with Bedside Dysphagia Evaluation Oral Motor Skills Dentition: Edentalous Ability to Follow Directions: Fair Patient is NPO pending BDE Oral Expression Ability: Unable Face Facial Symmetry: Symmetrical Oral-Facial Assessment Oral-Facial Dentition: Normal Labial Seal Description: Reduced ROM, Weak, Poor Coordination Lingual Protrusion: Abnormal Lingual ROM: Abnormal Lingual Strength: Abnormal Dysphagia Evaluation Consistencies Presented: Thin Liquid, [place] Thick Liquid, Pureed Oral Phase: Reduced Oral Transit Pharyngeal Phase: Reduced Laryngeal Elevation Funct. Velo/Pharyngeal Symptom: Cough After Swallow Dietary Recommendations: Pureed Liquid Recommendations: [place] Consistancy Swallowing Precautions: Alternate Liquids/Solids, Liquids from Spoon, No Straw, Small Bites and Sips, Sitting Upright 90 Degrees, Sitting 90 Degrees 30 Post Intake Dysphagia Evaluation Summary Patient is a 59 year old man with Down's Syndrome. He was admitted to the hospital due altered mental status and suspected sepsis. Patient was given a trial of thin liquids via 1/2 tsp with cough immediate post swallow. [place] consistency liquids at 1/2 tsp x2 without difficulty. Patient presented puree at 1/2 tsp x2 without difficulty. Patient will be placed on a Dysphagia I level of puree with nectar thick liquids. Information written on the white board and provided to his nurse, Yazmin. Barriers to Learning Patient has Down's Syndrome Speech Short Term Goals Short Term Goals Short Term Goals 1) Patient will tolerate least restrictive diet level without s/s of aspiration at 90% or greater. 2) Patient/caregiver will utilize compensatory strategies as trained with 90% or greater given minimal cues. Speech Radar Operator Goals Intermediate Goals Patient will maintain adequate nutrition/hydration via effective swallow function. Speech-Plan Patient/Family Goals Patient/Family Goals: Patient will return to his living environment upon hospital discharge. Treatment Plan Speech Therapy Treatment Plan: Continue Plan of Care Patient will receive skilled dysphagia therapy Treatment Duration: Sep 28, 2019 Frequency: 3 times per week Estimated Hrs Per Day: .25 hour per day Rehab Potential: Guarded Barriers to Learning: Patient has Down's Syndrome Pt/Family Agrees to Plan: Yes Safety Risks/Education Teaching Recipient: Patient, Health Care Proxy Response to Teaching: Unable to Return Demonstration, Unable to Comprehend Education Topics Provided: Safety of oral intake Time Speech Therapy Time In: 16:00 Speech Therapy Time Out: 16:15 Total Billed Time: 15 Billed Treatment Time [address] Sep 25, 2019 16:23 POS
--- NOTE | 2019-09-25 17:00 | NUR ---
BEDSIDE SWALLOW EVAL ORDERED, RECOMMENDED DYSPHAGIA I WITH NECTER THICKENED LIQUIDS, DR GAMBINO NOTIFIED AND ORDER GIVEN.
[2019-09-25] MEDS ORDERED: ENOXAPARIN 30 MG/0.3 ML (LOVENOX) SYR SC SCH (19:00)
[2019-09-25] MEDS ORDERED: PHARMACY TO DOSE SQ SCH (19:00)
[2019-09-25 20:00] VITALS: BP 89/53
[2019-09-25] MEDS: LEVETIRACETAM 500 MG (KEPPRA) TAB PO SCH (20:11)
[2019-09-25] MEDS: CEFEPIME INJECTION 2,000 MG in WATER (STERILE) FOR INJECTION 20 ML IV SCH (20:11)
[2019-09-25] MEDS ORDERED: BACLOFEN 10 MG (LIORESAL) TAB PO SCH (21:00)
[2019-09-25] MEDS ORDERED: NON-FORMULARY MEDICATION 1 EA EA (Levetiracetam 750 MG) PO SCH (21:00)
[2019-09-26 00:36] VITALS: BP 79/62
[2019-09-26] MEDS ORDERED: LEVOTHYROXINE 75 MCG (LEVOTHROID) TABLET PO SCH (06:30)
[2019-09-26 08:00] VITALS: BP 91/50
[2019-09-26] MEDS ORDERED: NON-FORMULARY MEDICATION 1 EA EA (Escitalopram Oxalate 20 MG) PO SCH (09:00)
[2019-09-26] MEDS ORDERED: LORATADINE (CLARITIN) 10 MG TAB PO SCH (09:00)
[2019-09-26] MEDS ORDERED: ASPIRIN 81 MG CHEW (CHILDREN'S ASA) PO SCH (09:00)
[2019-09-26] MEDS: LEVETIRACETAM 500 MG (KEPPRA) TAB PO SCH (09:35)
--- NOTE | 2019-09-26 10:41 | NUR ---
DISCHARGE PLANNING: Patient is scheduled to discharge today to his retirement with the help of [facility] for care. I have spoken with warehouse driver who was at bedside and they are expecting him. They report that there are no needs of equipment unless it is O2, which he does not want to leave on. They ask for diet instructions as far as consistency goes for the liquids and pureed foods. I will send order to [facility] and to [facility] once they are available.
--- NOTE | 2019-09-26 11:50 | Discharge Summary ---
Diagnosis/Chief Complaint Date of Admission Sep 24, 2019 at 12:35 Date of Discharge Discharge Diagnosis Problems/Diagnosis: (1) Altered mental status Assessment & Plan: - Seems to be getting to baseline, awake this AM and tracking, D/c tong Qualifiers: Qualified Codes: R41.82 - Altered mental status, unspecified Status: Acute (2) Left lower lobe pneumonia Assessment & Plan: - Continue IV antibiotics, Will transition to PO tomorrow Qualifiers: Qualified Codes: J18.1 - Lobar pneumonia, unspecified organism Status: Acute (3) Dysphagia Assessment & Plan: - Will get swallow study, patient will likely benefit from thickened liquids Qualifiers: Qualified Codes: R13.10 - Dysphagia, unspecified Status: Chronic (4) Nonverbal Status: Chronic Chief Complaint/HPI Chief Complaint/HPI Agree with above, in addition Patient is a nonverbal adult male that lives in a residential. Patient has recent ly been coughing more with drinks and eating per caregiver. He was recently D/c from hospice because he had not had any progression. Discharge Summary-Simple/Stand Consultations Discharge Physical Examination Allergies: Coded Allergies: naproxen (Verified Allergy, Unknown, 09/20/18) Vitals & I&Os Vital Sign - Last 12Hours Date Time Temp Pulse Resp B/P (MAP) Pulse Ox O2 Delivery O2 Flow Rate FiO2 09/26/19 10:15 36.0 09/26/19 08:00 Nasal Cannula 2.00 09/26/19 08:00 48 16 91/50 (64) 92 l Intake and Output 09/26/19 00:00 Intake Total 1400 ml Output Total 100 ml Balance 1300 ml Hospital Course See final discharge diagnosis. Radiology Reviewed CXR: Probable left lower lobe pneumonia which is a change from a study from 09/23/2018. Discharge Instructions to patient/family Please see electronic discharge instructions given to patient. Discharge Medications Reviewed and agree with Discharge Medication list on patient's Discharge Instruction sheet Clinical Quality Measures DVT/VTE Risk/Contraindication: Risk Factor Score Per Nursin RFS Level Per Nursing on Admit: 4+=Very High JOHN GAMBINO MD Sep 26, 2019 11:50 POS
[2019-09-26] MEDS ORDERED: TAMS0.4C98 PO (11:52)
--- NOTE | 2019-09-26 11:53 | Discharge Instructions ---
Discharge [facility] Reconcile Patient Problems Problems Reviewed?: Yes Discharge Medications New, Converted or Re-Newed RX: Transmitted to Pharmacy New Medications: Tamsulosin HCl (Flomax) 0.4 Mg Cap 0.4 MG PO DAILY@1800 for 30 Days, #30 CAP Continued Medications: Acetaminophen (Tylenol Extra Strength) 500 Mg Tablet 500 MG PO TID PRN for PAIN-MILD OR TEMPATURE, TAB USE FOR PAIN OR IF FEVER >100.0 Aspirin (Aspirin) 81 Mg Tab.chew 81 MG PO DAILY, TAB Baclofen (Baclofen) 10 Mg Tablet 5 MG PO HS, TAB TAKES 1/2 (10MG) TABLET Escitalopram Oxalate (Escitalopram Oxalate) 10 Mg Tablet 20 MG PO DAILY, TAB Guaifenesin/Dextromethorphan (Robitussin Cough-Chest Dm Liq) 237 Ml Liquid 20 ML PO Q4H PRN for COUGH, EA USE PER PACKAGE DIRECTIONS Hyoscyamine Sulfate (Hyoscyamine Sulfate) 0.125 Mg Tab.subl 0.125 MG SL Q6H PRN for SECRETIONS, TAB Levetiracetam (Levetiracetam) 750 Mg Tablet 750 MG PO BID, TAB Levothyroxine Sodium (Levothyroxine Sodium) 75 Mcg Tablet 75 MCG PO DAILY Loratadine (Loratadine) 10 Mg Tablet 10 MG PO DAILY, TAB Lorazepam (Lorazepam) 1 Mg Tablet 1 MG PO Q4H PRN for AIR HUNGER, TAB PRN AIR HUNGER/ANXIETY Morphine Sulfate (Morphine Conc. 20mg/ml) 100 Mg/5 Ml Solution 0.25 ML PO Q4H PRN for PAIN-SEVERE FOR PAIN OR/ AND AIR HUNGER Neomycin/Polymyxin/Bacitracin (Triple Antibiotic Ointment) 0.9 Gm Oint 1 APPLIC TP UD PRN for WOUNDS, TUBE Potassium Chloride (Potassium Chloride) 20 Meq Tab.er.prt 20 MEQ PO DAILY, TAB Simethicone (Simethicone) 80 Mg Tab.chew 80 MG PO QID, TAB Sucralfate (Sucralfate) 1 Gm Tablet 1 GM PO TIDAC, TAB TAKE 30-60 MINS PRIOR TO MEAL Activity & Diet Discharge Diet: Other Diet (Honey Rainbow thickened Liquids) JOHN GAMBINO MD Sep 26, 2019 11:53 POS
--- NOTE | 2019-09-26 13:59 | NUR ---
THIS RN TRIED SEVERAL TIMES TO CALL [facility] TO GIVE REPORT -- RANG AND RANG AND WENT TO ANSWERING AND THAT BOX WAS FULL -- PALLIATIVE CARE RN WILL AND GIVE THEM REPORT
[2019-09-26 14:20] VITALS: BP 91/50
[2019-09-26] MEDS ORDERED: TAMSULOSIN 0.4 MG (FLOMAX) CAP PO SCH (18:00)
== END 2019-09-26 14:20 | disposition hospice, home (50) | DRG 194 ==
LOC: EDUNIT# 10:53 → ER 10:54 → 4TH 12:35
PROVIDERS: ADMIT Internal Medicine; ATTEND Internal Medicine
DX: J18.1 Lobar pneumonia, unspecified organism (principal); R41.82 Altered mental status, unspecified; R64 Cachexia; Q90.2 Trisomy 21, translocation; F73 Profound intellectual disabilities; F84.0 Autistic disorder; R13.12 Dysphagia, oropharyngeal phase; Z66 Do not resuscitate; G40.909 Epilepsy, unspecified, not intractable, without status epilepticus; R63.0 Anorexia; E78.00 Pure hypercholesterolemia, unspecified; G47.9 Sleep disorder, unspecified; E03.9 Hypothyroidism, unspecified; K21.9 Gastro-esophageal reflux disease without esophagitis; Z86.73 Personal history of transient ischemic attack (TIA), and cerebral infarction without residual deficits
CPT/HCPCS: 36415; 51701; 71045; 80053; 81000; 83605; 85025; 85610; 85730; 87040; 87088; 87804; 96361; 96374